=== PATIENT | female | born 1950 | race Caucasian/White ===

== ENCOUNTER 2018-09-19 17:22 | Inpatient (IN) | payer MEDICARE ==
[2018-09-19] MEDS ORDERED: SODIUM CHLORIDE 0.9% 1,000 ML IV STA (18:01)
--- NOTE | 2018-09-19 18:04 | ED ---
General Adult HPI - General Source: patient, RN notes reviewed Mode of arrival: ambulatory Limitations: no limitations <João Avalos - Last Filed: 09/19/18 20:00> <Juan Jose Camilo - Last Filed: 09/19/18 21:16> - General Chief complaint: Abdominal Pain Stated complaint: Stomach pain Time Seen by Provider: 09/19/18 17:44 - History of Present Illness Initial comments: Patient 67-year-old female presented to the emergency room today with chief complaint of abdominal pain over the last 3 days. Patient does admit that the pain seems to come and go. She states worse after she eats. She states located on the sides of the abdomen was sometimes feeling some pain into the back. Patient states that she has had an episode of vomiting a few days ago. States no bowel movement past 3 days. Patient denies any other complaints or symptoms currently. Patient denies any recent fever, chills, shortness of breath , chest pain, numbness or tingling, dysuria or hematuria, headaches or visual changes, or any other complaints. (João Avalos) - Related Data Home Medications Medication Instructions Recorded Confirmed Omeprazole 20 mg PO DAILY 09/19/18 09/19/18 Allergies Allergy/AdvReac Type Severity Reaction Status Date / Time No Known Allergies Allergy Verified 09/19/18 19:53 Review of Systems ROS Other: All systems not noted in ROS Statement are negative. <João Avalos - Last Filed: 09/19/18 20:00> ROS Other: All systems not noted in ROS Statement are negative. <Juan Jose Camilo - Last Filed: 09/19/18 21:16> ROS Statement: Those systems with pertinent positive or pertinent negative responses have been documented in the HPI. Past Medical History Past Medical History: GERD/Reflux History of Any Multi-Drug Resistant Organisms: None Reported Past Surgical History: Tubal Ligation Past Psychological History: No Psychological Hx Reported Smoking Status: Current every day smoker Past Alcohol Use History: None Reported Past Drug Use History: None Reported <João Avalos - Last Filed: 09/19/18 20:00> General Exam Limitations: no limitations <João Avalos - Last Filed: 09/19/18 20:00> <Juan Jose Camilo - Last Filed: 09/19/18 21:16> - General Exam Comments Initial Comments: General: The patient is awake and alert, in no distress, and does not appear acutely ill. Eye: Pupils are equal, round and reactive to light. Extra-ocular movements are intact. No nystagmus. There is normal conjunctiva bilaterally. No signs of icterus. Ears, nose, mouth and throat: There are moist mucous membranes and no oral lesions. Neck: The neck is supple, there is no tenderness or JVD. Cardiovascular: There is a regular rate and rhythm. No murmur, rub or gallop is appreciated. Respiratory: Lungs are clear to auscultation, respirations are non-labored, breath sounds are equal. No wheezes, stridor, rales, or rhonchi. Gastrointestinal: Soft on palpation. Patient does have tenderness right upper quadrant. No rebound, guarding or CVA tenderness. Musculoskeletal: Normal ROM, no tenderness. Sensation intact. Strength 5/5. Pulses equal bilaterally 2+. Neurological: A&O x 3. CN II-XII intact, There are no obvious motor or sensory deficits. Coordination appears grossly intact. Speech is normal. Skin: Skin is warm and dry and no rashes or lesions are noted. Psychiatric: Cooperative, appropriate mood & affect, normal judgment. (João Avalos) Course <João Avalos - Last Filed: 09/19/18 20:00> <Juan Jose Camilo - Last Filed: 09/19/18 21:16> Vital Signs 09/19/18 09/19/18 17:34 20:39 Temperature 98.1 F Pulse Rate 94 71 Respiratory 16 16 Rate Blood Pressure 135/88 137/65 O2 Sat by Pulse 98 96 Oximetry - Reevaluation(s) Reevaluation #1: 09/19/18 21:15 I was asked to enter replacement ordered for this patient, I had no other participation in this case. (Juan Jose Camilo) EKG Findings - EKG Comments: EKG Findings:: EKG performed at 1818: Shows normal sinus rhythm at 75 bpm. MI interval 138. QRS 86. QT/QTC 378/422. No. acute ST changes <João Avalos - Last Filed: 09/19/18 20:00> Medical Decision Making - Lab Data Result diagrams: 09/19/18 18:04 09/19/18 18:04 <João Avalos - Last Filed: 09/19/18 20:00> - Lab Data Result diagrams: 09/19/18 18:04 09/19/18 18:04 <Juan Jose Camilo - Last Filed: 09/19/18 21:16> - Medical Decision Making Patient's labs been reviewed shows 1000 white count. Urinalysis shows evidence for urinary tract infection. Ultrasound of the gallbladder is consistent with possible cholecystitis. Patient started on antibiotics in the emergency room discussed with attending physician Dr. Mccarthy who discussed case with admitting physician Dr. Lucas. (João Avalos) - Lab Data Lab Results 09/19/18 09/19/18 09/19/18 Range/Units 18:04 18:04 18:04 WBC 11.3 H (3.8-10.6) k/uL RBC 4.94 (3.80-5.40) m/uL Hgb 15.0 (11.4-16.0) gm/dL Hct 45.0 (34.0-46.0) % MCV 91.2 (80.0-100.0) fL MCH 30.4 (25.0-35.0) pg MCHC 33.3 (31.0-37.0) g/dL RDW 12.8 (11.5-15.5) % Plt Count 240 (150-450) k/uL Neutrophils % 80 % Lymphocytes % 10 % Monocytes % 6 % Eosinophils % 2 % Basophils % 0 % Neutrophils # 9.0 H (1.3-7.7) k/uL Lymphocytes # 1.2 (1.0-4.8) k/uL Monocytes # 0.7 (0-1.0) k/uL Eosinophils # 0.2 (0-0.7) k/uL Basophils # 0.0 (0-0.2) k/uL Sodium 136 L (137-145) mmol/L Potassium 4.1 (3.5-5.1) mmol/L Chloride 100 (98-107) mmol/L Carbon Dioxide 27 (22-30) mmol/L Anion Gap 9 mmol/L BUN 20 H (7-17) mg/dL Creatinine 0.93 (0.52-1.04) mg/dL Est GFR (CKD-EPI)AfAm 74 (>60 ml/min/1.73 sqM) Est GFR (CKD-EPI)NonAf 64 (>60 ml/min/1.73 sqM) Glucose 114 H (74-99) mg/dL Calcium 9.4 (8.4-10.2) mg/dL Total Bilirubin 0.6 (0.2-1.3) mg/dL AST 19 (14-36) U/L ALT 15 (9-52) U/L Alkaline Phosphatase 108 (38-126) U/L Total Creatine Kinase 40 (30-135) U/L CK-MB (CK-2) 0.7 (0.0-2.4) ng/mL CK-MB (CK-2) Rel Index 1.8 Troponin I <0.012 (0.000-0.034) ng/mL Total Protein 7.7 (6.3-8.2) g/dL Albumin 4.0 (3.5-5.0) g/dL Amylase 60 (30-110) U/L Lipase 67 (23-300) U/L Urine Color Urine Appearance (Clear) Urine pH (5.0-8.0) Ur Specific [place] (1.001-1.035) Urine Protein (Negative) Urine Glucose (UA) (Negative) Urine Ketones (Negative) Urine Blood (Negative) Urine Nitrite (Negative) Urine Bilirubin (Negative) Urine Urobilinogen (<2.0) mg/dL Ur Leukocyte Esterase (Negative) Urine RBC (0-5) /hpf Urine WBC (0-5) /hpf Urine WBC Clumps (None) /hpf Ur Squamous Epith Cells (0-4) /hpf Urine Bacteria (None) /hpf Urine Mucus (None) /hpf 09/19/18 Range/Units 18:04 WBC (3.8-10.6) k/uL RBC (3.80-5.40) m/uL Hgb (11.4-16.0) gm/dL Hct (34.0-46.0) % MCV (80.0-100.0) fL MCH (25.0-35.0) pg MCHC (31.0-37.0) g/dL RDW (11.5-15.5) % Plt Count (150-450) k/uL Neutrophils % % Lymphocytes % % Monocytes % % Eosinophils % % Basophils % % Neutrophils # (1.3-7.7) k/uL Lymphocytes # (1.0-4.8) k/uL Monocytes # (0-1.0) k/uL Eosinophils # (0-0.7) k/uL Basophils # (0-0.2) k/uL Sodium (137-145) mmol/L Potassium (3.5-5.1) mmol/L Chloride (98-107) mmol/L Carbon Dioxide (22-30) mmol/L Anion Gap mmol/L BUN (7-17) mg/dL Creatinine (0.52-1.04) mg/dL Est GFR (CKD-EPI)AfAm (>60 ml/min/1.73 sqM) Est GFR (CKD-EPI)NonAf (>60 ml/min/1.73 sqM) Glucose (74-99) mg/dL Calcium (8.4-10.2) mg/dL Total Bilirubin (0.2-1.3) mg/dL AST (14-36) U/L ALT (9-52) U/L Alkaline Phosphatase (38-126) U/L Total Creatine Kinase (30-135) U/L CK-MB (CK-2) (0.0-2.4) ng/mL CK-MB (CK-2) Rel Index Troponin I (0.000-0.034) ng/mL Total Protein (6.3-8.2) g/dL Albumin (3.5-5.0) g/dL Amylase (30-110) U/L Lipase (23-300) U/L Urine Color Light Yellow Urine Appearance Cloudy H (Clear) Urine pH 5.0 (5.0-8.0) Ur Specific [place] 1.008 (1.001-1.035) Urine Protein Negative (Negative) Urine Glucose (UA) Negative (Negative) Urine Ketones Negative (Negative) Urine Blood Negative (Negative) Urine Nitrite Negative (Negative) Urine Bilirubin Negative (Negative) Urine Urobilinogen <2.0 (<2.0) mg/dL Ur Leukocyte Esterase Large H (Negative) Urine RBC 2 (0-5) /hpf Urine WBC 115 H (0-5) /hpf Urine WBC Clumps Rare H (None) /hpf Ur Squamous Epith Cells <1 (0-4) /hpf Urine Bacteria Moderate H (None) /hpf Urine Mucus Rare H (None) /hpf Disposition Is patient prescribed a controlled substance at d/c from ED?: No Time of Disposition: 20:02 <João Avalos - Last Filed: 09/19/18 20:00> <Juan Jose Camilo - Last Filed: 09/19/18 21:16> Clinical Impression: Cholecystitis, UTI (urinary tract infection) Disposition: ADMITTED IP TO THIS HOSP Condition: Stable Referrals: None,Stated [Primary Care Provider] - 1-2 days
[2018-09-19] MEDS ORDERED: ACETAMINOPHEN IV (For NPO) 1,000 MG in EMPTY BAG 1 BAG IVPB STA (18:06)
[2018-09-19 18:24] LABS: Basophils % (A) 0 %; Eosinophils # (A) 0.2 k/uL (0-0.7); Eosinophils % (A) 2 %; Lymphocytes # (A) 1.2 k/uL (1.0-4.8); Lymphocytes % (A) 10 %; MCH 30.4 pg (25.0-35.0); MCHC 33.3 g/dL (31.0-37.0); MCV 91.2 fL (80.0-100.0); Monocytes # (A) 0.7 k/uL (0-1.0); Monocytes % (A) 6 %; Neutrophils % (A) 80 %; Platelet Count 240 k/uL (150-450); RBC 4.94 m/uL (3.80-5.40); RDW 12.8 % (11.5-15.5); WBC 11.3 k/uL (3.8-10.6)
[2018-09-19 18:34] LABS: Creatine Kinase 40 U/L (30-135)
[2018-09-19 18:36] LABS: Calcium 9.4 mg/dL (8.4-10.2); Potassium 4.1 mmol/L (3.5-5.1); Total Bilirubin 0.6 mg/dL (0.2-1.3); Total Protein 7.7 g/dL (6.3-8.2)
[2018-09-19 18:37] LABS: Appearance,Urine Cloudy (Clear); Bacteria,Urine Moderate /hpf; Bilirubin,Urine Negative (Negative); Blood,Urine Negative (Negative); Color,Urine Light Yellow; Glucose,Urine (UA) Negative (Negative); Ketones,Urine Negative (Negative); Leukocyte Esterase,Urine Large (Negative); Mucus,Urine Rare /hpf; Nitrite,Urine Negative (Negative); Protein,Urine Negative (Negative); RBC,Urine 2 /hpf (0-5); Specific Gravity,Urine 1.008 (1.001-1.035); Squamous Epithelial Cell,Urine <1 /hpf (0-4); Urobilinogen,Urine <2.0 mg/dL (<2.0)
[2018-09-19 18:48] LABS: Creatine Kinase MB 0.7 ng/mL (0.0-2.4); Troponin I <0.012 ng/mL (0.000-0.034)
--- NOTE | 2018-09-19 19:48 | US ---
EXAMINATION TYPE: US abdomen limited DATE OF EXAM: 09/19/2018 COMPARISON: NONE CLINICAL HISTORY: Pain. RUQ pain. EXAM MEASUREMENTS: Liver Length: 19.8 cm Gallbladder Wall: 0.7 cm CBD: 0.7 cm Right Kidney 9.3 x 4.1 x 4.0 cm Pancreas: Obscured by bowel gas slightly echogenic. Liver: Hepatomegaly. Gallbladder: Hydropic 11.2cm multiple gallstones seen with thickened wall. Evidence for sonographic Gil's sign: No CBD: wnl Right Kidney: No hydronephrosis or masses seen IMPRESSION: There are numerous gallstones. 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 No free fluid.
[2018-09-19] MEDS ORDERED: AMPICILLIN-SULBACTAM 3 GM in SODIUM CHLORIDE 0.9% 100 ML IVPB STA (20:00)
[2018-09-19] MEDS ORDERED: NALOXONE 0.4 MG/ML 1 ML VIAL IV PRN (20:02)
[2018-09-19 23:19] VITALS: BMI 28.6
[2018-09-20] MEDS: AMPICILLIN-SULBACTAM 3 GM in SODIUM CHLORIDE 0.9% 100 ML IVPB SCH ×4 (03:08→21:10)
--- NOTE | 2018-09-20 09:35 | P.GSHP ---
<Linda Aguayo - Last Filed: 09/20/18 09:26> History of Present Illness H&P Date: 09/20/18 Chief Complaint: Bilateral abdominal pain 67-year-old female started 3 days prior with nausea vomiting. Patient stated that the pain sometimes would radiate into the back. Noted that if she ate something the pain became worse. Patient points to the bilateral lower quadrant of the abdomen is to the reference point. Patient denies chest pain dizziness lightheadedness or shortness of breath. Denies any burning in urination frequency or urgency. Has no significant past medical history uses [id number] Pepcid for esophageal reflux symptoms. Past surgical history tubal ligation Gives a history of mother having gallbladder disease Ultrasound of the abdomen obtained in the emergency room showed numerous gallstones. Gallbladder wall thickening consistent with acute and chronic cholecystitis no free air white count on admission 11.3. AST ALT and total bilirubin not elevated urinalysis large amount of leukocytes - Review of Systems Comment: essentially unremarkable except as mentioned in the present illness Past Medical History Past Medical History: GERD/Reflux History of Any Multi-Drug Resistant Organisms: None Reported Past Surgical History: Tubal Ligation Past Anesthesia/Blood Transfusion Reactions: No Reported Reaction Past Psychological History: No Psychological Hx Reported Smoking Status: Current every day smoker Past Alcohol Use History: None Reported Additional Past Alcohol Use History / Comment(s): smokes half ppd Past Drug Use History: None Reported - Past Family History Sister(s) Family Medical History: Cancer, Deep Vein Thrombosis (DVT) Additional Family Medical History / Comment(s): lung ca Mother Family Medical History: COPD, Osteoarthritis (OA) Medications and Allergies Home Medications Medication Instructions Recorded Confirmed Type Omeprazole 20 mg PO DAILY 09/19/18 09/19/18 History Allergies Allergy/AdvReac Type Severity Reaction Status Date / Time No Known Allergies Allergy Verified 09/19/18 23:19 Surgical - Exam Vital Signs Temp Pulse Resp BP Pulse Ox 98.1 F 94 16 135/88 98 09/19/18 17:34 09/19/18 17:34 09/19/18 17:34 09/19/18 17:34 09/19/18 17:34 GENERAL APPEARANCE: Pleasant 67-year-old female patient is alert, oriented, in no acute distress. VITAL SIGNS: Reviewed HEENT: Head is normocephalic and atraumatic. Pupils are equal and reactive. The nares are patent. Oropharynx is clear without lesions. NECK: Supple without lymphadenopathy. Traches midline. HEART: S1, S2. Regular rate and rhythm. Denying chest pain no murmur noted LUNGS: No crackles or wheezes are heard. On room air no shortness of breath no cough ABDOMEN: Soft, mild tenderness to the right upper quadrant of the abdomen nondistended with good bowel sounds. No peritoneal signs. No palpable organomegaly or masses. Reports no nausea no vomiting no burning on urination EXTREMITIES: Normal skin color and turgor. No cyanosis, rash, ulceration, clubbing or edema. Radial pedal pulses are 2/4 bilaterally. NEUROLOGICAL: No focal deficits. Strength and sensation are grossly intact. Results - Labs 09/19/18 18:04 09/19/18 18:04 Abnormal Lab Results - Last 24 Hours (Table) 09/19/18 09/19/18 09/19/18 Range/Units 18:04 18:04 18:04 WBC 11.3 H (3.8-10.6) k/uL Neutrophils # 9.0 H (1.3-7.7) k/uL Sodium 136 L (137-145) mmol/L BUN 20 H (7-17) mg/dL Glucose 114 H (74-99) mg/dL Urine Appearance Cloudy H (Clear) Ur Leukocyte Esterase Large H (Negative) Urine WBC 115 H (0-5) /hpf Urine WBC Clumps Rare H (None) /hpf Urine Bacteria Moderate H (None) /hpf Urine Mucus Rare H (None) /hpf Microbiology - Last 24 Hours (Table) 09/19/18 18:04 Urine Culture - Preliminary Urine,Voided Diabetes panel 09/19/18 Range/Units 18:04 Sodium 136 L (137-145) mmol/L Potassium 4.1 (3.5-5.1) mmol/L Chloride 100 (98-107) mmol/L Carbon Dioxide 27 (22-30) mmol/L BUN 20 H (7-17) mg/dL Creatinine 0.93 (0.52-1.04) mg/dL Glucose 114 H (74-99) mg/dL Calcium 9.4 (8.4-10.2) mg/dL AST 19 (14-36) U/L ALT 15 (9-52) U/L Alkaline Phosphatase 108 (38-126) U/L Total Protein 7.7 (6.3-8.2) g/dL Albumin 4.0 (3.5-5.0) g/dL Calcium panel 09/19/18 Range/Units 18:04 Calcium 9.4 (8.4-10.2) mg/dL Albumin 4.0 (3.5-5.0) g/dL Pituitary panel 09/19/18 Range/Units 18:04 Sodium 136 L (137-145) mmol/L Potassium 4.1 (3.5-5.1) mmol/L Chloride 100 (98-107) mmol/L Carbon Dioxide 27 (22-30) mmol/L BUN 20 H (7-17) mg/dL Creatinine 0.93 (0.52-1.04) mg/dL Glucose 114 H (74-99) mg/dL Calcium 9.4 (8.4-10.2) mg/dL Adrenal panel 09/19/18 Range/Units 18:04 Sodium 136 L (137-145) mmol/L Potassium 4.1 (3.5-5.1) mmol/L Chloride 100 (98-107) mmol/L Carbon Dioxide 27 (22-30) mmol/L BUN 20 H (7-17) mg/dL Creatinine 0.93 (0.52-1.04) mg/dL Glucose 114 H (74-99) mg/dL Calcium 9.4 (8.4-10.2) mg/dL Total Bilirubin 0.6 (0.2-1.3) mg/dL AST 19 (14-36) U/L ALT 15 (9-52) U/L Alkaline Phosphatase 108 (38-126) U/L Total Protein 7.7 (6.3-8.2) g/dL Albumin 4.0 (3.5-5.0) g/dL Assessment and Plan Assessment: Impression Present on admission bilateral lower quadrant abdominal pain right greater than the left suspect due to acute cholecystitis Present on admission leukocytosis Present on admission UTI asymptomatic Ultrasound of the abdomen numerous gallstones, gallbladder wall thickening consistent with acute and chronic cholecystitis Current every day smoker History of esophageal reflux Family history of gallbladder disease mother Plan Scheduled today for a lap cholecystectomy IV fluid for hydration DVT and GI prophylaxis Follow up on urine culture Continue IV Unasyn as ordered Pain control Further recommendations pending clinical course The above impression and plan of care have been discussed and directed by signing physician. Linda Aguayo nurse practitioner acting as scribe for signing physician. <Winston Lucas - Last Filed: 09/21/18 13:29> Surgical - Exam Vital Signs Temp Pulse Resp BP Pulse Ox 98.1 F 94 16 135/88 98 09/19/18 17:34 09/19/18 17:34 09/19/18 17:34 09/19/18 17:34 09/19/18 17:34 Results - Labs 09/20/18 09:25 09/20/18 09:25 Microbiology - Last 24 Hours (Table) 09/19/18 18:04 Urine Culture - Preliminary Urine,Voided Gram Neg Bacilli Assessment and Plan Plan: Laparoscopic cholecystectomy will be performed on 09/21/2018
[2018-09-20 09:52] LABS: Basophils % (A) 1 %; Eosinophils # (A) 0.3 k/uL (0-0.7); Eosinophils % (A) 4 %; HCT 42.5 % (34.0-46.0); HGB 13.6 gm/dL (11.4-16.0); Lymphocytes # (A) 1.1 k/uL (1.0-4.8); Lymphocytes % (A) 16 %; MCH 29.8 pg (25.0-35.0); MCHC 32.1 g/dL (31.0-37.0); MCV 92.7 fL (80.0-100.0); Mean Platelet Volume 6.9; Monocytes # (A) 0.5 k/uL (0-1.0); Monocytes % (A) 7 %; Neutrophils # (A) 5.2 k/uL (1.3-7.7); Neutrophils % (A) 71 %; Platelet Count 229 k/uL (150-450); RBC 4.59 m/uL (3.80-5.40); RDW 12.8 % (11.5-15.5); WBC 7.3 k/uL (3.8-10.6)
[2018-09-20 10:02] LABS: Albumin 3.2 g/dL (3.5-5.0); Potassium 4.2 mmol/L (3.5-5.1); Total Bilirubin 0.9 mg/dL (0.2-1.3); Total Protein 6.5 g/dL (6.3-8.2)
[2018-09-20] MEDS: MORPHINE SULFATE 4 MG/ML SYRINGE IV PRN (16:21)
[2018-09-20] MEDS: ONDANSETRON 4 MG/2 ML VIAL IVP PRN (23:01)
[2018-09-21] MEDS: AMPICILLIN-SULBACTAM 3 GM in SODIUM CHLORIDE 0.9% 100 ML IVPB SCH ×4 (03:51→20:53)
[2018-09-21] MEDS: MORPHINE SULFATE 4 MG/ML SYRINGE IV PRN (03:57)
[2018-09-21] MEDS ORDERED: DEXAMETHASONE SOD PHOSPHATE 10 MG/ML 1 ML VIAL IV ONE (05:37)
[2018-09-21] MEDS ORDERED: SCOPOLAMINE 1.5MG/72HR PATCH TRANSDERM ONE (05:37)
[2018-09-21] MEDS ORDERED: LIDOCAINE 1% 20 ML VIAL (10MG/ML) FOR IV START INTRADERMA PRN (05:37)
[2018-09-21] MEDS ORDERED: ONDANSETRON 4 MG/2 ML VIAL IVP ONE (05:37)
[2018-09-21] MEDS ORDERED: HYDROmorphone 0.5 MG/0.5 ML SYRINGE IVP PRN (05:37)
[2018-09-21] MEDS ORDERED: IV FLUID CONTINUATION 900 ML IV ONE (13:09)
[2018-09-21] MEDS ORDERED: BUPIVACAIN-EPI 0.25%-1:200,000 30 ML VIAL SQ ONE ×2 (13:27→14:05)
[2018-09-21] MEDS ORDERED: HEPARIN SODIUM,PORCINE 5,000 UNIT/ML 1 ML VIAL SQ ONE (13:36)
[2018-09-21] MEDS ORDERED: LIDOCAINE 1% INJ 10MG/ML (20 ML MDV) ONE (13:46)
[2018-09-21] MEDS ORDERED: fentaNYL (PF) 50 MCG/ML 2 ML AMP ONE (13:46)
[2018-09-21] MEDS ORDERED: MIDAZOLAM 2 MG/2 ML VIAL ONE (13:46)
[2018-09-21] MEDS ORDERED: GLYCOPYRROLATE 0.2 MG/ML 2 ML VIAL ONE (13:46)
[2018-09-21] MEDS ORDERED: NEOSTIGMINE 1 MG/ML 10 ML VIAL ONE (13:46)
[2018-09-21] MEDS ORDERED: SUCCINYLCHOLINE CHLORIDE 100 MG/5 ML SYR IV ONE (13:46)
[2018-09-21] MEDS ORDERED: KETOROLAC 30 MG/ML 1 ML VIAL ONE (13:46)
[2018-09-21] MEDS ORDERED: PROPOFOL 10 MG/ML 20 ML VIAL IV ONE (13:46)
[2018-09-21] MEDS ORDERED: ROCURONIUM BROMIDE 10 MG/ML 10 ML VIAL IV ONE (13:46)
[2018-09-21] MEDS ORDERED: HYDROmorphone 1 MG/ML 1 ML SYRINGE IVP PRN (14:47)
[2018-09-21] MEDS: ONDANSETRON 4 MG/2 ML VIAL IVP PRN (14:53)
[2018-09-21] MEDS ORDERED: PROMETHAZINE INJ 25 MG/ML 1 ML VIAL IVPB ONE (15:07)
[2018-09-21] MEDS: LACTATED RINGERS 1,000 ML IV SCH (16:19)
--- NOTE | 2018-09-21 17:37 | P.OP ---
Date of Procedure: 09/21/18 Preoperative Diagnosis: Cholecystitis Postoperative Diagnosis: Cholecystitis Cholelithiasis Procedure(s) Performed: Laparoscopic cholecystectomy Anesthesia: SARINA Surgeon: Winston Lucas Estimated Blood Loss (ml): 5 Pathology: other (Gallbladder) Condition: stable Disposition: PACU Description of Procedure: The patient was placed on the operating table. The patient received a general endotracheal tube anesthesia. The patients abdomen was prepped and draped in the usual sterile fashion. Through an infraumbilical stab incision, the fascia of the anterior abdominal wall was grasped with a pair of Kochers and then the Veress needle was placed in the peritoneal cavity. Position of the Veress needle was confirmed with positive drop test. The abdomen was then insufflated. After adequate insufflation, the 10 mm trocar was placed in the peritoneal cavity. Following this the laparoscope was placed in the peritoneal cavity. The patient was placed in the head-up, right side up position and then a 5 mm trocar was placed in the right lateral and right subcostal position under direct visualization. A 8 mm trocar was placed in the epigastric position. The gallbladder was grasped in the fundus and infundibulum. Traction on the gallbladder was placed in the lateral and the cephalad positions. The triangle of Calot was visualized.. The cystic duct was bluntly dissected until the union of the cystic duct and common bile duct was seen. The cystic duct was then divided and sealed with the Harmonic scissors. A PDS Endoloop was then placed throughout the cystic duct stump. The cystic artery divided and sealed with the Harmonic scissors. The gallbladder was then removed from the liver bed using Harmonic scissors. The gallbladder was then extracted through the epigastric port site. Operative field was checked for any bleeding spots and Harmonic scissors was used to coagulate the liver bed. The abdomen was irrigated. The trocars were removed. The skin was closed using interrupted 3-0 Vicryl suture. Dermabond dressing were applied. The patient tolerated the procedure well.
[2018-09-22] MEDS: AMPICILLIN-SULBACTAM 3 GM in SODIUM CHLORIDE 0.9% 100 ML IVPB SCH ×2 (03:40→08:23)
[2018-09-22] MEDS: LACTATED RINGERS 1,000 ML IV SCH (08:25)
[2018-09-22 09:02] VITALS: BP 146/81; PULSE 78; RESP 20; TEMP 97.6
--- NOTE | 2018-09-22 10:19 | P.DS ---
Providers Date of admission: 09/19/18 21:15 Expected date of discharge: 09/22/18 Attending physician: Winston Lucas Primary care physician: Stated None Hospital Course: 67-year-old female who presented on the day of admission to the emergency room after reportedly experiencing for the past several days nausea vomiting with pain in the right lower quadrant that radiated into the back. Patient stated that she ate something that seemed to make the pain worse. Patient denied any prior incident. He should had no significant past medical history. In the emergency room and ultrasound of the abdomen was obtained which showed numerous gallstones. Gallbladder wall thickening consistent with acute and chronic cholecystitis no free air liver enzymes were not elevated the urinalysis showed large amount of leukocytes urine culture was positive for E. coli. Patient states that she was experiencing burning on urination frequency and urgency at home. On September 21 the patient underwent a laparoscopic cholecystectomy for cholecystitis.. Patient was started on IV antibiotics and at the time of discharge patient was seen by case management rn indigent drug done was used patient had no prescription coverage. Patient was advised to stop smoking cigarettes and smoking cessation information provided The day of discharge patient was ambulatory on the unit surgical dressing sites dry pain medication effective for pain control patient was felt to be appropriate to be discharged home Impression Present on admission bilateral lower quadrant abdominal pain right greater than the left suspect due to acute cholecystitis Present on admission leukocytosis Present on admission UTI symptomatic frequency urgency and burning on urination with the urine culture positive for E. coli Ultrasound of the abdomen numerous gallstones, gallbladder wall thickening consistent with acute and chronic cholecystitis Current every day smoker History of esophageal reflux Family history of gallbladder disease mother Status post laparoscopic cholecystectomy for cholelithiasis and cholecystitis The above impression and plan of care have been discussed and directed by signing physician. Linda Aguayo nurse practitioner acting as scribe for signing physician. Patient Condition at Discharge: Stable Plan - Discharge Summary New Discharge Prescriptions: New Levofloxacin [Levaquin] 500 mg PO DAILY #7 tab Hydrocodone/Acetaminophen [[place] 5-325] 1 tab PO Q6HR PRN 3 Days #12 tab PRN Reason: Mild To Moderate Pain No Action Omeprazole 20 mg PO DAILY Discharge Medication List Omeprazole 20 mg PO DAILY 09/19/18 [History] Hydrocodone/Acetaminophen [[place] 5-325] 1 tab PO Q6HR PRN 3 Days #12 tab [Rx] Levofloxacin [Levaquin] 500 mg PO DAILY #7 tab 09/22/18 [Rx] Follow up Appointment(s)/Referral(s): None,Stated [Primary Care Provider] - 1-2 days Winston Lucas MD [STAFF PHYSICIAN] - 1 Week Activity/Diet/Wound Care/Special Instructions: No tub bath for six weeks. Shower daily. No lifting over 10 pounds for the next 2 weeks. Take antibiotic Levaquin for the UTI until completed March use ice packs to surgical site. No driving while taking narcotic for pain. Did not remove the plastic surgical dressings until seen in the follow-up Discharge Disposition: HOME SELF-CARE
== END 2018-09-22 11:30 | disposition home or self-care (01) | DRG 418 ==
LOC: EC 17:22 → 6PED 21:15
PROVIDERS: ADMIT Surgery; ATTEND Surgery
PROC: 0FT44ZZ Resection of Gallbladder, Percutaneous Endoscopic Approach (ICD-10-PCS; principal; 2018-09-21 17:50)
DX: K80.12 Calculus of gallbladder with acute and chronic cholecystitis without obstruction (principal); N39.0 Urinary tract infection, site not specified; K21.9 Gastro-esophageal reflux disease without esophagitis; B96.20 Unspecified Escherichia coli [E. coli] as the cause of diseases classified elsewhere; F17.210 Nicotine dependence, cigarettes, uncomplicated; Z80.1 Family history of malignant neoplasm of trachea, bronchus and lung; Z82.5 Family history of asthma and other chronic lower respiratory diseases; Z82.61 Family history of arthritis; Z82.49 Family history of ischemic heart disease and other diseases of the circulatory system; Z83.79 Family history of other diseases of the digestive system; Z79.899 Other long term (current) drug therapy; Z98.51 Tubal ligation status
CPT/HCPCS: 36415; 76705; 80053; 81001; 82150; 82550; 82553; 83690; 84484; 85025; 87077; 87086; 87186; 88304; 93005; 96361; 96365; 96375; 99285

== ENCOUNTER 2020-10-18 16:32 | Emergency (ER) | payer MEDICARE, OTHER ==
[2020-10-18 16:40] VITALS: RESP 18
--- NOTE | 2020-10-18 17:31 | ED ---
General Adult HPI - General Chief complaint: Urogenital Stated complaint: GI BLEED Time Seen by Provider: 10/18/20 17:07 Source: patient Mode of arrival: ambulatory Limitations: no limitations - History of Present Illness Initial comments: Dictation was produced using [employer] dictation software. please excuse any grammatical, word or spelling errors. This patient was cared for during a federal and state declared state of emergency secondary to Covid 19 Chief Complaint: 69-year-old female presents with hematuria History of Present Illness: A 69-year-old female presents today with 4 days of hematuria. Patient states she was evaluated by her primary care physician is given referral to urology. She however was not accept this patient due to her insurance. She Had persistent hematuria decided come to the emergency department. Patient denies any medical problems patient does take a baby aspirin. Patient does complain of some mild suprapubic pain that's achy in nature. With no exacerbating or mitigating factors. She denies any flank tenderness. No constitutional symptoms. Denies any dysuria. The ROS documented in this emergency department record has been reviewed and confirmed by me. Those systems with pertinent positive or negative responses have been documented in the HPI. All other systems are other negative and/or noncontributory. PHYSICAL EXAM: General Impression: Alert and oriented x3, not in acute distress HEENT: Normocephalic atraumatic, extra-ocular movements intact, pupils equal and reactive to light bilaterally, mucous membranes moist. Cardiovascular: Heart regular rate and rhythm Chest: Able to complete full sentences, no retractions, no tachypnea Abdomen: abdomen soft, superpubic tenderness, non-distended, no organomegaly Musculoskeletal: Pulses present and equal in all extremities, no peripheral edema Motor: no focal deficits noted Neurological: CN II-XII grossly intact, no focal motor or sensory deficits noted Skin: Intact with no visualized rashes Psych: Normal affect and mood ED course: 69-year-old female presents today with hematuria. Vital signs upon arrival are within acceptable limits. Patient states that her insurance does not be accepted by the local urologist. She has not found any urologist that does accept her insurance. Laboratory evaluation obtained. Mild leukocytosis of 12.1 neutrophils to 0.1. Coag panel is unremarkable. Metabolic panel is negative. Urinalysis shows greater than 182 red blood cells and greater than 182 white blood cells. Kidneys urine bladder ultrasound shows mild left-sided hydronephrosis and no ureteral jets seen on the left side. Consistent with obstruction. There is some fluid distention in the endometrial cavity measuring 1.5 cm there is concern of urinary tract infection. Patient symptoms does not suggest nephroli thiasis given that patient doesn't have any flank pain or similar symptoms. Renal markers are normal. Patient discharged. She is advised to follow-up with her PCP to get an appropriate urology referral. Return parameters discussed. - Related Data Home Medications Medication Instructions Recorded Confirmed Omeprazole 20 mg PO DAILY 09/19/18 10/18/20 Acetaminophen Tab [Tylenol] 325 mg PO DAILY PRN 10/18/20 10/18/20 Aspirin [Adult Low Dose Aspirin EC] 81 mg PO HS 10/18/20 10/18/20 Atorvastatin Calcium [Lipitor] 10 mg PO HS 10/18/20 10/18/20 Besifloxacin HCl [Besivance] 1 drop LEFT EYE TID 10/18/20 10/18/20 Ergocalciferol [Vitamin D2 50,000 unit PO MO 10/18/20 10/18/20 (DRISDOL)] Allergies Allergy/AdvReac Type Severity Reaction Status Date / Time No Known Allergies Allergy Verified 10/18/20 18:39 Review of Systems ROS Statement: Those systems with pertinent positive or pertinent negative responses have been documented in the HPI. ROS Other: All systems not noted in ROS Statement are negative. Past Medical History Past Medical History: GERD/Reflux History of Any Multi-Drug Resistant Organisms: None Reported Past Surgical History: Tubal Ligation Past Anesthesia/Blood Transfusion Reactions: No Reported Reaction Past Psychological History: No Psychological Hx Reported Smoking Status: Current every day smoker Past Alcohol Use History: None Reported Past Drug Use History: None Reported - Past Family History Sister(s) Family Medical History: Cancer, Deep Vein Thrombosis (DVT) Additional Family Medical History / Comment(s): lung ca Mother Family Medical History: COPD, Osteoarthritis (OA) General Exam Limitations: no limitations Course Vital Signs 10/18/20 10/18/20 16:34 18:55 Temperature 96.3 F L Pulse Rate 103 H 76 Respiratory 18 18 Rate Blood Pressure 165/86 175/85 O2 Sat by Pulse 98 98 Oximetry Medical Decision Making - Lab Data Result diagrams: 10/18/20 17:45 10/18/20 17:44 Lab Results 10/18/20 10/18/20 10/18/20 Range/Units 17:33 17:44 17:44 WBC (3.8-10.6) k/uL RBC (3.80-5.40) m/uL Hgb (11.4-16.0) gm/dL Hct (34.0-46.0) % MCV (80.0-100.0) fL MCH (25.0-35.0) pg MCHC (31.0-37.0) g/dL RDW (11.5-15.5) % Plt Count (150-450) k/uL MPV Neutrophils % % Lymphocytes % % Monocytes % % Eosinophils % % Basophils % % Neutrophils # (1.3-7.7) k/uL Lymphocytes # (1.0-4.8) k/uL Monocytes # (0-1.0) k/uL Eosinophils # (0-0.7) k/uL Basophils # (0-0.2) k/uL PT 9.7 (9.0-12.0) sec INR 0.9 (<1.2) APTT 24.4 (22.0-30.0) sec Sodium 135 L (137-145) mmol/L Potassium 5.0 (3.5-5.1) mmol/L Chloride 105 (98-107) mmol/L Carbon Dioxide 25 (22-30) mmol/L Anion Gap 5 mmol/L BUN 15 (7-17) mg/dL Creatinine 0.89 (0.52-1.04) mg/dL Est GFR (CKD-EPI)AfAm 76 (>60 ml/min/1.73 sqM) Est GFR (CKD-EPI)NonAf 66 (>60 ml/min/1.73 sqM) Glucose 113 H (74-99) mg/dL Calcium 9.4 (8.4-10.2) mg/dL Urine Color Red Urine Appearance Bloody H (Clear) Urine RBC >182 H (0-5) /hpf Urine WBC >182 H (0-5) /hpf Blood Type Blood Type Recheck Bld Type Recheck Status Antibody Screen Spec Expiration Date 10/18/20 10/18/20 Range/Units 17:44 17:45 WBC 12.1 H (3.8-10.6) k/uL RBC 4.50 (3.80-5.40) m/uL Hgb 14.0 (11.4-16.0) gm/dL Hct 42.5 (34.0-46.0) % MCV 94.4 (80.0-100.0) fL MCH 31.2 (25.0-35.0) pg MCHC 33.1 (31.0-37.0) g/dL RDW 12.6 (11.5-15.5) % Plt Count 265 (150-450) k/uL MPV 7.8 Neutrophils % 83 % Lymphocytes % 9 % Monocytes % 5 % Eosinophils % 1 % Basophils % 1 % Neutrophils # 10.1 H (1.3-7.7) k/uL Lymphocytes # 1.1 (1.0-4.8) k/uL Monocytes # 0.6 (0-1.0) k/uL Eosinophils # 0.1 (0-0.7) k/uL Basophils # 0.1 (0-0.2) k/uL PT (9.0-12.0) sec INR (<1.2) APTT (22.0-30.0) sec Sodium (137-145) mmol/L Potassium (3.5-5.1) mmol/L Chloride (98-107) mmol/L Carbon Dioxide (22-30) mmol/L Anion Gap mmol/L BUN (7-17) mg/dL Creatinine (0.52-1.04) mg/dL Est GFR (CKD-EPI)AfAm (>60 ml/min/1.73 sqM) Est GFR (CKD-EPI)NonAf (>60 ml/min/1.73 sqM) Glucose (74-99) mg/dL Calcium (8.4-10.2) mg/dL Urine Color Urine Appearance (Clear) Urine RBC (0-5) /hpf Urine WBC (0-5) /hpf Blood Type O Positive Blood Type Recheck No Previous Record Bld Type Recheck Status CABO Indicated Antibody Screen NEGATIVE Spec Expiration Date 10/21/2020 - 234 Disposition Clinical Impression: Hematuria Disposition: HOME SELF-CARE Condition: Fair Instructions (If sedation given, give patient instructions): Hematuria (ED) Additional Instructions: Today you were evaluated for blood in her urine. There was signs of infection seen on your urine studies. Your prescribed antibiotics for this. There are signs of left-sided renal system obstruction that needs to be evaluated by a urologist. Please seek immediate medical attention if he had worsening symptoms especially including fevers, lightheadedness or abdominal pain. Is patient prescribed a controlled substance at d/c from ED?: No Referrals: Abeba Armando MD [Primary Care Provider] - 1-2 days Time of Disposition: 19:00
[2020-10-18 17:52] LABS: RBC,Urine >182 /hpf (0-5); WBC,Urine >182 /hpf (0-5)
[2020-10-18 17:54] LABS: Appearance,Urine Bloody (Clear); Color,Urine Red
[2020-10-18 17:59] LABS: Basophils # (A) 0.1 k/uL (0-0.2); Basophils % (A) 1 %; Eosinophils # (A) 0.1 k/uL (0-0.7); Eosinophils % (A) 1 %; HCT 42.5 % (34.0-46.0); Lymphocytes # (A) 1.1 k/uL (1.0-4.8); Lymphocytes % (A) 9 %; MCH 31.2 pg (25.0-35.0); MCHC 33.1 g/dL (31.0-37.0); MCV 94.4 fL (80.0-100.0); Mean Platelet Volume 7.8; Monocytes # (A) 0.6 k/uL (0-1.0); Monocytes % (A) 5 %; Neutrophils # (A) 10.1 k/uL (1.3-7.7); Neutrophils % (A) 83 %; Platelet Count 265 k/uL (150-450); RDW 12.6 % (11.5-15.5); WBC 12.1 k/uL (3.8-10.6)
[2020-10-18 18:13] LABS: Calcium 9.4 mg/dL (8.4-10.2)
[2020-10-18 18:46] LABS: INR 0.9 (<1.2); Partial Thromboplastin Time 24.4 sec (22.0-30.0); Prothrombin Time 9.7 sec (9.0-12.0)
--- NOTE | 2020-10-18 18:46 | US ---
EXAMINATION TYPE: US kidneys/renal and bladder DATE OF EXAM: 10/18/2020 COMPARISON: US 09/19/2018 CLINICAL HISTORY: hematuria. Difficult exam due to overlying bowel gas. Patient states she is passing blood clots. Pelvic pain EXAM MEASUREMENTS: Right Kidney: 9.9 x 4.3 x 4.0 cm Left Kidney: 10.5 x 6.0 x 5.4 cm Right Kidney: No hydronephrosis. Possible junctional defect or other etiology visualized mid pole Left Kidney: Possible mild amount of hydronephrosis visualized. Very limited visualization due to ove rlying bowel gas Bladder: wnl Bilateral Jets seen: No. Left jet not visualized Incidental finding: The endometrium of the uterus appears to be thickened with complex fluid visualiz ed within measuring 1.7 cm. Patient is postmenopausal IMPRESSION: There is mild left-sided hydronephrosis and no ureteral jet seen on the left side. This is consistent with obstruction. There is noted some fluid distention of the endometrial cavity. This measures 1.5 cm.
[2020-10-18] MEDS ORDERED: cefTRIAXone IN SWFI 1,000 MG/10 ML SYRINGE IVP STA (18:50)
--- NOTE | 2020-10-18 20:58 | ED ---
Medical Decision Making - Lab Data Result diagrams: 10/18/20 17:45 10/18/20 17:44 Lab Results 10/18/20 10/18/20 10/18/20 Range/Units 17:33 17:44 17:44 WBC (3.8-10.6) k/uL RBC (3.80-5.40) m/uL Hgb (11.4-16.0) gm/dL Hct (34.0-46.0) % MCV (80.0-100.0) fL MCH (25.0-35.0) pg MCHC (31.0-37.0) g/dL RDW (11.5-15.5) % Plt Count (150-450) k/uL MPV Neutrophils % % Lymphocytes % % Monocytes % % Eosinophils % % Basophils % % Neutrophils # (1.3-7.7) k/uL Lymphocytes # (1.0-4.8) k/uL Monocytes # (0-1.0) k/uL Eosinophils # (0-0.7) k/uL Basophils # (0-0.2) k/uL PT 9.7 (9.0-12.0) sec INR 0.9 (<1.2) APTT 24.4 (22.0-30.0) sec Sodium 135 L (137-145) mmol/L Potassium 5.0 (3.5-5.1) mmol/L Chloride 105 (98-107) mmol/L Carbon Dioxide 25 (22-30) mmol/L Anion Gap 5 mmol/L BUN 15 (7-17) mg/dL Creatinine 0.89 (0.52-1.04) mg/dL Est GFR (CKD-EPI)AfAm 76 (>60 ml/min/1.73 sqM) Est GFR (CKD-EPI)NonAf 66 (>60 ml/min/1.73 sqM) Glucose 113 H (74-99) mg/dL Calcium 9.4 (8.4-10.2) mg/dL Urine Color Red Urine Appearance Bloody H (Clear) Urine RBC >182 H (0-5) /hpf Urine WBC >182 H (0-5) /hpf Blood Type Blood Type Recheck Bld Type Recheck Status Antibody Screen Spec Expiration Date 10/18/20 10/18/20 Range/Units 17:44 17:45 WBC 12.1 H (3.8-10.6) k/uL RBC 4.50 (3.80-5.40) m/uL Hgb 14.0 (11.4-16.0) gm/dL Hct 42.5 (34.0-46.0) % MCV 94.4 (80.0-100.0) fL MCH 31.2 (25.0-35.0) pg MCHC 33.1 (31.0-37.0) g/dL RDW 12.6 (11.5-15.5) % Plt Count 265 (150-450) k/uL MPV 7.8 Neutrophils % 83 % Lymphocytes % 9 % Monocytes % 5 % Eosinophils % 1 % Basophils % 1 % Neutrophils # 10.1 H (1.3-7.7) k/uL Lymphocytes # 1.1 (1.0-4.8) k/uL Monocytes # 0.6 (0-1.0) k/uL Eosinophils # 0.1 (0-0.7) k/uL Basophils # 0.1 (0-0.2) k/uL PT (9.0-12.0) sec INR (<1.2) APTT (22.0-30.0) sec Sodium (137-145) mmol/L Potassium (3.5-5.1) mmol/L Chloride (98-107) mmol/L Carbon Dioxide (22-30) mmol/L Anion Gap mmol/L BUN (7-17) mg/dL Creatinine (0.52-1.04) mg/dL Est GFR (CKD-EPI)AfAm (>60 ml/min/1.73 sqM) Est GFR (CKD-EPI)NonAf (>60 ml/min/1.73 sqM) Glucose (74-99) mg/dL Calcium (8.4-10.2) mg/dL Urine Color Urine Appearance (Clear) Urine RBC (0-5) /hpf Urine WBC (0-5) /hpf Blood Type O Positive Blood Type Recheck No Previous Record Bld Type Recheck Status CABO Indicated Antibody Screen NEGATIVE Spec Expiration Date 10/21/2020 - 234 Disposition Clinical Impression: Hematuria Disposition: HOME SELF-CARE Condition: Fair Instructions (If sedation given, give patient instructions): Hematuria (ED) Additional Instructions: Today you were evaluated for blood in her urine. There was signs of infection seen on your urine studies. Your prescribed antibiotics for this. There are signs of left-sided renal system obstruction that needs to be evaluated by a urologist. Please seek immediate medical attention if he had worsening symptoms especially including fevers, lightheadedness or abdominal pain. Prescriptions: Cephalexin [Keflex] 500 mg PO Q6HR 7 Days #28 cap Is patient prescribed a controlled substance at d/c from ED?: No Referrals: Abeba Armando MD [Primary Care Provider] - 1-2 days Time of Disposition: 20:58
[2020-10-18 21:07] VITALS: BP 171/97; PULSE 78; TEMP 98.3
== END 2020-10-18 21:07 | disposition home or self-care (01) ==
LOC: EC 16:32
DX: N13.30 Unspecified hydronephrosis (principal); R31.9 Hematuria, unspecified; D72.829 Elevated white blood cell count, unspecified; K21.9 Gastro-esophageal reflux disease without esophagitis; F17.200 Nicotine dependence, unspecified, uncomplicated; Z79.82 Long term (current) use of aspirin; Z79.899 Other long term (current) drug therapy
CPT/HCPCS: 99285 ×2; 96374 ×2; 51798; 36415; 86900; 86901; 80048; 85025; 85610; 85730; 86850; 81001; 76770; J0696

== ENCOUNTER 2022-05-11 12:17 | Emergency (ER) | payer MEDICARE, OTHER ==
[2022-05-11 12:28] VITALS: RESP 18; TEMP 97.8
[2022-05-11] MEDS ORDERED: SODIUM CHLORIDE 0.9% 1,000 ML IV STA (12:28)
[2022-05-11] MEDS ORDERED: ONDANSETRON 4 MG/2 ML VIAL IVP STA (12:28)
[2022-05-11] MEDS ORDERED: MORPHINE SULFATE 4 MG/ML SYRINGE IV STA (12:28)
[2022-05-11] MEDS ORDERED: FAMOTIDINE 20 MG/2 ML VIAL IV STA (12:29)
--- NOTE | 2022-05-11 12:33 | ED ---
General Adult HPI - General Chief complaint: Abdominal Pain Stated complaint: Abdominal Pain Time Seen by Provider: 05/11/22 12:19 Source: patient, RN notes reviewed Mode of arrival: ambulatory Limitations: no limitations - History of Present Illness Initial comments: Patient is a pleasant 71-year-old female presenting to the emergency Department with abdominal discomfort. Symptoms have been present for the past 2 months. Progressively worsening. Patient states oral intake makes symptoms worse. Patient does have nausea. No vomiting. Occasional loose stools. No constipation. Abdominal discomfort is diffuse. No history of chronic similar problems previously. - Related Data Previous Rx's Medication Instructions Recorded Sulfamethox-Tmp 800-160Mg [Bactrim 1 each PO Q12HR #20 tab 05/11/22 DS 800-160 mg] Allergies Allergy/AdvReac Type Severity Reaction Status Date / Time No Known Allergies Allergy Verified 05/11/22 12:43 Review of Systems ROS Statement: Those systems with pertinent positive or pertinent negative responses have been documented in the HPI. ROS Other: All systems not noted in ROS Statement are negative. Constitutional: Denies: fever Eyes: Denies: eye pain ENT: Denies: ear pain Respiratory: Denies: cough Cardiovascular: Denies: chest pain Endocrine: Denies: fatigue Gastrointestinal: Reports: as per HPI, abdominal pain, nausea. Denies: vomiting Genitourinary: Denies: dysuria Musculoskeletal: Denies: back pain Skin: Denies: rash Neurological: Denies: weakness Past Medical History Past Medical History: GERD/Reflux History of Any Multi-Drug Resistant Organisms: None Reported Past Surgical History: Cholecystectomy, Tubal Ligation Additional Past Surgical History / Comment(s): cataract surgery Past Anesthesia/Blood Transfusion Reactions: No Reported Reaction Past Psychological History: No Psychological Hx Reported Smoking Status: Current every day smoker Past Alcohol Use History: None Reported Past Drug Use History: None Reported - Past Family History Sister(s) Family Medical History: Cancer, Deep Vein Thrombosis (DVT) Additional Family Medical History / Comment(s): lung ca Mother Family Medical History: COPD, Osteoarthritis (OA) General Exam Limitations: no limitations General appearance: alert, in no apparent distress Head exam: Present: normocephalic Eye exam: Present: normal appearance Neck exam: Present: normal inspection Respiratory exam: Present: normal lung sounds bilaterally Cardiovascular Exam: Present: regular rate, normal rhythm Expanded Peripheral pulses: 2+: Posterior Tibialis (R), Posterior Tibialis (L), Dorsalis Pedis (R), Dorsalis Pedis (L) GI/Abdominal exam: Present: soft, tenderness (Moderate diffuse tenderness), normal bowel sounds. Absent: distended, guarding, rebound, rigid, pulsatile mass Extremities exam: Present: normal inspection. Absent: pedal edema, calf tenderness Neurological exam: Present: alert Psychiatric exam: Present: normal affect, normal mood Skin exam: Present: normal color Course Vital Signs 05/11/22 12:23 Temperature 97.8 F Pulse Rate 73 Respiratory 18 Rate Blood Pressure 157/83 O2 Sat by Pulse 97 Oximetry Medical Decision Making - Medical Decision Making Patient reevaluated and resting comfortably in bed. Patient updated on results and plan. Case was discussed with Dr. Carrizales who would like to follow-up the patient in the office. - Lab Data Result diagrams: 05/11/22 12:43 05/11/22 13:30 Lab Results 05/11/22 05/11/22 05/11/22 Range/Units 12:43 12:59 13:30 WBC 12.7 H (3.8-10.6) k/uL RBC 4.37 (3.80-5.40) m/uL Hgb 13.6 (11.4-16.0) gm/dL Hct 42.4 (34.0-46.0) % MCV 97.1 (80.0-100.0) fL MCH 31.2 (25.0-35.0) pg MCHC 32.1 (31.0-37.0) g/dL RDW 13.7 (11.5-15.5) % Plt Count 328 (150-450) k/uL MPV 8.4 Neutrophils % 77 % Lymphocytes % 13 % Monocytes % 7 % Eosinophils % 2 % Basophils % 1 % Neutrophils # 9.7 H (1.3-7.7) k/uL Lymphocytes # 1.7 (1.0-4.8) k/uL Monocytes # 0.9 (0-1.0) k/uL Eosinophils # 0.2 (0-0.7) k/uL Basophils # 0.1 (0-0.2) k/uL Hypochromasia Slight PT (9.0-12.0) sec INR (<1.2) APTT (22.0-30.0) sec Sodium 137 (137-145) mmol/L Potassium 4.3 (3.5-5.1) mmol/L Chloride 105 (98-107) mmol/L Carbon Dioxide 22 (22-30) mmol/L Anion Gap 10 mmol/L BUN 20 H (7-17) mg/dL Creatinine 0.91 (0.52-1.04) mg/dL Est GFR (CKD-EPI)AfAm 73 (>60 ml/min/1.73 sqM) Est GFR (CKD-EPI)NonAf 63 (>60 ml/min/1.73 sqM) Glucose 96 (74-99) mg/dL Calcium 9.0 (8.4-10.2) mg/dL Total Bilirubin 0.4 (0.2-1.3) mg/dL AST 20 (14-36) U/L ALT 13 (4-34) U/L Alkaline Phosphatase 86 (38-126) U/L Troponin I (0.000-0.034) ng/mL Total Protein 7.0 (6.3-8.2) g/dL Albumin 3.7 (3.5-5.0) g/dL Amylase 44 (30-110) U/L Lipase 53 (23-300) U/L Urine Color Yellow Urine Appearance Turbid H (Clear) Urine pH 6.0 (5.0-8.0) Ur Specific [place] 1.024 (1.001-1.035) Urine Protein 2+ H (Negative) Urine Glucose (UA) Negative (Negative) Urine Ketones Negative (Negative) Urine Blood Large H (Negative) Urine Nitrite Negative (Negative) Urine Bilirubin Negative (Negative) Urine Urobilinogen 2.0 (<2.0) mg/dL Ur Leukocyte Esterase Large H (Negative) Urine RBC >182 H (0-5) /hpf Urine WBC >182 H (0-5) /hpf Urine WBC Clumps Many H (None) /hpf Calcium Oxalate Crystal Many H (None) /hpf Urine Bacteria Few H (None) /hpf Urine Mucus Many H (None) /hpf 05/11/22 05/11/22 Range/Units 13:30 13:30 WBC (3.8-10.6) k/uL RBC (3.80-5.40) m/uL Hgb (11.4-16.0) gm/dL Hct (34.0-46.0) % MCV (80.0-100.0) fL MCH (25.0-35.0) pg MCHC (31.0-37.0) g/dL RDW (11.5-15.5) % Plt Count (150-450) k/uL MPV Neutrophils % % Lymphocytes % % Monocytes % % Eosinophils % % Basophils % % Neutrophils # (1.3-7.7) k/uL Lymphocytes # (1.0-4.8) k/uL Monocytes # (0-1.0) k/uL Eosinophils # (0-0.7) k/uL Basophils # (0-0.2) k/uL Hypochromasia PT 10.0 (9.0-12.0) sec INR 0.9 (<1.2) APTT 24.7 (22.0-30.0) sec Sodium (137-145) mmol/L Potassium (3.5-5.1) mmol/L Chloride (98-107) mmol/L Carbon Dioxide (22-30) mmol/L Anion Gap mmol/L BUN (7-17) mg/dL Creatinine (0.52-1.04) mg/dL Est GFR (CKD-EPI)AfAm (>60 ml/min/1.73 sqM) Est GFR (CKD-EPI)NonAf (>60 ml/min/1.73 sqM) Glucose (74-99) mg/dL Calcium (8.4-10.2) mg/dL Total Bilirubin (0.2-1.3) mg/dL AST (14-36) U/L ALT (4-34) U/L Alkaline Phosphatase (38-126) U/L Troponin I <0.012 (0.000-0.034) ng/mL Total Protein (6.3-8.2) g/dL Albumin (3.5-5.0) g/dL Amylase (30-110) U/L Lipase (23-300) U/L Urine Color Urine Appearance (Clear) Urine pH (5.0-8.0) Ur Specific [place] (1.001-1.035) Urine Protein (Negative) Urine Glucose (UA) (Negative) Urine Ketones (Negative) Urine Blood (Negative) Urine Nitrite (Negative) Urine Bilirubin (Negative) Urine Urobilinogen (<2.0) mg/dL Ur Leukocyte Esterase (Negative) Urine RBC (0-5) /hpf Urine WBC (0-5) /hpf Urine WBC Clumps (None) /hpf Calcium Oxalate Crystal (None) /hpf Urine Bacteria (None) /hpf Urine Mucus (None) /hpf - Radiology Data Radiology results: report reviewed (Computed tomography scan abdomen pelvis shows suspicious necrotic mass. Cervix with possible invasion urinary bladder. Suspected metastatic lymph node left pelvic sidewall.) Disposition Clinical Impression: UTI (urinary tract infection), Mass of cervix Disposition: HOME SELF-CARE Condition: Stable Instructions (If sedation given, give patient instructions): Urinary Tract Infection in Women (ED) Additional Instructions: [facility] Please follow-up with Dr. Vicente next day or 2 for recheck, number provided. You will need further care. Please also follow-up with primary care physician. Return for increased pain, bleeding, worsening or change in symptoms or other concerns. Prescriptions: Sulfamethox-Tmp 800-160Mg [Bactrim DS 800-160 mg] 1 each PO Q12HR #20 tab Is patient prescribed a controlled substance at d/c from ED?: No Referrals: Arun Chi DO [Primary Care Provider] - 1-2 days Juana Carrizales DO [Doctor of Osteopathic Medicine] - 1-2 days Time of Disposition: 14:57
[2022-05-11 12:59] LABS: Basophils # (A) 0.1 k/uL (0-0.2); Basophils % (A) 1 %; Eosinophils # (A) 0.2 k/uL (0-0.7); Eosinophils % (A) 2 %; HCT 42.4 % (34.0-46.0); HGB 13.6 gm/dL (11.4-16.0); Hypochromasia Slight; Lymphocytes # (A) 1.7 k/uL (1.0-4.8); Lymphocytes % (A) 13 %; MCH 31.2 pg (25.0-35.0); MCHC 32.1 g/dL (31.0-37.0); MCV 97.1 fL (80.0-100.0); Mean Platelet Volume 8.4; Monocytes # (A) 0.9 k/uL (0-1.0); Monocytes % (A) 7 %; Neutrophils # (A) 9.7 k/uL (1.3-7.7); Neutrophils % (A) 77 %; Platelet Count 328 k/uL (150-450); RBC 4.37 m/uL (3.80-5.40); RDW 13.7 % (11.5-15.5); WBC 12.7 k/uL (3.8-10.6)
[2022-05-11 13:14] LABS: Appearance,Urine Turbid (Clear); Bacteria,Urine Few /hpf; Bilirubin,Urine Negative (Negative); Blood,Urine Large (Negative); Calcium Oxalate Crystals,Urine Many /hpf; Color,Urine Yellow; Glucose,Urine (UA) Negative (Negative); Ketones,Urine Negative (Negative); Leukocyte Esterase,Urine Large (Negative); Mucus,Urine Many /hpf; Nitrite,Urine Negative (Negative); Protein,Urine 2+ (Negative); RBC,Urine >182 /hpf (0-5); Specific Gravity,Urine 1.024 (1.001-1.035); WBC,Urine >182 /hpf (0-5)
[2022-05-11 13:46] LABS: INR 0.9 (<1.2); Partial Thromboplastin Time 24.7 sec (22.0-30.0)
[2022-05-11 13:50] LABS: Albumin 3.7 g/dL (3.5-5.0); Potassium 4.3 mmol/L (3.5-5.1); Total Bilirubin 0.4 mg/dL (0.2-1.3)
--- NOTE | 2022-05-11 14:43 | CT ---
EXAMINATION TYPE: CT abdomen pelvis w con DATE OF EXAM: 05/11/2022 COMPARISON: Ultrasound dated 10/18/2020 and 09/19/2018 HISTORY: abdominal pain CT DLP: 1515.9 mGycm Automated exposure control for dose reduction was used. TECHNIQUE: Helical acquisition of images was performed from the lung bases through the pelvis. CONTRAST: Performed without Oral Contrast and with IV Contrast, patient injected with 100 mL of Isovue 300. FINDINGS: LUNG BASES: COPD changes. LIVER/GB: Previous cholecystectomy. Ill-defined hypodensity measuring 15 mm seen at the inferior aspe ct of the right hepatic lobe, segment 5, incompletely characterized by this CT scan. Further ultrasou nd or MRI assessment can be considered. PANCREAS: Slightly atrophic. SPLEEN: No significant abnormality is seen. ADRENALS: No significant abnormality is seen. KIDNEYS: Focal cortical defect of the midpole of the right kidney likely representing sequela of prev ious infarct/infection. Adjacent millimetric calcification is seen at that location. Similar findings are seen at the lower pole of the left kidney yet without calcification. No hydroureter or hydroneph rosis. FREE AIR: No free air is visualized. RETROPERITONEAL ADENOPATHY: Subcentimeter retroperitoneal lymph nodes measuring up to 9.3 mm. REPRODUCTIVE ORGANS: A suspicious necrotic lesion is seen involving the uterine cervix measuring 4.6 x 4.9 cm with suspected invasion into the adjacent portion of the urinary bladder. Parametrial invasi on cannot be excluded. Gas is seen within the endometrial cavity. No gross adnexal mass. URINARY BLADDER: No other definite abnormality identified. PELVIC ADENOPATHY: Suspicious metastatic lymph nodes seen in the left pelvic sidewall measuring 19 x 22 mm. Other scattered smaller left external iliac and left common iliac lymph nodes. Suspicious nod ule/lymph node measuring 8mm is seen at the right anterolateral aspect of the mesorectal fat. OSSEOUS STRUCTURES: L5 vertebral body collapse, likely chronic, please correlate clinically. No rafiq s aggressive bone lesion. BOWEL: Diverticulosis of the colon without evidence of acute diverticulitis. OTHER: Arterial atherosclerotic calcification. Infrarenal abdominal aortic ectasia measuring up to 2. 9 cm. No sizable ascites. IMPRESSION: Suspicious necrotic mass is seen at the uterine cervix with possible invasion into the posterior aspe ct of the urinary bladder, and suspicious left pelvic sidewall metastatic lymph nodes as detailed abo ve. Endocervical cancer cannot be excluded. Recommend correlation with pelvic ultrasound results and urgent gynecology consultation. Indeterminate hypodensity at the inferior aspect of the right hepatic lobe which could represent foca l fat infiltration however other lesion cannot be excluded. Recommend correlation with ultrasound/MRI results. Other findings as described above.
[2022-05-11] MEDS ORDERED: ACET/COD 300 MG/30 MG STARTER PACK 6 TAB BTL PO STA (14:57)
[2022-05-11 15:11] VITALS: BP 170/74; PULSE 89
== END 2022-05-11 15:11 | disposition home or self-care (01) ==
LOC: EC 12:17
DX: N39.0 Urinary tract infection, site not specified (principal); N88.8 Other specified noninflammatory disorders of cervix uteri; F17.200 Nicotine dependence, unspecified, uncomplicated
CPT/HCPCS: 36415; 80053; 82150; 83690; 84484; 85025; 85610; 85730; 81001; 87086; 74177; 99284; 96374; 96375 ×2; 96361 ×2; J2270; J2405; Q9967

== ENCOUNTER → 2022-07-24 | Outpatient (CLI) | payer MEDICARE, OTHER ==
--- NOTE | 2022-07-27 07:12 | PE ---
EXAMINATION TYPE: PET CT fusion skull to thigh DATE OF EXAM: 07/24/2022 COMPARISON: CT abdomen and pelvis May 11, 2022 HISTORY: Cervical cancer diagnosed July 13, 2022 with left-sided pain per patient. TECHNIQUE: Following the intravenous administration of 9.5 mCi of F-18 FDG, whole body images are pe rformed from the skull base to the midthigh. Images are reviewed on the computer in the coronal, axi al, and sagittal planes. Reconstructed rotating images are created on independent workstation and re viewed on the computer. A localization and attenuation correction CT is performed in conjunction wi th the PET scan. Blood glucose level equals 109. SCAN: Initial Scan FINDINGS: SKULL BASE AND NECK: Some left-sided neck muscular uptake could reflect inflammatory process. CHEST, MEDIASTINUM, AND HILAR REGION: Left-sided shoulder uptake localizes to the subscapularis muscl e could reflect inflammatory process. No additional areas of abnormal hypermetabolic uptake. ABDOMEN AND PELVIS: Normal excretion is present. There is diffuse uptake through the pancreas noted. There is abnormal hypermetabolic mass posterior to the bladder was central cavity corresponding to th e cervical neoplasm measuring approximately 5.8 x 4.9 cm axial image 214, max SUV is 16.15. Abnormal 1.4 x 0.9 cm hypermetabolic lymph node along the external iliac chain vessels anteriorly axi al image 205, max SUV is 5.11. Abnormal hypermetabolic left lateral pelvic wall lymph node measuring 1.8 x 1.2 cm axial image 203, max SUV at this level is 3.52. Abnormal hypermetabolic distal left para aortic and aortocaval along with more prominent left-sided common iliac chain lymph nodes. Reference is a 1.4 x 1.3 cm lymph node axial image 167, max SUV is 5.30 and more distal left common iliac chain lymph node measuring 1.3 x 1.1 cm axial image 182, max SUV is 5.42. Additional hypermetabolic lymph nodes distal to this axial image 192 has max SUV 5.20 Mild nonspecific uptake in the sigmoid rectal colon and right bowel. OSSEOUS STRUCTURES: No areas of abnormal hypermetabolic uptake. OTHER CT: Prominent pulmonary arteries suggests underlying pulmonary artery hypertension. Coronary ar krissy calcification is present. Mild cardiomegaly. Enlarged slightly heterogeneous pancreas. Moderate calcified plaque of the aorta extends into branch vessels. Prominent multilevel facet arthropathy in the lumbar spine. IMPRESSION: 1. Known cervical neoplasm identified. Abnormal left pelvic and lower abdominal retroperitoneal adeno yariel is noted. No distal metastatic disease in the neck or thorax. 2. Heterogeneous enlarged pancreas with mild diffuse uptake raises concern for acute pancreatitis, co rrelate clinically. 3. Hypermetabolic uptake left neck muscles and left anterior shoulder muscles suspicious for inflamma tory process, correlate clinically.
== END | disposition home or self-care (01) ==
LOC: RADPETMAIN 13:33
PROVIDERS: ATTEND Radiology Radiation Oncology
DX: C53.0 Malignant neoplasm of endocervix (principal); K86.89 Other specified diseases of pancreas; R59.0 Localized enlarged lymph nodes
CPT/HCPCS: 78815; A9552

== ENCOUNTER 2022-08-05 10:20 | Inpatient (IN) | payer MEDICARE, OTHER ==
--- NOTE | 2022-08-05 08:15 | P.HPIHPCON ---
History of Present Illness Hx of left sided hydronephrosis secondary to cervical cancer with evidence of invasion into the bladder on cystoscopy and PET scan. She is schd to undergo EBRT/Chemotherapy. Underwent attempted stent placement 07/31/22 which was unsuccessful secondary to non visualization of the ureteral orfice. Option of left nephrostomy tube was discussed with her, risk and benefit were discussed in details Consent for Procedure: I have explained the operation/procedure to the patient, including the risks, benefits, side effects, alternative therapies (including not receiving the proposed treatment or service), the likelihood of the patient achieving his/her goals, and potential recuperation problems for the procedure/sedation/analgesia, as well as any blood products, if indicated. I also explained to the patient the risks, benefits and side effects of the alternatives, as well as the risks related to not receiving the proposed procedure, care, treatment, or services. Past Medical History Past Medical History: Cancer, GERD/Reflux, Hyperlipidemia Additional Past Medical History / Comment(s): CERVICAL CANCER, NAUSEA, "STATES LEFT KIDNEY IS NOT WORKING " History of Any Multi-Drug Resistant Organisms: None Reported Past Surgical History: Cholecystectomy, Tubal Ligation Additional Past Surgical History / Comment(s): cataract surgery-BILATERAL WITH L ENS IMPLANT. CERVICAL BIOPSY Past Anesthesia/Blood Transfusion Reactions: No Reported Reaction Smoking Status: Former smoker - Past Family History Sister(s) Family Medical History: Cancer, Deep Vein Thrombosis (DVT) Additional Family Medical History / Comment(s): lung ca Mother Family Medical History: COPD, Osteoarthritis (OA) Medications and Allergies Home Medications Medication Instructions Recorded Confirmed Type HYDROcodone/APAP 5-325MG [[place] 1 tab PO Q4HR PRN 08/04/22 08/04/22 History 5-325] Omeprazole [PriLOSEC] 20 mg PO AC-BRKFST 08/04/22 08/04/22 History Prochlorperazine [Compazine] 10 mg PO Q8H PRN 08/04/22 08/04/22 History Allergies Allergy/AdvReac Type Severity Reaction Status Date / Time No Known Allergies Allergy Verified 08/04/22 13:43 Surgical - Exam - General no distress - Eyes PERRL, normal ocular movement - Respiratory normal expansion, normal respiratory effort Assessment and Plan Assessment: left nephrostomy tube placement to be done by IR
[2022-08-05] MEDS ORDERED: SODIUM CHLORIDE 0.9% 500 ML 500 ML IV ONE ×2 (10:43→12:35)
[2022-08-05 10:59] LABS: Basophils # (A) 0.1 k/uL (0-0.2); Basophils % (A) 0 %; Eosinophils # (A) 0.1 k/uL (0-0.7); Eosinophils % (A) 1 %; HCT 36.7 % (34.0-46.0); HGB 11.2 gm/dL (11.4-16.0); Hypochromasia Slight; Lymphocytes # (A) 2.1 k/uL (1.0-4.8); Lymphocytes % (A) 7 %; MCH 29.9 pg (25.0-35.0); MCHC 30.5 g/dL (31.0-37.0); MCV 97.8 fL (80.0-100.0); Mean Platelet Volume 7.1; Monocytes # (A) 1.3 k/uL (0-1.0); Monocytes % (A) 5 %; Neutrophils # (A) 24.1 k/uL (1.3-7.7); Neutrophils % (A) 86 %; Platelet Count 823 k/uL (150-450); RBC 3.75 m/uL (3.80-5.40); RDW 14.4 % (11.5-15.5); WBC 28.2 k/uL (3.8-10.6)
[2022-08-05] MEDS ORDERED: ACETAMINOPHEN TAB 325 MG TAB PO PRN (12:38)
[2022-08-05] MEDS: ONDANSETRON 4 MG/2 ML VIAL IVP PRN (12:57)
[2022-08-05] MEDS: MORPHINE SULFATE 2 MG/ML SYRINGE IVP PRN (12:58)
[2022-08-05] MEDS: PIPERACILLIN-TAZOBACTAM 3.375 GM in SODIUM CHLORIDE 0.9% 100 ML IVPB SCH ×2 (13:04→23:57)
--- NOTE | 2022-08-05 13:40 | XR ---
EXAMINATION TYPE: XR chest 1V portable DATE OF EXAM: 08/05/2022 COMPARISON: PET/CT dated 07/24/2022 HISTORY: Elevated white blood cell count, cervical carcinoma TECHNIQUE: Single frontal view of the chest is obtained. FINDINGS: Lung volumes are low and the patient is rotated. There are overlying leads. The aorta is de nse. No evident pneumothorax or pleural effusion. Difficult to exclude some minimal patchy density at the right costophrenic angle. The cardiac silhouette size is within normal limits. The osseous st ructures are intact. IMPRESSION: Questionable abnormal density at the right lung base may be technical, expiratory rotate d exam, consider follow-up PA and lateral chest x-ray for better evaluation.
[2022-08-05 13:49] LABS: ALT 11 U/L (4-34); AST 25 U/L (14-36); African American GFR (CKD) 70 (>60 ml/min/1.73 sqM); Albumin 2.3 g/dL (3.5-5.0); Albumin/Globulin Ratio 0.8; Alkaline Phosphatase 167 U/L (38-126); Anion Gap 11 mmol/L; Bilirubin,Unconjugated 0.3 mg/dL (0.0-1.1); Blood Urea Nitrogen 23 mg/dL (7-17); Calcium 8.1 mg/dL (8.4-10.2); Carbon Dioxide 21 mmol/L (22-30); Chloride 100 mmol/L (98-107); Globulin 2.8 g/dL; Glucose 83 mg/dL (74-99); Magnesium 1.1 mg/dL (1.6-2.3); Non-African American GFR(CKD) 60 (>60 ml/min/1.73 sqM); Potassium 4.2 mmol/L (3.5-5.1); Sodium 132 mmol/L (137-145); Total Bilirubin 0.5 mg/dL (0.2-1.3); Total Protein 5.1 g/dL (6.3-8.2)
[2022-08-05] MEDS: SODIUM CHLORIDE 0.9% 1,000 ML IV SCH (13:55)
--- NOTE | 2022-08-05 15:49 | P.HPIM ---
History of Present Illness This is a pleasant 71 years old female with no significant past medical history. She was recently diagnosed with cervical cancer with invasion to the left side of the urinary bladder and the renal system, she was under the care of Dr. Lira today for planned to left ureteral stent placement to relieve obstruction which was an successful due to nonvisualization of the left ureteral orifice, nephrostomy tube would be considered by urologist. However patient was some evidence of sepsis with leukocytosis, borderline blood pressure and she was admitted to the medical floor and the service of medical team with urology of the oncology service on consult. I met with the patient and son at bedside. She is fully awake and oriented, mildly lethargic. She's been complaining of from lower abdominal pain over the last 2-3 months, it gets worse over the last 2-3 days number currently rated as a 9-10/10 in severity, it felt in the left lower quadrant more but her tenderness also in the suprapubic area. She describes the pain as dull sensation. No nausea or vomiting today, however she's been vomiting frequently over the last 1 month ago. Also she has poor appetite and because of her nausea which affects her ability to eat. She had diarrhea for about more than 2 weeks however she had no bowel movement over the last 2 days. She's generally weak, little dyspneic Complains from little dysuria. She is slightly tachycardic 104, blood pressure is borderline 102/69, she is febrile and dorsal vitals are stable. Chest significant leukocytosis 28.2. Which was up from 12 K last night. Hemoglobin 11.2. Limited elevated 823. Sodium 123, creatinine 0.9. Liver enzymes not elevated. Chest x-ray: No acute process. However there is questionable abnormal density in the right lung and the recommended to repeat chest x-ray PA and lateral view which will be ordered tomorrow. Review of Systems Review of systems CONSTITUTIONAL: No fever, no malaise, no fatigue. HEENT: No recent visual problems or hearing problems. Denied any sore throat. CARDIOVASCULAR: No orthopnea, PND, no palpitations, no syncope. PULMONARY: No shortness of breath, no cough, no hemoptysis. GASTROINTESTINAL: No diarrhea, . Normoactive bowel sounds. NEUROLOGICAL: No headaches, no weakness, no numbness. HEMATOLOGICAL: Denies any bleeding or petechiae. GENITOURINARY: Denies any burning micturition, frequency, or urgency. MUSCULOSKELETAL/RHEUMATOLOGICAL: Denies any joint pain, swelling, or any muscle pain. ENDOCRINE: Denies any polyuria or polydipsia. Past Medical History Past Medical History: Cancer, GERD/Reflux, Hyperlipidemia Additional Past Medical History / Comment(s): CERVICAL CANCER, NAUSEA, "STATES LEFT KIDNEY IS NOT WORKING " History of Any Multi-Drug Resistant Organisms: None Reported Past Surgical History: Cholecystectomy, Tubal Ligation Additional Past Surgical History / Comment(s): cataract surgery-BILATERAL WITH LENS IMPLANT. CERVICAL BIOPSY Past Anesthesia/Blood Transfusion Reactions: No Reported Reaction Past Psychological History: No Psychological Hx Reported Smoking Status: Former smoker Past Alcohol Use History: None Reported Additional Past Alcohol Use History / Comment(s): STARTED SMOKING AT AGE 16 QUIT MAY 2022 Past Drug Use History: None Reported - Past Family History Sister(s) Family Medical History: Cancer, Deep Vein Thrombosis (DVT) Additional Family Medical History / Comment(s): lung ca Mother Family Medical History: COPD, Osteoarthritis (OA) Medications and Allergies Home Medications Medication Instructions Recorded Confirmed Type HYDROcodone/APAP 5-325MG [[place] 1 tab PO Q4HR PRN 08/04/22 08/04/22 History 5-325] Omeprazole [PriLOSEC] 20 mg PO AC-BRKFST 08/04/22 08/05/22 History Prochlorperazine [Compazine] 10 mg PO Q8H PRN 08/04/22 08/04/22 History Allergies Allergy/AdvReac Type Severity Reaction Status Date / Time No Known Allergies Allergy Verified 08/05/22 10:34 Physical Exam Vitals: Vital Signs Temp Pulse Pulse Resp BP Pulse Ox 08/05/22 14:00 98.1 F 104 H 17 102/69 100 08/05/22 12:45 98.0 F 102 H 18 113/68 08/05/22 10:35 98.3 F 117 H 18 101/67 98 Intake and Output 08/05/22 08/05/22 08/05/22 06:59 14:59 22:59 Intake Total 20 Balance 20 Intake: IV 20 Other: Weight 79.4 kg -GENERAL: The patient is alert and oriented x3, not in any acute distress. Well developed, well nourished. Generally weak HEENT: Pupils are round and equally reacting to light. EOMI. No scleral icterus. No conjunctival pallor. Normocephalic, atraumatic. No pharyngeal erythema. No thyromegaly. CARDIOVASCULAR: S1 and S2 present. No murmurs, rubs, or gallops. PULMONARY: Chest is clear to auscultation, no wheezing or crackles. -ABDOMEN: Soft, mild lower abdominal suprapubic tenderness, and the lesser extent in the left lower quadrant, no guarding or rebound tenderness, nondistended, normoactive bowel sounds. No palpable organomegaly. MUSCULOSKELETAL: No joint swelling or deformity. EXTREMITIES: No cyanosis, clubbing, or pedal edema. NEUROLOGICAL: Gross neurological examination did not reveal any focal deficits. SKIN: No rashes. no petechiae. Results CBC & Chem 7: 08/05/22 10:30 08/05/22 13:03 Labs: Abnormal Lab Results - Last 24 Hours (Table) 08/05/22 08/05/22 Range/Units 10:30 13:03 WBC 28.2 H (3.8-10.6) k/uL RBC 3.75 L (3.80-5.40) m/uL Hgb 11.2 L (11.4-16.0) gm/dL MCHC 30.5 L (31.0-37.0) g/dL Plt Count 823 H (150-450) k/uL Neutrophils # 24.1 H (1.3-7.7) k/uL Monocytes # 1.3 H (0-1.0) k/uL Sodium 132 L (137-145) mmol/L Carbon Dioxide 21 L (22-30) mmol/L BUN 23 H (7-17) mg/dL Calcium 8.1 L (8.4-10.2) mg/dL Magnesium 1.1 L (1.6-2.3) mg/dL Alkaline Phosphatase 167 H (38-126) U/L Total Protein 5.1 L (6.3-8.2) g/dL Albumin 2.3 L (3.5-5.0) g/dL Thrombosis Risk Factor Assmnt - Choose All That Apply Each Risk Factor Represents 2 Points: Age 61-74 years Each Risk Factor Represents 3 Points: Family history of DVT/PE Thrombosis Risk Factor Assessment Total Risk Factor Score: 5 Thrombosis Risk Factor Assessment Level: High Risk Assessment and Plan Assessment: Cervical cancer with local metastasis to the left coronary bladder and ureteric system, status post failed left ureteral stent placement possible sepsis with tachypnea, tachycardia and leukocytosis. Patient is afebrile. Another primary cause Abnormal density in the right lower lung, rule out technical abnormality versus consolidation. Plan: This is a pleasant 71 female with cervical cancer and obstructive uropathy Urology consult for possible stent placement versus nephrostomy We'll do infection workup with chest x-ray, urinalysis, blood culture, start Zosyn. Continue with normal saline Labs and medication were reviewed.. Continue same treatment. Continue with symptomatic treatment. Resume home medication. Monitor lytes and vitals. DVT and GI prophylaxis. Further recommendations as per clinical course of the patient DVT prophylaxis: Subcutaneous heparin GI Prophylaxis: Pepcid PT/OT: Pending Prognosis is guarded
[2022-08-05 17:32] LABS: Amorphous Sediment,Urine Rare /hpf; Appearance,Urine Turbid (Clear); Bilirubin,Urine Negative (Negative); Blood,Urine Large (Negative); Color,Urine Red; Glucose,Urine (UA) Negative (Negative); Ketones,Urine Negative (Negative); Leukocyte Esterase,Urine Large (Negative); Mucus,Urine Rare /hpf; Nitrite,Urine Negative (Negative); Protein,Urine 2+ (Negative); RBC,Urine >182 /hpf (0-5); Specific Gravity,Urine 1.019 (1.001-1.035); Squamous Epithelial Cell,Urine 3 /hpf (0-4); Urobilinogen,Urine <2.0 mg/dL (<2.0); WBC,Urine >182 /hpf (0-5)
[2022-08-05] MEDS: HYDROcodone/APAP 7.5-325MG 1 EACH TAB PO PRN (17:32)
[2022-08-05] MEDS: FAMOTIDINE 20 MG/2 ML VIAL IV SCH (20:24)
[2022-08-05] MEDS: HEPARIN SODIUM,PORCINE/PF 5,000 UNIT/0.5 ML SYRINGE SQ SCH (20:25)
[2022-08-06] MEDS: HYDROcodone/APAP 7.5-325MG 1 EACH TAB PO PRN ×4 (01:19→22:14)
[2022-08-06] MEDS: SODIUM CHLORIDE 0.9% 1,000 ML IV SCH ×2 (02:43→17:14)
[2022-08-06] MEDS: MORPHINE SULFATE 2 MG/ML SYRINGE IVP PRN (05:09)
[2022-08-06] MEDS: ONDANSETRON 4 MG/2 ML VIAL IVP PRN (07:28)
[2022-08-06 07:36] LABS: Basophils # (A) 0.1 k/uL (0-0.2); Basophils % (A) 0 %; Eosinophils # (A) 0.2 k/uL (0-0.7); Eosinophils % (A) 1 %; HCT 34.4 % (34.0-46.0); HGB 10.4 gm/dL (11.4-16.0); Hypochromasia Marked; Lymphocytes # (A) 1.9 k/uL (1.0-4.8); Lymphocytes % (A) 11 %; MCH 30.4 pg (25.0-35.0); MCHC 30.2 g/dL (31.0-37.0); MCV 100.6 fL (80.0-100.0); Macrocytosis Slight; Monocytes # (A) 0.7 k/uL (0-1.0); Monocytes % (A) 4 %; Neutrophils % (A) 82 %; Platelet Count 613 k/uL (150-450); RBC 3.42 m/uL (3.80-5.40); RDW 14.5 % (11.5-15.5); WBC 17.1 k/uL (3.8-10.6)
[2022-08-06 08:00] LABS: ALT 52 U/L (4-34); AST 138 U/L (14-36); African American GFR (CKD) 72 (>60 ml/min/1.73 sqM); Albumin 2.2 g/dL (3.5-5.0); Albumin/Globulin Ratio 0.8; Alkaline Phosphatase 596 U/L (38-126); Anion Gap 9 mmol/L; Bilirubin,Unconjugated 0.2 mg/dL (0.0-1.1); Blood Urea Nitrogen 19 mg/dL (7-17); Calcium 7.7 mg/dL (8.4-10.2); Carbon Dioxide 23 mmol/L (22-30); Chloride 101 mmol/L (98-107); Globulin 2.8 g/dL; Glucose 83 mg/dL (74-99); Magnesium 1.1 mg/dL (1.6-2.3); Non-African American GFR(CKD) 63 (>60 ml/min/1.73 sqM); Potassium 3.9 mmol/L (3.5-5.1); Sodium 133 mmol/L (137-145); Total Bilirubin 0.6 mg/dL (0.2-1.3)
--- NOTE | 2022-08-06 08:39 | XR ---
EXAMINATION TYPE: XR chest 2V DATE OF EXAM: 08/06/2022 6:47 AM COMPARISON: Chest radiographs from 08/05/2022 TECHNIQUE: XR chest 2V Frontal and lateral views of the chest. CLINICAL INDICATION:Female, 71 years old with history of abn density on first xray; FINDINGS: Lungs/Pleura: There is eventration of the diaphragm. There is no evidence of pleural effusion, focal consolidation, or pneumothorax. Pulmonary vascularity: Unremarkable. Heart/mediastinum: Cardiomediastinal silhouette is prominent in size. Musculoskeletal: No acute osseous pathology. IMPRESSION: Eventration on the right diaphragm is felt related to density reported on prior radiograph. Bibasilar atelectasis.
[2022-08-06] MEDS: PIPERACILLIN-TAZOBACTAM 3.375 GM in SODIUM CHLORIDE 0.9% 100 ML IVPB SCH ×3 (08:55→23:14)
[2022-08-06] MEDS: FAMOTIDINE 20 MG/2 ML VIAL IV SCH ×2 (08:55→21:15)
[2022-08-06] MEDS: HEPARIN SODIUM,PORCINE/PF 5,000 UNIT/0.5 ML SYRINGE SQ SCH ×2 (08:55→21:15)
--- NOTE | 2022-08-06 12:27 | P.GSCN ---
History of Present Illness Consult date: 08/06/22 Reason for Consult: Hydronephrosis Requesting physician: Gregory E Sheet History of present illness: The patient is a 71-year-old white female with cervical cancer. There is evidence of invasion into the bladder on cystoscopy and PET/CT scan. She has left hydronephrosis as a result of this. She underwent attempted ureteral stent placement on 07/31/2022 which was unsuccessful as the left ureteral orifice could not be identified. She is scheduled to receive chemoradiation. She was advised to undergo a left nephrostomy tube placement, but this was canceled due to the fact that her blood pressure was low and her WBC count was elevated, suspicious for sepsis. She has thus been admitted and is receiving IV antib iotics. Review of Systems - Constitutional Denies chills, Denies fever - Respiratory Denies dyspnea - Genitourinary Genitourinary: Reports dysuria Past Medical History Past Medical History: Cancer, GERD/Reflux, Hyperlipidemia Additional Past Medical History / Comment(s): CERVICAL CANCER, NAUSEA, "STATES LEFT KIDNEY IS NOT WORKING " History of Any Multi-Drug Resistant Organisms: None Reported Past Surgical History: Cholecystectomy, Tubal Ligation Additional Past Surgical History / Comment(s): cataract surgery-BILATERAL WITH LENS IMPLANT. CERVICAL BIOPSY Past Anesthesia/Blood Transfusion Reactions: No Reported Reaction Past Psychological History: No Psychological Hx Reported Smoking Status: Former smoker Past Alcohol Use History: None Reported Additional Past Alcohol Use History / Comment(s): STARTED SMOKING AT AGE 16 QUIT MAY 2022 Past Drug Use History: None Reported - Past Family History Sister(s) Family Medical History: Cancer, Deep Vein Thrombosis (DVT) Additional Family Medical History / Comment(s): lung ca Mother Family Medical History: COPD, Osteoarthritis (OA) Medications and Allergies Home Medications Medication Instructions Recorded Confirmed Type HYDROcodone/APAP 5-325MG [[place] 1 tab PO Q4HR PRN 08/04/22 08/04/22 History 5-325] Omeprazole [PriLOSEC] 20 mg PO AC-BRKFST 08/04/22 08/05/22 History Prochlorperazine [Compazine] 10 mg PO Q8H PRN 08/04/22 08/04/22 History Allergies Allergy/AdvReac Type Severity Reaction Status Date / Time No Known Allergies Allergy Verified 08/05/22 10:34 Surgical - Exam Vital Signs Temp Pulse Resp BP Pulse Ox 98.3 F 117 H 18 101/67 98 08/05/22 10:35 08/05/22 10:35 08/05/22 10:35 08/05/22 10:35 08/05/22 10:35 - General well developed, well nourished, no distress - Respiratory normal respiratory effort - Abdomen Abdomen: soft, non tender, no guarding, no rigid, no rebound - Psychiatric oriented to time, oriented to person, oriented to place, speech is normal, memory intact Results - Labs 08/06/22 07:19 08/06/22 07:19 Abnormal Lab Results - Last 24 Hours (Table) 08/05/22 08/05/22 08/05/22 Range/Units 10:30 13:03 13:03 WBC 28.2 H (3.8-10.6) k/uL RBC 3.75 L (3.80-5.40) m/uL Hgb 11.2 L (11.4-16.0) gm/dL MCV (80.0-100.0) fL MCHC 30.5 L (31.0-37.0) g/dL Plt Count 823 H (150-450) k/uL Neutrophils # 24.1 H (1.3-7.7) k/uL Monocytes # 1.3 H (0-1.0) k/uL Sodium 132 L (137-145) mmol/L Carbon Dioxide 21 L (22-30) mmol/L BUN 23 H (7-17) mg/dL Calcium 8.1 L (8.4-10.2) mg/dL Magnesium 1.1 L (1.6-2.3) mg/dL AST (14-36) U/L ALT (4-34) U/L Alkaline Phosphatase 167 H (38-126) U/L Total Protein 5.1 L (6.3-8.2) g/dL Albumin 2.3 L (3.5-5.0) g/dL Procalcitonin 0.28 H (0.02-0.09) ng/mL Urine Appearance (Clear) Urine Protein (Negative) Urine Blood (Negative) Ur Leukocyte Esterase (Negative) Urine RBC (0-5) /hpf Urine WBC (0-5) /hpf Urine WBC Clumps (None) /hpf Amorphous Sediment (None) /hpf Urine Mucus (None) /hpf 08/05/22 08/06/22 08/06/22 Range/Units 16:45 07:19 07:19 WBC 17.1 H (3.8-10.6) k/uL RBC 3.42 L (3.80-5.40) m/uL Hgb 10.4 L (11.4-16.0) gm/dL MCV 100.6 H (80.0-100.0) fL MCHC 30.2 L (31.0-37.0) g/dL Plt Count 613 H (150-450) k/uL Neutrophils # 14.0 H (1.3-7.7) k/uL Monocytes # (0-1.0) k/uL Sodium 133 L (137-145) mmol/L Carbon Dioxide (22-30) mmol/L BUN 19 H (7-17) mg/dL Calcium 7.7 L (8.4-10.2) mg/dL Magnesium 1.1 L (1.6-2.3) mg/dL AST 138 H (14-36) U/L ALT 52 H (4-34) U/L Alkaline Phosphatase 596 H (38-126) U/L Total Protein 5.0 L (6.3-8.2) g/dL Albumin 2.2 L (3.5-5.0) g/dL Procalcitonin (0.02-0.09) ng/mL Urine Appearance Turbid H (Clear) Urine Protein 2+ H (Negative) Urine Blood Large H (Negative) Ur Leukocyte Esterase Large H (Negative) Urine RBC >182 H (0-5) /hpf Urine WBC >182 H (0-5) /hpf Urine WBC Clumps Many H (None) /hpf Amorphous Sediment Rare H (None) /hpf Urine Mucus Rare H (None) /hpf Microbiology - Last 24 Hours (Table) 08/05/22 16:45 Urine Culture - Preliminary Urine,Voided Diabetes panel 08/05/22 08/06/22 Range/Units 13:03 07:19 Sodium 132 L 133 L (137-145) mmol/L Potassium 4.2 3.9 (3.5-5.1) mmol/L Chloride 100 101 (98-107) mmol/L Carbon Dioxide 21 L 23 (22-30) mmol/L BUN 23 H 19 H (7-17) mg/dL Creatinine 0.95 0.92 (0.52-1.04) mg/dL Glucose 83 83 (74-99) mg/dL Calcium 8.1 L 7.7 L (8.4-10.2) mg/dL AST 25 138 H (14-36) U/L ALT 11 52 H (4-34) U/L Alkaline Phosphatase 167 H 596 H (38-126) U/L Total Protein 5.1 L 5.0 L (6.3-8.2) g/dL Albumin 2.3 L 2.2 L (3.5-5.0) g/dL Calcium panel 08/05/22 08/06/22 Range/Units 13:03 07:19 Calcium 8.1 L 7.7 L (8.4-10.2) mg/dL Albumin 2.3 L 2.2 L (3.5-5.0) g/dL Pituitary panel 08/05/22 08/06/22 Range/Units 13:03 07:19 Sodium 132 L 133 L (137-145) mmol/L Potassium 4.2 3.9 (3.5-5.1) mmol/L Chloride 100 101 (98-107) mmol/L Carbon Dioxide 21 L 23 (22-30) mmol/L BUN 23 H 19 H (7-17) mg/dL Creatinine 0.95 0.92 (0.52-1.04) mg/dL Glucose 83 83 (74-99) mg/dL Calcium 8.1 L 7.7 L (8.4-10.2) mg/dL Adrenal panel 08/05/22 08/06/22 Range/Units 13:03 07:19 Sodium 132 L 133 L (137-145) mmol/L Potassium 4.2 3.9 (3.5-5.1) mmol/L Chloride 100 101 (98-107) mmol/L Carbon Dioxide 21 L 23 (22-30) mmol/L BUN 23 H 19 H (7-17) mg/dL Creatinine 0.95 0.92 (0.52-1.04) mg/dL Glucose 83 83 (74-99) mg/dL Calcium 8.1 L 7.7 L (8.4-10.2) mg/dL Total Bilirubin 0.5 0.6 (0.2-1.3) mg/dL AST 25 138 H (14-36) U/L ALT 11 52 H (4-34) U/L Alkaline Phosphatase 167 H 596 H (38-126) U/L Total Protein 5.1 L 5.0 L (6.3-8.2) g/dL Albumin 2.3 L 2.2 L (3.5-5.0) g/dL - Imaging CT scan - abdomen: report reviewed Assessment and Plan (1) Hydronephrosis, left Current Visit: Yes Status: Acute Code(s): N13.30 - UNSPECIFIED HYDRONEPHROSIS SNOMED Code(s): 17682305 Plan: Mrs. Rosales is receiving Zosyn, pending her culture results. She is afebrile and hemodynamically stable. Will ask Interventional Radiology to place the left nephrostomy tube as previously planned.
[2022-08-06 12:49] VITALS: BMI 25.8
[2022-08-06 14:23] LABS: INR 1.1 (<1.2); Prothrombin Time 11.5 sec (9.0-12.0)
[2022-08-06] MEDS ORDERED: fentaNYL (PF) 50 MCG/ML 2 ML AMP ONE (15:01)
[2022-08-06] MEDS ORDERED: fentaNYL (PF) 50 MCG/ML 2 ML AMP IVP ONE ×2 (15:02→15:16)
[2022-08-06] MEDS ORDERED: MIDAZOLAM 2 MG/2 ML VIAL IVP ONE (15:02)
[2022-08-06] MEDS ORDERED: LIDOCAINE 1% INJ 10MG/ML (30 ML VIAL-PF) SQ ONE (15:05)
[2022-08-06] MEDS ORDERED: SODIUM CHLORIDE 0.9% 1,000 ML IV ONE (15:07)
[2022-08-06] MEDS ORDERED: IOPAMIDOL-250 100ML BTL IV ONE (15:17)
--- NOTE | 2022-08-06 15:52 | IR ---
EXAMINATION TYPE: IR nephrostomy, US guidance for procedure DATE OF EXAM: 08/06/2022 COMPARISON: NONE HISTORY: left hydronephrosis, ureteral obstruction PROCEDURE: Maximal barrier technique was utilized. The skin overlying the left kidney was localized using ultrasound and the overlying skin prepped and draped. Ultrasound was utilized with sterile mildred hnique. Lidocaine used for local anesthesia. Skin emmett was made with a scalpel. Access was gained u nder ultrasound with a 21-gauge needle to the left kidney. Urine returned in the hub of the needle. A 0.018 inch wire was advanced. The access site was dilated and subsequently an 8.5 [place] catheter was advanced over wire in the renal pelvis and fixed in place. Urine returned in the hub of the cat heter. Gentle hand-injection of contrast material performed to verify placement Catheter was fixed t o the skin with 2-0 silk and a sterile dressing was placed. The patient remained in stable condition without complication. The patient was discharged to observation. 1.6 minutes fluoroscopy time, 744 intraoperative images document the procedure IMPRESSION: STATUS POST 8.5 PANAMANIAN left NEPHROSTOMY TUBE PLACEMENT WITH ULTRASOUND AND FLUOROSCOPIC G UIDANCE. THIS PROCEDURE WAS PERFORMED BY THE UNDERSIGNED.
--- NOTE | 2022-08-06 17:55 | P.CONS ---
History of Present Illness - Reason for Consult Consult date: 08/06/22 cervical carcinoma Requesting physician: Gregory Rowan Sheet - Chief Complaint hydronephrosis - History of Present Illness Ms. Rosales is a 71 year old woman with no significant PMH who was referred to Dr. Jarad Sutton and seen in clinic 07/14 for evaluation of cervical cancer. R eports 65 lb unexplained weight loss over 5-6 month. Rercent UTI treatments and persistent dysuria along with worsening bilateral groin pain. CTAP 05/11/22 noted 4.6 x 4.9 cm necrotic lesion in the uterine cervix with suspected invasion into the adjacent bladder. Left pelvic side wall lymphadenopathy was noted measuring 1.9 x 2.2 cm with scattered small left external and left common illiac lymphad enopathy. An 8 mm nodule was noted in the anterolateral aspect of the mesorectal fat was suspicious for malignancy. 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 IHC was positive for p40, p16, and pancytokeratin. She has been seen by Rad Onc. PET/CT ordered. Caris molecular profiling. given her last imaging was done on 05/11/22 F/U for results was sched. Pt unfortunately was having lt hydronephrosis. Urology saw pt and was unable to place a stent due to ureter being obstructed by tumor. Pt is admitted for nephrostomy tube placement. She denies any other acute c/o, does have some mild lower abd discomfort. 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 CERVICAL BIOPSY Past Anesthesia/Blood Transfusion Reactions: No Reported Reaction Past Psychological History: No Psychological Hx Reported Smoking Status: Former smoker Past Alcohol Use History: None Reported Additional Past Alcohol Use History / Comment(s): STARTED SMOKING AT AGE 16 QUIT MAY 2022 Past Drug Use History: None Reported - Past Family History Sister(s) Family Medical History: Cancer, Deep Vein Thrombosis (DVT) Additional Family Medical History / Comment(s): lung ca Mother Family Medical History: COPD, Osteoarthritis (OA) Medications and Allergies Home Medications Medication Instructions Recorded Confirmed Type HYDROcodone/APAP 5-325MG [[place] 1 tab PO Q4HR PRN 08/04/22 08/04/22 History 5-325] Omeprazole [PriLOSEC] 20 mg PO AC-BRKFST 08/04/22 08/05/22 History Prochlorperazine [Compazine] 10 mg PO Q8H PRN 08/04/22 08/04/22 History Allergies Allergy/AdvReac Type Severity Reaction Status Date / Time No Known Allergies Allergy Verified 08/05/22 10:34 Physical Exam Vitals: Vital Signs Temp Pulse Pulse Resp BP Pulse Ox 08/06/22 07:45 18 08/06/22 01:16 97.9 F 103 H 18 126/84 96 08/05/22 18:57 98.3 F 95 18 109/72 94 L 08/05/22 14:00 98.1 F 104 H 17 102/69 100 08/05/22 12:45 98.0 F 102 H 18 113/68 08/05/22 10:35 98.3 F 117 H 18 101/67 98 Intake and Output 08/05/22 08/06/22 08/06/22 22:59 06:59 14:59 Intake Total 1360 Output Total 185 350 Balance -185 1010 Intake: Intake, IV Titration 1000 Amount Piperacillin-Tazobactam 3 100 .375 gm In Sodium Chloride 0.9% 100 ml @ 25 mls/hr IVPB Q8HR [facility] Rx# :[id number] Sodium Chloride 0.9% 1, 900 000 ml @ 75 mls/hr IV . [id number] [facility] Rx#:[id number] Oral 360 Output: Urine 350 Post Void Residual 185 Other: Voiding Method External Catheter External Catheter - Constitutional General appearance: average body habitus, cooperative, no acute distress - EENT Eyes: anicteric sclerae, EOMI ENT: hearing grossly normal - Respiratory Respiratory: bilateral: diminished (throughout) - Cardiovascular Rhythm: regular Heart sounds: normal: S1, S2 Abnormal Heart Sounds: no systolic murmur, no diastolic murmur, no rub, no S3 Gallop, no S4 Gallop, no click, no other leg Peripheral Edema: right: None, left: Trace - Gastrointestinal General gastrointestinal: no absent bowel sounds, no decreased bowel sounds, no distended, no hepatomegaly, no hyperactive bowel sounds, normal bowel sounds, no organomegaly, no rigid, no scaphoid, soft, no splenomegaly, no tenderness, no umbilical hernia, no ventral hernia - Integumentary Integumentary: normal - Neurologic Neurologic: CNII-XII intact - Musculoskeletal Musculoskeletal: strength equal bilaterally - Psychiatric Psychiatric: A&O x's 3, appropriate affect, intact judgment & insight Results CBC & Chem 7: 08/06/22 07:19 08/06/22 07:19 Labs: Abnormal Lab Results - Last 24 Hours (Table) 08/05/22 08/05/22 08/05/22 Range/Units 10:30 13:03 13:03 WBC 28.2 H (3.8-10.6) k/uL RBC 3.75 L (3.80-5.40) m/uL Hgb 11.2 L (11.4-16.0) gm/dL MCV (80.0-100.0) fL MCHC 30.5 L (31.0-37.0) g/dL Plt Count 823 H (150-450) k/uL Neutrophils # 24.1 H (1.3-7.7) k/uL Monocytes # 1.3 H (0-1.0) k/uL Sodium 132 L (137-145) mmol/L Carbon Dioxide 21 L (22-30) mmol/L BUN 23 H (7-17) mg/dL Calcium 8.1 L (8.4-10.2) mg/dL Magnesium 1.1 L (1.6-2.3) mg/dL AST (14-36) U/L ALT (4-34) U/L Alkaline Phosphatase 167 H (38-126) U/L Total Protein 5.1 L (6.3-8.2) g/dL Albumin 2.3 L (3.5-5.0) g/dL Procalcitonin 0.28 H (0.02-0.09) ng/mL Urine Appearance (Clear) Urine Protein (Negative) Urine Blood (Negative) Ur Leukocyte Esterase (Negative) Urine RBC (0-5) /hpf Urine WBC (0-5) /hpf Urine WBC Clumps (None) /hpf Amorphous Sediment (None) /hpf Urine Mucus (None) /hpf 08/05/22 08/06/22 08/06/22 Range/Units 16:45 07:19 07:19 WBC 17.1 H (3.8-10.6) k/uL RBC 3.42 L (3.80-5.40) m/uL Hgb 10.4 L (11.4-16.0) gm/dL MCV 100.6 H (80.0-100.0) fL MCHC 30.2 L (31.0-37.0) g/dL Plt Count 613 H (150-450) k/uL Neutrophils # 14.0 H (1.3-7.7) k/uL Monocytes # (0-1.0) k/uL Sodium 133 L (137-145) mmol/L Carbon Dioxide (22-30) mmol/L BUN 19 H (7-17) mg/dL Calcium 7.7 L (8.4-10.2) mg/dL Magnesium 1.1 L (1.6-2.3) mg/dL AST 138 H (14-36) U/L ALT 52 H (4-34) U/L Alkaline Phosphatase 596 H (38-126) U/L Total Protein 5.0 L (6.3-8.2) g/dL Albumin 2.2 L (3.5-5.0) g/dL Procalcitonin (0.02-0.09) ng/mL Urine Appearance Turbid H (Clear) Urine Protein 2+ H (Negative) Urine Blood Large H (Negative) Ur Leukocyte Esterase Large H (Negative) Urine RBC >182 H (0-5) /hpf Urine WBC >182 H (0-5) /hpf Urine WBC Clumps Many H (None) /hpf Amorphous Sediment Rare H (None) /hpf Urine Mucus Rare H (None) /hpf Microbiology - Last 24 Hours (Table) 08/05/22 16:45 Urine Culture - Preliminary Urine,Voided Assessment and Plan (1) Cervical adenocarcinoma Current Visit: Yes Status: Acute Priority: High Code(s): C53.9 - MALIGNANT NEOPLASM OF CERVIX UTERI, UNSPECIFIED SNOMED Code(s): 081468242 (2) Hydronephrosis, left Current Visit: Yes Status: Acute Priority: High Code(s): N13.30 - UNSPECIFIED HYDRONEPHROSIS SNOMED Code(s): 95348791 Plan: Left hydronephrosis. Urology did cystoscopy but tumor obscured ureter so no stent could be placed. Pt sent to hospital for nephrostomy placement. Concerns for infection. Pt being worked up, abx started. Newly diagnosed cervical ca. Pending start of treatment until current condition is managed. F/U scheduled. Rad Onc consulted Doppler of LLE for unilateral swelling attests: I have seen and examined patient, performed H&P, developed impression and plan of care. Discussed with dictator. Agree with documentation, dictated as a scribe.
--- NOTE | 2022-08-06 19:50 | US ---
EXAMINATION TYPE: US venous doppler duplex LE LT DATE OF EXAM: 08/06/2022 7:35 PM COMPARISON: NONE CLINICAL HISTORY: unilateral swelling. Left leg swelling noted per physician SIDE PERFORMED: Left TECHNIQUE: The left lower extremity deep venous system is examined utilizing real time linear array sonography with graded compression, doppler sonography and color-flow sonography. VESSELS IMAGED: Common Femoral Vein Deep Femoral Vein Greater Saphenous Vein * Femoral Vein Popliteal Vein Small Saphenous Vein * Proximal Calf Veins (* superficial vessels) Grayscale, color doppler, spectral doppler imaging performed of the deep veins of the left lower extr emity. There is normal flow, compressibility, vascular waveforms. Left Leg: Negative for DVT IMPRESSION: No deep venous thrombosis of the left lower extremity.
--- NOTE | 2022-08-06 23:53 | P.PN ---
Subjective This is a pleasant 71 years old female with no significant past medical history. She was recently diagnosed with cervical cancer with invasion to the left side of the urinary bladder and the renal system, she was under the care of Dr. Lira today for planned to left ureteral stent placement to relieve obstruction which was an successful due to nonvisualization of the left ureteral orifice, nephrostomy tube would be considered by urologist. However patient was some evidence of sepsis with leukocytosis, borderline blood pressure and she was admitted to the medical floor and the service of medical team with urology of the oncology service on consult. I met with the patient and son at bedside. She is fully awake and oriented, mildly lethargic. She's been complaining of from lower abdominal pain over the last 2-3 months, it gets worse over the last 2-3 days number currently rated as a 9-10/10 in severity, it felt in the left lower quadrant more but her tenderness also in the suprapubic area. She describes the pain as dull sensation. No nausea or vomiting today, however she's been vomiting frequently over the last 1 month ago. Also she has poor appetite and because of her nausea which affects her ability to eat. She had diarrhea for about more than 2 weeks however she had no bowel movement over the last 2 days. She's generally weak, little dyspneic Complains from little dysuria. She is slightly tachycardic 104, blood pressure is borderline 102/69, she is febrile and dorsal vitals are stable. Chest significant leukocytosis 28.2. Which was up from 12 K last night. Hemoglobin 11.2. Limited elevated 823. Sodium 123, creatinine 0.9. Liver enzymes not elevated. Chest x-ray: No acute process. However there is questionable abnormal density in the right lung and the recommended to repeat chest x-ray PA and lateral view which will be ordered tomorrow. 08/06/2012 Patient still feels generally weak but she is alert awake and oriented and comfortable. She denies fever. Vitals are stable. She has some suprapubic tenderness and little bit more pain on the right side but generally feels better today as per patient Urine culture is growing gram-negative bacilli, most likely patient has sepsis secondary to urinary tract infection which may be contributed or related to her left hydronephrosis and obstructive uropathy. Nephrology team on the case recommended IR for placement of nephrostomy tube. Continue with Zosyn and normal saline Blood culture are still pending as well Objective - Vital Signs Vital signs: Vital Signs Temp 97.4 F L 08/06/22 08:00 Pulse 99 08/06/22 08:00 Resp 16 08/06/22 08:00 BP 122/75 08/06/22 08:00 Pulse Ox 95 08/06/22 08:00 FiO2 Intake & Output 08/05/22 08/06/22 08/06/22 18:59 06:59 18:59 Intake Total 20 1360 Output Total 185 350 Balance -165 1010 Weight 79.4 kg 79.4 kg Intake: IV 20 Intake, IV Titration 1000 Amount Piperacillin-Tazobactam 3 100 .375 gm In Sodium Chloride 0.9% 100 ml @ 25 mls/hr IVPB Q8HR [facility] Rx# :[id number] Sodium Chloride 0.9% 1, 900 000 ml @ 75 mls/hr IV . [id number] [facility] Rx#:[id number] Oral 360 Output: Urine 350 Post Void Residual 185 Other: Voiding Method External Catheter External Catheter - Exam -GENERAL: The patient is alert and oriented x3, not in any acute distress. Well developed, well nourished. Generally weak HEENT: Pupils are round and equally reacting to light. EOMI. No scleral icterus. No conjunctival pallor. Normocephalic, atraumatic. No pharyngeal erythema. No t hyromegaly. CARDIOVASCULAR: S1 and S2 present. No murmurs, rubs, or gallops. PULMONARY: Chest is clear to auscultation, no wheezing or crackles. -ABDOMEN: Soft, mild lower abdominal suprapubic tenderness, and the lesser extent in the left lower quadrant, no guarding or rebound tenderness, nondist ended, normoactive bowel sounds. No palpable organomegaly. MUSCULOSKELETAL: No joint swelling or deformity. EXTREMITIES: No cyanosis, clubbing, or pedal edema. NEUROLOGICAL: Gross neurological examination did not reveal any focal deficits. SKIN: No rashes. no petechiae. - Labs CBC & Chem 7: 08/06/22 07:19 08/06/22 07:19 Labs: Abnormal Lab Results - Last 24 Hours (Table) 08/05/22 08/05/22 08/05/22 Range/Units 13:03 13:03 16:45 WBC (3.8-10.6) k/uL RBC (3.80-5.40) m/uL Hgb (11.4-16.0) gm/dL MCV (80.0-100.0) fL MCHC (31.0-37.0) g/dL Plt Count (150-450) k/uL Neutrophils # (1.3-7.7) k/uL Sodium 132 L (137-145) mmol/L Carbon Dioxide 21 L (22-30) mmol/L BUN 23 H (7-17) mg/dL Calcium 8.1 L (8.4-10.2) mg/dL Magnesium 1.1 L (1.6-2.3) mg/dL AST (14-36) U/L ALT (4-34) U/L Alkaline Phosphatase 167 H (38-126) U/L Total Protein 5.1 L (6.3-8.2) g/dL Albumin 2.3 L (3.5-5.0) g/dL Procalcitonin 0.28 H (0.02-0.09) ng/mL Urine Appearance Turbid H (Clear) Urine Protein 2+ H (Negative) Urine Blood Large H (Negative) Ur Leukocyte Esterase Large H (Negative) Urine RBC >182 H (0-5) /hpf Urine WBC >182 H (0-5) /hpf Urine WBC Clumps Many H (None) /hpf Amorphous Sediment Rare H (None) /hpf Urine Mucus Rare H (None) /hpf 08/06/22 08/06/22 Range/Units 07:19 07:19 WBC 17.1 H (3.8-10.6) k/uL RBC 3.42 L (3.80-5.40) m/uL Hgb 10.4 L (11.4-16.0) gm/dL MCV 100.6 H (80.0-100.0) fL MCHC 30.2 L (31.0-37.0) g/dL Plt Count 613 H (150-450) k/uL Neutrophils # 14.0 H (1.3-7.7) k/uL Sodium 133 L (137-145) mmol/L Carbon Dioxide (22-30) mmol/L BUN 19 H (7-17) mg/dL Calcium 7.7 L (8.4-10.2) mg/dL Magnesium 1.1 L (1.6-2.3) mg/dL AST 138 H (14-36) U/L ALT 52 H (4-34) U/L Alkaline Phosphatase 596 H (38-126) U/L Total Protein 5.0 L (6.3-8.2) g/dL Albumin 2.2 L (3.5-5.0) g/dL Procalcitonin (0.02-0.09) ng/mL Urine Appearance (Clear) Urine Protein (Negative) Urine Blood (Negative) Ur Leukocyte Esterase (Negative) Urine RBC (0-5) /hpf Urine WBC (0-5) /hpf Urine WBC Clumps (None) /hpf Amorphous Sediment (None) /hpf Urine Mucus (None) /hpf Microbiology - Last 24 Hours (Table) 08/05/22 16:45 Urine Culture - Preliminary Urine,Voided Assessment and Plan Assessment: Cervical cancer with local metastasis to the left coronary bladder and ureteric system, status post failed left ureteral stent placement possible sepsis with tachypnea, tachycardia and leukocytosis. Patient is afe brile. Acute urinary tract infection related to her obstructive uropathy Left hydronephrosis Abnormal density in the right lower lung, may be technical per radiologist Plan: This is a pleasant 71 female with cervical cancer and obstructive uropathy Urology consult for possible stent placement versus nephrostomy Continue with Zosyn. Continue with normal saline Follow-up culture results including blood and urine cultures Labs and medication were reviewed.. Continue same treatment. Continue with symptomatic treatment. Resume home medication. Monitor lytes and vitals. DVT and GI prophylaxis. Further recommendations as per clinical course of the patient DVT prophylaxis: Subcutaneous heparin GI Prophylaxis: Pepcid PT/OT: Pending Prognosis is guarded
[2022-08-07] MEDS: MORPHINE SULFATE 2 MG/ML SYRINGE IVP PRN ×3 (00:10→21:44)
[2022-08-07] MEDS: HYDROcodone/APAP 7.5-325MG 1 EACH TAB PO PRN ×2 (03:32→19:09)
[2022-08-07] MEDS: SODIUM CHLORIDE 0.9% 1,000 ML IV SCH ×2 (04:49→18:58)
[2022-08-07] MEDS: FAMOTIDINE 20 MG/2 ML VIAL IV SCH ×2 (08:12→19:54)
[2022-08-07] MEDS: PIPERACILLIN-TAZOBACTAM 3.375 GM in SODIUM CHLORIDE 0.9% 100 ML IVPB SCH ×3 (08:12→23:39)
[2022-08-07] MEDS: HEPARIN SODIUM,PORCINE/PF 5,000 UNIT/0.5 ML SYRINGE SQ SCH ×2 (08:13→19:54)
[2022-08-07 10:55] LABS: Basophils # (A) 0.04 X 10*3/uL (0.00-0.10); Basophils % (A) 0.2 %; Eosinophils # (A) 0.14 X 10*3/uL (0.04-0.35); Eosinophils % (A) 0.8 %; HGB 9.6 g/dL (12.0-15.0); Immature Grans, Automated 0.4 %; Lymphocytes % (A) 11.2 %; MCV 96.9 fL (80.0-97.0); Mean Platelet Volume 9.2 fL (9.5-12.2); Monocytes # (A) 1.13 X 10*3/uL (0.20-1.00); Monocytes % (A) 6.3 %; NRBC Per 100 WBC 0 /100 WBCS (0.0-0.0); Neutrophils % (A) 81.1 %; Platelet Count 637 X 10*3/uL (140-440); RDW 15.8 % (11.5-14.5); WBC 17.89 X 10*3/uL (4.50-10.00)
[2022-08-07 11:18] LABS: ALT 40 U/L (8-44); AST 42 U/L (13-35); African American GFR (CKD) 85.4 (60.0-200.0); Albumin 2.1 g/dL (3.8-4.9); Albumin/Globulin Ratio 0.72 (1.60-3.17); Alkaline Phosphatase 480 U/L (41-126); BUN/Creat Ratio 16.25 Ratio (12.00-20.00); Bilirubin, Conjugated <0.20 mg/dL (0.20-0.40); Calcium 7.9 mg/dL (8.7-10.3); Chloride 104 mmol/L (96-109); Globulin 2.9 g/dL (1.6-3.3); Glucose 82 mg/dL (70-110); Magnesium 1.2 mg/dL (1.5-2.4); Non-African American GFR(CKD) 73.7 (60.0-200.0); Sodium 137 mmol/L (135-145)
--- NOTE | 2022-08-07 11:43 | P.PN ---
Subjective This is a pleasant 71 years old female with no significant past medical history. She was recently diagnosed with cervical cancer with invasion to the left side of the urinary bladder and the renal system, she was under the care of Dr. Lira today for planned to left ureteral stent placement to relieve obstruction which was an successful due to nonvisualization of the left ureteral orifice, nephrostomy tube would be considered by urologist. However patient was some evidence of sepsis with leukocytosis, borderline blood pressure and she was admitted to the medical floor and the service of medical team with urology of the oncology service on consult. I met with the patient and son at bedside. She is fully awake and oriented, mildly lethargic. She's been complaining of from lower abdominal pain over the last 2-3 months, it gets worse over the last 2-3 days number currently rated as a 9-10/10 in severity, it felt in the left lower quadrant more but her tenderness also in the suprapubic area. She describes the pain as dull sensation. No nausea or vomiting today, however she's been vomiting frequently over the last 1 month ago. Also she has poor appetite and because of her nausea which affects her ability to eat. She had diarrhea for about more than 2 weeks however she had no bowel movement over the last 2 days. She's generally weak, little dyspneic Complains from little dysuria. She is slightly tachycardic 104, blood pressure is borderline 102/69, she is febrile and dorsal vitals are stable. Chest significant leukocytosis 28.2. Which was up from 12 K last night. Hemoglobin 11.2. Limited elevated 823. Sodium 123, creatinine 0.9. Liver enzymes not elevated. Chest x-ray: No acute process. However there is questionable abnormal density in the right lung and the recommended to repeat chest x-ray PA and lateral view which will be ordered tomorrow. 08/06/2012 Patient still feels generally weak but she is alert awake and oriented and comfortable. She denies fever. Vitals are stable. She has some suprapubic tenderness and little bit more pain on the right side but generally feels better today as per patient Urine culture is growing gram-negative bacilli, most likely patient has sepsis secondary to urinary tract infection which may be contributed or related to her left hydronephrosis and obstructive uropathy. Nephrology team on the case recommended IR for placement of nephrostomy tube. Continue with Zosyn and normal saline Blood culture are still pending as well 08/07/2012 she is a status post left nephrostomy tube placement. Draining pink urine in the bag. She feels generally better today Patient still feels generally weak however she is improving slowly and gradually. Physical and occupational therapy recommended home health care. She is also hemodynamically stable and afebrile. WBC is 17.8, hemoglobin 9.6. Liver enzymes looks better. Her urine culture is chronic gram-negative bacilli. Ultrasound of the left leg is negative for DVT. The patient chest x-ray showing no pneumonia. She remains on Zosyn and normal saline 75 mL/h Objective - Vital Signs Vital signs: Vital Signs Temp 98.3 F 08/07/22 07:45 Pulse 92 08/07/22 07:45 Resp 17 08/07/22 07:45 BP 115/69 08/07/22 07:45 Pulse Ox 90 L 08/07/22 07:45 FiO2 Intake & Output 08/06/22 08/07/22 08/07/22 18:59 06:59 18:59 Intake Total 50 940 Output Total 150 605 Balance -100 335 Weight 79.4 kg Intake: IV 50 Intake, IV Titration 700 Amount Piperacillin-Tazobactam 3 100 .375 gm In Sodium Chloride 0.9% 100 ml @ 25 mls/hr IVPB Q8HR [facility] Rx# :[id number] Sodium Chloride 0.9% 1, 600 000 ml @ 75 mls/hr IV . [id number] [facility] Rx#:[id number] Oral 240 Output: Drainage 150 405 Left Back 150 405 Urine 200 Other: Voiding Method External Catheter External Catheter External Catheter - Exam -GENERAL: The patient is alert and oriented x3, not in any acute distress. Well developed, well nourished. Generally weak HEENT: Pupils are round and equally reacting to light. EOMI. No scleral icterus. No conjunctival pallor. Normocephalic, atraumatic. No pharyngeal erythema. No thyromegaly. CARDIOVASCULAR: S1 and S2 present. No murmurs, rubs, or gallops. PULMONARY: Chest is clear to auscultation, no wheezing or crackles. -ABDOMEN: Soft, mild lower abdominal suprapubic tenderness, and the lesser extent in the left lower quadrant, no guarding or rebound tenderness, n ondistended, normoactive bowel sounds. No palpable organomegaly. MUSCULOSKELETAL: No joint swelling or deformity. EXTREMITIES: No cyanosis, clubbing, or pedal edema. NEUROLOGICAL: Gross neurological examination did not reveal any focal deficits. SKIN: No rashes. no petechiae. - Labs CBC & Chem 7: 08/07/22 07:09 08/07/22 07:09 Labs: Abnormal Lab Results - Last 24 Hours (Table) 08/06/22 08/06/22 08/07/22 Range/Units 07:19 07:19 07:09 WBC 17.1 H 17.89 H (3.8-10.6) k/uL RBC 3.42 L 3.20 L (3.80-5.40) m/uL Hgb 10.4 L 9.6 L (11.4-16.0) gm/dL Hct 31.0 L (37.2-46.3) % MCV 100.6 H (80.0-100.0) fL MCHC 30.2 L 31.0 L (31.0-37.0) g/dL RDW 15.8 H (11.5-14.5) % Plt Count 613 H 637 H (150-450) k/uL MPV 9.2 L (9.5-12.2) fL Immature Gran # 0.08 H (0.00-0.04) X 10*3/uL Neutrophils # 14.0 H 14.50 H (1.3-7.7) k/uL Monocytes # 1.13 H (0.20-1.00) X 10*3/uL Sodium 133 L (137-145) mmol/L BUN 19 H (7-17) mg/dL Calcium 7.7 L (8.4-10.2) mg/dL Magnesium 1.1 L (1.6-2.3) mg/dL Total Bilirubin (0.30-1.20) mg/dL Conjugated Bilirubin (0.20-0.40) mg/dL AST 138 H (14-36) U/L ALT 52 H (4-34) U/L Alkaline Phosphatase 596 H (38-126) U/L Total Protein 5.0 L (6.3-8.2) g/dL Albumin 2.2 L (3.5-5.0) g/dL Albumin/Globulin Ratio (1.60-3.17) g/dL 08/07/22 Range/Units 07:09 WBC (3.8-10.6) k/uL RBC (3.80-5.40) m/uL Hgb (11.4-16.0) gm/dL Hct (37.2-46.3) % MCV (80.0-100.0) fL MCHC (31.0-37.0) g/dL RDW (11.5-14.5) % Plt Count (150-450) k/uL MPV (9.5-12.2) fL Immature Gran # (0.00-0.04) X 10*3/uL Neutrophils # (1.3-7.7) k/uL Monocytes # (0.20-1.00) X 10*3/uL Sodium (137-145) mmol/L BUN (7-17) mg/dL Calcium 7.9 L (8.4-10.2) mg/dL Magnesium 1.2 L (1.6-2.3) mg/dL Total Bilirubin 0.20 L (0.30-1.20) mg/dL Conjugated Bilirubin <0.20 L (0.20-0.40) mg/dL AST 42 H (14-36) U/L ALT (4-34) U/L Alkaline Phosphatase 480 H (38-126) U/L Total Protein 5.0 L (6.3-8.2) g/dL Albumin 2.1 L (3.5-5.0) g/dL Albumin/Globulin Ratio 0.72 L (1.60-3.17) g/dL Microbiology - Last 24 Hours (Table) 08/05/22 16:45 Urine Culture - Preliminary Urine,Voided Gram Neg Bacilli 08/05/22 13:03 Blood Culture - Preliminary Blood No Growth after 24 hours Assessment and Plan Assessment: Cervical cancer with local metastasis to the left coronary bladder and ureteric system,status post left nephrostomy tube placement. possible sepsis with tachypnea, tachycardia and leukocytosis. Patient is afebrile. Acute urinary tract infection related to her obstructive uropathy Left hydronephrosis Abnormal density in the right lower lung, may be technical per radiologist Plan: This is a pleasant 71 female with cervical cancer and obstructive uropathy Urology consult for possible stent placement versus nephrostomy Continue with Zosyn. Continue with normal saline Follow-up culture results including blood and urine cultures Labs and medication were reviewed.. Continue same treatment. Continue with symptomatic treatment. Resume home medication. Monitor lytes and vitals. DVT and GI prophylaxis. Further recommendations as per clinical course of the patient DVT prophylaxis: Subcutaneous heparin GI Prophylaxis: Pepcid PT/OT: Pending Prognosis is guarded
[2022-08-07 14:46] LABS: % Iron Saturation 21.15 (12.00-45.00)
--- NOTE | 2022-08-07 16:20 | P.PN ---
Subjective Progress Note Date: 08/07/22 Hemoglobin 9.6 No acute complaints except constipation Objective - Vital Signs Vital signs: Vital Signs Temp 98.3 F 08/07/22 07:45 Pulse 92 08/07/22 07:45 Resp 17 08/07/22 07:45 BP 115/69 08/07/22 07:45 Pulse Ox 90 L 08/07/22 07:45 FiO2 Intake & Output 08/06/22 08/07/22 08/07/22 18:59 06:59 18:59 Intake Total 50 940 Output Total 150 605 Balance -100 335 Weight 79.4 kg Intake: IV 50 Intake, IV Titration 700 Amount Piperacillin-Tazobactam 3 100 .375 gm In Sodium Chloride 0.9% 100 ml @ 25 mls/hr IVPB Q8HR [facility] Rx# :[id number] Sodium Chloride 0.9% 1, 600 000 ml @ 75 mls/hr IV . [id number] [facility] Rx#:[id number] Oral 240 Output: Drainage 150 405 Left Back 150 405 Urine 200 Other: Voiding Method External Catheter External Catheter External Catheter - Exam - Constitutional General appearance: average body habitus, cooperative, no acute distress - EENT Eyes: anicteric sclerae, EOMI ENT: hearing grossly normal - Respiratory Respiratory: bilateral: diminished (throughout) - Cardiovascular Rhythm: regular Heart sounds: normal: S1, S2 Abnormal Heart Sounds: no systolic murmur, no diastolic murmur, no rub, no S3 Gallop, no S4 Gallop, no click, no other leg Peripheral Edema: right: None, left: Trace - Gastrointestinal General gastrointestinal: no absent bowel sounds, no decreased bowel sounds, no distended, no hepatomegaly, no hyperactive bowel sounds, normal bowel sounds, no organomegaly, no rigid, no scaphoid, soft, no splenomegaly, no tenderness, no umbilical hernia, no ventral hernia - Integumentary Integumentary: normal - Neurologic Neurologic: CNII-XII intact - Musculoskeletal Musculoskeletal: strength equal bilaterally - Psychiatric Psychiatric: A&O x's 3, appropriate affect, intact judgment & insight - Labs CBC & Chem 7: 08/07/22 07:09 08/07/22 07:09 Labs: Abnormal Lab Results - Last 24 Hours (Table) 08/06/22 08/06/22 08/07/22 Range/Units 07:19 07:19 07:09 WBC 17.1 H 17.89 H (3.8-10.6) k/uL RBC 3.42 L 3.20 L (3.80-5.40) m/uL Hgb 10.4 L 9.6 L (11.4-16.0) gm/dL Hct 31.0 L (37.2-46.3) % MCV 100.6 H (80.0-100.0) fL MCHC 30.2 L 31.0 L (31.0-37.0) g/dL RDW 15.8 H (11.5-14.5) % Plt Count 613 H 637 H (150-450) k/uL MPV 9.2 L (9.5-12.2) fL Immature Gran # 0.08 H (0.00-0.04) X 10*3/uL Neutrophils # 14.0 H 14.50 H (1.3-7.7) k/uL Monocytes # 1.13 H (0.20-1.00) X 10*3/uL Sodium 133 L (137-145) mmol/L BUN 19 H (7-17) mg/dL Calcium 7.7 L (8.4-10.2) mg/dL Magnesium 1.1 L (1.6-2.3) mg/dL Total Bilirubin (0.30-1.20) mg/dL Conjugated Bilirubin (0.20-0.40) mg/dL AST 138 H (14-36) U/L ALT 52 H (4-34) U/L Alkaline Phosphatase 596 H (38-126) U/L Total Protein 5.0 L (6.3-8.2) g/dL Albumin 2.2 L (3.5-5.0) g/dL Albumin/Globulin Ratio (1.60-3.17) g/dL 08/07/22 Range/Units 07:09 WBC (3.8-10.6) k/uL RBC (3.80-5.40) m/uL Hgb (11.4-16.0) gm/dL Hct (37.2-46.3) % MCV (80.0-100.0) fL MCHC (31.0-37.0) g/dL RDW (11.5-14.5) % Plt Count (150-450) k/uL MPV (9.5-12.2) fL Immature Gran # (0.00-0.04) X 10*3/uL Neutrophils # (1.3-7.7) k/uL Monocytes # (0.20-1.00) X 10*3/uL Sodium (137-145) mmol/L BUN (7-17) mg/dL Calcium 7.9 L (8.4-10.2) mg/dL Magnesium 1.2 L (1.6-2.3) mg/dL Total Bilirubin 0.20 L (0.30-1.20) mg/dL Conjugated Bilirubin <0.20 L (0.20-0.40) mg/dL AST 42 H (14-36) U/L ALT (4-34) U/L Alkaline Phosphatase 480 H (38-126) U/L Total Protein 5.0 L (6.3-8.2) g/dL Albumin 2.1 L (3.5-5.0) g/dL Albumin/Globulin Ratio 0.72 L (1.60-3.17) g/dL Microbiology - Last 24 Hours (Table) 08/05/22 16:45 Urine Culture - Preliminary Urine,Voided Gram Neg Bacilli 08/05/22 13:03 Blood Culture - Preliminary Blood No Growth after 24 hours Assessment and Plan Plan: Assessment and Plan (1) Cervical adenocarcinoma Current Visit: Yes Status: Acute Priority: High Code(s): C53.9 - MALIGNANT NEOPLASM OF CERVIX UTERI, UNSPECIFIED SNOMED Code(s): 529526719 (2) Hydronephrosis, left Current Visit: Yes Status: Acute Priority: High Code(s): N13.30 - UNSPECIFIED HYDRONEPHROSIS SNOMED Code(s): 79753406 (3) Thrombocytosis and Anemia: - Likely iron deficiency compoenent - Iron studies ordered Plan: Left hydronephrosis. Urology did cystoscopy but tumor obscured ureter so no padilla nt could be placed. Pt sent to hospital for nephrostomy placement. Concerns for infection. . Newly diagnosed cervical ca. Pending start of treatment until current condition is resolved. F/U scheduled. Rad Onc consulted Doppler of LLE for unilateral swelling is negative for DVT Add bowel regimen Dr. attests: I have seen and examined patient, performed H&P, developed impression and plan of care. Discussed with dictator. Agree with documentation, dictated as a scribe.
--- NOTE | 2022-08-07 17:11 | P.PN ---
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 The patient was admitted to the hospital on August 05, 2022. The previous week, she underwent cystoscopy, but was unable to have a ureter stent placed secondary to tumor involvement in the bladder. She subsequently had interventional radiology place a left nephrostomy tube on August 06. There is normal-appearing urine draining from the nephrostomy tube. She does have a catheter in, and the urinary output from that has a blood-tinged appearance. Her urinalysis appeared to suggest a large amount of blood and possible underlying infection. She has therefore been started on antibiotics. She is complaining of 5 out of 10 lower abdominal pain, which does seem to respond well to the current pain regimen. She unfortunately has not moved her bowels for a couple of days, and thinks this may be contributing to the pain. Objective - Vital Signs Vital signs: Vital Signs Temp 98.7 F 08/07/22 14:00 Pulse 73 08/07/22 14:00 Resp 16 08/07/22 14:00 BP 132/84 08/07/22 14:00 Pulse Ox 97 08/07/22 14:00 FiO2 Intake & Output 08/06/22 08/07/22 08/07/22 18:59 06:59 18:59 Intake Total 50 940 Output Total 150 605 Balance -100 335 Weight 79.4 kg 79.4 kg Intake: IV 50 Intake, IV Titration 700 Amount Piperacillin-Tazobactam 3 100 .375 gm In Sodium Chloride 0.9% 100 ml @ 25 mls/hr IVPB Q8HR [facility] Rx# :[id number] Sodium Chloride 0.9% 1, 600 000 ml @ 75 mls/hr IV . [id number] [facility] Rx#:[id number] Oral 240 Output: Drainage 150 405 Left Back 150 405 Urine 200 Other: Voiding Method External Catheter External Catheter External Catheter - Constitutional General appearance: Present: no acute distress - EENT Eyes: Present: EOMI, PERRLA ENT: Present: hearing grossly normal - Neck Neck: Absent: lymphadenopathy - Respiratory Respiratory: bilateral: CTA - Cardiovascular Rhythm: regular - Gastrointestinal General gastrointestinal: Present: tenderness (Mild TTP hypogastric ). Absent: distended - Integumentary Integumentary: Present: pale - Neurologic Neurologic: Present: CNII-XII intact - Musculoskeletal Musculoskeletal: Present: strength equal bilaterally - Psychiatric Psychiatric: Present: A&O x's 3, appropriate affect - Labs CBC & Chem 7: 08/07/22 07:09 08/07/22 07:09 Labs: Abnormal Lab Results - Last 24 Hours (Table) 08/07/22 08/07/22 08/07/22 Range/Units 07:09 07:09 07:09 WBC 17.89 H (4.50-10.00) X 10*3/uL RBC 3.20 L (4.10-5.20) X 10*6/uL Hgb 9.6 L (12.0-15.0) g/dL Hct 31.0 L (37.2-46.3) % MCHC 31.0 L (32.0-37.0) g/dL RDW 15.8 H (11.5-14.5) % Plt Count 637 H (140-440) X 10*3/uL MPV 9.2 L (9.5-12.2) fL Immature Gran # 0.08 H (0.00-0.04) X 10*3/uL Neutrophils # 14.50 H (1.80-7.70) X 10*3/uL Monocytes # 1.13 H (0.20-1.00) X 10*3/uL Calcium 7.9 L (8.7-10.3) mg/dL Magnesium 1.2 L (1.5-2.4) mg/dL Iron 29 L (50-170) ug/dL TIBC 138 L (228-460) ug/dL Transferrin 98.3 L (204.0-354.0) mg/dL Ferritin 920.0 H (10.0-291.0) ng/mL Total Bilirubin 0.20 L (0.30-1.20) mg/dL Conjugated Bilirubin <0.20 L (0.20-0.40) mg/dL AST 42 H (13-35) U/L Alkaline Phosphatase 480 H (41-126) U/L Total Protein 5.0 L (6.2-8.2) g/dL Albumin 2.1 L (3.8-4.9) g/dL Albumin/Globulin Ratio 0.72 L (1.60-3.17) g/dL Microbiology - Last 24 Hours (Table) 08/05/22 13:03 Blood Culture - Preliminary Blood No Growth after 48 hours 08/05/22 16:45 Urine Culture - Final Urine,Voided Escherichia coli Assessment and Plan Assessment: The patient is a 71-year-old female with a history of a 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 Plan: 1. Cervical cancer: She is status post left nephrostomy tube placement. We will look to initiate her radiotherapy this coming week. There may be some delay on starting chemotherapy as the patient unfortunately had concern for UTI and possible sepsis at admission. She clinically appears to be doing much better at this time. Time with Patient: Less than 30
[2022-08-08] MEDS: HYDROcodone/APAP 7.5-325MG 1 EACH TAB PO PRN (01:11)
[2022-08-08] MEDS: FAMOTIDINE 20 MG/2 ML VIAL IV SCH ×2 (08:57→20:51)
[2022-08-08] MEDS: PIPERACILLIN-TAZOBACTAM 3.375 GM in SODIUM CHLORIDE 0.9% 100 ML IVPB SCH (08:57)
[2022-08-08] MEDS: HEPARIN SODIUM,PORCINE/PF 5,000 UNIT/0.5 ML SYRINGE SQ SCH ×2 (08:57→20:51)
[2022-08-08] MEDS: HYDROcodone/APAP 10-325MG 1 EACH TAB PO PRN ×2 (09:02→16:45)
[2022-08-08] MEDS ORDERED: SENNOSIDES 8.6 MG TAB PO PRN (09:03)
[2022-08-08] MEDS: SODIUM CHLORIDE 0.9% 1,000 ML IV SCH (10:33)
[2022-08-08] MEDS: DOCUSATE 100 MG CAP PO SCH ×2 (10:33→20:51)
--- NOTE | 2022-08-08 11:09 | P.PN ---
Progress Note - Text Progress Note Date: 08/08/22 The patient underwent left nephrostomy tube placement on 08/06/2022. The tube is draining clear yellow urine. She is afebrile, but her WBC count remains elevated. She is receiving Zosyn for an E. coli UTI. Her primary complaint at this time is abdominal pain and constipation. Urologically speaking, I do not recommend any changes at this time.
--- NOTE | 2022-08-08 12:56 | P.PN ---
Subjective Progress Note Date: 08/08/22 Principal diagnosis: Cervical cancer admitted with UTI -Afebrile, no acute events overnight -Reports improves bilateral inguinal pain with increase in [place] to 10/325 mg -Notes continued constipation Objective - Vital Signs Vital signs: Vital Signs Temp 98.1 F 08/08/22 07:49 Pulse 106 H 08/08/22 07:49 Resp 16 08/08/22 07:49 BP 121/78 08/08/22 07:49 Pulse Ox 99 08/08/22 07:49 FiO2 Intake & Output 08/07/22 08/08/22 08/08/22 18:59 06:59 18:59 Intake Total 1000 Output Total 500 1025 340 Balance -500 -25 -340 Weight 79.4 kg Intake: Intake, IV Titration 1000 Amount Piperacillin-Tazobactam 3 100 .375 gm In Sodium Chloride 0.9% 100 ml @ 25 mls/hr IVPB Q8HR [facility] Rx# :[id number] Sodium Chloride 0.9% 1, 900 000 ml @ 75 mls/hr IV . [id number] [facility] Rx#:[id number] Output: Drainage 200 625 340 Left Back 200 625 340 Urine 300 400 Other: Voiding Method External Catheter External Catheter # Voids 2 # Bowel Movements 0 - Constitutional Constitutional Comment(s): Appears more comfortable today's exam General appearance: Present: average body habitus - Respiratory Respiratory: bilateral: CTA - Cardiovascular Rhythm: regular - Gastrointestinal General gastrointestinal: Present: distended, normal bowel sounds. Absent: tenderness - Genitourinary Genitourinary Comment(s): Left nephrostomy tube site is covered in bandage, which is not stained with blood - Neurologic Neurologic: Present: CNII-XII intact - Psychiatric Psychiatric: Present: A&O x's 3 - Labs CBC & Chem 7: 08/07/22 07:09 08/07/22 07:09 Labs: Abnormal Lab Results - Last 24 Hours (Table) 08/07/22 Range/Units 07:09 Iron 29 L (50-170) ug/dL TIBC 138 L (228-460) ug/dL Transferrin 98.3 L (204.0-354.0) mg/dL Ferritin 920.0 H (10.0-291.0) ng/mL Microbiology - Last 24 Hours (Table) 08/05/22 13:03 Blood Culture - Preliminary Blood No Growth after 48 hours 08/05/22 16:45 Urine Culture - Final Urine,Voided Escherichia coli Assessment and Plan Assessment: Ms. Rosales is a 71-year-old woman with a past medical history significant for stage FRANTZ cervical squamous cell carcinoma, which is locally advanced due to invasion of the bladder, who had left hydronephrosis secondary to obstruction f rom malignancy. She was admitted with UTI Plan: #UTI -She had a left nephrostomy tube placed on 08/04/2022 given left hydronephrosis secondary to malignant obstruction of the left ureter -Urine culture from 08/05/2022 revealed E. coli resistance to ampicillin and Unasyn. Blood cultures of had no growth to date -Continue antibiotics at this time per primary team #Stage FRANTZ cervical squamous cell carcinoma -Locally advanced due to invasion of the bladder visualized on cystoscopy -PET/CT scan revealed no evidence of distant metastatic disease -The plan is to initiate treatment with cisplatin/radiation therapy once UTI resolves -Continue [place] 08/17/2025 as ordered per primary team -Bowel regimen with docusate and senna twice a day ordered given persistent constipation -From oncology perspective, Ms. Rosales would be cleared for discharge once pain is well-controlled on oral pain medication, has had a bowel movement, and has appropriate follow-up for care of the left nephrostomy tube
--- NOTE | 2022-08-08 14:11 | P.PN ---
Subjective This is a pleasant 71 years old female with no significant past medical history. She was recently diagnosed with cervical cancer with invasion to the left side of the urinary bladder and the renal system, she was under the care of Dr. Lira today for planned to left ureteral stent placement to relieve obstruction which was an successful due to nonvisualization of the left ureteral orifice, nephrostomy tube would be considered by urologist. However patient was some evidence of sepsis with leukocytosis, borderline blood pressure and she was admitted to the medical floor and the service of medical team with urology of the oncology service on consult. I met with the patient and son at bedside. She is fully awake and oriented, mildly lethargic. She's been complaining of from lower abdominal pain over the last 2-3 months, it gets worse over the last 2-3 days number currently rated as a 9-10/10 in severity, it felt in the left lower quadrant more but her tenderness also in the suprapubic area. She describes the pain as dull sensation. No nausea or vomiting today, however she's been vomiting frequently over the last 1 month ago. Also she has poor appetite and because of her nausea which affects her ability to eat. She had diarrhea for about more than 2 weeks however she had no bowel movement over the last 2 days. She's generally weak, little dyspneic Complains from little dysuria. She is slightly tachycardic 104, blood pressure is borderline 102/69, she is febrile and dorsal vitals are stable. Chest significant leukocytosis 28.2. Which was up from 12 K last night. Hemoglobin 11.2. Limited elevated 823. Sodium 123, creatinine 0.9. Liver enzymes not elevated. Chest x-ray: No acute process. However there is questionable abnormal density in the right lung and the recommended to repeat chest x-ray PA and lateral view which will be ordered tomorrow. 08/06/2012 Patient still feels generally weak but she is alert awake and oriented and comfortable. She denies fever. Vitals are stable. She has some suprapubic tenderness and little bit more pain on the right side but generally feels better today as per patient Urine culture is growing gram-negative bacilli, most likely patient has sepsis secondary to urinary tract infection which may be contributed or related to her left hydronephrosis and obstructive uropathy. Nephrology team on the case recommended IR for placement of nephrostomy tube. Continue with Zosyn and normal saline Blood culture are still pending as well 08/07/2012 she is a status post left nephrostomy tube placement. Draining pink urine in the bag. She feels generally better today Patient still feels generally weak however she is improving slowly and gradually. Physical and occupational therapy recommended home health care. She is also hemodynamically stable and afebrile. WBC is 17.8, hemoglobin 9.6. Liver enzymes looks better. Her urine culture is chronic gram-negative bacilli. Ultrasound of the left leg is negative for DVT. The patient chest x-ray showing no pneumonia. She remains on Zosyn and normal saline 75 mL/h 08/08/2022 patient was suffering from more pain in her suprapubic area and she wasn't at [place], her [place] dose increased into 10-325 mg, bowel regimen also would be provided with senna and Colace. Urine culture is growing sensitive E. coli, we are going to downgrade her Zosyn to ceftriaxone Nephrostomy tube is working. No respiratory symptoms. We will or normal saline 50 mL/h Objective - Vital Signs Vital signs: Vital Signs Temp 98.1 F 08/08/22 07:49 Pulse 106 H 08/08/22 07:49 Resp 16 08/08/22 07:49 BP 121/78 08/08/22 07:49 Pulse Ox 99 08/08/22 07:49 FiO2 Intake & Output 08/07/22 08/08/22 08/08/22 18:59 06:59 18:59 Intake Total 1000 Output Total 500 1025 340 Balance -500 -25 -340 Weight 79.4 kg Intake: Intake, IV Titration 1000 Amount Piperacillin-Tazobactam 3 100 .375 gm In Sodium Chloride 0.9% 100 ml @ 25 mls/hr IVPB Q8HR [facility] Rx# :[id number] Sodium Chloride 0.9% 1, 900 000 ml @ 75 mls/hr IV . [id number] [facility] Rx#:[id number] Output: Drainage 200 625 340 Left Back 200 625 340 Urine 300 400 Other: Voiding Method External Catheter External Catheter # Voids 2 # Bowel Movements 0 - Exam -GENERAL: The patient is alert and oriented x3, not in any acute distress. Well developed, well nourished. Generally weak HEENT: Pupils are round and equally reacting to light. EOMI. No scleral icterus. No conjunctival pallor. Normocephalic, atraumatic. No pharyngeal erythema. No thyromegaly. CARDIOVASCULAR: S1 and S2 present. No murmurs, rubs, or gallops. PULMONARY: Chest is clear to auscultation, no wheezing or crackles. -ABDOMEN: Soft, mild lower abdominal suprapubic tenderness, and the lesser extent in the left lower quadrant, no guarding or rebound tenderness, non distended, normoactive bowel sounds. No palpable organomegaly. MUSCULOSKELETAL: No joint swelling or deformity. EXTREMITIES: No cyanosis, clubbing, or pedal edema. NEUROLOGICAL: Gross neurological examination did not reveal any focal deficits. SKIN: No rashes. no petechiae. - Labs CBC & Chem 7: 08/07/22 07:09 08/07/22 07:09 Labs: Abnormal Lab Results - Last 24 Hours (Table) 08/07/22 08/07/22 08/07/22 Range/Units 07:09 07:09 07:09 WBC 17.89 H (4.50-10.00) X 10*3/uL RBC 3.20 L (4.10-5.20) X 10*6/uL Hgb 9.6 L (12.0-15.0) g/dL Hct 31.0 L (37.2-46.3) % MCHC 31.0 L (32.0-37.0) g/dL RDW 15.8 H (11.5-14.5) % Plt Count 637 H (140-440) X 10*3/uL MPV 9.2 L (9.5-12.2) fL Immature Gran # 0.08 H (0.00-0.04) X 10*3/uL Neutrophils # 14.50 H (1.80-7.70) X 10*3/uL Monocytes # 1.13 H (0.20-1.00) X 10*3/uL Calcium 7.9 L (8.7-10.3) mg/dL Magnesium 1.2 L (1.5-2.4) mg/dL Iron 29 L (50-170) ug/dL TIBC 138 L (228-460) ug/dL Transferrin 98.3 L (204.0-354.0) mg/dL Ferritin 920.0 H (10.0-291.0) ng/mL Total Bilirubin 0.20 L (0.30-1.20) mg/dL Conjugated Bilirubin <0.20 L (0.20-0.40) mg/dL AST 42 H (13-35) U/L Alkaline Phosphatase 480 H (41-126) U/L Total Protein 5.0 L (6.2-8.2) g/dL Albumin 2.1 L (3.8-4.9) g/dL Albumin/Globulin Ratio 0.72 L (1.60-3.17) g/dL Microbiology - Last 24 Hours (Table) 08/05/22 13:03 Blood Culture - Preliminary Blood No Growth after 48 hours 08/05/22 16:45 Urine Culture - Final Urine,Voided Escherichia coli Assessment and Plan Assessment: Cervical cancer with local metastasis to the left coronary bladder and ureteric system,status post left nephrostomy tube placement. possible sepsis with tachypnea, tachycardia and leukocytosis. Patient is afebrile. Acute urinary tract infection related to her obstructive uropathy Left hydronephrosis Abnormal density in the right lower lung, may be technical per radiologist Plan: This is a pleasant 71 female with cervical cancer and obstructive uropathy Urology team on the case for stent placement versus nephrostomy Continue with ceftriaxone Continue with normal saline Labs and medication were reviewed.. Continue same treatment. Continue with sy mptomatic treatment. Resume home medication. Monitor lytes and vitals. DVT and GI prophylaxis. Further recommendations as per clinical course of the patient DVT prophylaxis: Subcutaneous heparin GI Prophylaxis: Pepcid
[2022-08-09] MEDS: HYDROcodone/APAP 10-325MG 1 EACH TAB PO PRN ×4 (00:06→18:05)
[2022-08-09] MEDS: SODIUM CHLORIDE 0.9% 1,000 ML IV SCH ×2 (03:07→20:29)
[2022-08-09] MEDS: HEPARIN SODIUM,PORCINE/PF 5,000 UNIT/0.5 ML SYRINGE SQ SCH ×2 (08:13→20:38)
[2022-08-09] MEDS: FAMOTIDINE 20 MG/2 ML VIAL IV SCH ×2 (08:13→20:38)
[2022-08-09] MEDS: DOCUSATE 100 MG CAP PO SCH ×2 (08:13→20:38)
[2022-08-09 10:27] LABS: Basophils # (A) 0.1 k/uL (0-0.2); Basophils % (A) 0 %; Eosinophils # (A) 0.2 k/uL (0-0.7); Eosinophils % (A) 1 %; HCT 31.2 % (34.0-46.0); HGB 9.4 gm/dL (11.4-16.0); Hypochromasia Marked; Lymphocytes # (A) 2.1 k/uL (1.0-4.8); Lymphocytes % (A) 13 %; MCH 30.5 pg (25.0-35.0); MCHC 30.2 g/dL (31.0-37.0); MCV 100.8 fL (80.0-100.0); Macrocytosis Slight; Mean Platelet Volume 6.9; Monocytes # (A) 0.7 k/uL (0-1.0); Monocytes % (A) 5 %; Neutrophils % (A) 80 %; Platelet Count 541 k/uL (150-450); RBC 3.09 m/uL (3.80-5.40); RDW 14.7 % (11.5-15.5); WBC 16.3 k/uL (3.8-10.6)
[2022-08-09 10:32] LABS: ALT 20 U/L (4-34); AST 20 U/L (14-36); African American GFR (CKD) >90 (>60 ml/min/1.73 sqM); Albumin 1.9 g/dL (3.5-5.0); Albumin/Globulin Ratio 0.8; Alkaline Phosphatase 306 U/L (38-126); Anion Gap 6 mmol/L; Blood Urea Nitrogen 7 mg/dL (7-17); Calcium 7.4 mg/dL (8.4-10.2); Carbon Dioxide 26 mmol/L (22-30); Chloride 104 mmol/L (98-107); Globulin 2.4 g/dL; Glucose 110 mg/dL (74-99); Magnesium 1.1 mg/dL (1.6-2.3); Non-African American GFR(CKD) >90 (>60 ml/min/1.73 sqM); Phosphorus 2.8 mg/dL (2.5-4.5); Potassium 3.7 mmol/L (3.5-5.1); Sodium 136 mmol/L (137-145); Total Bilirubin 0.3 mg/dL (0.2-1.3); Total Protein 4.3 g/dL (6.3-8.2)
--- NOTE | 2022-08-09 15:17 | P.PN ---
Subjective Progress Note Date: 08/09/22 Principal diagnosis: Cervical cancer admitted with UTI -Afebrile, no acute events overnight -Remains comfortable on [place] to 10/325 mg -Notes continued constipation with addition of colace BID. Senna was incorrectly ordered as PRN instead of scheduled Objective - Vital Signs Vital signs: Vital Signs Temp 98.1 F 08/09/22 14:00 Pulse 98 08/09/22 14:00 Resp 18 08/09/22 14:00 BP 119/80 08/09/22 14:00 Pulse Ox 97 08/09/22 14:00 FiO2 Intake & Output 08/08/22 08/09/22 08/09/22 18:59 06:59 18:59 Intake Total 600 Output Total 800 550 750 Balance -200 -550 -750 Intake: IV 600 Sodium Chloride 0.9% 1, 600 000 ml @ 50 mls/hr IV . Q20H [facility] Rx#:[id number] Output: Drainage 800 350 350 Left Back 800 350 350 Urine 200 400 Other: Voiding Method External Catheter External Catheter External Catheter - Constitutional Constitutional Comment(s): Appears comfortable General appearance: Present: no acute distress - EENT Eyes: Present: EOMI - Respiratory Respiratory: bilateral: CTA - Cardiovascular Rhythm: regular - Gastrointestinal General gastrointestinal: Present: distended, soft. Absent: tenderness - Integumentary Integumentary: Absent: rash - Neurologic Neurologic: Present: CNII-XII intact - Labs CBC & Chem 7: 08/09/22 09:50 08/09/22 09:50 Labs: Abnormal Lab Results - Last 24 Hours (Table) 08/09/22 08/09/22 Range/Units 09:50 09:50 WBC 16.3 H (3.8-10.6) k/uL RBC 3.09 L (3.80-5.40) m/uL Hgb 9.4 L (11.4-16.0) gm/dL Hct 31.2 L (34.0-46.0) % MCV 100.8 H (80.0-100.0) fL MCHC 30.2 L (31.0-37.0) g/dL Plt Count 541 H (150-450) k/uL Neutrophils # 13.0 H (1.3-7.7) k/uL Sodium 136 L (137-145) mmol/L Glucose 110 H (74-99) mg/dL Calcium 7.4 L (8.4-10.2) mg/dL Magnesium 1.1 L (1.6-2.3) mg/dL Alkaline Phosphatase 306 H (38-126) U/L Total Protein 4.3 L (6.3-8.2) g/dL Albumin 1.9 L (3.5-5.0) g/dL Microbiology - Last 24 Hours (Table) 08/05/22 13:03 Blood Culture - Preliminary Blood No Growth after 72 hours Assessment and Plan Assessment: Ms. Rosales is a 71-year-old woman with a past medical history significant for stage FRANTZ cervical squamous cell carcinoma, which is locally advanced due to invasion of the bladder, who had left hydronephrosis secondary to obstruction from malignancy. She was admitted with UTI Plan: #UTI -She had a left nephrostomy tube placed on 08/04/2022 given left hydronephrosis secondary to malignant obstruction of the left ureter -Urine culture from 08/05/2022 revealed E. coli resistance to ampicillin and Unasyn. Blood cultures of had no growth to date -Continue antibiotics at this time per primary team #Stage FRANTZ cervical squamous cell carcinoma -Locally advanced due to invasion of the bladder visualized on cystoscopy -PET/CT scan revealed no evidence of distant metastatic disease -The plan is to initiate treatment with cisplatin/radiation therapy once UTI resolves -Continue [place] 08/17/2025 as ordered per primary team -Continue docusate twice a day schedule -Senokot changed from when necessary to scheduled -MiraLAX can be added if she does not have bowel movement with docusate and senna -From oncology perspective, Ms. Rosales would be cleared for discharge once pain is well-controlled on oral pain medication, has had a bowel movement, and has appropriate follow-up for care of the left nephrostomy tube
[2022-08-09] MEDS: SENNOSIDES 8.6 MG TAB PO SCH ×2 (18:00→20:38)
--- NOTE | 2022-08-09 20:57 | P.PN ---
Subjective This is a pleasant 71 years old female with no significant past medical history. She was recently diagnosed with cervical cancer with invasion to the left side of the urinary bladder and the renal system, she was under the care of Dr. Lira today for planned to left ureteral stent placement to relieve obstruction which was an successful due to nonvisualization of the left ureteral orifice, nephrostomy tube would be considered by urologist. However patient was some evidence of sepsis with leukocytosis, borderline blood pressure and she was admitted to the medical floor and the service of medical team with urology of the oncology service on consult. I met with the patient and son at bedside. She is fully awake and oriented, mildly lethargic. She's been complaining of from lower abdominal pain over the last 2-3 months, it gets worse over the last 2-3 days number currently rated as a 9-10/10 in severity, it felt in the left lower quadrant more but her tenderness also in the suprapubic area. She describes the pain as dull sensation. No nausea or vomiting today, however she's been vomiting frequently over the last 1 month ago. Also she has poor appetite and because of her nausea which affects her ability to eat. She had diarrhea for about more than 2 weeks however she had no bowel movement over the last 2 days. She's generally weak, little dyspneic Complains from little dysuria. She is slightly tachycardic 104, blood pressure is borderline 102/69, she is febrile and dorsal vitals are stable. Chest significant leukocytosis 28.2. Which was up from 12 K last night. Hemoglobin 11.2. Limited elevated 823. Sodium 123, creatinine 0.9. Liver enzymes not elevated. Chest x-ray: No acute process. However there is questionable abnormal density in the right lung and the recommended to repeat chest x-ray PA and lateral view which will be ordered tomorrow. 08/06/2012 Patient still feels generally weak but she is alert awake and oriented and comfortable. She denies fever. Vitals are stable. She has some suprapubic tenderness and little bit more pain on the right side but generally feels better today as per patient Urine culture is growing gram-negative bacilli, most likely patient has sepsis secondary to urinary tract infection which may be contributed or related to her left hydronephrosis and obstructive uropathy. Nephrology team on the case recommended IR for placement of nephrostomy tube. Continue with Zosyn and normal saline Blood culture are still pending as well 08/07/2012 she is a status post left nephrostomy tube placement. Draining pink urine in the bag. She feels generally better today Patient still feels generally weak however she is improving slowly and gradually. Physical and occupational therapy recommended home health care. She is also hemodynamically stable and afebrile. WBC is 17.8, hemoglobin 9.6. Liver enzymes looks better. Her urine culture is chronic gram-negative bacilli. Ultrasound of the left leg is negative for DVT. The patient chest x-ray showing no pneumonia. She remains on Zosyn and normal saline 75 mL/h 08/08/2022 patient was suffering from more pain in her suprapubic area and she wasn't at [place], her [place] dose increased into 10-325 mg, bowel regimen also would be provided with senna and Colace. Urine culture is growing sensitive E. coli, we are going to downgrade her Zosyn to ceftriaxone Nephrostomy tube is working. No respiratory symptoms. We will or normal saline 50 mL/h 08/09/2022 Patient feels better, she feels little stronger, but no dysuria and no suprapubic pain compared to 06/24 yesterday. Patient today wants to eat more,She is a smiling and pleasant Hemodynamically she is stable, blood pressure improved with systolic 120 to 1:30. Afebrile. And low magnesium was replaced IV as well as magnesium oxide 400 mg twice a day 5 days. Check labs in the morning Patient has evidence of iron deficiency anemia but hemoglobin 9.4 we will start her on some ferrous sulfate daily. Her antibiotic continued with ceftriaxone and adjusted to sensitive E. coli. She started eating better, I think we can stop IV fluids tonight. Left nephrostomy tube is working Objective - Vital Signs Vital signs: Vital Signs Temp 98.0 F 08/09/22 08:00 Pulse 99 08/09/22 08:00 Resp 18 08/09/22 08:00 BP 121/76 08/09/22 08:00 Pulse Ox 98 08/09/22 08:00 FiO2 Intake & Output 08/08/22 08/09/22 08/09/22 18:59 06:59 18:59 Intake Total 600 Output Total 800 550 Balance -200 -550 Intake: IV 600 Sodium Chloride 0.9% 1, 600 000 ml @ 50 mls/hr IV . Q20H [facility] Rx#:[id number] Output: Drainage 800 350 Left Back 800 350 Urine 200 Other: Voiding Method External Catheter External Catheter External Catheter - Exam -GENERAL: The patient is alert and oriented x3, not in any acute distress. Well developed, well nourished. Generally weak HEENT: Pupils are round and equally reacting to light. EOMI. No scleral icterus. No conjunctival pallor. Normocephalic, atraumatic. No pharyngeal erythema. No thyromegaly. CARDIOVASCULAR: S1 and S2 present. No murmurs, rubs, or gallops. PULMONARY: Chest is clear to auscultation, no wheezing or crackles. -ABDOMEN: Soft, mild lower abdominal suprapubic tenderness, and the lesser extent in the left lower quadrant, no guarding or rebound tenderness, nondistended, normoactive bowel sounds. No palpable organomegaly. MUSCULOSKELETAL: No joint swelling or deformity. EXTREMITIES: No cyanosis, clubbing, or pedal edema. NEUROLOGICAL: Gross neurological examination did not reveal any focal deficits. SKIN: No rashes. no petechiae. - Labs CBC & Chem 7: 08/09/22 09:50 08/09/22 09:50 Labs: Microbiology - Last 24 Hours (Table) 08/05/22 13:03 Blood Culture - Preliminary Blood No Growth after 72 hours Assessment and Plan Assessment: Cervical cancer with local metastasis to the left coronary bladder and ureteric system,status post left nephrostomy tube placement. possible sepsis with tachypnea, tachycardia and leukocytosis. Patient is afebrile. Acute urinary tract infection related to her obstructive uropathy Left hydronephrosis Abnormal density in the right lower lung, may be technical per radiologist Plan: This is a pleasant 71 female with cervical cancer and obstructive uropathy Urology team on the case for stent placement versus nephrostomy Continue with ceftriaxone Discontinue normal saline Labs and medication were reviewed.. Continue same treatment. Continue with symptomatic treatment. Resume home medication. Monitor lytes and vitals. DVT and GI prophylaxis. Further recommendations as per clinical course of the p atient DVT prophylaxis: Subcutaneous heparin GI Prophylaxis: Pepcid
[2022-08-09] MEDS: MAGNESIUM SULFATE-D5W PMX 1 GM in DEXTROSE/WATER 1 100ML.BAG IVPB SCH ×2 (21:29→22:50)
[2022-08-10] MEDS: HYDROcodone/APAP 10-325MG 1 EACH TAB PO PRN ×3 (03:14→19:22)
[2022-08-10] MEDS: DOCUSATE 100 MG CAP PO SCH ×2 (07:45→21:50)
[2022-08-10] MEDS: HEPARIN SODIUM,PORCINE/PF 5,000 UNIT/0.5 ML SYRINGE SQ SCH ×2 (07:45→21:50)
[2022-08-10] MEDS: SENNOSIDES 8.6 MG TAB PO SCH ×2 (07:45→21:50)
[2022-08-10] MEDS: MAGNESIUM OXIDE 400 MG TAB PO SCH ×2 (07:45→21:50)
[2022-08-10] MEDS: FAMOTIDINE 20 MG/2 ML VIAL IV SCH ×2 (07:46→21:50)
[2022-08-10 10:44] LABS: Basophils # (A) 0.05 X 10*3/uL (0.00-0.10); Basophils % (A) 0.3 %; Eosinophils # (A) 0.17 X 10*3/uL (0.04-0.35); HCT 28.1 % (37.2-46.3); Immature Grans, Automated 0.6 %; Lymphocytes # (A) 2.02 X 10*3/uL (0.90-5.00); MCH 30.3 pg (27.0-32.0); MCV 94.6 fL (80.0-97.0); Mean Platelet Volume 8.9 fL (9.5-12.2); Monocytes # (A) 1.14 X 10*3/uL (0.20-1.00); Monocytes % (A) 6.8 %; NRBC Per 100 WBC 0 /100 WBCS (0.0-0.0); Neutrophils # (A) 13.35 X 10*3/uL (1.80-7.70); Neutrophils % (A) 79.3 %; Platelet Count 531 X 10*3/uL (140-440); RBC 2.97 X 10*6/uL (4.10-5.20); RDW 15.8 % (11.5-14.5); WBC 16.83 X 10*3/uL (4.50-10.00)
[2022-08-10 11:27] LABS: Magnesium 1.7 mg/dL (1.5-2.4)
[2022-08-10 11:47] LABS: ALT 18 U/L (8-44); AST 15 U/L (13-35); African American GFR (CKD) 104.5 (60.0-200.0); Albumin 1.9 g/dL (3.8-4.9); Albumin/Globulin Ratio 0.78 (1.60-3.17); Alkaline Phosphatase 294 U/L (41-126); Bilirubin, Conjugated <0.20 mg/dL (0.20-0.40); Blood Urea Nitrogen 5.8 mg/dL (9.0-27.0); Calcium 7.8 mg/dL (8.7-10.3); Carbon Dioxide 25.6 mmol/L (20.0-27.5); Chloride 105 mmol/L (96-109); Globulin 2.4 g/dL (1.6-3.3); Glucose 81 mg/dL (70-110); Non-African American GFR(CKD) 90.2 (60.0-200.0); Potassium 3.3 mmol/L (3.5-5.5); Sodium 140 mmol/L (135-145); Total Protein 4.3 g/dL (6.2-8.2)
[2022-08-10] MEDS: FERROUS SULFATE 325 MG TAB PO SCH (13:26)
--- NOTE | 2022-08-10 15:58 | P.PN ---
Subjective Progress Note Date: 08/10/22 Objective - Vital Signs Vital signs: Vital Signs Temp 97.6 F 08/10/22 14:00 Pulse 96 08/10/22 14:00 Resp 16 08/10/22 14:00 BP 115/70 08/10/22 14:00 Pulse Ox 99 08/10/22 14:00 FiO2 Intake & Output 08/09/22 08/10/22 08/10/22 18:59 06:59 18:59 Output Total 1150 600 300 Balance -1150 -600 -300 Weight 79.4 kg Output: Drainage 750 350 300 Left Back 750 350 300 Urine 400 250 Other: Voiding Method External Catheter External Catheter # Bowel Movements 0 - Constitutional General appearance: Present: cooperative, obese, severe distress - EENT Eyes: Present: anicteric sclerae, EOMI ENT: Present: hearing grossly normal - Respiratory Respiratory: bilateral: diminished - Cardiovascular Details: thready radial pulse - Peripheral edema leg Peripheral Edema: bilateral: Trace - Gastrointestinal General gastrointestinal: Present: normal bowel sounds, soft - Neurologic Neurologic: Present: CNII-XII intact - Musculoskeletal Musculoskeletal: Present: strength equal bilaterally - Psychiatric Psychiatric: Present: A&O x's 3, appropriate affect, intact judgment & insight - Labs CBC & Chem 7: 08/10/22 07:17 08/10/22 07:17 Labs: Abnormal Lab Results - Last 24 Hours (Table) 08/10/22 08/10/22 Range/Units 07:17 07:17 WBC 16.83 H (4.50-10.00) X 10*3/uL RBC 2.97 L (4.10-5.20) X 10*6/uL Hgb 9.0 L (12.0-15.0) g/dL Hct 28.1 L (37.2-46.3) % RDW 15.8 H (11.5-14.5) % Plt Count 531 H (140-440) X 10*3/uL MPV 8.9 L (9.5-12.2) fL Immature Gran # 0.10 H (0.00-0.04) X 10*3/uL Neutrophils # 13.35 H (1.80-7.70) X 10*3/uL Monocytes # 1.14 H (0.20-1.00) X 10*3/uL Potassium 3.3 L (3.5-5.5) mmol/L Anion Gap 9.70 L (10.00-18.00) mmol/L BUN 5.8 L (9.0-27.0) mg/dL BUN/Creatinine Ratio 9.40 L (12.00-20.00) Ratio Calcium 7.8 L (8.7-10.3) mg/dL Total Bilirubin 0.20 L (0.30-1.20) mg/dL Conjugated Bilirubin <0.20 L (0.20-0.40) mg/dL Alkaline Phosphatase 294 H (41-126) U/L Total Protein 4.3 L (6.2-8.2) g/dL Albumin 1.9 L (3.8-4.9) g/dL Albumin/Globulin Ratio 0.78 L (1.60-3.17) g/dL Microbiology - Last 24 Hours (Table) 08/05/22 13:03 Blood Culture - Preliminary Blood No Growth after 120 hours Assessment and Plan (1) Cervical adenocarcinoma Current Visit: Yes Status: Acute Priority: High Code(s): C53.9 - MALIGNANT NEOPLASM OF CERVIX UTERI, UNSPECIFIED SNOMED Code(s): 379617034 (2) Hydronephrosis, left Current Visit: Yes Status: Acute Priority: High Code(s): N13.30 - UNSPECIFIED HYDRONEPHROSIS SNOMED Code(s): 11995860 Plan: Left hydronephrosis. Nephrostomy tube placed, draining well. Newly diagnosed cervical ca. Pending start of treatment until current condition is managed. F/U scheduled. Rad Onc consulted, did discuss the case with them. Doppler of LLE for unilateral swelling, negative for DVT No bowel movement, milk of mag ordered
[2022-08-11] MEDS: HYDROcodone/APAP 10-325MG 1 EACH TAB PO PRN ×3 (03:34→19:22)
[2022-08-11] MEDS: HEPARIN SODIUM,PORCINE/PF 5,000 UNIT/0.5 ML SYRINGE SQ SCH ×2 (07:21→20:37)
[2022-08-11] MEDS: SENNOSIDES 8.6 MG TAB PO SCH ×2 (07:22→20:37)
[2022-08-11] MEDS: DOCUSATE 100 MG CAP PO SCH ×2 (07:22→20:37)
[2022-08-11] MEDS: MAGNESIUM OXIDE 400 MG TAB PO SCH ×2 (07:22→20:37)
[2022-08-11] MEDS ORDERED: POTASSIUM CHLORIDE ER 20 MEQ TAB.ER PO STA (09:28)
--- NOTE | 2022-08-11 09:28 | P.PN ---
Subjective Progress Note Date: 08/10/22 This is a pleasant 71 years old female with no significant past medical history. She was recently diagnosed with cervical cancer with invasion to the left side of the urinary bladder and the renal system, she was under the care of Dr. Lira today for planned to left ureteral stent placement to relieve obstruction which was an successful due to nonvisualization of the left ureteral orifice, nephrostomy tube would be considered by urologist. However patient was some evidence of sepsis with leukocytosis, borderline blood pressure and she was admitted to the medical floor and the service of medical team with urology of the oncology service on consult. I met with the patient and son at bedside. She is fully awake and oriented, mildly lethargic. She's been complaining of from lower abdominal pain over the last 2-3 months, it gets worse over the last 2-3 days number currently rated as a 9-10/10 in severity, it felt in the left lower quadrant more but her tenderness also in the suprapubic area. She describes the pain as dull sensation. No nausea or vomiting today, however she's been vomiting frequently over the last 1 month ago. Also she has poor appetite and because of her nausea which af fects her ability to eat. She had diarrhea for about more than 2 weeks however she had no bowel movement over the last 2 days. She's generally weak, little dyspneic Complains from little dysuria. She is slightly tachycardic 104, blood pressure is borderline 102/69, she is febrile and dorsal vitals are stable. Chest significant leukocytosis 28.2. Which was up from 12 K last night. Hemoglobin 11.2. Limited elevated 823. Sodium 123, creatinine 0.9. Liver enzymes not elevated. Chest x-ray: No acute process. However there is questionable abnormal density in the right lung and the recommended to repeat chest x-ray PA and lateral view which will be ordered tomorrow. 08/06/2012 Patient still feels generally weak but she is alert awake and oriented and comfortable. She denies fever. Vitals are stable. She has some suprapubic tenderness and little bit more pain on the right side but generally feels better today as per patient Urine culture is growing gram-negative bacilli, most likely patient has sepsis secondary to urinary tract infection which may be contributed or related to her left hydronephrosis and obstructive uropathy. Nephrology team on the case recommended IR for placement of nephrostomy tube. Continue with Zosyn and normal saline Blood culture are still pending as well 08/07/2012 she is a status post left nephrostomy tube placement. Draining pink urine in the bag. She feels generally better today Patient still feels generally weak however she is improving slowly and gradually. Physical and occupational therapy recommended home health care. She is also hemodynamically stable and afebrile. WBC is 17.8, hemoglobin 9.6. Liver enzymes looks better. Her urine culture is chronic gram-negative bacilli. Ultrasound of the left leg is negative for DVT. The patient chest x-ray showing no pneumonia. She remains on Zosyn and normal saline 75 mL/h 08/08/2022 patient was suffering from more pain in her suprapubic area and she wasn't at [place], her [place] dose increased into 10-325 mg, bowel regimen also would be provided with senna and Colace. Urine culture is growing sensitive E. coli, we are going to downgrade her Zosyn to ceftriaxone Nephrostomy tube is working. No respiratory symptoms. We will or normal saline 50 mL/h 08/09/2022 Patient feels better, she feels little stronger, but no dysuria and no suprapubic pain compared to 06/24 yesterday. Patient today wants to eat more,She is a smiling and pleasant Hemodynamically she is stable, blood pressure improved with systolic 120 to 1:30. Afebrile. And low magnesium was replaced IV as well as magnesium oxide 400 mg twice a day 5 days. Check labs in the morning Patient has evidence of iron deficiency anemia but hemoglobin 9.4 we will start her on some ferrous sulfate daily. Her antibiotic continued with ceftriaxone and adjusted to sensitive E. coli. She started eating better, I think we can stop IV fluids tonight. Left nephrostomy tube is working 08/10/2022 Patient is currently resting in bed. Awake alert and oriented 3. Patient able to ambulate in the BED physical therapy. Pain is controlled. Afebrile. No complaints of nausea vomiting or abdominal pain or diarrhea. Patient is being continued on antibiotics in the form of ceftriaxone for E. coli urinary tract infection. Patient is status post left nephrostomy tube and is functioning well. Laboratory data showed WBC 16.8 hemoglobin 9.0 and platelets 531 Sodium 140 potassium 3.3 chloride 105 bicarb is 24.6 BUN 5.8 and creatinine 0.6 Alk phos 294 total protein 4.3 and albumin 1.9 oncology is on board Current medications reviewed. Objective - Vital Signs Vital signs: Vital Signs Temp 98.5 F 08/10/22 19:20 Pulse 94 08/10/22 19:20 Resp 16 08/10/22 19:20 BP 126/78 08/10/22 19:20 Pulse Ox 100 08/10/22 19:20 FiO2 Intake & Output 08/10/22 08/10/22 08/11/22 06:59 18:59 06:59 Intake Total 120 Output Total 600 950 250 Balance -600 -950 -130 Weight 79.4 kg Intake: Oral 120 Output: Drainage 350 550 250 Left Back 350 550 250 Urine 250 400 Other: Voiding Method External Catheter External Catheter # Bowel Movements 0 - Exam - Exam -GENERAL: The patient is alert and oriented x3, not in any acute distress. Well developed, well nourished. Generally weak HEENT: Pupils are round and equally reacting to light. EOMI. No scleral icterus. No conjunctival pallor. Normocephalic, atraumatic. No pharyngeal erythema. No thyromegaly. CARDIOVASCULAR: S1 and S2 present. No murmurs, rubs, or gallops. PULMONARY: Chest is clear to auscultation, no wheezing or crackles. -ABDOMEN: Soft, mild lower abdominal suprapubic tenderness, and the lesser extent in the left lower quadrant, no guarding or rebound tenderness, nondistended, normoactive bowel sounds. No palpable organomegaly. MUSCULOSKELETAL: No joint swelling or deformity. EXTREMITIES: No cyanosis, clubbing, or pedal edema. NEUROLOGICAL: Gross neurological examination did not reveal any focal deficits. SKIN: No rashes. no petechiae. - Labs CBC & Chem 7: 08/10/22 07:17 08/10/22 07:17 Labs: Abnormal Lab Results - Last 24 Hours (Table) 08/10/22 08/10/22 Range/Units 07:17 07:17 WBC 16.83 H (4.50-10.00) X 10*3/uL RBC 2.97 L (4.10-5.20) X 10*6/uL Hgb 9.0 L (12.0-15.0) g/dL Hct 28.1 L (37.2-46.3) % RDW 15.8 H (11.5-14.5) % Plt Count 531 H (140-440) X 10*3/uL MPV 8.9 L (9.5-12.2) fL Immature Gran # 0.10 H (0.00-0.04) X 10*3/uL Neutrophils # 13.35 H (1.80-7.70) X 10*3/uL Monocytes # 1.14 H (0.20-1.00) X 10*3/uL Potassium 3.3 L (3.5-5.5) mmol/L Anion Gap 9.70 L (10.00-18.00) mmol/L BUN 5.8 L (9.0-27.0) mg/dL BUN/Creatinine Ratio 9.40 L (12.00-20.00) Ratio Calcium 7.8 L (8.7-10.3) mg/dL Total Bilirubin 0.20 L (0.30-1.20) mg/dL Conjugated Bilirubin <0.20 L (0.20-0.40) mg/dL Alkaline Phosphatase 294 H (41-126) U/L Total Protein 4.3 L (6.2-8.2) g/dL Albumin 1.9 L (3.8-4.9) g/dL Albumin/Globulin Ratio 0.78 L (1.60-3.17) g/dL Microbiology - Last 24 Hours (Table) 08/05/22 13:03 Blood Culture - Preliminary Blood No Growth after 120 hours Assessment and Plan Assessment: Cervical cancer with local metastasis to the left coronary bladder and ureteric system,status post left nephrostomy tube placement. possible sepsis with tachypnea, tachycardia and leukocytosis. Patient is afebrile. Acute urinary tract infection related to her obstructive uropathy Left hydronephrosis Abnormal density in the right lower lung, may be technical per radiologist Plan: This is a pleasant 71 female with cervical cancer and obstructive uropathy Urology team on the case for stent placement versus nephrostomy Continue with ceftriaxone Discontinue normal saline Labs and medication were reviewed.. Continue with symptomatic treatment. Monitor lytes and vitals. DVT and GI prophylaxis. DVT prophylaxis: Subcutaneous heparin GI Prophylaxis: Pepcid Time with Patient: Greater than 30
[2022-08-11] MEDS: FAMOTIDINE 20 MG/2 ML VIAL IV SCH ×2 (09:44→20:37)
[2022-08-11] MEDS ORDERED: bisacodyL 10 MG SUPP RECTAL STA (10:04)
[2022-08-11] MEDS ORDERED: GLYCERIN ADULT SUPPOSITORY 1 EACH RECTAL STA (10:41)
[2022-08-11] MEDS: FERROUS SULFATE 325 MG TAB PO SCH (11:42)
[2022-08-11 11:52] LABS: African American GFR (CKD) >90 (>60 ml/min/1.73 sqM); Anion Gap 5 mmol/L; Blood Urea Nitrogen 7 mg/dL (7-17); Calcium 7.9 mg/dL (8.4-10.2); Carbon Dioxide 29 mmol/L (22-30); Chloride 101 mmol/L (98-107); Glucose 84 mg/dL (74-99); Non-African American GFR(CKD) >90 (>60 ml/min/1.73 sqM); Potassium 3.3 mmol/L (3.5-5.1); Sodium 135 mmol/L (137-145)
[2022-08-11 11:56] LABS: Basophils # (A) 0.1 k/uL (0-0.2); Basophils % (A) 0 %; Eosinophils # (A) 0.1 k/uL (0-0.7); Eosinophils % (A) 1 %; HCT 28.9 % (34.0-46.0); Hypochromasia Moderate; Lymphocytes # (A) 1.4 k/uL (1.0-4.8); Lymphocytes % (A) 9 %; MCH 30.5 pg (25.0-35.0); MCHC 31.2 g/dL (31.0-37.0); Mean Platelet Volume 7.8; Monocytes # (A) 0.8 k/uL (0-1.0); Monocytes % (A) 5 %; Neutrophils # (A) 12.7 k/uL (1.3-7.7); Neutrophils % (A) 83 %; Platelet Count 475 k/uL (150-450); RBC 2.95 m/uL (3.80-5.40); RDW 14.7 % (11.5-15.5); WBC 15.4 k/uL (3.8-10.6)
[2022-08-11] MEDS: ONDANSETRON 4 MG/2 ML VIAL IVP PRN (12:42)
--- NOTE | 2022-08-11 16:44 | P.PN ---
Subjective Progress Note Date: 08/11/22 Principal diagnosis: cervical carcinoma, malignant ureteral obstruction Objective - Vital Signs Vital signs: Vital Signs Temp 97.8 F 08/11/22 13:49 Pulse 102 H 08/11/22 13:49 Resp 17 08/11/22 13:49 BP 113/70 08/11/22 13:49 Pulse Ox 95 08/11/22 13:49 FiO2 Intake & Output 08/10/22 08/11/22 08/11/22 18:59 06:59 18:59 Intake Total 120 Output Total 950 500 Balance -950 -380 Weight 79.4 kg Intake: Oral 120 Output: Drainage 550 250 Left Back 550 250 Urine 400 250 Other: Voiding Method External Catheter External Catheter # Bowel Movements 1 - Constitutional General appearance: Present: cooperative, mild distress, obese - EENT Eyes: Present: anicteric sclerae, EOMI ENT: Present: hearing grossly normal - Respiratory Respiratory: bilateral: CTA - Cardiovascular Rhythm: regular Heart sounds: normal: S1, S2 Abnormal Heart Sounds: Absent: systolic murmur, diastolic murmur, rub, S3 Gallop, S4 Gallop, click, other - Peripheral edema leg Peripheral Edema: bilateral: None - Gastrointestinal General gastrointestinal: Present: normal bowel sounds, soft - Integumentary Integumentary: Present: normal - Neurologic Neurologic: Present: CNII-XII intact - Musculoskeletal Musculoskeletal: Present: generalized weakness, strength equal bilaterally - Psychiatric Psychiatric: Present: A&O x's 3, appropriate affect, intact judgment & insight - Labs CBC & Chem 7: 08/11/22 10:50 08/11/22 10:50 Labs: Abnormal Lab Results - Last 24 Hours (Table) 08/11/22 08/11/22 Range/Units 10:50 10:50 WBC 15.4 H (3.8-10.6) k/uL RBC 2.95 L (3.80-5.40) m/uL Hgb 9.0 L (11.4-16.0) gm/dL Hct 28.9 L (34.0-46.0) % Plt Count 475 H (150-450) k/uL Neutrophils # 12.7 H (1.3-7.7) k/uL Sodium 135 L (137-145) mmol/L Potassium 3.3 L (3.5-5.1) mmol/L Calcium 7.9 L (8.4-10.2) mg/dL Microbiology - Last 24 Hours (Table) 08/05/22 13:03 Blood Culture - Final Blood No Growth after 144 hours Assessment and Plan (1) Cervical adenocarcinoma Current Visit: Yes Status: Acute Priority: High Code(s): C53.9 - MALIGNANT NEOPLASM OF CERVIX UTERI, UNSPECIFIED SNOMED Code(s): 108700779 (2) Hydronephrosis, left Current Visit: Yes Status: Acute Priority: High Code(s): N13.30 - UNSPECIFIED HYDRONEPHROSIS SNOMED Code(s): 35351849 Plan: Left hydronephrosis. Nephrostomy tube placed, draining well. Newly diagnosed cervical ca. Pending start of treatment until current condition is managed. F/U scheduled, appt in [place] plan. Doppler of LLE for unilateral swelling, negative for DVT No bowel movement, milk of mag given. Pt reports feeling near to having BM, glycerine suppository ordered. Nursing reporting poor appetite and not wanting to participate with physical therapy. When asked about her appetite she stated that she did not like the pured foods that she was being given. Her diet is documented as a regular diet. Encouraged nursing to offer/ask pt about foods that she would eat. Told patient that we will start an appetite stimulant tomorrow if she does not eat better after today. Yesterday I saw patient, she had an episode of shortness of breath, chest discomfort and that did cause her pretty severe anxiety for a little bit after being walked up and down the hallway. Patient will continue to participate in physical therapy but, will keep the distant shorter, she will have oxygen available to her. She was agreeable with the plan. Will see her in follow-up in the morning. Would be optimal for patient to be discharged tomorrow from a Hematology/Oncology standpoint. Time with Patient: Greater than 30
[2022-08-11] MEDS: MORPHINE SULFATE 2 MG/ML SYRINGE IVP PRN (20:50)
[2022-08-12] MEDS: HYDROcodone/APAP 10-325MG 1 EACH TAB PO PRN ×3 (02:42→18:59)
[2022-08-12] MEDS: HEPARIN SODIUM,PORCINE/PF 5,000 UNIT/0.5 ML SYRINGE SQ SCH ×2 (09:33→20:57)
[2022-08-12] MEDS: MAGNESIUM OXIDE 400 MG TAB PO SCH ×2 (09:34→20:58)
[2022-08-12] MEDS: SENNOSIDES 8.6 MG TAB PO SCH ×2 (09:34→18:57)
[2022-08-12] MEDS: FAMOTIDINE 20 MG/2 ML VIAL IV SCH ×2 (09:34→20:58)
[2022-08-12] MEDS: DOCUSATE 100 MG CAP PO SCH ×2 (09:34→18:57)
[2022-08-12] MEDS: FERROUS SULFATE 325 MG TAB PO SCH (09:34)
[2022-08-12] MEDS: ONDANSETRON 4 MG/2 ML VIAL IVP PRN (09:49)
[2022-08-12 10:52] LABS: Basophils # (A) 0.07 X 10*3/uL (0.00-0.10); Basophils % (A) 0.4 %; Eosinophils # (A) 0.13 X 10*3/uL (0.04-0.35); Eosinophils % (A) 0.8 %; HCT 27.2 % (37.2-46.3); HGB 8.7 g/dL (12.0-15.0); Immature Grans, Automated 0.4 %; Lymphocytes # (A) 2.02 X 10*3/uL (0.90-5.00); Lymphocytes % (A) 12.8 %; MCH 30.6 pg (27.0-32.0); MCV 95.8 fL (80.0-97.0); Mean Platelet Volume 9.1 fL (9.5-12.2); Monocytes # (A) 1.19 X 10*3/uL (0.20-1.00); Monocytes % (A) 7.6 %; NRBC Per 100 WBC 0 /100 WBCS (0.0-0.0); Neutrophils # (A) 12.25 X 10*3/uL (1.80-7.70); Platelet Count 453 X 10*3/uL (140-440); RBC 2.84 X 10*6/uL (4.10-5.20); RDW 15.9 % (11.5-14.5); WBC 15.73 X 10*3/uL (4.50-10.00)
[2022-08-12 11:12] LABS: African American GFR (CKD) 105.5 (60.0-200.0); Anion Gap 6.9 mmol/L (10.00-18.00); BUN/Creat Ratio 13.67 Ratio (12.00-20.00); Blood Urea Nitrogen 8.2 mg/dL (9.0-27.0); Calcium 7.9 mg/dL (8.7-10.3); Carbon Dioxide 28.1 mmol/L (20.0-27.5); Non-African American GFR(CKD) 91.1 (60.0-200.0); Potassium 3.3 mmol/L (3.5-5.5)
--- NOTE | 2022-08-12 11:46 | P.PN ---
Subjective Progress Note Date: 08/12/22 The patient has a new diagnosis of cervical cancer. She had an obstructed left ureter that was unable to be relieved by retrograde procedure done by . Apparently the cervical cancer made the left ureteral orifice unidentifiable. He had a nephrostomy tube place and is functioning appropriately. I discussed with the patient the reason for the nephrostomy tube and the long-term goals both with the renal function as well as a potential antegrade stent. He should be seen in follow-up in our office at which point in time if she is progressing appropriately with the cervical cancer then we can consider having radiology place an antegrade stent. Objective - Vital Signs Vital signs: Vital Signs Temp 98.2 F 08/12/22 07:52 Pulse 107 H 08/12/22 07:52 Resp 17 08/12/22 07:52 BP 130/83 08/12/22 07:52 Pulse Ox 97 08/12/22 07:52 FiO2 Intake & Output 08/11/22 08/12/22 08/12/22 18:59 06:59 18:59 Intake Total 100 Output Total 451 200 Balance -451 -100 Intake: Oral 100 Output: Drainage 450 200 Left Back 450 200 Stool 1 Other: Voiding Method External Catheter # Voids 3 - Labs CBC & Chem 7: 08/12/22 06:13 08/12/22 06:13 Labs: Abnormal Lab Results - Last 24 Hours (Table) 08/11/22 08/11/22 08/12/22 Range/Units 10:50 10:50 06:13 WBC 15.4 H 15.73 H (3.8-10.6) k/uL RBC 2.95 L 2.84 L (3.80-5.40) m/uL Hgb 9.0 L 8.7 L (11.4-16.0) gm/dL Hct 28.9 L 27.2 L (34.0-46.0) % RDW 15.9 H (11.5-14.5) % Plt Count 475 H 453 H (150-450) k/uL MPV 9.1 L (9.5-12.2) fL Immature Gran # 0.07 H (0.00-0.04) X 10*3/uL Neutrophils # 12.7 H 12.25 H (1.3-7.7) k/uL Monocytes # 1.19 H (0.20-1.00) X 10*3/uL Sodium 135 L (137-145) mmol/L Potassium 3.3 L (3.5-5.1) mmol/L Carbon Dioxide (20.0-27.5) mmol/L Anion Gap (10.00-18.00) mmol/L BUN (9.0-27.0) mg/dL Calcium 7.9 L (8.4-10.2) mg/dL 08/12/22 Range/Units 06:13 WBC (3.8-10.6) k/uL RBC (3.80-5.40) m/uL Hgb (11.4-16.0) gm/dL Hct (34.0-46.0) % RDW (11.5-14.5) % Plt Count (150-450) k/uL MPV (9.5-12.2) fL Immature Gran # (0.00-0.04) X 10*3/uL Neutrophils # (1.3-7.7) k/uL Monocytes # (0.20-1.00) X 10*3/uL Sodium (137-145) mmol/L Potassium 3.3 L (3.5-5.1) mmol/L Carbon Dioxide 28.1 H (20.0-27.5) mmol/L Anion Gap 6.90 L (10.00-18.00) mmol/L BUN 8.2 L (9.0-27.0) mg/dL Calcium 7.9 L (8.4-10.2) mg/dL Microbiology - Last 24 Hours (Table) 08/05/22 13:03 Blood Culture - Final Blood No Growth after 144 hours
[2022-08-12] MEDS ORDERED: POTASSIUM CHLORIDE ER 20 MEQ TAB.ER PO STA (12:29)
--- NOTE | 2022-08-12 13:49 | P.PN ---
Subjective Progress Note Date: 08/12/22 Principal diagnosis: cervical carcinoma, malignant ureteral obstruction Objective - Vital Signs Vital signs: Vital Signs Temp 98.2 F 08/12/22 07:52 Pulse 107 H 08/12/22 07:52 Resp 17 08/12/22 07:52 BP 130/83 08/12/22 07:52 Pulse Ox 97 08/12/22 07:52 FiO2 Intake & Output 08/11/22 08/12/22 08/12/22 18:59 06:59 18:59 Intake Total 100 Output Total 451 200 Balance -451 -100 Intake: Oral 100 Output: Drainage 450 200 Left Back 450 200 Stool 1 Other: Voiding Method External Catheter Incontinent # Voids 3 - Constitutional General appearance: Present: cooperative, no acute distress, obese - EENT Eyes: Present: anicteric sclerae, EOMI ENT: Present: hearing grossly normal, normal oropharynx - Respiratory Details: resp even and unlabored - Peripheral edema leg Peripheral Edema: bilateral: None - Gastrointestinal General gastrointestinal: Present: distended, soft - Integumentary Integumentary: Present: normal - Neurologic Neurologic: Present: CNII-XII intact - Musculoskeletal Musculoskeletal: Present: generalized weakness, strength equal bilaterally - Psychiatric Psychiatric: Present: A&O x's 3, appropriate affect, intact judgment & insight - Labs CBC & Chem 7: 08/12/22 06:13 08/12/22 06:13 Labs: Abnormal Lab Results - Last 24 Hours (Table) 08/12/22 08/12/22 Range/Units 06:13 06:13 WBC 15.73 H (4.50-10.00) X 10*3/uL RBC 2.84 L (4.10-5.20) X 10*6/uL Hgb 8.7 L (12.0-15.0) g/dL Hct 27.2 L (37.2-46.3) % RDW 15.9 H (11.5-14.5) % Plt Count 453 H (140-440) X 10*3/uL MPV 9.1 L (9.5-12.2) fL Immature Gran # 0.07 H (0.00-0.04) X 10*3/uL Neutrophils # 12.25 H (1.80-7.70) X 10*3/uL Monocytes # 1.19 H (0.20-1.00) X 10*3/uL Potassium 3.3 L (3.5-5.5) mmol/L Carbon Dioxide 28.1 H (20.0-27.5) mmol/L Anion Gap 6.90 L (10.00-18.00) mmol/L BUN 8.2 L (9.0-27.0) mg/dL Calcium 7.9 L (8.7-10.3) mg/dL Microbiology - Last 24 Hours (Table) 08/05/22 13:03 Blood Culture - Final Blood No Growth after 144 hours Assessment and Plan (1) Cervical adenocarcinoma Current Visit: Yes Status: Acute Priority: High Code(s): C53.9 - MALIGNANT NEOPLASM OF CERVIX UTERI, UNSPECIFIED SNOMED Code(s): 654021781 (2) Hydronephrosis, left Current Visit: Yes Status: Acute Priority: High Code(s): N13.30 - UNSPECIFIED HYDRONEPHROSIS SNOMED Code(s): 95479850 Plan: Left hydronephrosis. Nephrostomy tube placed, draining well. BUN improved. Urology following. Newly diagnosed cervical ca. Pending start of treatment until current condition is managed. F/U scheduled, appt in [place] plan. Doppler of LLE for unilateral swelling, negative for DVT Bowel movement today. Cont med for constipation. Nursing reporting pt did eat a little better last night and this am. Pt is willing to try appetite stimulant. Marinol ordered, Rx will be initiated outpt. Patient is tolerating shorter distances of ambulation without anxiety. Optimal for patient to be discharged today from a Hematology/Oncology standpoint for appointment tomorrow with Medical Oncologist as treatment plans will be revi ewed and started.
[2022-08-12 18:03] LABS: Appearance,Urine Cloudy (Clear); Bacteria,Urine Rare /hpf; Bilirubin,Urine Negative (Negative); Blood,Urine Large (Negative); Color,Urine Yellow; Glucose,Urine (UA) Negative (Negative); Ketones,Urine Negative (Negative); Leukocyte Esterase,Urine Large (Negative); Mucus,Urine Rare /hpf; Nitrite,Urine Negative (Negative); PH, Urine 5.5 (5.0-8.0); Protein,Urine 1+ (Negative); RBC,Urine >182 /hpf (0-5); Specific Gravity,Urine 1.012 (1.001-1.035); Squamous Epithelial Cell,Urine <1 /hpf (0-4); Urobilinogen,Urine <2.0 mg/dL (<2.0); WBC,Urine 47 /hpf (0-5)
[2022-08-12 18:29] LABS: Amorphous Sediment,Urine Occasional /hpf; Appearance,Urine Turbid (Clear); Bacteria,Urine Moderate /hpf; Bilirubin,Urine Negative (Negative); Blood,Urine Large (Negative); Color,Urine Red; Glucose,Urine (UA) Negative (Negative); Ketones,Urine Negative (Negative); Leukocyte Esterase,Urine Large (Negative); Mucus,Urine Many /hpf; Nitrite,Urine Negative (Negative); Protein,Urine 2+ (Negative); RBC,Urine >182 /hpf (0-5); Urobilinogen,Urine <2.0 mg/dL (<2.0); WBC,Urine >182 /hpf (0-5)
[2022-08-12] MEDS: MORPHINE SULFATE 2 MG/ML SYRINGE IVP PRN (20:57)
--- NOTE | 2022-08-12 23:16 | P.CONS ---
History of Present Illness - Reason for Consult Consult date: 08/12/22 Persistent elevated white count Requesting physician: Eliceo Greco - Chief Complaint Weakness left-sided abdominal pain x few days - History of Present Illness Patient is a 71-year-old female with a past medical history significant for cervical cancer with evidence of invasion of the bladder on cystoscopy and a PET scan patient underwent attempted stent placement 08/14/2020 which was unsuccessful secondary to nonvisualization of the ureteral orifice patient subsequently has been admitted to the hospital for nephrostomy tube placement which was completed on 08/06/2022 patient on presentation to the hospital was afebrile and no fever have been recorded subsequently patient did have a white count of 28.2 on admission does seem to have came down however r emains to be elevated around 15,000 over the last few days that has prompted this infectious disease consultation patient did have normal kidney function liver enzymes has been normal currently being treated with Rocephin and 1 g every 12 for with a last urine culture done on 08/05/2020 which was positive for E. coli resistant to ampicillin and Unasyn Lorette relatively sensitive pathogen and blood culture has been negative, patient is currently denies having any fever or any chills, patient mention she is feeling better patient denies having any chest pain or shortness of breath or cough no nausea no vomiting no abdominal pain or any diarrhea patient did have good output in her left nephrost elli tube per the nursing staff there is no evidence of any purulence or blood in the urine she was constipated Elick while on multiple laxatives and apparently did have slight loose stool for the last day or 2 Review of Systems Positive point has been mentioned in the HPI rest of the systems are negative Past Medical History Past Medical History: Cancer, GERD/Reflux, Hyperlipidemia Additional Past Medical History / Comment(s): CERVICAL CANCER, NAUSEA, "STATES LEFT KIDNEY IS NOT WORKING " History of Any Multi-Drug Resistant Organisms: None Reported Past Surgical History: Cholecystectomy, Tubal Ligation Additional Past Surgical History / Comment(s): cataract surgery-BILATERAL WITH LENS IMPLANT. CERVICAL BIOPSY Past Anesthesia/Blood Transfusion Reactions: No Reported Reaction Past Psychological History: No Psychological Hx Reported Smoking Status: Former smoker Past Alcohol Use History: None Reported Additional Past Alcohol Use History / Comment(s): STARTED SMOKING AT AGE 16 QUIT MAY 2022 Past Drug Use History: None Reported - Past Family History Sister(s) Family Medical History: Cancer, Deep Vein Thrombosis (DVT) Additional Family Medical History / Comment(s): lung ca Mother Family Medical History: COPD, Osteoarthritis (OA) Medications and Allergies Home Medications Medication Instructions Recorded Confirmed Type HYDROcodone/APAP 5-325MG [[place] 1 tab PO Q4HR PRN 08/04/22 08/04/22 History 5-325] Omeprazole [PriLOSEC] 20 mg PO AC-BRKFST 08/04/22 08/05/22 History Prochlorperazine [Compazine] 10 mg PO Q8H PRN 08/04/22 08/04/22 History Allergies Allergy/AdvReac Type Severity Reaction Status Date / Time No Known Allergies Allergy Verified 08/05/22 10:34 Physical Exam Vitals: Vital Signs Temp Pulse Resp BP Pulse Ox 08/12/22 07:52 98.2 F 107 H 17 130/83 97 08/12/22 01:19 98.4 F 111 H 16 136/78 97 08/11/22 13:49 97.8 F 102 H 17 113/70 95 Intake and Output 08/11/22 08/12/22 08/12/22 22:59 06:59 14:59 Intake Total 100 Output Total 451 200 Balance -451 -100 Intake: Oral 100 Output: Drainage 450 200 Left Back 450 200 Stool 1 Other: Voiding Method Incontinent # Voids 3 GENERAL DESCRIPTION: Elderly female lying in bed, no distress. No tachypnea or accessory muscle of respiration use. HEENT: Shows Pallor , no scleral icterus. Oral mucous membrane is dry. No pharyngeal erythema or thrush NECK: Trachea central, no thyromegaly. LUNGS: Unlabored breathing. Decreased breath sound the bases. HEART: S1, S2, regular rate and rhythm. No loud murmur ABDOMEN: Soft, no tenderness , guarding or rigidity, no organomegaly EXTREMITIES: No edema of feet. SKIN: No rash, no masses palpable. NEUROLOGICAL: The patient is awake, alert, oriented x3, mood and affect normal. Results CBC & Chem 7: 08/13/22 07:22 08/13/22 07:22 Labs: Abnormal Lab Results - Last 24 Hours (Table) 08/12/22 08/12/22 Range/Units 06:13 06:13 WBC 15.73 H (4.50-10.00) X 10*3/uL RBC 2.84 L (4.10-5.20) X 10*6/uL Hgb 8.7 L (12.0-15.0) g/dL Hct 27.2 L (37.2-46.3) % RDW 15.9 H (11.5-14.5) % Plt Count 453 H (140-440) X 10*3/uL MPV 9.1 L (9.5-12.2) fL Immature Gran # 0.07 H (0.00-0.04) X 10*3/uL Neutrophils # 12.25 H (1.80-7.70) X 10*3/uL Monocytes # 1.19 H (0.20-1.00) X 10*3/uL Potassium 3.3 L (3.5-5.5) mmol/L Carbon Dioxide 28.1 H (20.0-27.5) mmol/L Anion Gap 6.90 L (10.00-18.00) mmol/L BUN 8.2 L (9.0-27.0) mg/dL Calcium 7.9 L (8.7-10.3) mg/dL Microbiology - Last 24 Hours (Table) 08/05/22 13:03 Blood Culture - Final Blood No Growth after 144 hours Assessment and Plan (1) Leukocytosis Current Visit: Yes Status: Acute Code(s): D72.829 - ELEVATED WHITE BLOOD CELL COUNT, UNSPECIFIED SNOMED Code(s): 796080901 (2) UTI (urinary tract infection) Current Visit: No Status: Acute Code(s): N39.0 - URINARY TRACT INFECTION, SITE NOT SPECIFIED SNOMED Code(s): 80993410 Plan: 1patient with the leukocytosis persistent could be related to her complicated UTI in this patient with a history of cervical cancer with invasion to the left ureter leading to hydronephrosis in this patient who is status post a left nephrostomy tube placement with initial urine culture positive for E. coli which was sensitive pathogen however despite being on adequate antibiotic therapy for this pathogen patient did have persistent elevated white count. 2we will obtain urine culture from the left nephrostomy tube as well as UA Per urethra 3-obtain blood culture CRP and procalcitonin 4-switch antibiotic to cefepime while waiting for repeat culture to finalize We will follow on clinical condition and cultures to further adjust medication if needed Thank you for this consultation will follow this patient along with you Time with Patient: Greater than 30
[2022-08-13] MEDS: CEFEPIME 2 GM in SODIUM CHLORIDE 0.9% 100 ML IVPB SCH ×3 (01:05→17:08)
[2022-08-13] MEDS: HYDROcodone/APAP 10-325MG 1 EACH TAB PO PRN ×3 (01:09→22:18)
[2022-08-13] MEDS: HEPARIN SODIUM,PORCINE/PF 5,000 UNIT/0.5 ML SYRINGE SQ SCH ×2 (10:28→22:12)
[2022-08-13] MEDS: MAGNESIUM OXIDE 400 MG TAB PO SCH (10:28)
[2022-08-13] MEDS: DOCUSATE 100 MG CAP PO SCH ×2 (10:29→22:11)
[2022-08-13] MEDS: FERROUS SULFATE 325 MG TAB PO SCH (10:29)
[2022-08-13] MEDS: FAMOTIDINE 20 MG/2 ML VIAL IV SCH ×2 (10:29→22:18)
[2022-08-13] MEDS: SENNOSIDES 8.6 MG TAB PO SCH ×2 (10:30→22:11)
[2022-08-13 10:33] LABS: Basophils # (A) 0.08 X 10*3/uL (0.00-0.10); Basophils % (A) 0.4 %; Eosinophils # (A) 0.17 X 10*3/uL (0.04-0.35); Eosinophils % (A) 0.9 %; HCT 28.6 % (37.2-46.3); Immature Grans, Automated 0.4 %; Lymphocytes # (A) 1.85 X 10*3/uL (0.90-5.00); Lymphocytes % (A) 10.3 %; MCH 30.7 pg (27.0-32.0); MCHC 31.5 g/dL (32.0-37.0); MCV 97.6 fL (80.0-97.0); Mean Platelet Volume 9.3 fL (9.5-12.2); Monocytes # (A) 1.47 X 10*3/uL (0.20-1.00); Monocytes % (A) 8.1 %; NRBC Per 100 WBC 0 /100 WBCS (0.0-0.0); Neutrophils % (A) 79.9 %; Platelet Count 405 X 10*3/uL (140-440); RBC 2.93 X 10*6/uL (4.10-5.20); RDW 15.8 % (11.5-14.5); WBC 18.04 X 10*3/uL (4.50-10.00)
[2022-08-13] MEDS: MORPHINE SULFATE 2 MG/ML SYRINGE IVP PRN (10:36)
[2022-08-13 10:45] LABS: African American GFR (CKD) 101.9 (60.0-200.0); Albumin 1.9 g/dL (3.8-4.9); Albumin/Globulin Ratio 0.75 (1.60-3.17); Anion Gap 7.9 mmol/L (10.00-18.00); BUN/Creat Ratio 15.59 Ratio (12.00-20.00); Blood Urea Nitrogen 10.4 mg/dL (9.0-27.0); Calcium 8.4 mg/dL (8.7-10.3); Carbon Dioxide 27.7 mmol/L (20.0-27.5); Globulin 2.6 g/dL (1.6-3.3); Potassium 4.1 mmol/L (3.5-5.5); Total Bilirubin 0.2 mg/dL (0.30-1.20); Total Protein 4.5 g/dL (6.2-8.2)
[2022-08-13] MEDS ORDERED: IOPAMIDOL CONTRAST (ORAL USE) VIAL PO PRN (14:20)
[2022-08-13] MEDS: ONDANSETRON 4 MG/2 ML VIAL IVP PRN (15:33)
[2022-08-14] MEDS: CEFEPIME 2 GM in SODIUM CHLORIDE 0.9% 100 ML IVPB SCH ×3 (00:05→16:52)
[2022-08-14] MEDS ORDERED: IOPAMIDOL CONTRAST (ORAL USE) VIAL PO PRN (06:00)
[2022-08-14] MEDS: DOCUSATE 100 MG CAP PO SCH ×2 (08:02→21:40)
[2022-08-14] MEDS: SENNOSIDES 8.6 MG TAB PO SCH ×2 (08:03→21:40)
[2022-08-14] MEDS: FAMOTIDINE 20 MG/2 ML VIAL IV SCH ×2 (08:03→22:16)
[2022-08-14] MEDS: HEPARIN SODIUM,PORCINE/PF 5,000 UNIT/0.5 ML SYRINGE SQ SCH ×2 (08:03→21:40)
[2022-08-14] MEDS: IOPAMIDOL CONTRAST (ORAL USE) VIAL PO PRN ×2 (11:08→12:05)
--- NOTE | 2022-08-14 13:12 | CT ---
EXAMINATION TYPE: CT abdomen pelvis w con DATE OF EXAM: 08/14/2022 HISTORY: Leukocytosis, RLQ tenderness. History of cervical cancer. CT DLP: 1246.3mGycm Automated Exposure Control for Dose Reduction was Utilized. CONTRAST: CT scan of the abdomen and pelvis is performed with oral and with IV Contrast, patient injected with 100 mL of Isovue 300. COMPARISON: Prior PET/CT [address] May 11, 2022 FINDINGS: LUNG BASES: New small bilateral pleural effusions are partially imaged with associated compressive at electasis. LIVER/GB: Cholecystectomy clip redemonstrated. PANCREAS: Pancreas is slightly bulky and heterogeneously hypodense. No new surrounding fluid or fat s tranding. SPLEEN: No significant abnormality is seen. ADRENALS: Slight nodular fullness to both adrenal glands redemonstrated. KIDNEYS: There is a new left percutaneous nephrostomy tube. There is symmetric cortical uptake with l ess prominent but some excretion on the left. There is persistent hydronephrosis and hydroureter up t o the level of the known cervical neoplasm obstructing the distal ureter. There is new nondependent a ir in the bladder. This is likely product of percutaneous nephrostomy tube placement. BOWEL: Oral contrast has not reached level of the terminal ileum make evaluation of distal bowel slig htly suboptimal. Small bowel feces sign terminal ileum. No suspicious small or large bowel dilatation . Finding consistent with delayed passage of ingested material to colonic level. Mild to moderate fec al prominence in the right and transverse colon. Few diverticula in the sigmoid colon. No CT evidence for acute diverticulitis. Normal-appearing appendix in the right lower quadrant. UTERUS/ADNEXA: There is mild lobulated 7.4 x 5.3 cm heterogeneous mass with central hypodensity or ne crosis axial image 68 which appears slightly larger in size from prior PET/CT. This is redemonstrated abutting the posterior wall of the bladder similar to prior PET/CT. Soft tissue left pelvis axial im age 61 likely reflects remnant left ovary and right ovary axial image 64 versus local neoplastic spre ad. LYMPH NODES: Abnormal left-sided retroperitoneal adenopathy is redemonstrated. For reference there is 1.4 x 1.3 cm lymph node axial image 43 just past level of common iliac bifurcation. Additional abnor mal left iliac chain lymph nodes are redemonstrated. OSSEOUS STRUCTURES: Prominent Schmorl node superior L5 endplate. Prominent spurring anterior L1-L2 le pattie. OTHER:. Mild soft tissue anasarca on current study. IMPRESSION: Delayed passage of ingested material to colonic level. No bowel obstruction. Mild to mode rate proximal colonic fecal stasis. Mild soft tissue anasarca now present. Enlarging cervical mass or neoplasm noted. Stable retroperitoneal adenopathy in the lower abdomen and pelvis. Persistent left-s ided hydronephrosis despite percutaneous nephrostomy tube placement.
[2022-08-14] MEDS: FERROUS SULFATE 325 MG TAB PO SCH (14:24)
[2022-08-14] MEDS: HYDROcodone/APAP 10-325MG 1 EACH TAB PO PRN (14:24)
--- NOTE | 2022-08-14 15:56 | P.PN ---
Subjective Progress Note Date: 08/13/22 Principal diagnosis: Leukocytosis and a complicated UTI Patient is a 71 year old female with a past medical history significant for cervical cancer with evidence of invasion into the bladder leading to left-sided hydronephrosis in this patient admitted to the hospital s tatus post left nephrostomy tube placement urine culture positive for E. coli however the patient did have persistent elevated white count. On today's evaluation that is a 08/13/2022, the patient denies having any fever or chills, she did complain of some lower abdominal pain nausea but no vomiting no chest pain shortness of breath or cough and no diarrhea has been reported by the nursing staff Objective - Vital Signs Vital signs: Vital Signs Temp 98.4 F 08/13/22 07:56 Pulse 101 H 08/13/22 07:56 Resp 16 08/13/22 07:56 BP 97/64 08/13/22 07:56 Pulse Ox 93 L 08/13/22 07:56 FiO2 Intake & Output 08/12/22 08/13/22 08/13/22 18:59 06:59 18:59 Intake Total 800 100 Output Total 100 350 Balance 700 -250 Intake: Oral 800 100 Output: Drainage 100 350 Left Back 100 350 Other: Voiding Method Incontinent # Voids 3 # Bowel Movements 1 - Exam GENERAL DESCRIPTION: An elderly female lying in bed in no distress RESPIRATORY SYSTEM: Unlabored breathing , decreased breath sounds at bases HEART: S1 S2 regular rate and rhythm , ABDOMEN: Soft , right lower quadrant tenderness EXTREMITIES: No edema feet - Labs CBC & Chem 7: 08/13/22 07:22 08/13/22 07:22 Labs: Abnormal Lab Results - Last 24 Hours (Table) 08/12/22 08/12/22 08/12/22 Range/Units 06:13 06:13 16:05 WBC 15.73 H (4.50-10.00) X 10*3/uL RBC 2.84 L (4.10-5.20) X 10*6/uL Hgb 8.7 L (12.0-15.0) g/dL Hct 27.2 L (37.2-46.3) % RDW 15.9 H (11.5-14.5) % Plt Count 453 H (140-440) X 10*3/uL MPV 9.1 L (9.5-12.2) fL Immature Gran # 0.07 H (0.00-0.04) X 10*3/uL Neutrophils # 12.25 H (1.80-7.70) X 10*3/uL Monocytes # 1.19 H (0.20-1.00) X 10*3/uL Potassium 3.3 L (3.5-5.5) mmol/L Carbon Dioxide 28.1 H (20.0-27.5) mmol/L Anion Gap 6.90 L (10.00-18.00) mmol/L BUN 8.2 L (9.0-27.0) mg/dL Calcium 7.9 L (8.7-10.3) mg/dL C-Reactive Protein 6.5 H (<1.0) mg/dL Urine Appearance (Clear) Urine Protein (Negative) Urine Blood (Negative) Ur Leukocyte Esterase (Negative) Urine RBC (0-5) /hpf Urine WBC (0-5) /hpf Urine WBC Clumps (None) /hpf Amorphous Sediment (None) /hpf Urine Bacteria (None) /hpf Urine Mucus (None) /hpf 08/12/22 08/12/22 Range/Units 17:20 18:16 WBC (4.50-10.00) X 10*3/uL RBC (4.10-5.20) X 10*6/uL Hgb (12.0-15.0) g/dL Hct (37.2-46.3) % RDW (11.5-14.5) % Plt Count (140-440) X 10*3/uL MPV (9.5-12.2) fL Immature Gran # (0.00-0.04) X 10*3/uL Neutrophils # (1.80-7.70) X 10*3/uL Monocytes # (0.20-1.00) X 10*3/uL Potassium (3.5-5.5) mmol/L Carbon Dioxide (20.0-27.5) mmol/L Anion Gap (10.00-18.00) mmol/L BUN (9.0-27.0) mg/dL Calcium (8.7-10.3) mg/dL C-Reactive Protein (<1.0) mg/dL Urine Appearance Cloudy H Turbid H (Clear) Urine Protein 1+ H 2+ H (Negative) Urine Blood Large H Large H (Negative) Ur Leukocyte Esterase Large H Large H (Negative) Urine RBC >182 H >182 H (0-5) /hpf Urine WBC 47 H >182 H (0-5) /hpf Urine WBC Clumps Many H (None) /hpf Amorphous Sediment Occasional H (None) /hpf Urine Bacteria Rare H Moderate H (None) /hpf Urine Mucus Rare H Many H (None) /hpf Microbiology - Last 24 Hours (Table) 08/12/22 17:20 Urine Culture - Preliminary Urine,Ureter Assessment and Plan (1) Leukocytosis Current Visit: Yes Status: Acute Code(s): D72.829 - ELEVATED WHITE BLOOD CELL COUNT, UNSPECIFIED SNOMED Code(s): 445236901 (2) UTI (urinary tract infection) Current Visit: No Status: Acute Code(s): N39.0 - URINARY TRACT INFECTION, SITE NOT SPECIFIED SNOMED Code(s): 40296251 Plan: 1patient with the leukocytosis persistent could be related to her complicated UTI in this patient with a history of cervical cancer with invasion to the left ureter leading to hydronephrosis in this patient who is status post a left nephrostomy tube placement with initial urine culture positive for E. coli which was sensitive pathogen however despite being on adequate antibiotic therapy for this pathogen patient did have persistent elevated white count. 2patient did have a positive UA from the left nephrostomy tube as well as UA Per urethra, and cultures are currently pending 3-patient was noticed to be tender right lower quadrant area. Obtain a CT of abdominal pelvis to better define underlying pathology continue with cefepime Time with Patient: Less than 30
--- NOTE | 2022-08-14 15:57 | P.PN ---
Subjective Progress Note Date: 08/14/22 Principal diagnosis: Leukocytosis and a complicated UTI Patient is a 71 year old female with a past medical history significant for cervical cancer with evidence of invasion into the bladder leading to left-sided hydronephrosis in this patient admitted to the hospital s tatus post left nephrostomy tube placement urine culture positive for E. coli however the patient did have persistent elevated white count. On today's evaluation that is a 08/14/2022, the patient continues to be afebrile, patient is feeling slightly better today however has been complaining of feeling tired with chest pain shortness of breath or cough no abdominal pain and no diarrhea Objective - Vital Signs Vital signs: Vital Signs Temp 98.8 F 08/14/22 08:00 Pulse 104 H 08/14/22 08:00 Resp 16 08/14/22 08:00 BP 132/79 08/14/22 08:00 Pulse Ox 95 08/14/22 08:00 FiO2 Intake & Output 08/13/22 08/14/22 08/14/22 18:59 06:59 18:59 Intake Total 100 Output Total 200 300 240 Balance -200 -200 -240 Weight 79.4 kg Intake: Oral 100 Output: Drainage 200 300 240 Left Back 200 300 240 Other: Voiding Method Incontinent External Catheter Diaper # Voids 2 1 # Bowel Movements 1 - Exam GENERAL DESCRIPTION: An elderly female lying in bed in no distress RESPIRATORY SYSTEM: Unlabored breathing , decreased breath sounds at bases HEART: S1 S2 regular rate and rhythm , ABDOMEN: Soft , right lower quadrant tenderness EXTREMITIES: No edema feet - Labs CBC & Chem 7: 08/13/22 07:22 08/13/22 07:22 Labs: Microbiology - Last 24 Hours (Table) 08/12/22 16:10 Blood Culture - Preliminary Blood No Growth after 24 hours 08/12/22 06:00 Urine Culture - Final Urine,Catheterized 08/12/22 17:20 Urine Culture - Final Urine,Ureter Assessment and Plan (1) Leukocytosis Current Visit: Yes Status: Acute Code(s): D72.829 - ELEVATED WHITE BLOOD CELL COUNT, UNSPECIFIED SNOMED Code(s): 126574123 (2) UTI (urinary tract infection) Current Visit: No Status: Acute Code(s): N39.0 - URINARY TRACT INFECTION, SITE NOT SPECIFIED SNOMED Code(s): 41424322 Plan: 1patient with the leukocytosis persistent could be related to her complicated UTI in this patient with a history of cervical cancer with invasion to the left ureter leading to hydronephrosis in this patient who is status post a left nephrostomy tube placement with initial urine culture positive for E. coli which was sensitive pathogen however despite being on adequate antibiotic therapy for this pathogen patient did have persistent elevated white count. 2patient did have a positive UA from the left nephrostomy tube as well as UA Per urethra, and cultures are currently pending 3-patient did have a CT abdominal pelvis completed today with evidence of persistent hydronephrosis and also evidence of enlarging cervical tumor both these factors may be responsible for her persistent elevated white count. Waiting for repeat urine culture finalized and continue with cefepime Time with Patient: Less than 30
--- NOTE | 2022-08-14 18:09 | P.PN ---
Subjective Progress Note Date: 08/14/22 WBC increased and re-infectious work up ordereed, neg to date, Dr. Mckeon has spoken with family today and answered questions Objective - Vital Signs Vital signs: Vital Signs Temp 98.7 F 08/14/22 14:00 Pulse 72 08/14/22 14:00 Resp 16 08/14/22 08:00 BP 123/76 08/14/22 14:00 Pulse Ox 95 08/14/22 14:00 FiO2 Intake & Output 08/13/22 08/14/22 08/14/22 18:59 06:59 18:59 Intake Total 100 Output Total 200 300 890 Balance -200 -200 -890 Weight 79.4 kg Intake: Oral 100 Output: Drainage 200 300 240 Left Back 200 300 240 Urine 650 Other: Voiding Method Incontinent External Catheter Diaper # Voids 2 1 # Bowel Movements 1 1 - Exam - Constitutional General appearance: Present: cooperative, no acute distress, obese - EENT Eyes: Present: anicteric sclerae, EOMI ENT: Present: hearing grossly normal, normal oropharynx - Respiratory Details: resp even and unlabored - Peripheral edema leg Peripheral Edema: bilateral: None - Gastrointestinal General gastrointestinal: Present: distended, soft - Integumentary Integumentary: Present: normal - Neurologic Neurologic: Present: CNII-XII intact - Musculoskeletal Musculoskeletal: Present: generalized weakness, strength equal bilaterally - Psychiatric Psychiatric: Present: A&O x's 3, appropriate affect, intact judgment & insight - Labs CBC & Chem 7: 08/13/22 07:22 08/13/22 07:22 Labs: Microbiology - Last 24 Hours (Table) 08/12/22 16:10 Blood Culture - Preliminary Blood No Growth after 24 hours 08/12/22 06:00 Urine Culture - Final Urine,Catheterized 08/12/22 17:20 Urine Culture - Final Urine,Ureter Assessment and Plan Plan: Assessment and Plan (1) Cervical adenocarcinoma Current Visit: Yes Status: Acute Priority: High Code(s): C53.9 - MALIGNANT NEOPLASM OF CERVIX UTERI, UNSPECIFIED SNOMED Code(s): 030385578 (2) Hydronephrosis, left Current Visit: Yes Status: Acute Priority: High Code(s): N13.30 - UNSPECIFIED HYDRONEPHROSIS SNOMED Code(s): 39018865 (3) Thrombocytosis and Anemia: - Likely iron deficiency compoenent - Iron studies ordered Plan: . Newly diagnosed cervical ca. Leukocytosis: No evidence of active infecton Discussed with family plan for follow-up in office attests: I have seen and examined patient, performed H&P, developed impression and plan of care. Discussed with dictator. Agree with documentation, dictated as a scribe.
[2022-08-15] MEDS: CEFEPIME 2 GM in SODIUM CHLORIDE 0.9% 100 ML IVPB SCH ×4 (00:15→23:41)
[2022-08-15] MEDS: HYDROcodone/APAP 10-325MG 1 EACH TAB PO PRN ×3 (01:13→20:52)
[2022-08-15] MEDS: HEPARIN SODIUM,PORCINE/PF 5,000 UNIT/0.5 ML SYRINGE SQ SCH ×2 (07:56→20:52)
[2022-08-15] MEDS: SENNOSIDES 8.6 MG TAB PO SCH ×2 (07:56→20:53)
[2022-08-15] MEDS: DOCUSATE 100 MG CAP PO SCH ×2 (07:56→20:52)
[2022-08-15] MEDS: FERROUS SULFATE 325 MG TAB PO SCH (08:20)
[2022-08-15] MEDS: FAMOTIDINE 20 MG/2 ML VIAL IV SCH ×2 (08:20→20:52)
[2022-08-15 09:06] LABS: Basophils # (A) 0.05 X 10*3/uL (0.00-0.10); Basophils % (A) 0.3 %; Eosinophils # (A) 0.27 X 10*3/uL (0.04-0.35); Eosinophils % (A) 1.7 %; HCT 25.5 % (37.2-46.3); Immature Grans, Automated 0.4 %; Lymphocytes # (A) 1.98 X 10*3/uL (0.90-5.00); Lymphocytes % (A) 12.4 %; MCHC 31.4 g/dL (32.0-37.0); MCV 98.8 fL (80.0-97.0); Mean Platelet Volume 10.1 fL (9.5-12.2); Monocytes # (A) 1.18 X 10*3/uL (0.20-1.00); Monocytes % (A) 7.4 %; NRBC Per 100 WBC 0 /100 WBCS (0.0-0.0); Neutrophils # (A) 12.48 X 10*3/uL (1.80-7.70); Neutrophils % (A) 77.8 %; Platelet Count 347 X 10*3/uL (140-440); RBC 2.58 X 10*6/uL (4.10-5.20); WBC 16.02 X 10*3/uL (4.50-10.00)
[2022-08-15 09:58] LABS: African American GFR (CKD) 100.3 (60.0-200.0); Anion Gap 6.9 mmol/L (10.00-18.00); BUN/Creat Ratio 16.57 Ratio (12.00-20.00); Blood Urea Nitrogen 11.6 mg/dL (9.0-27.0); Calcium 8.3 mg/dL (8.7-10.3); Carbon Dioxide 28.1 mmol/L (20.0-27.5); Non-African American GFR(CKD) 86.6 (60.0-200.0); Potassium 4.2 mmol/L (3.5-5.5)
[2022-08-15] MEDS: ONDANSETRON 4 MG/2 ML VIAL IVP PRN (15:17)
[2022-08-15] MEDS: MORPHINE SULFATE 2 MG/ML SYRINGE IVP PRN (23:40)
[2022-08-16] MEDS: HYDROcodone/APAP 10-325MG 1 EACH TAB PO PRN ×3 (02:24→20:50)
[2022-08-16] MEDS: HEPARIN SODIUM,PORCINE/PF 5,000 UNIT/0.5 ML SYRINGE SQ SCH ×2 (07:55→20:50)
[2022-08-16] MEDS: FERROUS SULFATE 325 MG TAB PO SCH (07:56)
[2022-08-16] MEDS: DOCUSATE 100 MG CAP PO SCH ×2 (07:56→20:50)
[2022-08-16] MEDS: FAMOTIDINE 20 MG/2 ML VIAL IV SCH ×2 (07:56→20:51)
[2022-08-16] MEDS: CEFEPIME 2 GM in SODIUM CHLORIDE 0.9% 100 ML IVPB SCH ×2 (07:56→16:19)
[2022-08-16] MEDS: SENNOSIDES 8.6 MG TAB PO SCH ×2 (07:56→20:50)
--- NOTE | 2022-08-16 11:35 | P.PN ---
Subjective Progress Note Date: 08/11/22 This is a pleasant 71 years old female with no significant past medical history. She was recently diagnosed with cervical cancer with invasion to the left side of the urinary bladder and the renal system, she was under the care of Dr. Lira today for planned to left ureteral stent placement to relieve obstruction which was an successful due to nonvisualization of the left ureteral orifice, nephrostomy tube would be considered by urologist. However patient was some evidence of sepsis with leukocytosis, borderline blood pressure and she was admitted to the medical floor and the service of medical team with urology of the oncology service on consult. I met with the patient and son at bedside. She is fully awake and oriented, mildly lethargic. She's been complaining of from lower abdominal pain over the last 2-3 months, it gets worse over the last 2-3 days number currently rated as a 9-10/10 in severity, it felt in the left lower quadrant more but her tenderness also in the suprapubic area. She describes the pain as dull sensation. No nausea or vomiting today, however she's been vomiting frequently over the last 1 month ago. Also she has poor appetite and because of her nausea which af fects her ability to eat. She had diarrhea for about more than 2 weeks however she had no bowel movement over the last 2 days. She's generally weak, little dyspneic Complains from little dysuria. She is slightly tachycardic 104, blood pressure is borderline 102/69, she is febrile and dorsal vitals are stable. Chest significant leukocytosis 28.2. Which was up from 12 K last night. Hemoglobin 11.2. Limited elevated 823. Sodium 123, creatinine 0.9. Liver enzymes not elevated. Chest x-ray: No acute process. However there is questionable abnormal density in the right lung and the recommended to repeat chest x-ray PA and lateral view which will be ordered tomorrow. 08/06/2012 Patient still feels generally weak but she is alert awake and oriented and comfortable. She denies fever. Vitals are stable. She has some suprapubic tenderness and little bit more pain on the right side but generally feels better today as per patient Urine culture is growing gram-negative bacilli, most likely patient has sepsis secondary to urinary tract infection which may be contributed or related to her left hydronephrosis and obstructive uropathy. Nephrology team on the case recommended IR for placement of nephrostomy tube. Continue with Zosyn and normal saline Blood culture are still pending as well 08/07/2012 she is a status post left nephrostomy tube placement. Draining pink urine in the bag. She feels generally better today Patient still feels generally weak however she is improving slowly and gradually. Physical and occupational therapy recommended home health care. She is also hemodynamically stable and afebrile. WBC is 17.8, hemoglobin 9.6. Liver enzymes looks better. Her urine culture is chronic gram-negative bacilli. Ultrasound of the left leg is negative for DVT. The patient chest x-ray showing no pneumonia. She remains on Zosyn and normal saline 75 mL/h 08/08/2022 patient was suffering from more pain in her suprapubic area and she wasn't at [place], her [place] dose increased into 10-325 mg, bowel regimen also would be provided with senna and Colace. Urine culture is growing sensitive E. coli, we are going to downgrade her Zosyn to ceftriaxone Nephrostomy tube is working. No respiratory symptoms. We will or normal saline 50 mL/h 08/09/2022 Patient feels better, she feels little stronger, but no dysuria and no suprapubic pain compared to 06/24 yesterday. Patient today wants to eat more,She is a smiling and pleasant Hemodynamically she is stable, blood pressure improved with systolic 120 to 1:30. Afebrile. And low magnesium was replaced IV as well as magnesium oxide 400 mg twice a day 5 days. Check labs in the morning Patient has evidence of iron deficiency anemia but hemoglobin 9.4 we will start her on some ferrous sulfate daily. Her antibiotic continued with ceftriaxone and adjusted to sensitive E. coli. She started eating better, I think we can stop IV fluids tonight. Left nephrostomy tube is working 08/10/2022 Patient is currently resting in bed. Awake alert and oriented 3. Patient able to ambulate in the BED physical therapy. Pain is controlled. Afebrile. No complaints of nausea vomiting or abdominal pain or diarrhea. Patient is being continued on antibiotics in the form of ceftriaxone for E. coli urinary tract infection. Patient is status post left nephrostomy tube and is functioning well. Laboratory data showed WBC 16.8 hemoglobin 9.0 and platelets 531 Sodium 140 potassium 3.3 chloride 105 bicarb is 24.6 BUN 5.8 and creatinine 0.6 Alk phos 294 total protein 4.3 and albumin 1.9 oncology is on board 08/11/2022 Patient is complaining of abdominal pain. Status post urostomy on the left side. Patient is still having elevated WBC count and urine cultures growing E. coli. Patient is on antibiotics in the form of ceftriaxone. Due to persistent leukocytosis ID was consulted. Otherwise patient denied any nausea or vomiting. Minimal oral intake. No cough or production. No chest pain or shortness of breath. Laboratory data showed WBC 15.4 hemoglobin 9.0 and platelets 475 Sodium 135. Potassium 3.3 chloride 101 bicarb is 29 BUN 7 and creatinine 0.6 Oncology and urology is on board. Current medications reviewed. Objective - Vital Signs Vital signs: Vital Signs Temp 97.8 F 08/11/22 13:49 Pulse 102 H 08/11/22 13:49 Resp 17 08/11/22 13:49 BP 113/70 08/11/22 13:49 Pulse Ox 95 08/11/22 13:49 FiO2 Intake & Output 08/11/22 08/11/22 08/12/22 06:59 18:59 06:59 Intake Total 120 Output Total 500 451 Balance -380 -451 Intake: Oral 120 Output: Drainage 250 450 Left Back 250 450 Urine 250 Stool 1 Other: Voiding Method External Catheter External Catheter # Voids 3 # Bowel Movements 1 - Exam - Exam -GENERAL: The patient is alert and oriented x3, not in any acute distress. Well developed, well nourished. Generally weak HEENT: Pupils are round and equally reacting to light. EOMI. No scleral icterus. No conjunctival pallor. Normocephalic, atraumatic. No pharyngeal erythema. No thyromegaly. CARDIOVASCULAR: S1 and S2 present. No murmurs, rubs, or gallops. PULMONARY: Chest is clear to auscultation, no wheezing or crackles. -ABDOMEN: Soft, mild lower abdominal suprapubic tenderness, and the lesser extent in the left lower quadrant, no guarding or rebound tenderness, nondistended, normoactive bowel sounds. No palpable organomegaly. MUSCULOSKELETAL: No joint swelling or deformity. EXTREMITIES: No cyanosis, clubbing, or pedal edema. NEUROLOGICAL: Gross neurological examination did not reveal any focal deficits. SKIN: No rashes. no petechiae. - Labs CBC & Chem 7: 08/15/22 05:03 08/15/22 05:03 Labs: Abnormal Lab Results - Last 24 Hours (Table) 08/11/22 08/11/22 Range/Units 10:50 10:50 WBC 15.4 H (3.8-10.6) k/uL RBC 2.95 L (3.80-5.40) m/uL Hgb 9.0 L (11.4-16.0) gm/dL Hct 28.9 L (34.0-46.0) % Plt Count 475 H (150-450) k/uL Neutrophils # 12.7 H (1.3-7.7) k/uL Sodium 135 L (137-145) mmol/L Potassium 3.3 L (3.5-5.1) mmol/L Calcium 7.9 L (8.4-10.2) mg/dL Microbiology - Last 24 Hours (Table) 08/05/22 13:03 Blood Culture - Final Blood No Growth after 144 hours Assessment and Plan Assessment: Cervical cancer with local metastasis to the left coronary bladder and ureteric system,status post left nephrostomy tube placement. possible sepsis with tachypnea, tachycardia and leukocytosis. Patient is afebrile. Acute urinary tract infection related to her obstructive uropathy. Urine culture showed E. coli. Left hydronephrosis Abnormal density in the right lower lung, may be technical per radiologist Hypokalemia. Replaced. Plan: This is a pleasant 71 female with cervical cancer and obstructive uropathy Urology team on the case for stent placement versus nephrostomy Continue with ceftriaxone Discontinue normal saline Labs and medication were reviewed.. Continue with symptomatic treatment. Mo nitor lytes and vitals. DVT and GI prophylaxis. DVT prophylaxis: Subcutaneous heparin GI Prophylaxis: Pepcid Time with Patient: Greater than 30
--- NOTE | 2022-08-16 11:38 | P.PN ---
Subjective Progress Note Date: 08/12/22 This is a pleasant 71 years old female with no significant past medical history. She was recently diagnosed with cervical cancer with invasion to the left side of the urinary bladder and the renal system, she was under the care of Dr. Lira today for planned to left ureteral stent placement to relieve obstruction which was an successful due to nonvisualization of the left ureteral orifice, nephrostomy tube would be considered by urologist. However patient was some evidence of sepsis with leukocytosis, borderline blood pressure and she was admitted to the medical floor and the service of medical team with urology of the oncology service on consult. I met with the patient and son at bedside. She is fully awake and oriented, mildly lethargic. She's been complaining of from lower abdominal pain over the last 2-3 months, it gets worse over the last 2-3 days number currently rated as a 9-10/10 in severity, it felt in the left lower quadrant more but her tenderness also in the suprapubic area. She describes the pain as dull sensation. No nausea or vomiting today, however she's been vomiting frequently over the last 1 month ago. Also she has poor appetite and because of her nausea which af fects her ability to eat. She had diarrhea for about more than 2 weeks however she had no bowel movement over the last 2 days. She's generally weak, little dyspneic Complains from little dysuria. She is slightly tachycardic 104, blood pressure is borderline 102/69, she is febrile and dorsal vitals are stable. Chest significant leukocytosis 28.2. Which was up from 12 K last night. Hemoglobin 11.2. Limited elevated 823. Sodium 123, creatinine 0.9. Liver enzymes not elevated. Chest x-ray: No acute process. However there is questionable abnormal density in the right lung and the recommended to repeat chest x-ray PA and lateral view which will be ordered tomorrow. 08/06/2012 Patient still feels generally weak but she is alert awake and oriented and comfortable. She denies fever. Vitals are stable. She has some suprapubic tenderness and little bit more pain on the right side but generally feels better today as per patient Urine culture is growing gram-negative bacilli, most likely patient has sepsis secondary to urinary tract infection which may be contributed or related to her left hydronephrosis and obstructive uropathy. Nephrology team on the case recommended IR for placement of nephrostomy tube. Continue with Zosyn and normal saline Blood culture are still pending as well 08/07/2012 she is a status post left nephrostomy tube placement. Draining pink urine in the bag. She feels generally better today Patient still feels generally weak however she is improving slowly and gradually. Physical and occupational therapy recommended home health care. She is also hemodynamically stable and afebrile. WBC is 17.8, hemoglobin 9.6. Liver enzymes looks better. Her urine culture is chronic gram-negative bacilli. Ultrasound of the left leg is negative for DVT. The patient chest x-ray showing no pneumonia. She remains on Zosyn and normal saline 75 mL/h 08/08/2022 patient was suffering from more pain in her suprapubic area and she wasn't at [place], her [place] dose increased into 10-325 mg, bowel regimen also would be provided with senna and Colace. Urine culture is growing sensitive E. coli, we are going to downgrade her Zosyn to ceftriaxone Nephrostomy tube is working. No respiratory symptoms. We will or normal saline 50 mL/h 08/09/2022 Patient feels better, she feels little stronger, but no dysuria and no suprapubic pain compared to 06/24 yesterday. Patient today wants to eat more,She is a smiling and pleasant Hemodynamically she is stable, blood pressure improved with systolic 120 to 1:30. Afebrile. And low magnesium was replaced IV as well as magnesium oxide 400 mg twice a day 5 days. Check labs in the morning Patient has evidence of iron deficiency anemia but hemoglobin 9.4 we will start her on some ferrous sulfate daily. Her antibiotic continued with ceftriaxone and adjusted to sensitive E. coli. She started eating better, I think we can stop IV fluids tonight. Left nephrostomy tube is working 08/10/2022 Patient is currently resting in bed. Awake alert and oriented 3. Patient able to ambulate in the BED physical therapy. Pain is controlled. Afebrile. No complaints of nausea vomiting or abdominal pain or diarrhea. Patient is being continued on antibiotics in the form of ceftriaxone for E. coli urinary tract infection. Patient is status post left nephrostomy tube and is functioning well. Laboratory data showed WBC 16.8 hemoglobin 9.0 and platelets 531 Sodium 140 potassium 3.3 chloride 105 bicarb is 24.6 BUN 5.8 and creatinine 0.6 Alk phos 294 total protein 4.3 and albumin 1.9 oncology is on board 08/11/2022 Patient is complaining of abdominal pain. Status post urostomy on the left side. Patient is still having elevated WBC count and urine cultures growing E. coli. Patient is on antibiotics in the form of ceftriaxone. Due to persistent leukocytosis ID was consulted. Otherwise patient denied any nausea or vomiting. Minimal oral intake. No cough or production. No chest pain or shortness of breath. Laboratory data showed WBC 15.4 hemoglobin 9.0 and platelets 475 Sodium 135. Potassium 3.3 chloride 101 bicarb is 29 BUN 7 and creatinine 0.6 Oncology and urology is on board. 08/12/2022 Patient is resting in bed. Awake alert and oriented 3. Pain is controlled with medications. Laboratory data showed sodium 137 potassium 3.3 chloride 102 bicarb is 28.1 BUN 8.2 and creatinine 0.6. Leukocytosis remains the same with WBC count 15.7 hemoglobin 8.7 platelets 453. Left urostomy tube was irrigated by urology and is functioning appropriately. Recommended outpatient follow-up for antegrade stent placement. Patient has been afebrile. No cough or sputum production. No chest pain or shortness of breath. Family at bedside and all questions were answered. Current medications reviewed. Objective - Vital Signs Vital signs: Vital Signs Temp 98.4 F 08/12/22 19:40 Pulse 97 08/12/22 19:40 Resp 16 08/12/22 19:40 BP 113/76 08/12/22 19:40 Pulse Ox 95 08/12/22 19:40 FiO2 Intake & Output 08/12/22 08/12/22 08/13/22 06:59 18:59 06:59 Intake Total 100 800 Output Total 200 100 Balance -100 700 Intake: Oral 100 800 Output: Drainage 200 100 Left Back 200 100 Other: Voiding Method Incontinent # Voids 3 # Bowel Movements 1 - Exam - Exam -GENERAL: The patient is alert and oriented x3, not in any acute distress. Well developed, well nourished. Generally weak HEENT: Pupils are round and equally reacting to light. EOMI. No scleral icterus. No conjunctival pallor. Normocephalic, atraumatic. No pharyngeal erythema. No thyromegaly. CARDIOVASCULAR: S1 and S2 present. No murmurs, rubs, or gallops. PULMONARY: Chest is clear to auscultation, no wheezing or crackles. -ABDOMEN: Soft, mild lower abdominal suprapubic tenderness, and the lesser extent in the left lower quadrant, no guarding or rebound tenderness, nondistended, normoactive bowel sounds. No palpable organomegaly. MUSCULOSKELETAL: No joint swelling or deformity. EXTREMITIES: No cyanosis, clubbing, or pedal edema. NEUROLOGICAL: Gross neurological examination did not reveal any focal deficits. SKIN: No rashes. no petechiae. - Labs CBC & Chem 7: 08/15/22 05:03 08/15/22 05:03 Labs: Abnormal Lab Results - Last 24 Hours (Table) 08/12/22 08/12/22 08/12/22 Range/Units 06:13 06:13 16:05 WBC 15.73 H (4.50-10.00) X 10*3/uL RBC 2.84 L (4.10-5.20) X 10*6/uL Hgb 8.7 L (12.0-15.0) g/dL Hct 27.2 L (37.2-46.3) % RDW 15.9 H (11.5-14.5) % Plt Count 453 H (140-440) X 10*3/uL MPV 9.1 L (9.5-12.2) fL Immature Gran # 0.07 H (0.00-0.04) X 10*3/uL Neutrophils # 12.25 H (1.80-7.70) X 10*3/uL Monocytes # 1.19 H (0.20-1.00) X 10*3/uL Potassium 3.3 L (3.5-5.5) mmol/L Carbon Dioxide 28.1 H (20.0-27.5) mmol/L Anion Gap 6.90 L (10.00-18.00) mmol/L BUN 8.2 L (9.0-27.0) mg/dL Calcium 7.9 L (8.7-10.3) mg/dL C-Reactive Protein 6.5 H (<1.0) mg/dL Urine Appearance (Clear) Urine Protein (Negative) Urine Blood (Negative) Ur Leukocyte Esterase (Negative) Urine RBC (0-5) /hpf Urine WBC (0-5) /hpf Urine WBC Clumps (None) /hpf Amorphous Sediment (None) /hpf Urine Bacteria (None) /hpf Urine Mucus (None) /hpf 08/12/22 08/12/22 Range/Units 17:20 18:16 WBC (4.50-10.00) X 10*3/uL RBC (4.10-5.20) X 10*6/uL Hgb (12.0-15.0) g/dL Hct (37.2-46.3) % RDW (11.5-14.5) % Plt Count (140-440) X 10*3/uL MPV (9.5-12.2) fL Immature Gran # (0.00-0.04) X 10*3/uL Neutrophils # (1.80-7.70) X 10*3/uL Monocytes # (0.20-1.00) X 10*3/uL Potassium (3.5-5.5) mmol/L Carbon Dioxide (20.0-27.5) mmol/L Anion Gap (10.00-18.00) mmol/L BUN (9.0-27.0) mg/dL Calcium (8.7-10.3) mg/dL C-Reactive Protein (<1.0) mg/dL Urine Appearance Cloudy H Turbid H (Clear) Urine Protein 1+ H 2+ H (Negative) Urine Blood Large H Large H (Negative) Ur Leukocyte Esterase Large H Large H (Negative) Urine RBC >182 H >182 H (0-5) /hpf Urine WBC 47 H >182 H (0-5) /hpf Urine WBC Clumps Many H (None) /hpf Amorphous Sediment Occasional H (None) /hpf Urine Bacteria Rare H Moderate H (None) /hpf Urine Mucus Rare H Many H (None) /hpf Assessment and Plan Assessment: Cervical cancer with local metastasis to the left coronary bladder and ureteric system,status post left nephrostomy tube placement. possible sepsis with tachypnea, tachycardia and leukocytosis. Patient is afebrile. Acute urinary tract infection related to her obstructive uropathy. Urine culture showed E. coli. Left hydronephrosis Abnormal density in the right lower lung, may be technical per radiologist Hypokalemia. Replaced. Plan: This is a pleasant 71 female with cervical cancer and obstructive uropathy Patient is status post nephrostomy tube on the left side by urology. Outpatient follow-up for antegrade stent placement Continue with ceftriaxone for E. coli urinary tract infection. Encourage oral intake. Labs and medication were reviewed.. Continue with symptomatic treatment. Monitor lytes and vitals. DVT and GI prophylaxis. DVT prophylaxis: Subcutaneous heparin GI Prophylaxis: Pepcid Time with Patient: Greater than 30
--- NOTE | 2022-08-16 11:40 | P.PN ---
Subjective Progress Note Date: 08/13/22 This is a pleasant 71 years old female with no significant past medical history. She was recently diagnosed with cervical cancer with invasion to the left side of the urinary bladder and the renal system, she was under the care of Dr. Lira today for planned to left ureteral stent placement to relieve obstruction which was an successful due to nonvisualization of the left ureteral orifice, nephrostomy tube would be considered by urologist. However patient was some evidence of sepsis with leukocytosis, borderline blood pressure and she was admitted to the medical floor and the service of medical team with urology of the oncology service on consult. I met with the patient and son at bedside. She is fully awake and oriented, mildly lethargic. She's been complaining of from lower abdominal pain over the last 2-3 months, it gets worse over the last 2-3 days number currently rated as a 9-10/10 in severity, it felt in the left lower quadrant more but her tenderness also in the suprapubic area. She describes the pain as dull sensation. No nausea or vomiting today, however she's been vomiting frequently over the last 1 month ago. Also she has poor appetite and because of her nausea which af fects her ability to eat. She had diarrhea for about more than 2 weeks however she had no bowel movement over the last 2 days. She's generally weak, little dyspneic Complains from little dysuria. She is slightly tachycardic 104, blood pressure is borderline 102/69, she is febrile and dorsal vitals are stable. Chest significant leukocytosis 28.2. Which was up from 12 K last night. Hemoglobin 11.2. Limited elevated 823. Sodium 123, creatinine 0.9. Liver enzymes not elevated. Chest x-ray: No acute process. However there is questionable abnormal density in the right lung and the recommended to repeat chest x-ray PA and lateral view which will be ordered tomorrow. 08/06/2012 Patient still feels generally weak but she is alert awake and oriented and comfortable. She denies fever. Vitals are stable. She has some suprapubic tenderness and little bit more pain on the right side but generally feels better today as per patient Urine culture is growing gram-negative bacilli, most likely patient has sepsis secondary to urinary tract infection which may be contributed or related to her left hydronephrosis and obstructive uropathy. Nephrology team on the case recommended IR for placement of nephrostomy tube. Continue with Zosyn and normal saline Blood culture are still pending as well 08/07/2012 she is a status post left nephrostomy tube placement. Draining pink urine in the bag. She feels generally better today Patient still feels generally weak however she is improving slowly and gradually. Physical and occupational therapy recommended home health care. She is also hemodynamically stable and afebrile. WBC is 17.8, hemoglobin 9.6. Liver enzymes looks better. Her urine culture is chronic gram-negative bacilli. Ultrasound of the left leg is negative for DVT. The patient chest x-ray showing no pneumonia. She remains on Zosyn and normal saline 75 mL/h 08/08/2022 patient was suffering from more pain in her suprapubic area and she wasn't at [place], her [place] dose increased into 10-325 mg, bowel regimen also would be provided with senna and Colace. Urine culture is growing sensitive E. coli, we are going to downgrade her Zosyn to ceftriaxone Nephrostomy tube is working. No respiratory symptoms. We will or normal saline 50 mL/h 08/09/2022 Patient feels better, she feels little stronger, but no dysuria and no suprapubic pain compared to 06/24 yesterday. Patient today wants to eat more,She is a smiling and pleasant Hemodynamically she is stable, blood pressure improved with systolic 120 to 1:30. Afebrile. And low magnesium was replaced IV as well as magnesium oxide 400 mg twice a day 5 days. Check labs in the morning Patient has evidence of iron deficiency anemia but hemoglobin 9.4 we will start her on some ferrous sulfate daily. Her antibiotic continued with ceftriaxone and adjusted to sensitive E. coli. She started eating better, I think we can stop IV fluids tonight. Left nephrostomy tube is working 08/10/2022 Patient is currently resting in bed. Awake alert and oriented 3. Patient able to ambulate in the BED physical therapy. Pain is controlled. Afebrile. No complaints of nausea vomiting or abdominal pain or diarrhea. Patient is being continued on antibiotics in the form of ceftriaxone for E. coli urinary tract infection. Patient is status post left nephrostomy tube and is functioning well. Laboratory data showed WBC 16.8 hemoglobin 9.0 and platelets 531 Sodium 140 potassium 3.3 chloride 105 bicarb is 24.6 BUN 5.8 and creatinine 0.6 Alk phos 294 total protein 4.3 and albumin 1.9 oncology is on board 08/11/2022 Patient is complaining of abdominal pain. Status post urostomy on the left side. Patient is still having elevated WBC count and urine cultures growing E. coli. Patient is on antibiotics in the form of ceftriaxone. Due to persistent leukocytosis ID was consulted. Otherwise patient denied any nausea or vomiting. Minimal oral intake. No cough or production. No chest pain or shortness of breath. Laboratory data showed WBC 15.4 hemoglobin 9.0 and platelets 475 Sodium 135. Potassium 3.3 chloride 101 bicarb is 29 BUN 7 and creatinine 0.6 Oncology and urology is on board. 08/12/2022 Patient is resting in bed. Awake alert and oriented 3. Pain is controlled with medications. Laboratory data showed sodium 137 potassium 3.3 chloride 102 bicarb is 28.1 BUN 8.2 and creatinine 0.6. Leukocytosis remains the same with WBC count 15.7 hemoglobin 8.7 platelets 453. Left urostomy tube was irrigated by urology and is functioning appropriately. Recommended outpatient follow-up for antegrade stent placement. Patient has been afebrile. No cough or sputum production. No chest pain or shortness of breath. Family at bedside and all questions were answered. 08/13/2022 Patient is lying in bed. Complains of abdominal pain and off. Left urostomy tube is functioning appropriately. Patient has been afebrile. Due to persistent leukocytosis. ID was consulted and patient was started on cefepime. Repeat blood cultures, CRP and progressively was ordered. No complaints of headache or dizziness. No chest pain or shortness of breath. Laboratory data showed WBC 18.4, hemoglobin 9.0 platelets 405 BUN 7.9 and creatinine 0.7. CRP 6.5 and urinalysis showed turbid with large blood and large leukocyte esterase and elevated RBCs and WBCs.. Repeat urine culture was sent. Current medications reviewed. Objective - Vital Signs Vital signs: Vital Signs Temp 98.4 F 08/13/22 14:00 Pulse 106 H 08/13/22 14:00 Resp 17 08/13/22 14:00 BP 113/69 08/13/22 14:00 Pulse Ox 99 08/13/22 14:00 FiO2 Intake & Output 08/13/22 08/13/22 08/14/22 06:59 18:59 06:59 Intake Total 100 Output Total 350 200 Balance -250 -200 Weight 79.4 kg Intake: Oral 100 Output: Drainage 350 200 Left Back 350 200 Other: Voiding Method Incontinent # Voids 2 - Exam - Exam -GENERAL: The patient is alert and oriented x3, not in any acute distress. Well developed, well nourished. Generally weak HEENT: Pupils are round and equally reacting to light. EOMI. No scleral icterus. No conjunctival pallor. Normocephalic, atraumatic. No pharyngeal erythema. No thyromegaly. CARDIOVASCULAR: S1 and S2 present. No murmurs, rubs, or gallops. PULMONARY: Chest is clear to auscultation, no wheezing or crackles. -ABDOMEN: Soft, mild lower abdominal suprapubic tenderness, and the lesser extent in the left lower quadrant, no guarding or rebound tenderness, nondistended, normoactive bowel sounds. No palpable organomegaly. MUSCULOSKELETAL: No joint swelling or deformity. EXTREMITIES: No cyanosis, clubbing, or pedal edema. NEUROLOGICAL: Gross neurological examination did not reveal any focal deficits. SKIN: No rashes. no petechiae. - Labs CBC & Chem 7: 08/15/22 05:03 08/15/22 05:03 Labs: Abnormal Lab Results - Last 24 Hours (Table) 08/13/22 08/13/22 Range/Units 07:22 07:22 WBC 18.04 H (4.50-10.00) X 10*3/uL RBC 2.93 L (4.10-5.20) X 10*6/uL Hgb 9.0 L (12.0-15.0) g/dL Hct 28.6 L (37.2-46.3) % MCV 97.6 H (80.0-97.0) fL MCHC 31.5 L (32.0-37.0) g/dL RDW 15.8 H (11.5-14.5) % MPV 9.3 L (9.5-12.2) fL Immature Gran # 0.07 H (0.00-0.04) X 10*3/uL Neutrophils # 14.40 H (1.80-7.70) X 10*3/uL Monocytes # 1.47 H (0.20-1.00) X 10*3/uL Carbon Dioxide 27.7 H (20.0-27.5) mmol/L Anion Gap 7.90 L (10.00-18.00) mmol/L Calcium 8.4 L (8.7-10.3) mg/dL Total Bilirubin 0.20 L (0.30-1.20) mg/dL Alkaline Phosphatase 242 H (41-126) U/L Total Protein 4.5 L (6.2-8.2) g/dL Albumin 1.9 L (3.8-4.9) g/dL Albumin/Globulin Ratio 0.75 L (1.60-3.17) g/dL Microbiology - Last 24 Hours (Table) 08/12/22 16:10 Blood Culture - Preliminary Blood No Growth after 24 hours 08/12/22 06:00 Urine Culture - Final Urine,Catheterized 08/12/22 17:20 Urine Culture - Final Urine,Ureter Assessment and Plan Assessment: Cervical cancer with local metastasis to the left coronary bladder and ureteric system,status post left nephrostomy tube placement. possible sepsis with tachypnea, tachycardia and leukocytosis. Patient is afebrile. Acute urinary tract infection related to her obstructive uropathy. Urine culture showed E. coli. Next a complicated urinary tract infection Left hydronephrosis Abnormal density in the right lower lung, may be technical per radiologist Hypokalemia. Replaced. Plan: This is a pleasant 71 female with cervical cancer and obstructive uropathy Patient is status post nephrostomy tube on the left side by urology. Outpatient follow-up for antegrade stent placement Continue with ceftriaxone for E. coli urinary tract infection. Encourage oral intake. Labs and medication were reviewed.. Continue with symptomatic treatment. Monitor lytes and vitals. DVT and GI prophylaxis. DVT prophylaxis: Subcutaneous heparin GI Prophylaxis: Pepcid Time with Patient: Greater than 30
--- NOTE | 2022-08-16 11:42 | P.PN ---
Subjective Progress Note Date: 08/14/22 This is a pleasant 71 years old female with no significant past medical history. She was recently diagnosed with cervical cancer with invasion to the left side of the urinary bladder and the renal system, she was under the care of Dr. Lira today for planned to left ureteral stent placement to relieve obstruction which was an successful due to nonvisualization of the left ureteral orifice, nephrostomy tube would be considered by urologist. However patient was some evidence of sepsis with leukocytosis, borderline blood pressure and she was admitted to the medical floor and the service of medical team with urology of the oncology service on consult. I met with the patient and son at bedside. She is fully awake and oriented, mildly lethargic. She's been complaining of from lower abdominal pain over the last 2-3 months, it gets worse over the last 2-3 days number currently rated as a 9-10/10 in severity, it felt in the left lower quadrant more but her tenderness also in the suprapubic area. She describes the pain as dull sensation. No nausea or vomiting today, however she's been vomiting frequently over the last 1 month ago. Also she has poor appetite and because of her nausea which af fects her ability to eat. She had diarrhea for about more than 2 weeks however she had no bowel movement over the last 2 days. She's generally weak, little dyspneic Complains from little dysuria. She is slightly tachycardic 104, blood pressure is borderline 102/69, she is febrile and dorsal vitals are stable. Chest significant leukocytosis 28.2. Which was up from 12 K last night. Hemoglobin 11.2. Limited elevated 823. Sodium 123, creatinine 0.9. Liver enzymes not elevated. Chest x-ray: No acute process. However there is questionable abnormal density in the right lung and the recommended to repeat chest x-ray PA and lateral view which will be ordered tomorrow. 08/06/2012 Patient still feels generally weak but she is alert awake and oriented and comfortable. She denies fever. Vitals are stable. She has some suprapubic tenderness and little bit more pain on the right side but generally feels better today as per patient Urine culture is growing gram-negative bacilli, most likely patient has sepsis secondary to urinary tract infection which may be contributed or related to her left hydronephrosis and obstructive uropathy. Nephrology team on the case recommended IR for placement of nephrostomy tube. Continue with Zosyn and normal saline Blood culture are still pending as well 08/07/2012 she is a status post left nephrostomy tube placement. Draining pink urine in the bag. She feels generally better today Patient still feels generally weak however she is improving slowly and gradually. Physical and occupational therapy recommended home health care. She is also hemodynamically stable and afebrile. WBC is 17.8, hemoglobin 9.6. Liver enzymes looks better. Her urine culture is chronic gram-negative bacilli. Ultrasound of the left leg is negative for DVT. The patient chest x-ray showing no pneumonia. She remains on Zosyn and normal saline 75 mL/h 08/08/2022 patient was suffering from more pain in her suprapubic area and she wasn't at [place], her [place] dose increased into 10-325 mg, bowel regimen also would be provided with senna and Colace. Urine culture is growing sensitive E. coli, we are going to downgrade her Zosyn to ceftriaxone Nephrostomy tube is working. No respiratory symptoms. We will or normal saline 50 mL/h 08/09/2022 Patient feels better, she feels little stronger, but no dysuria and no suprapubic pain compared to 06/24 yesterday. Patient today wants to eat more,She is a smiling and pleasant Hemodynamically she is stable, blood pressure improved with systolic 120 to 1:30. Afebrile. And low magnesium was replaced IV as well as magnesium oxide 400 mg twice a day 5 days. Check labs in the morning Patient has evidence of iron deficiency anemia but hemoglobin 9.4 we will start her on some ferrous sulfate daily. Her antibiotic continued with ceftriaxone and adjusted to sensitive E. coli. She started eating better, I think we can stop IV fluids tonight. Left nephrostomy tube is working 08/10/2022 Patient is currently resting in bed. Awake alert and oriented 3. Patient able to ambulate in the BED physical therapy. Pain is controlled. Afebrile. No complaints of nausea vomiting or abdominal pain or diarrhea. Patient is being continued on antibiotics in the form of ceftriaxone for E. coli urinary tract infection. Patient is status post left nephrostomy tube and is functioning well. Laboratory data showed WBC 16.8 hemoglobin 9.0 and platelets 531 Sodium 140 potassium 3.3 chloride 105 bicarb is 24.6 BUN 5.8 and creatinine 0.6 Alk phos 294 total protein 4.3 and albumin 1.9 oncology is on board 08/11/2022 Patient is complaining of abdominal pain. Status post urostomy on the left side. Patient is still having elevated WBC count and urine cultures growing E. coli. Patient is on antibiotics in the form of ceftriaxone. Due to persistent leukocytosis ID was consulted. Otherwise patient denied any nausea or vomiting. Minimal oral intake. No cough or production. No chest pain or shortness of breath. Laboratory data showed WBC 15.4 hemoglobin 9.0 and platelets 475 Sodium 135. Potassium 3.3 chloride 101 bicarb is 29 BUN 7 and creatinine 0.6 Oncology and urology is on board. 08/12/2022 Patient is resting in bed. Awake alert and oriented 3. Pain is controlled with medications. Laboratory data showed sodium 137 potassium 3.3 chloride 102 bicarb is 28.1 BUN 8.2 and creatinine 0.6. Leukocytosis remains the same with WBC count 15.7 hemoglobin 8.7 platelets 453. Left urostomy tube was irrigated by urology and is functioning appropriately. Recommended outpatient follow-up for antegrade stent placement. Patient has been afebrile. No cough or sputum production. No chest pain or shortness of breath. Family at bedside and all questions were answered. 08/13/2022 Patient is lying in bed. Complains of abdominal pain and off. Left urostomy tube is functioning appropriately. Patient has been afebrile. Due to persistent leukocytosis. ID was consulted and patient was started on cefepime. Repeat blood cultures, CRP and progressively was ordered. No complaints of headache or dizziness. No chest pain or shortness of breath. Laboratory data showed WBC 18.4, hemoglobin 9.0 platelets 405 BUN 7.9 and creatinine 0.7. CRP 6.5 and urinalysis showed turbid with large blood and large leukocyte esterase and elevated RBCs and WBCs.. Repeat urine culture was sent. 08/14/2022 Patient is currently lying in bed. Abdominal pain is better. No complaints of fever or chills. No chest pain or shortness breath. Afebrile overnight. No cough or sputum production. No vomiting or diarrhea. Patient is being continued on antibiotics on cefepime. CT of the abdominal pelvis was done. Patient has positive urinalysis from nephrostomy tube. ID is on board. Laboratory data reviewed. Current medications reviewed. Objective - Vital Signs Vital signs: Vital Signs Temp 98.7 F 08/14/22 19:50 Pulse 104 H 08/14/22 19:50 Resp 18 08/14/22 19:50 BP 128/54 08/14/22 19:50 Pulse Ox 96 08/14/22 19:50 FiO2 Intake & Output 08/14/22 08/14/22 08/15/22 06:59 18:59 06:59 Intake Total 100 Output Total 300 1230 Balance -200 -1230 Intake: Oral 100 Output: Drainage 300 580 Left Back 300 580 Urine 650 Other: Voiding Method External Catheter Diaper # Voids 1 # Bowel Movements 1 1 - Exam - Exam -GENERAL: The patient is alert and oriented x3, not in any acute distress. Well developed, well nourished. Generally weak HEENT: Pupils are round and equally reacting to light. EOMI. No scleral icterus. No conjunctival pallor. Normocephalic, atraumatic. No pharyngeal erythema. No thyromegaly. CARDIOVASCULAR: S1 and S2 present. No murmurs, rubs, or gallops. PULMONARY: Chest is clear to auscultation, no wheezing or crackles. -ABDOMEN: Soft, mild lower abdominal suprapubic tenderness, and the lesser extent in the left lower quadrant, no guarding or rebound tenderness, nondi stended, normoactive bowel sounds. No palpable organomegaly. MUSCULOSKELETAL: No joint swelling or deformity. EXTREMITIES: No cyanosis, clubbing, or pedal edema. NEUROLOGICAL: Gross neurological examination did not reveal any focal deficits. SKIN: No rashes. no petechiae. - Labs CBC & Chem 7: 08/15/22 05:03 08/15/22 05:03 Labs: Microbiology - Last 24 Hours (Table) 08/12/22 16:10 Blood Culture - Preliminary Blood No Growth after 48 hours Assessment and Plan Assessment: Cervical cancer with local metastasis to the left coronary bladder and ureteric system,status post left nephrostomy tube placement. possible sepsis with tachypnea, tachycardia and leukocytosis. Patient is afebrile. Acute urinary tract infection related to her obstructive uropathy. Urine culture showed E. coli. Next a complicated urinary tract infection Left hydronephrosis Abnormal density in the right lower lung, may be technical per radiologist Hypokalemia. Replaced. Plan: This is a pleasant 71 female with cervical cancer and obstructive uropathy Patient is status post nephrostomy tube on the left side by urology. Outpatient follow-up for antegrade stent placement Continue with cefepime. Repeat urine culture positive from nephrostomy tube.. Await final urine culture report. Encourage oral intake. Labs and medication were reviewed.. Continue with symptomatic treatment. Monitor lytes and vitals. DVT and GI prophylaxis. DVT prophylaxis: Subcutaneous heparin GI Prophylaxis: Pepcid Time with Patient: Greater than 30
[2022-08-16] MEDS ORDERED: polyethylene glycoL 3350 17 GM POWD.PACK PO STA (11:44)
--- NOTE | 2022-08-16 11:45 | P.PN ---
Subjective Progress Note Date: 08/15/22 This is a pleasant 71 years old female with no significant past medical history. She was recently diagnosed with cervical cancer with invasion to the left side of the urinary bladder and the renal system, she was under the care of Dr. Lira today for planned to left ureteral stent placement to relieve obstruction which was an successful due to nonvisualization of the left ureteral orifice, nephrostomy tube would be considered by urologist. However patient was some evidence of sepsis with leukocytosis, borderline blood pressure and she was admitted to the medical floor and the service of medical team with urology of the oncology service on consult. I met with the patient and son at bedside. She is fully awake and oriented, mildly lethargic. She's been complaining of from lower abdominal pain over the last 2-3 months, it gets worse over the last 2-3 days number currently rated as a 9-10/10 in severity, it felt in the left lower quadrant more but her tenderness also in the suprapubic area. She describes the pain as dull sensation. No nausea or vomiting today, however she's been vomiting frequently over the last 1 month ago. Also she has poor appetite and because of her nausea which af fects her ability to eat. She had diarrhea for about more than 2 weeks however she had no bowel movement over the last 2 days. She's generally weak, little dyspneic Complains from little dysuria. She is slightly tachycardic 104, blood pressure is borderline 102/69, she is febrile and dorsal vitals are stable. Chest significant leukocytosis 28.2. Which was up from 12 K last night. Hemoglobin 11.2. Limited elevated 823. Sodium 123, creatinine 0.9. Liver enzymes not elevated. Chest x-ray: No acute process. However there is questionable abnormal density in the right lung and the recommended to repeat chest x-ray PA and lateral view which will be ordered tomorrow. 08/06/2012 Patient still feels generally weak but she is alert awake and oriented and comfortable. She denies fever. Vitals are stable. She has some suprapubic tenderness and little bit more pain on the right side but generally feels better today as per patient Urine culture is growing gram-negative bacilli, most likely patient has sepsis secondary to urinary tract infection which may be contributed or related to her left hydronephrosis and obstructive uropathy. Nephrology team on the case recommended IR for placement of nephrostomy tube. Continue with Zosyn and normal saline Blood culture are still pending as well 08/07/2012 she is a status post left nephrostomy tube placement. Draining pink urine in the bag. She feels generally better today Patient still feels generally weak however she is improving slowly and gradually. Physical and occupational therapy recommended home health care. She is also hemodynamically stable and afebrile. WBC is 17.8, hemoglobin 9.6. Liver enzymes looks better. Her urine culture is chronic gram-negative bacilli. Ultrasound of the left leg is negative for DVT. The patient chest x-ray showing no pneumonia. She remains on Zosyn and normal saline 75 mL/h 08/08/2022 patient was suffering from more pain in her suprapubic area and she wasn't at [place], her [place] dose increased into 10-325 mg, bowel regimen also would be provided with senna and Colace. Urine culture is growing sensitive E. coli, we are going to downgrade her Zosyn to ceftriaxone Nephrostomy tube is working. No respiratory symptoms. We will or normal saline 50 mL/h 08/09/2022 Patient feels better, she feels little stronger, but no dysuria and no suprapubic pain compared to 06/24 yesterday. Patient today wants to eat more,She is a smiling and pleasant Hemodynamically she is stable, blood pressure improved with systolic 120 to 1:30. Afebrile. And low magnesium was replaced IV as well as magnesium oxide 400 mg twice a day 5 days. Check labs in the morning Patient has evidence of iron deficiency anemia but hemoglobin 9.4 we will start her on some ferrous sulfate daily. Her antibiotic continued with ceftriaxone and adjusted to sensitive E. coli. She started eating better, I think we can stop IV fluids tonight. Left nephrostomy tube is working 08/10/2022 Patient is currently resting in bed. Awake alert and oriented 3. Patient able to ambulate in the BED physical therapy. Pain is controlled. Afebrile. No complaints of nausea vomiting or abdominal pain or diarrhea. Patient is being continued on antibiotics in the form of ceftriaxone for E. coli urinary tract infection. Patient is status post left nephrostomy tube and is functioning well. Laboratory data showed WBC 16.8 hemoglobin 9.0 and platelets 531 Sodium 140 potassium 3.3 chloride 105 bicarb is 24.6 BUN 5.8 and creatinine 0.6 Alk phos 294 total protein 4.3 and albumin 1.9 oncology is on board 08/11/2022 Patient is complaining of abdominal pain. Status post urostomy on the left side. Patient is still having elevated WBC count and urine cultures growing E. coli. Patient is on antibiotics in the form of ceftriaxone. Due to persistent leukocytosis ID was consulted. Otherwise patient denied any nausea or vomiting. Minimal oral intake. No cough or production. No chest pain or shortness of breath. Laboratory data showed WBC 15.4 hemoglobin 9.0 and platelets 475 Sodium 135. Potassium 3.3 chloride 101 bicarb is 29 BUN 7 and creatinine 0.6 Oncology and urology is on board. 08/12/2022 Patient is resting in bed. Awake alert and oriented 3. Pain is controlled with medications. Laboratory data showed sodium 137 potassium 3.3 chloride 102 bicarb is 28.1 BUN 8.2 and creatinine 0.6. Leukocytosis remains the same with WBC count 15.7 hemoglobin 8.7 platelets 453. Left urostomy tube was irrigated by urology and is functioning appropriately. Recommended outpatient follow-up for antegrade stent placement. Patient has been afebrile. No cough or sputum production. No chest pain or shortness of breath. Family at bedside and all questions were answered. 08/13/2022 Patient is lying in bed. Complains of abdominal pain and off. Left urostomy tube is functioning appropriately. Patient has been afebrile. Due to persistent leukocytosis. ID was consulted and patient was started on cefepime. Repeat blood cultures, CRP and progressively was ordered. No complaints of headache or dizziness. No chest pain or shortness of breath. Laboratory data showed WBC 18.4, hemoglobin 9.0 platelets 405 BUN 7.9 and creatinine 0.7. CRP 6.5 and urinalysis showed turbid with large blood and large leukocyte esterase and elevated RBCs and WBCs.. Repeat urine culture was sent. 08/14/2022 Patient is currently lying in bed. Abdominal pain is better. No complaints of fever or chills. No chest pain or shortness breath. Afebrile overnight. No cough or sputum production. No vomiting or diarrhea. Patient is being continued on antibiotics on cefepime. CT of the abdominal pelvis was done. Patient has positive urinalysis from nephrostomy tube. ID is on board. Laboratory data reviewed. 08/15/2022 Patient is currently lying in the bed. Awake alert and oriented and denied any abdominal pain this morning. Pain is fairly controlled. No fever no chills. No cough or sputum production. No nausea vomiting or diarrhea. Laboratory data showed WBC 16.0 hemoglobin 8.0) 347 BUN 7.6 and creatinine 0.7 potassium improved to 4.2. Patient is being continued on antibiotics in the form of cefepime. CT of abdomen pelvis showed delayed passage of ingested material to colonic level. No bowel obstruction. Mild to moderate proximal colonic fecal stasis. Mild soft tissue anasarca no present. Enlarging cervical mass or neoplasm noted. Stable retroperitoneal adenopathy in the lower abdomen and pelvis revea led persistent left-sided hydronephrosis despite percutaneous nephrostomy tube placement. ID and oncology is on board. Current medications reviewed. Objective - Vital Signs Vital signs: Vital Signs Temp 98.6 F 08/15/22 19:27 Pulse 101 H 08/15/22 19:38 Resp 18 08/15/22 19:38 BP 113/65 08/15/22 19:27 Pulse Ox 94 L 08/15/22 19:27 FiO2 Intake & Output 08/15/22 08/15/22 08/16/22 06:59 18:59 06:59 Intake Total 100 Output Total 250 600 Balance -250 -500 Intake: Intake, IV Titration 100 Amount Cefepime 2 gm In Sodium 100 Chloride 0.9% 100 ml @ 25 mls/hr IVPB Q8HR [facility] Rx# :[id number] Output: Drainage 50 600 Left Back 50 600 Urine 200 Other: Voiding Method Diaper Diaper Diaper # Voids 2 # Bowel Movements 1 1 - Exam - Exam -GENERAL: The patient is alert and oriented x3, not in any acute distress. Well developed, well nourished. Generally weak HEENT: Pupils are round and equally reacting to light. EOMI. No scleral icterus. No conjunctival pallor. Normocephalic, atraumatic. No pharyngeal erythema. No thyromegaly. CARDIOVASCULAR: S1 and S2 present. No murmurs, rubs, or gallops. PULMONARY: Chest is clear to auscultation, no wheezing or crackles. -ABDOMEN: Soft, mild lower abdominal suprapubic tenderness, and the lesser extent in the left lower quadrant, no guarding or rebound tenderness, nondistended, normoactive bowel sounds. No palpable organomegaly. MUSCULOSKELETAL: No joint swelling or deformity. EXTREMITIES: No cyanosis, clubbing, or pedal edema. NEUROLOGICAL: Gross neurological examination did not reveal any focal deficits. SKIN: No rashes. no petechiae. - Labs CBC & Chem 7: 08/15/22 05:03 08/15/22 05:03 Labs: Abnormal Lab Results - Last 24 Hours (Table) 08/15/22 08/15/22 Range/Units 05:03 05:03 WBC 16.02 H (4.50-10.00) X 10*3/uL RBC 2.58 L (4.10-5.20) X 10*6/uL Hgb 8.0 L (12.0-15.0) g/dL Hct 25.5 L (37.2-46.3) % MCV 98.8 H (80.0-97.0) fL MCHC 31.4 L (32.0-37.0) g/dL RDW 16.0 H (11.5-14.5) % Immature Gran # 0.06 H (0.00-0.04) X 10*3/uL Neutrophils # 12.48 H (1.80-7.70) X 10*3/uL Monocytes # 1.18 H (0.20-1.00) X 10*3/uL Carbon Dioxide 28.1 H (20.0-27.5) mmol/L Anion Gap 6.90 L (10.00-18.00) mmol/L Calcium 8.3 L (8.7-10.3) mg/dL Microbiology - Last 24 Hours (Table) 08/12/22 16:10 Blood Culture - Preliminary Blood No Growth after 72 hours Assessment and Plan Assessment: Cervical cancer with local metastasis to the left coronary bladder and ureteric system,status post left nephrostomy tube placement. possible sepsis with tachypnea, tachycardia and leukocytosis. Patient is afebr ile. Acute urinary tract infection related to her obstructive uropathy. Urine culture showed E. coli. Next a complicated urinary tract infection Persistent Left hydronephrosis Abnormal density in the right lower lung, may be technical per radiologist Hypokalemia. Replaced. Mild colonic fecal stasis. Plan: This is a pleasant 71 female with cervical cancer and obstructive uropathy Patient is status post nephrostomy tube on the left side by urology. Outpatient follow-up for antegrade stent placement Continue with cefepime. Repeat urine culture positive from nephrostomy tube.. Await final urine culture report. Encourage oral intake. Labs and medication were reviewed.. Continue with symptomatic treatment. Monitor lytes and vitals. DVT and GI prophylaxis. DVT prophylaxis: Subcutaneous heparin GI Prophylaxis: Pepcid Time with Patient: Greater than 30
[2022-08-16 12:16] LABS: Basophils % (A) 0 %; Eosinophils # (A) 0.2 k/uL (0-0.7); Eosinophils % (A) 2 %; HCT 29.7 % (34.0-46.0); HGB 9.3 gm/dL (11.4-16.0); Hypochromasia Moderate; Lymphocytes # (A) 1.4 k/uL (1.0-4.8); Lymphocytes % (A) 10 %; MCH 31.3 pg (25.0-35.0); MCHC 31.4 g/dL (31.0-37.0); MCV 99.8 fL (80.0-100.0); Macrocytosis Slight; Mean Platelet Volume 7.7; Monocytes # (A) 0.8 k/uL (0-1.0); Monocytes % (A) 6 %; Neutrophils # (A) 11.7 k/uL (1.3-7.7); Neutrophils % (A) 81 %; Platelet Count 336 k/uL (150-450); RBC 2.97 m/uL (3.80-5.40); RDW 14.6 % (11.5-15.5); WBC 14.4 k/uL (3.8-10.6)
[2022-08-17] MEDS: CEFEPIME 2 GM in SODIUM CHLORIDE 0.9% 100 ML IVPB SCH ×4 (00:21→22:57)
[2022-08-17] MEDS: MORPHINE SULFATE 2 MG/ML SYRINGE IVP PRN ×2 (02:19→13:09)
[2022-08-17] MEDS: HEPARIN SODIUM,PORCINE/PF 5,000 UNIT/0.5 ML SYRINGE SQ SCH ×2 (08:00→21:36)
[2022-08-17] MEDS: HYDROcodone/APAP 10-325MG 1 EACH TAB PO PRN ×2 (08:01→16:11)
[2022-08-17] MEDS: FAMOTIDINE 20 MG/2 ML VIAL IV SCH ×2 (08:01→21:36)
[2022-08-17] MEDS: DOCUSATE 100 MG CAP PO SCH ×2 (08:01→21:36)
[2022-08-17] MEDS: SENNOSIDES 8.6 MG TAB PO SCH ×2 (08:01→21:36)
[2022-08-17] MEDS: FERROUS SULFATE 325 MG TAB PO SCH (13:09)
--- NOTE | 2022-08-18 01:43 | P.PN ---
Subjective Progress Note Date: 08/16/22 This is a pleasant 71 years old female with no significant past medical history. She was recently diagnosed with cervical cancer with invasion to the left side of the urinary bladder and the renal system, she was under the care of Dr. Lira today for planned to left ureteral stent placement to relieve obstruction which was an successful due to nonvisualization of the left ureteral orifice, nephrostomy tube would be considered by urologist. However patient was some evidence of sepsis with leukocytosis, borderline blood pressure and she was admitted to the medical floor and the service of medical team with urology of the oncology service on consult. I met with the patient and son at bedside. She is fully awake and oriented, mildly lethargic. She's been complaining of from lower abdominal pain over the last 2-3 months, it gets worse over the last 2-3 days number currently rated as a 9-10/10 in severity, it felt in the left lower quadrant more but her tenderness also in the suprapubic area. She describes the pain as dull sensation. No nausea or vomiting today, however she's been vomiting frequently over the last 1 month ago. Also she has poor appetite and because of her nausea which af fects her ability to eat. She had diarrhea for about more than 2 weeks however she had no bowel movement over the last 2 days. She's generally weak, little dyspneic Complains from little dysuria. She is slightly tachycardic 104, blood pressure is borderline 102/69, she is febrile and dorsal vitals are stable. Chest significant leukocytosis 28.2. Which was up from 12 K last night. Hemoglobin 11.2. Limited elevated 823. Sodium 123, creatinine 0.9. Liver enzymes not elevated. Chest x-ray: No acute process. However there is questionable abnormal density in the right lung and the recommended to repeat chest x-ray PA and lateral view which will be ordered tomorrow. 08/06/2012 Patient still feels generally weak but she is alert awake and oriented and comfortable. She denies fever. Vitals are stable. She has some suprapubic tenderness and little bit more pain on the right side but generally feels better today as per patient Urine culture is growing gram-negative bacilli, most likely patient has sepsis secondary to urinary tract infection which may be contributed or related to her left hydronephrosis and obstructive uropathy. Nephrology team on the case recommended IR for placement of nephrostomy tube. Continue with Zosyn and normal saline Blood culture are still pending as well 08/07/2012 she is a status post left nephrostomy tube placement. Draining pink urine in the bag. She feels generally better today Patient still feels generally weak however she is improving slowly and gradually. Physical and occupational therapy recommended home health care. She is also hemodynamically stable and afebrile. WBC is 17.8, hemoglobin 9.6. Liver enzymes looks better. Her urine culture is chronic gram-negative bacilli. Ultrasound of the left leg is negative for DVT. The patient chest x-ray showing no pneumonia. She remains on Zosyn and normal saline 75 mL/h 08/08/2022 patient was suffering from more pain in her suprapubic area and she wasn't at [place], her [place] dose increased into 10-325 mg, bowel regimen also would be provided with senna and Colace. Urine culture is growing sensitive E. coli, we are going to downgrade her Zosyn to ceftriaxone Nephrostomy tube is working. No respiratory symptoms. We will or normal saline 50 mL/h 08/09/2022 Patient feels better, she feels little stronger, but no dysuria and no suprapubic pain compared to 06/24 yesterday. Patient today wants to eat more,She is a smiling and pleasant Hemodynamically she is stable, blood pressure improved with systolic 120 to 1:30. Afebrile. And low magnesium was replaced IV as well as magnesium oxide 400 mg twice a day 5 days. Check labs in the morning Patient has evidence of iron deficiency anemia but hemoglobin 9.4 we will start her on some ferrous sulfate daily. Her antibiotic continued with ceftriaxone and adjusted to sensitive E. coli. She started eating better, I think we can stop IV fluids tonight. Left nephrostomy tube is working 08/10/2022 Patient is currently resting in bed. Awake alert and oriented 3. Patient able to ambulate in the BED physical therapy. Pain is controlled. Afebrile. No complaints of nausea vomiting or abdominal pain or diarrhea. Patient is being continued on antibiotics in the form of ceftriaxone for E. coli urinary tract infection. Patient is status post left nephrostomy tube and is functioning well. Laboratory data showed WBC 16.8 hemoglobin 9.0 and platelets 531 Sodium 140 potassium 3.3 chloride 105 bicarb is 24.6 BUN 5.8 and creatinine 0.6 Alk phos 294 total protein 4.3 and albumin 1.9 oncology is on board 08/11/2022 Patient is complaining of abdominal pain. Status post urostomy on the left side. Patient is still having elevated WBC count and urine cultures growing E. coli. Patient is on antibiotics in the form of ceftriaxone. Due to persistent leukocytosis ID was consulted. Otherwise patient denied any nausea or vomiting. Minimal oral intake. No cough or production. No chest pain or shortness of breath. Laboratory data showed WBC 15.4 hemoglobin 9.0 and platelets 475 Sodium 135. Potassium 3.3 chloride 101 bicarb is 29 BUN 7 and creatinine 0.6 Oncology and urology is on board. 08/12/2022 Patient is resting in bed. Awake alert and oriented 3. Pain is controlled with medications. Laboratory data showed sodium 137 potassium 3.3 chloride 102 bicarb is 28.1 BUN 8.2 and creatinine 0.6. Leukocytosis remains the same with WBC count 15.7 hemoglobin 8.7 platelets 453. Left urostomy tube was irrigated by urology and is functioning appropriately. Recommended outpatient follow-up for antegrade stent placement. Patient has been afebrile. No cough or sputum production. No chest pain or shortness of breath. Family at bedside and all questions were answered. 08/13/2022 Patient is lying in bed. Complains of abdominal pain and off. Left urostomy tube is functioning appropriately. Patient has been afebrile. Due to persistent leukocytosis. ID was consulted and patient was started on cefepime. Repeat blood cultures, CRP and progressively was ordered. No complaints of headache or dizziness. No chest pain or shortness of breath. Laboratory data showed WBC 18.4, hemoglobin 9.0 platelets 405 BUN 7.9 and creatinine 0.7. CRP 6.5 and urinalysis showed turbid with large blood and large leukocyte esterase and elevated RBCs and WBCs.. Repeat urine culture was sent. 08/14/2022 Patient is currently lying in bed. Abdominal pain is better. No complaints of fever or chills. No chest pain or shortness breath. Afebrile overnight. No cough or sputum production. No vomiting or diarrhea. Patient is being continued on antibiotics on cefepime. CT of the abdominal pelvis was done. Patient has positive urinalysis from nephrostomy tube. ID is on board. Laboratory data reviewed. 08/15/2022 Patient is currently lying in the bed. Awake alert and oriented and denied any abdominal pain this morning. Pain is fairly controlled. No fever no chills. No cough or sputum production. No nausea vomiting or diarrhea. Laboratory data showed WBC 16.0 hemoglobin 8.0) 347 BUN 7.6 and creatinine 0.7 potassium improved to 4.2. Patient is being continued on antibiotics in the form of cefepime. CT of abdomen pelvis showed delayed passage of ingested material to colonic level. No bowel obstruction. Mild to moderate proximal colonic fecal stasis. Mild soft tissue anasarca no present. Enlarging cervical mass or neoplasm noted. Stable retroperitoneal adenopathy in the lower abdomen and pelvis revea led persistent left-sided hydronephrosis despite percutaneous nephrostomy tube placement. ID and oncology is on board. 08/16/2022 Patient currently lying in the bed. Awake alert and oriented x3. Still complains of lower abdominal pain. Patient is being current on antibiotics in the form of cefepime for urinary tract infection. Repeat urine culture from the urostomy bag is pending. ID is on board. CT of the abdomen pelvis showed enlarging cervical mass noted. Oncology on board. Patient was able to tolerate oral diet. Denies any bowel movement today. No nausea or vomiting. No fever no chills. No cough or sputum production. No shortness of breath. Current medications reviewed. Objective - Vital Signs Vital signs: Vital Signs Temp 98.8 F 08/16/22 19:56 Pulse 93 08/16/22 19:56 Resp 17 08/16/22 19:56 BP 124/66 08/16/22 19:56 Pulse Ox 96 08/16/22 19:56 FiO2 Intake & Output 08/16/22 08/16/22 08/17/22 06:59 18:59 06:59 Intake Total 1280 Output Total 300 350 Balance -300 930 Intake: Intake, IV Titration 200 Amount Cefepime 2 gm In Sodium 200 Chloride 0.9% 100 ml @ 25 mls/hr IVPB Q8HR [facility] Rx# :[id number] Oral 1080 Output: Drainage 350 Left Back 350 Urine 300 Other: Voiding Method Diaper # Voids 2 2 # Bowel Movements 1 - Exam - Exam -GENERAL: The patient is alert and oriented x3, not in any acute distress. Well developed, well nourished. Generally weak HEENT: Pupils are round and equally reacting to light. EOMI. No scleral icterus. No conjunctival pallor. Normocephalic, atraumatic. No pharyngeal erythema. No thyromegaly. CARDIOVASCULAR: S1 and S2 present. No murmurs, rubs, or gallops. PULMONARY: Chest is clear to auscultation, no wheezing or crackles. -ABDOMEN: Soft, mild lower abdominal suprapubic tenderness, and the lesser extent in the left lower quadrant, no guarding or rebound tenderness, nondistended, normoactive bowel sounds. No palpable organomegaly. MUSCULOSKELETAL: No joint swelling or deformity. EXTREMITIES: No cyanosis, clubbing, or pedal edema. NEUROLOGICAL: Gross neurological examination did not reveal any focal deficits. SKIN: No rashes. no petechiae. - Labs CBC & Chem 7: 08/16/22 11:59 08/15/22 05:03 Labs: Abnormal Lab Results - Last 24 Hours (Table) 08/16/22 Range/Units 11:59 WBC 14.4 H (3.8-10.6) k/uL RBC 2.97 L (3.80-5.40) m/uL Hgb 9.3 L (11.4-16.0) gm/dL Hct 29.7 L (34.0-46.0) % Neutrophils # 11.7 H (1.3-7.7) k/uL Microbiology - Last 24 Hours (Table) 08/12/22 16:10 Blood Culture - Preliminary Blood No Growth after 96 hours Assessment and Plan Assessment: Cervical cancer with local metastasis to the left coronary bladder and ureteric system,status post left nephrostomy tube placement. possible sepsis with tachypnea, tachycardia and leukocytosis. Patient is afebrile. Acute urinary tract infection related to her obstructive uropathy. Urine culture showed E. coli. Next a complicated urinary tract infection Left hydronephrosis Abnormal density in the right lower lung, may be technical per radiologist Hypokalemia. Replaced. Plan: This is a pleasant 71 female with cervical cancer and obstructive uropathy Patient is status post nephrostomy tube on the left side by urology. Outpatient follow-up for antegrade stent placement Continue with cefepime. Repeat urine culture positive from nephrostomy tube.. Await final urine culture report. Encourage oral intake. Labs and medication were reviewed.. Continue with symptomatic treatment. Monitor lytes and vitals. DVT and GI prophylaxis. DVT prophylaxis: Subcutaneous heparin GI Prophylaxis: Pepcid Time with Patient: Greater than 30
--- NOTE | 2022-08-18 01:44 | P.PN ---
Subjective Progress Note Date: 08/17/22 This is a pleasant 71 years old female with no significant past medical history. She was recently diagnosed with cervical cancer with invasion to the left side of the urinary bladder and the renal system, she was under the care of Dr. Lira today for planned to left ureteral stent placement to relieve obstruction which was an successful due to nonvisualization of the left ureteral orifice, nephrostomy tube would be considered by urologist. However patient was some evidence of sepsis with leukocytosis, borderline blood pressure and she was admitted to the medical floor and the service of medical team with urology of the oncology service on consult. I met with the patient and son at bedside. She is fully awake and oriented, mildly lethargic. She's been complaining of from lower abdominal pain over the last 2-3 months, it gets worse over the last 2-3 days number currently rated as a 9-10/10 in severity, it felt in the left lower quadrant more but her tenderness also in the suprapubic area. She describes the pain as dull sensation. No nausea or vomiting today, however she's been vomiting frequently over the last 1 month ago. Also she has poor appetite and because of her nausea which af fects her ability to eat. She had diarrhea for about more than 2 weeks however she had no bowel movement over the last 2 days. She's generally weak, little dyspneic Complains from little dysuria. She is slightly tachycardic 104, blood pressure is borderline 102/69, she is febrile and dorsal vitals are stable. Chest significant leukocytosis 28.2. Which was up from 12 K last night. Hemoglobin 11.2. Limited elevated 823. Sodium 123, creatinine 0.9. Liver enzymes not elevated. Chest x-ray: No acute process. However there is questionable abnormal density in the right lung and the recommended to repeat chest x-ray PA and lateral view which will be ordered tomorrow. 08/06/2012 Patient still feels generally weak but she is alert awake and oriented and comfortable. She denies fever. Vitals are stable. She has some suprapubic tenderness and little bit more pain on the right side but generally feels better today as per patient Urine culture is growing gram-negative bacilli, most likely patient has sepsis secondary to urinary tract infection which may be contributed or related to her left hydronephrosis and obstructive uropathy. Nephrology team on the case recommended IR for placement of nephrostomy tube. Continue with Zosyn and normal saline Blood culture are still pending as well 08/07/2012 she is a status post left nephrostomy tube placement. Draining pink urine in the bag. She feels generally better today Patient still feels generally weak however she is improving slowly and gradually. Physical and occupational therapy recommended home health care. She is also hemodynamically stable and afebrile. WBC is 17.8, hemoglobin 9.6. Liver enzymes looks better. Her urine culture is chronic gram-negative bacilli. Ultrasound of the left leg is negative for DVT. The patient chest x-ray showing no pneumonia. She remains on Zosyn and normal saline 75 mL/h 08/08/2022 patient was suffering from more pain in her suprapubic area and she wasn't at [facility], her [place] dose increased into 10-325 mg, bowel regimen also would be provided with senna and Colace. Urine culture is growing sensitive E. coli, we are going to downgrade her Zosyn to ceftriaxone Nephrostomy tube is working. No respiratory symptoms. We will or normal saline 50 mL/h 08/09/2022 Patient feels better, she feels little stronger, but no dysuria and no suprapubic pain compared to 06/24 yesterday. Patient today wants to eat more,She is a smiling and pleasant Hemodynamically she is stable, blood pressure improved with systolic 120 to 1:30. Afebrile. And low magnesium was replaced IV as well as magnesium oxide 400 mg twice a day 5 days. Check labs in the morning Patient has evidence of iron deficiency anemia but hemoglobin 9.4 we will start her on some ferrous sulfate daily. Her antibiotic continued with ceftriaxone and adjusted to sensitive E. coli. She started eating better, I think we can stop IV fluids tonight. Left nephrostomy tube is working 08/10/2022 Patient is currently resting in bed. Awake alert and oriented 3. Patient able to ambulate in the BED physical therapy. Pain is controlled. Afebrile. No complaints of nausea vomiting or abdominal pain or diarrhea. Patient is being continued on antibiotics in the form of ceftriaxone for E. coli urinary tract infection. Patient is status post left nephrostomy tube and is functioning well. Laboratory data showed WBC 16.8 hemoglobin 9.0 and platelets 531 Sodium 140 potassium 3.3 chloride 105 bicarb is 24.6 BUN 5.8 and creatinine 0.6 Alk phos 294 total protein 4.3 and albumin 1.9 oncology is on board 08/11/2022 Patient is complaining of abdominal pain. Status post urostomy on the left side. Patient is still having elevated WBC count and urine cultures growing E. coli. Patient is on antibiotics in the form of ceftriaxone. Due to persistent leukocytosis ID was consulted. Otherwise patient denied any nausea or vomiting. Minimal oral intake. No cough or production. No chest pain or shortness of breath. Laboratory data showed WBC 15.4 hemoglobin 9.0 and platelets 475 Sodium 135. Potassium 3.3 chloride 101 bicarb is 29 BUN 7 and creatinine 0.6 Oncology and urology is on board. 08/12/2022 Patient is resting in bed. Awake alert and oriented 3. Pain is controlled with medications. Laboratory data showed sodium 137 potassium 3.3 chloride 102 bicarb is 28.1 BUN 8.2 and creatinine 0.6. Leukocytosis remains the same with WBC count 15.7 hemoglobin 8.7 platelets 453. Left urostomy tube was irrigated by urology and is functioning appropriately. Recommended outpatient follow-up for antegrade stent placement. Patient has been afebrile. No cough or sputum production. No chest pain or shortness of breath. Family at bedside and all questions were answered. 08/13/2022 Patient is lying in bed. Complains of abdominal pain and off. Left urostomy tube is functioning appropriately. Patient has been afebrile. Due to persistent leukocytosis. ID was consulted and patient was started on cefepime. Repeat blood cultures, CRP and progressively was ordered. No complaints of headache or dizziness. No chest pain or shortness of breath. Laboratory data showed WBC 18.4, hemoglobin 9.0 platelets 405 BUN 7.9 and creatinine 0.7. CRP 6.5 and urinalysis showed turbid with large blood and large leukocyte esterase and elevated RBCs and WBCs.. Repeat urine culture was sent. 08/14/2022 Patient is currently lying in bed. Abdominal pain is better. No complaints of fever or chills. No chest pain or shortness breath. Afebrile overnight. No cough or sputum production. No vomiting or diarrhea. Patient is being continued on antibiotics on cefepime. CT of the abdominal pelvis was done. Patient has positive urinalysis from nephrostomy tube. ID is on board. Laboratory data reviewed. 08/15/2022 Patient is currently lying in the bed. Awake alert and oriented and denied any abdominal pain this morning. Pain is fairly controlled. No fever no chills. No cough or sputum production. No nausea vomiting or diarrhea. Laboratory data showed WBC 16.0 hemoglobin 8.0) 347 BUN 7.6 and creatinine 0.7 potassium improved to 4.2. Patient is being continued on antibiotics in the form of cefepime. CT of abdomen pelvis showed delayed passage of ingested material to colonic level. No bowel obstruction. Mild to moderate proximal colonic fecal stasis. Mild soft tissue anasarca no present. Enlarging cervical mass or neoplasm noted. Stable retroperitoneal adenopathy in the lower abdomen and pelvis revea led persistent left-sided hydronephrosis despite percutaneous nephrostomy tube placement. ID and oncology is on board. 08/16/2022 Patient currently lying in the bed. Awake alert and oriented x3. Still complains of lower abdominal pain. Patient is being current on antibiotics in the form of cefepime for urinary tract infection. Repeat urine culture from the urostomy bag is pending. ID is on board. CT of the abdomen pelvis showed enlarging cervical mass noted. Oncology on board. Patient was able to tolerate oral diet. Denies any bowel movement today. No nausea or vomiting. No fever no chills. No cough or sputum production. No shortness of breath. 08/17/2022 Patient is resting in the bed. Awake alert and oriented. No complaints of chest pain or shortness of breath. No nausea vomiting abdominal pain or diarrhea. Patient is being continued on antibiotics in the form of cefepime for urinary tract infection. Repeat urine culture from urostomy bag is pending. CT abdomen pelvis showed hydronephrosis and increasing cervical mass. Laboratory data reviewed. Patient has been afebrile. Anticipate discharge with final ID recommendations and oncology recommendations. Current medications reviewed. Objective - Vital Signs Vital signs: Vital Signs Temp 98.5 F 08/17/22 20:00 Pulse 92 08/17/22 20:00 Resp 16 08/17/22 20:00 BP 121/70 08/17/22 20:00 Pulse Ox 95 08/17/22 20:00 FiO2 Intake & Output 08/17/22 08/17/22 08/18/22 06:59 18:59 06:59 Intake Total 650 Output Total 250 391 Balance -250 259 Weight 79.4 kg Intake: Intake, IV Titration 100 Amount Cefepime 2 gm In Sodium 100 Chloride 0.9% 100 ml @ 25 mls/hr IVPB Q[facility]HR [facility] Rx# :[id number] Oral 550 Output: Drainage 250 390 Left Back 250 390 Stool 1 Other: Voiding Method Diaper # Voids 3 # Bowel Movements 1 - Exam - Exam -GENERAL: The patient is alert and oriented x3, not in any acute distress. Well developed, well nourished. Generally weak HEENT: Pupils are round and equally reacting to light. EOMI. No scleral icterus. No conjunctival pallor. Normocephalic, atraumatic. No pharyngeal erythema. No thyromegaly. CARDIOVASCULAR: S1 and S2 present. No murmurs, rubs, or gallops. PULMONARY: Chest is clear to auscultation, no wheezing or crackles. -ABDOMEN: Soft, mild lower abdominal suprapubic tenderness, and the lesser extent in the left lower quadrant, no guarding or rebound tenderness, nondistended, normoactive bowel sounds. No palpable organomegaly. MUSCULOSKELETAL: No joint swelling or deformity. EXTREMITIES: No cyanosis, clubbing, or pedal edema. NEUROLOGICAL: Gross neurological examination did not reveal any focal deficits. SKIN: No rashes. no petechiae. - Labs CBC & Chem 7: 08/16/22 11:59 08/15/22 05:03 Labs: Microbiology - Last 24 Hours (Table) 08/12/22 16:10 Blood Culture - Preliminary Blood No Growth after 120 hours Assessment and Plan Assessment: Cervical cancer with local metastasis to the left coronary bladder and ureteric system,status post left nephrostomy tube placement. possible sepsis with tachypnea, tachycardia and leukocytosis. Patient is afebrile. Acute urinary tract infection related to her obstructive uropathy. Urine culture showed E. coli. Next a complicated urinary tract infection Left hydronephrosis Abnormal density in the right lower lung, may be technical per radiologist Hypokalemia. Replaced. Plan: This is a pleasant 71 female with cervical cancer and obstructive uropathy Patient is status post nephrostomy tube on the left side by urology. Outpatient follow-up for antegrade stent placement Continue with cefepime. Repeat urine culture positive from nephrostomy tube.. Await final urine culture report. Encourage oral intake. Labs and medication were reviewed.. Continue with symptomatic treatment. Monitor lytes and vitals. DVT and GI prophylaxis. DVT prophylaxis: Subcutaneous heparin GI Prophylaxis: Pepcid Time with Patient: Greater than 30
--- NOTE | 2022-08-18 07:25 | P.PN ---
Subjective Progress Note Date: 08/17/22 Principal diagnosis: UTI, cervical cancer Patient reports she is still feeling generalized weakness. She did ambulate the halls over the weekend, but did not do that today. No further difficulty with constipation. She has some RLQ pain, but this is reasonably controlled at this time. Objective - Vital Signs Vital signs: Vital Signs Temp 98.0 F 08/18/22 02:00 Pulse 108 H 08/18/22 02:00 Resp 17 08/18/22 02:00 BP 132/73 08/18/22 02:00 Pulse Ox 100 08/18/22 02:00 FiO2 Intake & Output 08/17/22 08/18/22 08/18/22 18:59 06:59 18:59 Intake Total 650 Output Total 391 550 Balance 259 -550 Weight 79.4 kg Intake: Intake, IV Titration 100 Amount Cefepime 2 gm In Sodium 100 Chloride 0.9% 100 ml @ 25 mls/hr IVPB Q8HR [facility] Rx# :[id number] Oral 550 Output: Drainage 390 250 Left Back 390 250 Urine 300 Stool 1 Other: Voiding Method Diaper # Voids 2 # Bowel Movements 1 - Constitutional General appearance: Present: no acute distress - EENT Eyes: Present: EOMI, PERRLA ENT: Present: hearing grossly normal - Neck Neck: Absent: lymphadenopathy - Respiratory Respiratory: bilateral: CTA, diminished (at lung bases) - Cardiovascular Rhythm: regular - Gastrointestinal General gastrointestinal: Absent: distended, tenderness - Integumentary Integumentary: Present: pale - Neurologic Neurologic: Present: CNII-XII intact - Musculoskeletal Musculoskeletal: Present: generalized weakness - Psychiatric Psychiatric: Present: A&O x's 3, appropriate affect - Labs CBC & Chem 7: 08/16/22 11:59 08/15/22 05:03 Labs: Microbiology - Last 24 Hours (Table) 08/12/22 16:10 Blood Culture - Preliminary Blood No Growth after 120 hours Assessment and Plan Assessment: The patient is a 71-year-old female with a history of a 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 She was hospitalized, had left nephrostomy placed. She has since been treated for UTI. 1. UTI: Initial culture positive for E.coli, most recent cultures negative. Currently on Antibiotics with ID following. 2. Cervical cancer: Patient has locally advanced disease (direct bladder invasion) - it is important for her to start therapy as soon as possible. We will plan on starting radiotherapy this week; will discuss with oncology RE timing of chemotherapy. From our standpoint the patient is OK for discharge. Time with Patient: Less than 30
--- NOTE | 2022-08-18 08:35 | P.PN ---
Subjective Progress Note Date: 08/15/22 Principal diagnosis: Leukocytosis and a complicated UTI Patient is a 71 year old female with a past medical history significant for cervical cancer with evidence of invasion into the bladder leading to left-sided hydronephrosis in this patient admitted to the hospital s tatus post left nephrostomy tube placement urine culture positive for E. coli however the patient did have persistent elevated white count. On today's evaluation that is a 08/15/2022, the patient remains to be afebrile, patient is breathing comfortably on room, patient denies any chest pain shortnes s of breath or cough abdominal pain is currently controlled and no diarrhea Objective - Vital Signs Vital signs: Vital Signs Temp 98.6 F 08/15/22 07:50 Pulse 102 H 08/15/22 07:50 Resp 18 08/15/22 07:50 BP 124/76 08/15/22 07:50 Pulse Ox 96 08/15/22 07:50 FiO2 Intake & Output 08/14/22 08/15/22 08/15/22 18:59 06:59 18:59 Output Total 1230 250 Balance -1230 -250 Output: Drainage 580 50 Left Back 580 50 Urine 650 200 Other: Voiding Method Diaper Diaper # Voids 1 # Bowel Movements 1 - Exam GENERAL DESCRIPTION: An elderly female lying in bed in no distress RESPIRATORY SYSTEM: Unlabored breathing , decreased breath sounds at bases HEART: S1 S2 regular rate and rhythm , ABDOMEN: Soft , right lower quadrant tenderness EXTREMITIES: No edema feet - Labs CBC & Chem 7: 08/16/22 11:59 08/15/22 05:03 Labs: Abnormal Lab Results - Last 24 Hours (Table) 08/15/22 Range/Units 05:03 WBC 16.02 H (4.50-10.00) X 10*3/uL RBC 2.58 L (4.10-5.20) X 10*6/uL Hgb 8.0 L (12.0-15.0) g/dL Hct 25.5 L (37.2-46.3) % MCV 98.8 H (80.0-97.0) fL MCHC 31.4 L (32.0-37.0) g/dL RDW 16.0 H (11.5-14.5) % Immature Gran # 0.06 H (0.00-0.04) X 10*3/uL Neutrophils # 12.48 H (1.80-7.70) X 10*3/uL Monocytes # 1.18 H (0.20-1.00) X 10*3/uL Microbiology - Last 24 Hours (Table) 08/12/22 16:10 Blood Culture - Preliminary Blood No Growth after 48 hours Assessment and Plan (1) Leukocytosis Current Visit: Yes Status: Acute Code(s): D72.829 - ELEVATED WHITE BLOOD CELL COUNT, UNSPECIFIED SNOMED Code(s): 607283296 (2) UTI (urinary tract infection) Current Visit: No Status: Acute Code(s): N39.0 - URINARY TRACT INFECTION, SITE NOT SPECIFIED SNOMED Code(s): 57189379 Plan: 1patient with the leukocytosis persistent could be related to her complicated UTI in this patient with a history of cervical cancer with invasion to the left ureter leading to hydronephrosis in this patient who is status post a left nephrostomy tube placement with initial urine culture positive for E. coli which was sensitive pathogen however despite being on adequate antibiotic therapy for this pathogen patient did have persistent elevated white count. 2patient did have a positive UA from the left nephrostomy tube as well as UA Per urethra, and cultures are currently pending 3-patient did have a CT abdominal pelvis with evidence of persistent hydronephrosis and also evidence of enlarging cervical tumor both these factors may be responsible for her persistent elevated white count. Patient to continue with cefepime while waiting for repeat urine culture to be finalized Time with Patient: Less than 30
--- NOTE | 2022-08-18 08:36 | P.PN ---
Subjective Progress Note Date: 08/16/22 Principal diagnosis: Leukocytosis and a complicated UTI Patient is a 71 year old female with a past medical history significant for cervical cancer with evidence of invasion into the bladder leading to left-sided hydronephrosis in this patient admitted to the hospital s tatus post left nephrostomy tube placement urine culture positive for E. coli however the patient did have persistent elevated white count. On today's evaluation that is a 08/16/2022, the patient continues to be afebrile, patient is breathing comfortably on room air, patient denies any chest pain shortness of breath or cough, the patient abdominal pain is currently controlled and no diarrhea Objective - Vital Signs Vital signs: Vital Signs Temp 98.3 F 08/16/22 08:00 Pulse 98 08/16/22 08:00 Resp 16 08/16/22 08:00 BP 128/76 08/16/22 08:00 Pulse Ox 98 08/16/22 08:00 FiO2 Intake & Output 08/15/22 08/16/22 08/16/22 18:59 06:59 18:59 Intake Total 100 200 Output Total 600 300 150 Balance -500 -300 50 Intake: Intake, IV Titration 100 200 Amount Cefepime 2 gm In Sodium 100 200 Chloride 0.9% 100 ml @ 25 mls/hr IVPB Q8HR [facility] Rx# :[id number] Output: Drainage 600 150 Left Back 600 150 Urine 300 Other: Voiding Method Diaper Diaper # Voids 2 2 1 # Bowel Movements 1 1 - Exam GENERAL DESCRIPTION: An elderly female lying in bed in no distress RESPIRATORY SYSTEM: Unlabored breathing , decreased breath sounds at bases HEART: S1 S2 regular rate and rhythm , ABDOMEN: Soft , right lower quadrant tenderness EXTREMITIES: No edema feet - Labs CBC & Chem 7: 08/16/22 11:59 08/15/22 05:03 Labs: Abnormal Lab Results - Last 24 Hours (Table) 08/16/22 Range/Units 11:59 WBC 14.4 H (3.8-10.6) k/uL RBC 2.97 L (3.80-5.40) m/uL Hgb 9.3 L (11.4-16.0) gm/dL Hct 29.7 L (34.0-46.0) % Neutrophils # 11.7 H (1.3-7.7) k/uL Microbiology - Last 24 Hours (Table) 08/12/22 16:10 Blood Culture - Preliminary Blood No Growth after 72 hours Assessment and Plan (1) Leukocytosis Current Visit: Yes Status: Acute Code(s): D72.829 - ELEVATED WHITE BLOOD CELL COUNT, UNSPECIFIED SNOMED Code(s): 668215585 (2) UTI (urinary tract infection) Current Visit: No Status: Acute Code(s): N39.0 - URINARY TRACT INFECTION, SITE NOT SPECIFIED SNOMED Code(s): 58831470 Plan: 1patient with the leukocytosis persistent could be related to her complicated UTI in this patient with a history of cervical cancer with invasion to the left ureter leading to hydronephrosis in this patient who is status post a left nephrostomy tube placement with initial urine culture positive for E. coli which was sensitive pathogen however despite being on adequate antibiotic therapy for this pathogen patient did have persistent elevated white count. 2patient did have a positive UA from the left nephrostomy tube as well as UA Per urethra, and cultures are currently pending 3-patient did have a CT abdominal pelvis with evidence of persistent hydronephrosis and also evidence of enlarging cervical tumor both these factors may be responsible for her persistent elevated white count. 4-the patient white count is trending down, repeat cultures currently pending continue with cefepime and monitor clinical course closely Time with Patient: Less than 30
--- NOTE | 2022-08-18 08:38 | P.PN ---
Subjective Progress Note Date: 08/17/22 Principal diagnosis: Leukocytosis and a complicated UTI Patient is a 71 year old female with a past medical history significant for cervical cancer with evidence of invasion into the bladder leading to left-sided hydronephrosis in this patient admitted to the hospital s tatus post left nephrostomy tube placement urine culture positive for E. coli however the patient did have persistent elevated white count. On today's evaluation that is a 08/17/2022, the patient remains to be afebrile, patient is breathing comfortably on room air, patient denies any chest pain shor tness of breath or cough, the patient denies nausea no vomiting, no abdominal pain and no diarrhea Objective - Vital Signs Vital signs: Vital Signs Temp 98.6 F 08/17/22 07:47 Pulse 100 08/17/22 07:47 Resp 14 08/17/22 07:47 BP 120/74 08/17/22 07:47 Pulse Ox 97 08/17/22 07:47 FiO2 Intake & Output 08/16/22 08/17/22 08/17/22 18:59 06:59 18:59 Intake Total 1280 Output Total 350 250 191 Balance 930 -250 -191 Intake: Intake, IV Titration 200 Amount Cefepime 2 gm In Sodium 200 Chloride 0.9% 100 ml @ 25 mls/hr IVPB Q8HR [facility] Rx# :[id number] Oral 1080 Output: Drainage 350 250 190 Left Back 350 250 190 Stool 1 Other: Voiding Method Diaper # Voids 2 3 # Bowel Movements 1 - Exam GENERAL DESCRIPTION: An elderly female lying in bed in no distress RESPIRATORY SYSTEM: Unlabored breathing , decreased breath sounds at bases HEART: S1 S2 regular rate and rhythm , ABDOMEN: Soft ,no tenderness EXTREMITIES: No edema feet - Labs CBC & Chem 7: 08/16/22 11:59 08/15/22 05:03 Labs: Microbiology - Last 24 Hours (Table) 08/12/22 16:10 Blood Culture - Preliminary Blood No Growth after 96 hours Assessment and Plan (1) Leukocytosis Current Visit: Yes Status: Acute Code(s): D72.829 - ELEVATED WHITE BLOOD CELL COUNT, UNSPECIFIED SNOMED Code(s): 907605580 (2) UTI (urinary tract infection) Current Visit: No Status: Acute Code(s): N39.0 - URINARY TRACT INFECTION, SITE NOT SPECIFIED SNOMED Code(s): 46348012 Plan: 1patient with the leukocytosis persistent could be related to her complicated UTI in this patient with a history of cervical cancer with invasion to the left ureter leading to hydronephrosis in this patient who is status post a left nephrostomy tube placement with initial urine culture positive for E. coli which was sensitive pathogen however despite being on adequate antibiotic therapy for this pathogen patient did have persistent elevated white count. 2patient did have a positive UA from the left nephrostomy tube as well as UA Per urethra, and cultures are currently pending 3-patient did have a CT abdominal pelvis with evidence of persistent hydronephrosis and also evidence of enlarging cervical tumor both these factors may be responsible for her persistent elevated white count. 4-the patient white count is trending down, repeat blood and urine culture had been negative we will switch cefepime to Cipro and monitor clinical course closely Time with Patient: Less than 30
[2022-08-18] MEDS: SENNOSIDES 8.6 MG TAB PO SCH ×2 (09:35→21:36)
[2022-08-18] MEDS: HYDROcodone/APAP 10-325MG 1 EACH TAB PO PRN (09:35)
[2022-08-18] MEDS: CIPROFLOXACIN HCL 500 MG TAB PO SCH ×2 (09:35→21:36)
[2022-08-18] MEDS: HEPARIN SODIUM,PORCINE/PF 5,000 UNIT/0.5 ML SYRINGE SQ SCH ×2 (09:35→21:36)
[2022-08-18] MEDS: DOCUSATE 100 MG CAP PO SCH ×2 (09:35→21:36)
[2022-08-18] MEDS: CEFEPIME 2 GM in SODIUM CHLORIDE 0.9% 100 ML IVPB SCH (10:10)
[2022-08-18] MEDS: FAMOTIDINE 20 MG/2 ML VIAL IV SCH (10:10)
[2022-08-18 10:38] LABS: Basophils # (A) 0.07 X 10*3/uL (0.00-0.10); Basophils % (A) 0.4 %; Eosinophils # (A) 0.26 X 10*3/uL (0.04-0.35); Eosinophils % (A) 1.6 %; HCT 29.5 % (37.2-46.3); HGB 9.3 g/dL (12.0-15.0); Immature Grans, Automated 0.4 %; Lymphocytes # (A) 1.42 X 10*3/uL (0.90-5.00); Lymphocytes % (A) 8.9 %; MCH 31.4 pg (27.0-32.0); MCHC 31.5 g/dL (32.0-37.0); MCV 99.7 fL (80.0-97.0); Mean Platelet Volume 10.1 fL (9.5-12.2); Monocytes # (A) 1.15 X 10*3/uL (0.20-1.00); Monocytes % (A) 7.2 %; NRBC Per 100 WBC 0 /100 WBCS (0.0-0.0); Neutrophils # (A) 13.02 X 10*3/uL (1.80-7.70); Neutrophils % (A) 81.5 %; Platelet Count 399 X 10*3/uL (140-440); RBC 2.96 X 10*6/uL (4.10-5.20); WBC 15.99 X 10*3/uL (4.50-10.00)
[2022-08-18 11:08] LABS: African American GFR (CKD) 100.3 (60.0-200.0); Anion Gap 8.5 mmol/L (10.00-18.00); Calcium 8.5 mg/dL (8.7-10.3); Carbon Dioxide 25.5 mmol/L (20.0-27.5); Non-African American GFR(CKD) 86.6 (60.0-200.0); Potassium 3.8 mmol/L (3.5-5.5)
--- NOTE | 2022-08-18 15:05 | P.PN ---
Subjective Progress Note Date: 08/18/22 This is a pleasant 71 years old female with no significant past medical history. She was recently diagnosed with cervical cancer with invasion to the left side of the urinary bladder and the renal system, she was under the care of Dr. Lira today for planned to left ureteral stent placement to relieve obstruction which was an successful due to nonvisualization of the left ureteral orifice, nephrostomy tube would be considered by urologist. However patient was some evidence of sepsis with leukocytosis, borderline blood pressure and she was admitted to the medical floor and the service of medical team with urology of the oncology service on consult. I met with the patient and son at bedside. She is fully awake and oriented, mildly lethargic. She's been complaining of from lower abdominal pain over the last 2-3 months, it gets worse over the last 2-3 days number currently rated as a 9-10/10 in severity, it felt in the left lower quadrant more but her tenderness also in the suprapubic area. She describes the pain as dull sensation. No nausea or vomiting today, however she's been vomiting frequently over the last 1 month ago. Also she has poor appetite and because of her nausea which af fects her ability to eat. She had diarrhea for about more than 2 weeks however she had no bowel movement over the last 2 days. She's generally weak, little dyspneic Complains from little dysuria. She is slightly tachycardic 104, blood pressure is borderline 102/69, she is febrile and dorsal vitals are stable. Chest significant leukocytosis 28.2. Which was up from 12 K last night. Hemoglobin 11.2. Limited elevated 823. Sodium 123, creatinine 0.9. Liver enzymes not elevated. Chest x-ray: No acute process. However there is questionable abnormal density in the right lung and the recommended to repeat chest x-ray PA and lateral view which will be ordered tomorrow. 08/06/2012 Patient still feels generally weak but she is alert awake and oriented and comfortable. She denies fever. Vitals are stable. She has some suprapubic tenderness and little bit more pain on the right side but generally feels better today as per patient Urine culture is growing gram-negative bacilli, most likely patient has sepsis secondary to urinary tract infection which may be contributed or related to her left hydronephrosis and obstructive uropathy. Nephrology team on the case recommended IR for placement of nephrostomy tube. Continue with Zosyn and normal saline Blood culture are still pending as well 08/07/2012 she is a status post left nephrostomy tube placement. Draining pink urine in the bag. She feels generally better today Patient still feels generally weak however she is improving slowly and gradually. Physical and occupational therapy recommended home health care. She is also hemodynamically stable and afebrile. WBC is 17.8, hemoglobin 9.6. Liver enzymes looks better. Her urine culture is chronic gram-negative bacilli. Ultrasound of the left leg is negative for DVT. The patient chest x-ray showing no pneumonia. She remains on Zosyn and normal saline 75 mL/h 08/08/2022 patient was suffering from more pain in her suprapubic area and she wasn't at [place], her [place] dose increased into 10-325 mg, bowel regimen also would be provided with senna and Colace. Urine culture is growing sensitive E. coli, we are going to downgrade her Zosyn to ceftriaxone Nephrostomy tube is working. No respiratory symptoms. We will or normal saline 50 mL/h 08/09/2022 Patient feels better, she feels little stronger, but no dysuria and no suprapubic pain compared to 06/24 yesterday. Patient today wants to eat more,She is a smiling and pleasant Hemodynamically she is stable, blood pressure improved with systolic 120 to 1:30. Afebrile. And low magnesium was replaced IV as well as magnesium oxide 400 mg twice a day 5 days. Check labs in the morning Patient has evidence of iron deficiency anemia but hemoglobin 9.4 we will start her on some ferrous sulfate daily. Her antibiotic continued with ceftriaxone and adjusted to sensitive E. coli. She started eating better, I think we can stop IV fluids tonight. Left nephrostomy tube is working 08/10/2022 Patient is currently resting in bed. Awake alert and oriented 3. Patient able to ambulate in the BED physical therapy. Pain is controlled. Afebrile. No complaints of nausea vomiting or abdominal pain or diarrhea. Patient is being continued on antibiotics in the form of ceftriaxone for E. coli urinary tract infection. Patient is status post left nephrostomy tube and is functioning well. Laboratory data showed WBC 16.8 hemoglobin 9.0 and platelets 531 Sodium 140 potassium 3.3 chloride 105 bicarb is 24.6 BUN 5.8 and creatinine 0.6 Alk phos 294 total protein 4.3 and albumin 1.9 oncology is on board 08/11/2022 Patient is complaining of abdominal pain. Status post urostomy on the left side. Patient is still having elevated WBC count and urine cultures growing E. coli. Patient is on antibiotics in the form of ceftriaxone. Due to persistent leukocytosis ID was consulted. Otherwise patient denied any nausea or vomiting. Minimal oral intake. No cough or production. No chest pain or shortness of breath. Laboratory data showed WBC 15.4 hemoglobin 9.0 and platelets 475 Sodium 135. Potassium 3.3 chloride 101 bicarb is 29 BUN 7 and creatinine 0.6 Oncology and urology is on board. 08/12/2022 Patient is resting in bed. Awake alert and oriented 3. Pain is controlled with medications. Laboratory data showed sodium 137 potassium 3.3 chloride 102 bicarb is 28.1 BUN 8.2 and creatinine 0.6. Leukocytosis remains the same with WBC count 15.7 hemoglobin 8.7 platelets 453. Left urostomy tube was irrigated by urology and is functioning appropriately. Recommended outpatient follow-up for antegrade stent placement. Patient has been afebrile. No cough or sputum production. No chest pain or shortness of breath. Family at bedside and all questions were answered. 08/13/2022 Patient is lying in bed. Complains of abdominal pain and off. Left urostomy tube is functioning appropriately. Patient has been afebrile. Due to persistent leukocytosis. ID was consulted and patient was started on cefepime. Repeat blood cultures, CRP and progressively was ordered. No complaints of headache or dizziness. No chest pain or shortness of breath. Laboratory data showed WBC 18.4, hemoglobin 9.0 platelets 405 BUN 7.9 and creatinine 0.7. CRP 6.5 and urinalysis showed turbid with large blood and large leukocyte esterase and elevated RBCs and WBCs.. Repeat urine culture was sent. 08/14/2022 Patient is currently lying in bed. Abdominal pain is better. No complaints of fever or chills. No chest pain or shortness breath. Afebrile overnight. No cough or sputum production. No vomiting or diarrhea. Patient is being continued on antibiotics on cefepime. CT of the abdominal pelvis was done. Patient has positive urinalysis from nephrostomy tube. ID is on board. Laboratory data reviewed. 08/15/2022 Patient is currently lying in the bed. Awake alert and oriented and denied any abdominal pain this morning. Pain is fairly controlled. No fever no chills. No cough or sputum production. No nausea vomiting or diarrhea. Laboratory data showed WBC 16.0 hemoglobin 8.0) 347 BUN 7.6 and creatinine 0.7 potassium improved to 4.2. Patient is being continued on antibiotics in the form of cefepime. CT of abdomen pelvis showed delayed passage of ingested material to colonic level. No bowel obstruction. Mild to moderate proximal colonic fecal stasis. Mild soft tissue anasarca no present. Enlarging cervical mass or neoplasm noted. Stable retroperitoneal adenopathy in the lower abdomen and pelvis revea led persistent left-sided hydronephrosis despite percutaneous nephrostomy tube placement. ID and oncology is on board. 08/16/2022 Patient currently lying in the bed. Awake alert and oriented x3. Still complains of lower abdominal pain. Patient is being current on antibiotics in the form of cefepime for urinary tract infection. Repeat urine culture from the urostomy bag is pending. ID is on board. CT of the abdomen pelvis showed enlarging cervical mass noted. Oncology on board. Patient was able to tolerate oral diet. Denies any bowel movement today. No nausea or vomiting. No fever no chills. No cough or sputum production. No shortness of breath. 08/17/2022 Patient is resting in the bed. Awake alert and oriented. No complaints of chest pain or shortness of breath. No nausea vomiting abdominal pain or diarrhea. Patient is being continued on antibiotics in the form of cefepime for urinary tract infection. Repeat urine culture from urostomy bag is pending. CT abdomen pelvis showed hydronephrosis and increasing cervical mass. Laboratory data reviewed. Patient has been afebrile. Anticipate discharge with final ID recommendations and oncology recommendations. 08/18/22. Patient seen and examined. Laying comfortably in the bed. No acute issues overnight. Vital signs stable. Tolerating diet. REVIEW OF SYSTEMS: CONSTITUTIONAL: No fever, no malaise, no fatigue. CARDIOVASCULAR: No chest pain, orthopnea, PND, no palpitations, no syncope. PULMONARY: No shortness of breath, no cough, no hemoptysis. GASTROINTESTINAL: No diarrhea, no nausea, no vomiting, no abdominal pain. PHYSICAL EXAMINATION: GENERAL: The patient is alert and oriented x3, not in any acute distress. Well developed, well nourished. HEENT: Pupils are round and equally reacting to light. EOMI. No scleral icterus. No conjunctival pallor. Normocephalic, atraumatic. No pharyngeal erythema. No thyromegaly. CARDIOVASCULAR: S1 and S2 present. No murmurs, rubs, or gallops. PULMONARY: Chest is clear to auscultation, no wheezing or crackles. ABDOMEN: Soft, nontender, nondistended, normoactive bowel sounds. No palpable organomegaly. Left nephrostomy tube seen MUSCULOSKELETAL: No joint swelling or deformity. EXTREMITIES: No cyanosis, clubbing, or pedal edema. NEUROLOGICAL: Gross neurological examination did not reveal any focal deficits. SKIN: No rashes. Assessment and plan Monitor vital signs Monitor CBC Monitor renal functions status post nephrostomy tube on the left side by urology. Outpatient follow-up for antegrade stent placement Antibodies have been changed to oral Cipro by ID, follow-up on final IDs X DVT prophylaxis: Subcutaneous heparin GI Prophylaxis: Pepcid Objective - Vital Signs Vital signs: Vital Signs Temp 97.8 F 08/18/22 14:00 Pulse 102 H 08/18/22 14:00 Resp 16 08/18/22 14:00 BP 125/70 08/18/22 14:00 Pulse Ox 95 08/18/22 14:00 FiO2 Intake & Output 08/17/22 08/18/22 08/18/22 18:59 06:59 18:59 Intake Total 650 Output Total 391 550 751 Balance 259 550 -751 Weight 79.4 kg Intake: Intake, IV Titration 100 Amount Cefepime 2 gm In Sodium 100 Chloride 0.9% 100 ml @ 25 mls/hr IVPB Q8HR [facility] Rx# :[id number] Oral 550 Output: Drainage 390 250 250 Left Back 390 250 250 Urine 300 500 Stool 1 1 Other: Voiding Method Diaper Diaper # Voids 2 # Bowel Movements 1 - Labs CBC & Chem 7: 08/18/22 07:11 08/18/22 07:11 Labs: Abnormal Lab Results - Last 24 Hours (Table) 08/18/22 08/18/22 Range/Units 07:11 07:11 WBC 15.99 H (4.50-10.00) X 10*3/uL RBC 2.96 L (4.10-5.20) X 10*6/uL Hgb 9.3 L (12.0-15.0) g/dL Hct 29.5 L (37.2-46.3) % MCV 99.7 H (80.0-97.0) fL MCHC 31.5 L (32.0-37.0) g/dL RDW 16.0 H (11.5-14.5) % Immature Gran # 0.07 H (0.00-0.04) X 10*3/uL Neutrophils # 13.02 H (1.80-7.70) X 10*3/uL Monocytes # 1.15 H (0.20-1.00) X 10*3/uL Anion Gap 8.50 L (10.00-18.00) mmol/L Calcium 8.5 L (8.7-10.3) mg/dL Microbiology - Last 24 Hours (Table) 08/12/22 16:10 Blood Culture - Preliminary Blood No Growth after 120 hours
[2022-08-18] MEDS: FERROUS SULFATE 325 MG TAB PO SCH (18:06)
[2022-08-18] MEDS: FAMOTIDINE 20 MG TAB PO SCH (18:07)
[2022-08-19] MEDS ORDERED: ONDANSETRON 4 MG/2 ML VIAL IVP STA (07:44)
[2022-08-19] MEDS: HYDROcodone/APAP 10-325MG 1 EACH TAB PO PRN (07:46)
[2022-08-19] MEDS: CIPROFLOXACIN HCL 500 MG TAB PO SCH (07:54)
[2022-08-19] MEDS: SENNOSIDES 8.6 MG TAB PO SCH (07:54)
[2022-08-19] MEDS: DOCUSATE 100 MG CAP PO SCH (07:54)
[2022-08-19] MEDS: FAMOTIDINE 20 MG TAB PO SCH (07:54)
[2022-08-19] MEDS: HEPARIN SODIUM,PORCINE/PF 5,000 UNIT/0.5 ML SYRINGE SQ SCH (07:54)
[2022-08-19 07:59] VITALS: BP 120/78; PULSE 95; RESP 17; TEMP 98
[2022-08-19] MEDS ORDERED: ONDANSETRON 4 MG TAB PO PRN (09:29)
[2022-08-19 10:42] LABS: HCT 27.1 % (37.2-46.3); HGB 8.8 g/dL (12.0-15.0); MCH 31.2 pg (27.0-32.0); MCHC 32.5 g/dL (32.0-37.0); MCV 96.1 fL (80.0-97.0); Mean Platelet Volume 9.4 fL (9.5-12.2); Neutrophils % (A) 80.7 %; Platelet Count 406 X 10*3/uL (140-440); RBC 2.82 X 10*6/uL (4.10-5.20); RDW 16.3 % (11.5-14.5); WBC 16.09 X 10*3/uL (4.50-10.00)
[2022-08-19 10:43] LABS: Basophils # (A) 0.07 X 10*3/uL (0.00-0.10); Basophils % (A) 0.4 %; Eosinophils # (A) 0.12 X 10*3/uL (0.04-0.35); Eosinophils % (A) 0.7 %; Immature Grans, Automated 0.5 %; Lymphocytes % (A) 9.9 %; Monocytes # (A) 1.26 X 10*3/uL (0.20-1.00); Monocytes % (A) 7.8 %; NRBC Per 100 WBC 0 /100 WBCS (0.0-0.0); Neutrophils # (A) 12.96 X 10*3/uL (1.80-7.70)
[2022-08-19 11:22] LABS: African American GFR (CKD) 105.5 (60.0-200.0); Anion Gap 9.1 mmol/L (10.00-18.00); BUN/Creat Ratio 19.33 Ratio (12.00-20.00); Blood Urea Nitrogen 11.6 mg/dL (9.0-27.0); Calcium 8.3 mg/dL (8.7-10.3); Carbon Dioxide 24.9 mmol/L (20.0-27.5); Non-African American GFR(CKD) 91.1 (60.0-200.0); Potassium 3.7 mmol/L (3.5-5.5)
--- NOTE | 2022-08-19 11:38 | P.DS ---
Providers Date of admission: 08/07/22 08:58 Expected date of discharge: 08/19/22 Attending physician: Julia Yarbrough Consults: 08/05/22 11:30 Consult Physician Stat Consulting Provider: Julia Yarbrough Consult Reason/Comments: ADMIT TO DR. YARBROUGH FOR WORKUP FOR SEPSIS Do you want consulting provider notified?: Yes 08/05/22 12:40 Consult Physician Urgent Consulting Provider: Anand Lira Consult Reason/Comments: known to your service Do you want consulting provider notified?: Yes 08/05/22 13:03 Consult Physician Routine Consulting Provider: Sony Mckeon Consult Reason/Comments: known to you. cervical ca Do you want consulting provider notified?: Yes 08/06/22 09:14 Consult Physician Routine Consulting Provider: Ethan Lopez Consult Reason/Comments: discuss radiation plans Do you want consulting provider notified?: Yes 08/12/22 12:29 Consult Physician Routine Consulting Provider: Gerri Ruby Consult Reason/Comments: persistently elevated wbc Do you want consulting provider notified?: Yes Primary care physician: Arun [facility] Course: Discharge diagnoses; Cervical cancer with local metastasis to the left coronary bladder and ureteric system,status post left nephrostomy tube placement. possible sepsis with tachypnea, tachycardia and leukocytosis. Patient is afebrile. Acute urinary tract infection related to her obstructive uropathy. Urine culture showed E. coli. Next a complicated urinary tract infection Left hydronephrosis Abnormal density in the right lower lung, may be technical per radiologist Hypokalemia. Replaced. Hospital course; This is a pleasant 71 years old female with no significant past medical history. She was recently diagnosed with cervical cancer with invasion to the left side of the urinary bladder and the renal system, she was under the care of Dr. Lira today for planned to left ureteral stent placement to relieve obstruction which was an successful due to nonvisualization of the left ureteral orifice, nephrostomy tube would be considered by urologist. However patient was some evidence of sepsis with leukocytosis, borderline blood pressure and she was admitted to the medical floor and the service of medical team with urology of the oncology service on consult. I met with the patient and son at bedside. She is fully awake and oriented, mildly lethargic. She's been complaining of from lower abdominal pain over the last 2-3 months, it gets worse over the last 2-3 days number currently rated as a 9-10/10 in severity, it felt in the left lower quadrant more but her tenderness also in the suprapubic area. She describes the pain as dull sensation. No nausea or vomiting today, however she's been vomiting frequently over the last 1 month ago. Also she has poor appetite and because of her nausea which affects her ability to eat. She had diarrhea for about more than 2 weeks however she had no bowel movement over the last 2 days. She's generally weak, little dyspneic Complains from little dysuria. She is slightly tachycardic 104, blood pressure is borderline 102/69, she is febrile and dorsal vitals are stable. Chest significant leukocytosis 28.2. Which was up from 12 K last night. Hemoglobin 11.2. Limited elevated 823. Sodium 123, creatinine 0.9. Liver enzymes not elevated. Chest x-ray: No acute process. However there is questionable abnormal density in the right lung and the recommended to repeat chest x-ray PA and lateral view which will be ordered tomorrow. 08/06/2012 Patient still feels generally weak but she is alert awake and oriented and comfortable. She denies fever. Vitals are stable. She has some suprapubic tenderness and little bit more pain on the right side but generally feels better today as per patient Urine culture is growing gram-negative bacilli, most likely patient has sepsis secondary to urinary tract infection which may be contributed or related to her left hydronephrosis and obstructive uropathy. Nephrology team on the case recommended IR for placement of nephrostomy tube. Continue with Zosyn and normal saline Blood culture are still pending as well 08/07/2012 she is a status post left nephrostomy tube placement. Draining pink urine in the bag. She feels generally better today Patient still feels generally weak however she is improving slowly and gradually. Physical and occupational therapy recommended home health care. She is also hemodynamically stable and afebrile. WBC is 17.8, hemoglobin 9.6. Liver enzymes looks better. Her urine culture is chronic gram-negative bacilli. Ultrasound of the left leg is negative for DVT. The patient chest x-ray showing no pneumonia. She remains on Zosyn and normal saline 75 mL/h 08/08/2022 patient was suffering from more pain in her suprapubic area and she wasn't at [place], her [place] dose increased into 10-325 mg, bowel regimen also would be provided with senna and Colace. Urine culture is growing sensitive E. coli, we are going to downgrade her Zosyn to ceftriaxone Nephrostomy tube is working. No respiratory symptoms. We will or normal saline 50 mL/h 08/09/2022 Patient feels better, she feels little stronger, but no dysuria and no suprapubic pain compared to 06/24 yesterday. Patient today wants to eat more,She is a smiling and pleasant Hemodynamically she is stable, blood pressure improved with systolic 120 to 1: 30. Afebrile. And low magnesium was replaced IV as well as magnesium oxide 400 mg twice a day 5 days. Check labs in the morning Patient has evidence of iron deficiency anemia but hemoglobin 9.4 we will start her on some ferrous sulfate daily. Her antibiotic continued with ceftriaxone and adjusted to sensitive E. coli. She started eating better, I think we can stop IV fluids tonight. Left nephrostomy tube is working 08/10/2022 Patient is currently resting in bed. Awake alert and oriented 3. Patient able to ambulate in the BED physical therapy. Pain is controlled. Afebrile. No complaints of nausea vomiting or abdominal pain or diarrhea. Patient is being continued on antibiotics in the form of ceftriaxone for E. coli urinary tract infection. Patient is status post left nephrostomy tube and is functioning well. Laboratory data showed WBC 16.8 hemoglobin 9.0 and platelets 531 Sodium 140 potassium 3.3 chloride 105 bicarb is 24.6 BUN 5.8 and creatinine 0.6 Alk phos 294 total protein 4.3 and albumin 1.9 oncology is on board 08/11/2022 Patient is complaining of abdominal pain. Status post urostomy on the left side. Patient is still having elevated WBC count and urine cultures growing E. coli. Patient is on antibiotics in the form of ceftriaxone. Due to persistent leukocytosis ID was consulted. Otherwise patient denied any nausea or vomiting. Minimal oral intake. No cough or production. No chest pain or shortness of breath. Laboratory data showed WBC 15.4 hemoglobin 9.0 and platelets 475 Sodium 135. Potassium 3.3 chloride 101 bicarb is 29 BUN 7 and creatinine 0.6 Oncology and urology is on board. 08/12/2022 Patient is resting in bed. Awake alert and oriented 3. Pain is controlled with medications. Laboratory data showed sodium 137 potassium 3.3 chloride 102 bicarb is 28.1 BUN 8.2 and creatinine 0.6. Leukocytosis remains the same with WBC count 15.7 hemoglobin 8.7 platelets 453. Left urostomy tube was irrigated by urology and is functioning appropriately. Recommended outpatient follow-up for antegrade stent placement. Patient has been afebrile. No cough or sputum production. No chest pain or shortness of breath. Family at bedside and all questions were answered. 08/13/2022 Patient is lying in bed. Complains of abdominal pain and off. Left urostomy tube is functioning appropriately. Patient has been afebrile. Due to persistent leukocytosis. ID was consulted and patient was started on cefepime. Repeat blood cultures, CRP and progressively was ordered. No complaints of headache or dizziness. No chest pain or shortness of breath. Laboratory data showed WBC 18.4, hemoglobin 9.0 platelets 405 BUN 7.9 and creatinine 0.7. CRP 6.5 and urinalysis showed turbid with large blood and large leukocyte esterase and elevated RBCs and WBCs.. Repeat urine culture was sent. 08/14/2022 Patient is currently lying in bed. Abdominal pain is better. No complaints of fever or chills. No chest pain or shortness breath. Afebrile overnight. No cough or sputum production. No vomiting or diarrhea. Patient is being continued on antibiotics on cefepime. CT of the abdominal pelvis was done. Patient has positive urinalysis from nephrostomy tube. ID is on board. Laboratory data reviewed. 08/15/2022 Patient is currently lying in the bed. Awake alert and oriented and denied any abdominal pain this morning. Pain is fairly controlled. No fever no chills. No cough or sputum production. No nausea vomiting or diarrhea. Laboratory data showed WBC 16.0 hemoglobin 8.0) 347 BUN 7.6 and creatinine 0.7 potassium improved to 4.2. Patient is being continued on antibiotics in the form of cefepime. CT of abdomen pelvis showed delayed passage of ingested material to colonic level. No bowel obstruction. Mild to moderate proximal colonic fecal stasis. Mild soft tissue anasarca no present. Enlarging cervical mass or neoplasm noted. Stable retroperitoneal adenopathy in the lower abdomen and pelvis revealed persistent left-sided hydronephrosis despite percutaneous nephrostomy tube placement. ID and oncology is on board. 08/16/2022 Patient currently lying in the bed. Awake alert and oriented x3. Still complains of lower abdominal pain. Patient is being current on antibiotics in the form of cefepime for urinary tract infection. Repeat urine culture from the urostomy bag is pending. ID is on board. CT of the abdomen pelvis showed enlarging cervical mass noted. Oncology on board. Patient was able to tolerate oral diet. Denies any bowel movement today. No nausea or vomiting. No fever no chills. No cough or sputum production. No shortness of breath. 08/17/2022 Patient is resting in the bed. Awake alert and oriented. No complaints of chest pain or shortness of breath. No nausea vomiting abdominal pain or diarrh ea. Patient is being continued on antibiotics in the form of cefepime for urinary tract infection. Repeat urine culture from urostomy bag is pending. CT abdomen pelvis showed hydronephrosis and increasing cervical mass. Laboratory data reviewed. Patient has been afebrile. Anticipate discharge with final ID recommendations and oncology recommendations. 08/18/22. Patient seen and examined. Laying comfortably in the bed. No acute issues overnight. Vital signs stable. Tolerating diet. 08/19/22. Discussed with ID, they recommended that the patient on oral Cipro for 10 days. Outpatient follow-up with PCP, ID, urology PHYSICAL EXAMINATION: GENERAL: The patient is alert and oriented x3, not in any acute distress. Well developed, well nourished. HEENT: Pupils are round and equally reacting to light. EOMI. No scleral icterus. No conjunctival pallor. Normocephalic, atraumatic. No pharyngeal erythema. No thyromegaly. CARDIOVASCULAR: S1 and S2 present. No murmurs, rubs, or gallops. PULMONARY: Chest is clear to auscultation, no wheezing or crackles. ABDOMEN: Soft, nontender, nondistended, normoactive bowel sounds. No palpable organomegaly. Left-sided nephrostomy tube seen MUSCULOSKELETAL: No joint swelling or deformity. EXTREMITIES: No cyanosis, clubbing, or pedal edema. NEUROLOGICAL: Gross neurological examination did not reveal any focal deficits. SKIN: No rashes. Patient Condition at Discharge: Stable Plan - Discharge Summary Discharge Rx Participant: Yes New Discharge Prescriptions: New Ciprofloxacin HCl [Cipro] 500 mg PO BID #20 tab Ferrous Sulfate [Iron (65 MG Elemental)] 325 mg PO W/LUNCH #30 tab Continue Omeprazole [PriLOSEC] 20 mg PO AC-BRKFST Prochlorperazine [Compazine] 10 mg PO Q8H PRN PRN Reason: Nausea HYDROcodone/APAP 5-325MG [[place] 5-325] 1 tab PO Q4HR PRN PRN Reason: Pain Discharge Medication List HYDROcodone/APAP 5-325MG [[place] 5-325] 1 tab PO Q4HR PRN 08/04/22 [History] Omeprazole [PriLOSEC] 20 mg PO AC-BRKFST 08/04/22 [History] Prochlorperazine [Compazine] 10 mg PO Q8H PRN 08/04/22 [History] Ciprofloxacin HCl [Cipro] 500 mg PO BID #20 tab 08/19/22 [Rx] Ferrous Sulfate [Iron (65 MG Elemental)] 325 mg PO W/LUNCH #30 tab 08/19/22 [Rx] Follow up Appointment(s)/Referral(s): Zuhari Sutton MD [STAFF PHYSICIAN] - 08/13/22 9:00 am Anand Lira MD [STAFF PHYSICIAN] - 4 Weeks (KEEP APPOINTMENT ALREADY SCHEDULED) Ethan Lopez MD [STAFF PHYSICIAN] - 10 Days [facility], [NON-STAFF] - 1-2 Days (home care will set up appointment. Any questions please call agency.) Patient Instructions/Handouts: Nephrostomy Tube Care (GEN), Moderate Sedation (DC), Nephrostomy Tube Insertion (DC) Activity/Diet/Wound Care/Special Instructions: Home care nurse to monitor Left sided nephrostomy tube and change dressing every 7 days. Discharge Disposition: HOME SELF-CARE
[2022-08-19] MEDS: FERROUS SULFATE 325 MG TAB PO SCH (12:11)
== END 2022-08-19 13:02 | disposition home or self-care (01) | DRG 872 ==
LOC: OR 10:20 → 4SSUR 11:34 → OR 08-07 08:58 → 4SSUR 08-07 08:58
PROVIDERS: ADMIT Hospitalist; ATTEND Hospitalist
PROC: 0T9430Z Drainage of Left Kidney Pelvis with Drainage Device, Percutaneous Approach (ICD-10-PCS; principal; 2022-08-06 11:50)
DX: A41.51 Sepsis due to Escherichia coli [E. coli] (principal); N13.6 Pyonephrosis; C79.11 Secondary malignant neoplasm of bladder; C53.9 Malignant neoplasm of cervix uteri, unspecified; J98.4 Other disorders of lung; E87.6 Hypokalemia; D50.9 Iron deficiency anemia, unspecified; F41.9 Anxiety disorder, unspecified; R07.89 Other chest pain; D75.839 Thrombocytosis, unspecified; K59.00 Constipation, unspecified; E78.5 Hyperlipidemia, unspecified; K21.9 Gastro-esophageal reflux disease without esophagitis; Z96.1 Presence of intraocular lens; Z98.42 Cataract extraction status, left eye; Z98.41 Cataract extraction status, right eye; Z87.891 Personal history of nicotine dependence; Z79.899 Other long term (current) drug therapy; Z87.440 Personal history of urinary (tract) infections
CPT/HCPCS: 71045; 71046; 74177; 75984; 76942; 77300; 77301; 77338; 80048; 80053; 80076; 81001; 82728; 83540; 83550; 83735; 84100; 84145; 85025; 85610; 86140; 87040; 87077; 87086; 87186; 94760; 99213

== ENCOUNTER 2022-09-18 15:34 | Inpatient (IN) | payer MEDICARE, OTHER ==
[2022-09-18] MEDS ORDERED: ONDANSETRON 4 MG/2 ML VIAL IVP STA (16:38)
[2022-09-18] MEDS ORDERED: SODIUM CHLORIDE 0.9% 1,000 ML IV STA (16:38)
[2022-09-18] MEDS ORDERED: SODIUM CHLORIDE 0.9% 1,000 ML IV ONE (16:38)
[2022-09-18 16:46] LABS: Basophils % (A) 0 %; Eosinophils % (A) 0 %; HGB 11.6 gm/dL (11.4-16.0); Hypochromasia Slight; Lymphocytes # (A) 0.6 k/uL (1.0-4.8); Lymphocytes % (A) 7 %; MCH 32.8 pg (25.0-35.0); MCHC 33.3 g/dL (31.0-37.0); MCV 98.4 fL (80.0-100.0); Mean Platelet Volume 7.6; Monocytes # (A) 0.4 k/uL (0-1.0); Monocytes % (A) 5 %; Neutrophils # (A) 7.2 k/uL (1.3-7.7); Neutrophils % (A) 87 %; Platelet Count 359 k/uL (150-450); RBC 3.55 m/uL (3.80-5.40); RDW 13.7 % (11.5-15.5); WBC 8.3 k/uL (3.8-10.6)
--- NOTE | 2022-09-18 16:48 | ED ---
Weakness HPI - General Chief complaint: Weakness Stated complaint: Dehydration,Hypotension Time Seen by Provider: 09/18/22 15:55 Source: patient Mode of arrival: ambulatory Limitations: no limitations - History of Present Illness Initial comments: This patient is a 71-year-old woman who arrives here with chief complaint of decreased oral intake, dizziness, lack of energy. She also has been having a lot of nausea and also having diarrhea for a couple of weeks now. She states no bowel movements today but to yesterday. No blood or dark tarry stools. The patient had gone to see her oncologist at a mild sent was sent over here with reportedly low blood pressure. MD Complaint: generalized weakness, lack of energy, difficulty walking -: week(s) Location: generalized Consistency: constant Improves with: none Worsens with: exertion Context: other (Chemotherapy) Associated Symptoms: nausea/vomiting - Related Data Home Medications Medication Instructions Recorded Confirmed HYDROcodone/APAP 5-325MG [[place] 1 tab PO Q4HR PRN 08/04/22 09/18/22 5-325] Omeprazole [PriLOSEC] 20 mg PO AC-BRKFST 08/04/22 09/18/22 Ondansetron [Zofran] 4 mg PO Q4H PRN 09/18/22 09/18/22 Previous Rx's Medication Instructions Recorded Ferrous Sulfate [Iron (65 MG 325 mg PO W/LUNCH #30 tab 08/19/22 Elemental)] Allergies Allergy/AdvReac Type Severity Reaction Status Date / Time aprepitant AdvReac passed out Verified 09/18/22 18:22 & seizure like behavior fosaprepitant AdvReac passed out Verified 09/18/22 18:22 [From [place] (fosaprepitant)] & seizure like behavior Review of Systems ROS Statement: Those systems with pertinent positive or pertinent negative responses have been documented in the HPI. ROS Other: All systems not noted in ROS Statement are negative. Constitutional: Reports: weakness. Denies: fever, chills Respiratory: Denies: cough, dyspnea Cardiovascular: Denies: chest pain, palpitations, orthopnea, edema, syncope Gastrointestinal: Reports: nausea, vomiting, diarrhea. Denies: abdominal pain, hematemesis, melena, hematochezia Genitourinary: Denies: dysuria, hematuria Musculoskeletal: Denies: back pain Skin: Denies: rash Neurological: Denies: headache, weakness, numbness Past Medical History Past Medical History: Cancer, GERD/Reflux, Hyperlipidemia Additional Past Medical History / Comment(s): CERVICAL CANCER, NAUSEA, "STATES LEFT KIDNEY IS NOT WORKING " History of Any Multi-Drug Resistant Organisms: None Reported Past Surgical History: Cholecystectomy, Tubal Ligation Additional Past Surgical History / Comment(s): cataract surgery-BILATERAL WITH LENS IMPLANT. CERVICAL BIOPSY Past Anesthesia/Blood Transfusion Reactions: No Reported Reaction Past Psychological History: No Psychological Hx Reported Smoking Status: Former smoker Past Alcohol Use History: None Reported Past Drug Use History: None Reported - Past Family History Sister(s) Family Medical History: Cancer, Deep Vein Thrombosis (DVT) Additional Family Medical History / Comment(s): lung ca Mother Family Medical History: COPD, Osteoarthritis (OA) General Exam Limitations: no limitations General appearance: alert, in no apparent distress Head exam: Present: atraumatic, normocephalic Eye exam: Present: normal appearance. Absent: scleral icterus, conjunctival injection ENT exam: Present: mucous membranes dry Neck exam: Present: normal inspection Respiratory exam: Present: normal lung sounds bilaterally. Absent: respiratory distress, wheezes, rales, rhonchi, stridor Cardiovascular Exam: Present: normal rhythm, tachycardia, normal heart sounds. Absent: systolic murmur, diastolic murmur, rubs, gallop GI/Abdominal exam: Present: soft. Absent: distended, tenderness, guarding, rebound, rigid, mass Extremities exam: Present: normal inspection, normal capillary refill. Absent: pedal edema, calf tenderness Back exam: Present: normal inspection. Absent: CVA tenderness (R), CVA tenderness (L) Neurological exam: Present: alert Skin exam: Present: warm, dry, intact, normal color. Absent: rash Course Vital Signs 09/18/22 09/18/22 09/18/22 15:45 16:31 19:00 Temperature 97.9 F 98 F Pulse Rate 119 H 95 104 H Respiratory 22 20 16 Rate Blood Pressure 80/55 101/66 148/98 O2 Sat by Pulse 99 100 99 Oximetry Procedures - Sepsis Sepsis Focused Exam #1 Sepsis Focused Exam Date: 09/18/22 Sepsis Focused Exam Time: 22:00 Sepsis Focused Exam Complete: Yes Vital Signs & RN Notes Reviewed: Yes Capillary Refill: < 2 Seconds: Fingers Peripheral Pulses: Normal: Radial (R) Skin Color: Normal for Patient Respiratory Exam: normal lung sounds Cardiovascular Exam: regular rate, normal rhythm Medical Decision Making - Medical Decision Making Patient 71-year-old woman with dehydration, acute kidney injury, hypotension. Patient will be admitted for further fluids. She is covered against sepsis though at this point no definite source of infection. - Lab Data Result diagrams: 09/19/22 12:01 09/19/22 12:01 Lab Results 09/18/22 09/18/22 09/18/22 Range/Units 16:35 16:35 16:35 WBC 8.3 (3.8-10.6) k/uL RBC 3.55 L (3.80-5.40) m/uL Hgb 11.6 (11.4-16.0) gm/dL Hct 35.0 (34.0-46.0) % MCV 98.4 (80.0-100.0) fL MCH 32.8 (25.0-35.0) pg MCHC 33.3 (31.0-37.0) g/dL RDW 13.7 (11.5-15.5) % Plt Count 359 (150-450) k/uL MPV 7.6 Neutrophils % 87 % Lymphocytes % 7 % Monocytes % 5 % Eosinophils % 0 % Basophils % 0 % Neutrophils # 7.2 (1.3-7.7) k/uL Lymphocytes # 0.6 L (1.0-4.8) k/uL Monocytes # 0.4 (0-1.0) k/uL Eosinophils # 0.0 (0-0.7) k/uL Basophils # 0.0 (0-0.2) k/uL Hypochromasia Slight PT 10.4 (9.0-12.0) sec INR 0.9 (<1.2) APTT 22.4 (22.0-30.0) sec Sodium 129 L (137-145) mmol/L Potassium 4.9 (3.5-5.1) mmol/L Chloride 93 L (98-107) mmol/L Carbon Dioxide 24 (22-30) mmol/L Anion Gap 12 mmol/L BUN 27 H (7-17) mg/dL Creatinine 2.12 H (0.52-1.04) mg/dL Est GFR (CKD-EPI)AfAm 26 (>60 ml/min/1.73 sqM) Est GFR (CKD-EPI)NonAf 23 (>60 ml/min/1.73 sqM) Glucose 109 H (74-99) mg/dL Lactic Ac Sepsis Rflx Plasma Lactic Acid Dank (0.7-2.0) mmol/L Calcium 8.5 (8.4-10.2) mg/dL Magnesium 1.6 (1.6-2.3) mg/dL Total Bilirubin 0.4 (0.2-1.3) mg/dL AST 45 H (14-36) U/L ALT 29 (4-34) U/L Alkaline Phosphatase 186 H (38-126) U/L Troponin I (0.000-0.034) ng/mL Total Protein 5.7 L (6.3-8.2) g/dL Albumin 2.8 L (3.5-5.0) g/dL Urine Color Urine Appearance (Clear) Urine pH (5.0-8.0) Ur Specific [place] (1.001-1.035) Urine Protein (Negative) Urine Glucose (UA) (Negative) Urine Ketones (Negative) Urine Blood (Negative) Urine Nitrite (Negative) Urine Bilirubin (Negative) Urine Urobilinogen (<2.0) mg/dL Ur Leukocyte Esterase (Negative) Urine RBC (0-5) /hpf Urine WBC (0-5) /hpf Urine WBC Clumps (None) /hpf Ur Squamous Epith Cells (0-4) /hpf Amorphous Sediment (None) /hpf Urine Bacteria (None) /hpf Ur Yeast w Hyphae (None) /hpf Coronavirus (PCR) (Not Detectd) 09/18/22 09/18/22 09/18/22 Range/Units 16:35 16:35 16:57 WBC (3.8-10.6) k/uL RBC (3.80-5.40) m/uL Hgb (11.4-16.0) gm/dL Hct (34.0-46.0) % MCV (80.0-100.0) fL MCH (25.0-35.0) pg MCHC (31.0-37.0) g/dL RDW (11.5-15.5) % Plt Count (150-450) k/uL MPV Neutrophils % % Lymphocytes % % Monocytes % % Eosinophils % % Basophils % % Neutrophils # (1.3-7.7) k/uL Lymphocytes # (1.0-4.8) k/uL Monocytes # (0-1.0) k/uL Eosinophils # (0-0.7) k/uL Basophils # (0-0.2) k/uL Hypochromasia PT (9.0-12.0) sec INR (<1.2) APTT (22.0-30.0) sec Sodium (137-145) mmol/L Potassium (3.5-5.1) mmol/L Chloride (98-107) mmol/L Carbon Dioxide (22-30) mmol/L Anion Gap mmol/L BUN (7-17) mg/dL Creatinine (0.52-1.04) mg/dL Est GFR (CKD-EPI)AfAm (>60 ml/min/1.73 sqM) Est GFR (CKD-EPI)NonAf (>60 ml/min/1.73 sqM) Glucose (74-99) mg/dL Lactic Ac Sepsis Rflx Y Plasma Lactic Acid Dank 4.9 H* (0.7-2.0) mmol/L Calcium (8.4-10.2) mg/dL Magnesium (1.6-2.3) mg/dL Total Bilirubin (0.2-1.3) mg/dL AST (14-36) U/L ALT (4-34) U/L Alkaline Phosphatase (38-126) U/L Troponin I <0.012 (0.000-0.034) ng/mL Total Protein (6.3-8.2) g/dL Albumin (3.5-5.0) g/dL Urine Color Urine Appearance (Clear) Urine pH (5.0-8.0) Ur Specific [place] (1.001-1.035) Urine Protein (Negative) Urine Glucose (UA) (Negative) Urine Ketones (Negative) Urine Blood (Negative) Urine Nitrite (Negative) Urine Bilirubin (Negative) Urine Urobilinogen (<2.0) mg/dL Ur Leukocyte Esterase (Negative) Urine RBC (0-5) /hpf Urine WBC (0-5) /hpf Urine WBC Clumps (None) /hpf Ur Squamous Epith Cells (0-4) /hpf Amorphous Sediment (None) /hpf Urine Bacteria (None) /hpf Ur Yeast w Hyphae (None) /hpf Coronavirus (PCR) (Not Detectd) 09/18/22 09/18/22 09/18/22 Range/Units 19:18 19:39 19:40 WBC (3.8-10.6) k/uL RBC (3.80-5.40) m/uL Hgb (11.4-16.0) gm/dL Hct (34.0-46.0) % MCV (80.0-100.0) fL MCH (25.0-35.0) pg MCHC (31.0-37.0) g/dL RDW (11.5-15.5) % Plt Count (150-450) k/uL MPV Neutrophils % % Lymphocytes % % Monocytes % % Eosinophils % % Basophils % % Neutrophils # (1.3-7.7) k/uL Lymphocytes # (1.0-4.8) k/uL Monocytes # (0-1.0) k/uL Eosinophils # (0-0.7) k/uL Basophils # (0-0.2) k/uL Hypochromasia PT (9.0-12.0) sec INR (<1.2) APTT (22.0-30.0) sec Sodium (137-145) mmol/L Potassium (3.5-5.1) mmol/L Chloride (98-107) mmol/L Carbon Dioxide (22-30) mmol/L Anion Gap mmol/L BUN (7-17) mg/dL Creatinine (0.52-1.04) mg/dL Est GFR (CKD-EPI)AfAm (>60 ml/min/1.73 sqM) Est GFR (CKD-EPI)NonAf (>60 ml/min/1.73 sqM) Glucose (74-99) mg/dL Lactic Ac Sepsis Rflx Plasma Lactic Acid Dank 1.3 (0.7-2.0) mmol/L Calcium (8.4-10.2) mg/dL Magnesium (1.6-2.3) mg/dL Total Bilirubin (0.2-1.3) mg/dL AST (14-36) U/L ALT (4-34) U/L Alkaline Phosphatase (38-126) U/L Troponin I (0.000-0.034) ng/mL Total Protein (6.3-8.2) g/dL Albumin (3.5-5.0) g/dL Urine Color Light Yellow Urine Appearance Turbid H (Clear) Urine pH 5.5 (5.0-8.0) Ur Specific [place] 1.012 (1.001-1.035) Urine Protein 2+ H (Negative) Urine Glucose (UA) Negative (Negative) Urine Ketones Negative (Negative) Urine Blood Small H (Negative) Urine Nitrite Negative (Negative) Urine Bilirubin Negative (Negative) Urine Urobilinogen <2.0 (<2.0) mg/dL Ur Leukocyte Esterase Large H (Negative) Urine RBC 9 H (0-5) /hpf Urine WBC >182 H (0-5) /hpf Urine WBC Clumps Many H (None) /hpf Ur Squamous Epith Cells <1 (0-4) /hpf Amorphous Sediment Rare H (None) /hpf Urine Bacteria Many H (None) /hpf Ur Yeast w Hyphae Occasional (None) /hpf Coronavirus (PCR) Not Detected (Not Detectd) Disposition Clinical Impression: Hypotension, Acute kidney injury Disposition: ADMITTED IP TO THIS HOSP Condition: Good Is patient prescribed a controlled substance at d/c from ED?: No
[2022-09-18 16:54] LABS: INR 0.9 (<1.2); Partial Thromboplastin Time 22.4 sec (22.0-30.0); Prothrombin Time 10.4 sec (9.0-12.0)
[2022-09-18 16:55] LABS: Albumin 2.8 g/dL (3.5-5.0); Calcium 8.5 mg/dL (8.4-10.2); Magnesium 1.6 mg/dL (1.6-2.3); Potassium 4.9 mmol/L (3.5-5.1); Total Bilirubin 0.4 mg/dL (0.2-1.3); Total Protein 5.7 g/dL (6.3-8.2)
--- NOTE | 2022-09-18 17:39 | XR ---
EXAMINATION TYPE: XR chest 1V portable DATE OF EXAM: 09/18/2022 5:02 PM COMPARISON: Chest radiographs from 08/06/2022. TECHNIQUE: XR chest 1V portable Portable AP radiograph of the chest. CLINICAL INDICATION:Female, 71 years old with history of dehydration; FINDINGS: Lungs/Pleura: There is no evidence of pleural effusion, focal consolidation, or pneumothorax. Pulmonary vascularity: Unremarkable. Heart/mediastinum: Cardiomediastinal silhouette is prominent in size. Musculoskeletal: No acute osseous pathology. IMPRESSION: No acute cardiopulmonary disease/process.
[2022-09-18 19:43] LABS: Amorphous Sediment,Urine Rare /hpf; Appearance,Urine Turbid (Clear); Bacteria,Urine Many /hpf; Bilirubin,Urine Negative (Negative); Blood,Urine Small (Negative); Color,Urine Light Yellow; Glucose,Urine (UA) Negative (Negative); Hyphae Yeast, Urine Occasional /hpf; Ketones,Urine Negative (Negative); Leukocyte Esterase,Urine Large (Negative); Nitrite,Urine Negative (Negative); PH, Urine 5.5 (5.0-8.0); Protein,Urine 2+ (Negative); RBC,Urine 9 /hpf (0-5); Specific Gravity,Urine 1.012 (1.001-1.035); Squamous Epithelial Cell,Urine <1 /hpf (0-4); Urobilinogen,Urine <2.0 mg/dL (<2.0); WBC,Urine >182 /hpf (0-5)
[2022-09-19] MEDS ORDERED: ONDANSETRON 4 MG/2 ML VIAL ONE (00:22)
[2022-09-19] MEDS: ONDANSETRON 4 MG/2 ML VIAL IVP PRN ×3 (00:28→20:02)
[2022-09-19 12:25] LABS: Basophils % (A) 0 %; Eosinophils # (A) 0.1 k/uL (0-0.7); Eosinophils % (A) 1 %; HCT 25.6 % (34.0-46.0); Lymphocytes # (A) 0.4 k/uL (1.0-4.8); Lymphocytes % (A) 6 %; MCH 34.3 pg (25.0-35.0); MCHC 34.9 g/dL (31.0-37.0); MCV 98.1 fL (80.0-100.0); Mean Platelet Volume 7.9; Monocytes # (A) 0.3 k/uL (0-1.0); Monocytes % (A) 5 %; Neutrophils # (A) 5.4 k/uL (1.3-7.7); Neutrophils % (A) 86 %; Platelet Count 238 k/uL (150-450); RBC 2.61 m/uL (3.80-5.40); RDW 14.2 % (11.5-15.5); WBC 6.4 k/uL (3.8-10.6)
[2022-09-19 12:42] LABS: African American GFR (CKD) 30 (>60 ml/min/1.73 sqM); Anion Gap 9 mmol/L; Blood Urea Nitrogen 27 mg/dL (7-17); Calcium 7.3 mg/dL (8.4-10.2); Carbon Dioxide 21 mmol/L (22-30); Chloride 100 mmol/L (98-107); Glucose 92 mg/dL (74-99); Non-African American GFR(CKD) 26 (>60 ml/min/1.73 sqM); Potassium 3.5 mmol/L (3.5-5.1); Sodium 130 mmol/L (137-145)
[2022-09-19] MEDS: HEPARIN SODIUM,PORCINE/PF 5,000 UNIT/0.5 ML SYRINGE SQ SCH ×2 (13:30→23:49)
[2022-09-19] MEDS: PANTOPRAZOLE 40 MG TABLET PO SCH (13:31)
[2022-09-19] MEDS: HYDROcodone/APAP 5-325MG 1 EACH TAB PO PRN ×2 (13:40→18:38)
--- NOTE | 2022-09-19 16:24 | P.CONS ---
History of Present Illness - Reason for Consult Consult date: 09/19/22 Cervical cancer Requesting physician: Julia Yarbrough - Chief Complaint Weak, hypotension - History of Present Illness Ms. Rosales is a very pleasant 71-year-old female who was recently diagnosed with advanced cervical cancer, possibly metastatic, who is here for weakness, hyp ertension, and intractable nausea and vomiting. She was seen initially in 06/2022 and PET scan was planned prior to initiation of treatment. Prior to having this done she was hospitalized for Hydrea nephrosis, required nephrostomy tube placement. Evaluated by radiation oncology at that time and plan was to start chemotherapy with radiation soon after discharge. She started this however her first cycle is plan was complicated by patient of what she calls seizure while she was receiving premedications. She was not given cisplatin at that time and subsequently received this following week. She has received 2 doses so far, last given on 09/16/22. Unclear if she's received 2-3 weeks of radiation. Now with intractable vomiting as well as increased weakness. We were consulted due to her being on active therapy. Oncologic history: Ms. Rosales is a 71 year old woman with no significant PMH who was referred to Dr. Jarad Sutton and seen in clinic 07/14 for evaluation of cervical cancer. Reports 65 lb unexplained weight loss over 5-6 month. Rercent UTI treatments and persistent dysuria along with worsening bilateral groin pain. CTAP 05/11/22 noted 4.6 x 4.9 cm necrotic lesion in the uterine cervix with suspected invasion into the adjacent bladder. Left pelvic side wall lymphadenopathy was noted measuring 1.9 x 2.2 cm with scattered small left external and left common illiac lymphadenopathy. An 8 mm nodule was noted in the anterolateral aspect of the mesorectal fat was suspicious for malignancy. 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 IHC was positive for p40, p16, and pancytokeratin. She has been seen by Rad Onc. PET/CT ordered. Caris molecular profiling. given her last imaging was done on 05/11/22 F/U for results was sched. Pt unfortunately was having lt hydronephrosis. Urology saw pt and was unable to place a stent due to ureter being obstructed by tumor. Pt is admitted for nephrostomy tube placement. She denies any other acute c/o, does have some mild lower abd discomfort. IP 08/05-08/18 for nephrostomy tube placement. Evaluated by Rad Onc prior to discharge with plan of proceeding with chemo RT soon after dishcarge for locally advanced disease. 08/27/22: D1 of weekly cisplatin with concurrent RT, 6 doses of cisplatin planned. Pt apparently had possible seizure while receiving premedications and chemo was not given that day. 09/16/22: D8 of weekly cisplatin given Past Medical History Past Medical History: Cancer, GERD/Reflux, Hyperlipidemia Additional Past Medical History / Comment(s): CERVICAL CANCER, NAUSEA, "STATES LEFT KIDNEY IS NOT WORKING " History of Any Multi-Drug Resistant Organisms: None Reported Past Surgical History: Cholecystectomy, Tubal Ligation Additional Past Surgical History / Comment(s): cataract surgery-BILATERAL WITH LENS IMPLANT. CERVICAL BIOPSY Past Anesthesia/Blood Transfusion Reactions: No Reported Reaction Past Psychological History: No Psychological Hx Reported Smoking Status: Former smoker Past Alcohol Use History: None Reported Past Drug Use History: None Reported - Past Family History Sister(s) Family Medical History: Cancer, Deep Vein Thrombosis (DVT) Additional Family Medical History / Comment(s): lung ca Mother Family Medical History: COPD, Osteoarthritis (OA) Medications and Allergies Home Medications Medication Instructions Recorded Confirmed Type HYDROcodone/APAP 5-325MG [[place] 1 tab PO Q4HR PRN 08/04/22 09/18/22 History 5-325] Omeprazole [PriLOSEC] 20 mg PO AC-BRKFST 08/04/22 09/18/22 History Ferrous Sulfate [Iron (65 MG 325 mg PO W/LUNCH #30 tab 08/19/22 09/18/22 Rx Elemental)] Ondansetron [Zofran] 4 mg PO Q4H PRN 09/18/22 09/18/22 History Allergies Allergy/AdvReac Type Severity Reaction Status Date / Time aprepitant AdvReac passed out Verified 09/18/22 18:22 & seizure like behavior fosaprepitant AdvReac passed out Verified 09/18/22 18:22 [From Emend (fosaprepitant)] & seizure like behavior Physical Exam Vitals: Vital Signs Temp Pulse Pulse Resp BP BP Pulse Ox 09/19/22 11:44 98.7 F 95 16 130/82 95 09/18/22 23:10 97.5 F L 98 16 117/72 99 09/18/22 20:39 98 16 143/86 98 09/18/22 19:00 104 H 16 148/98 99 09/18/22 16:31 98 F 95 20 101/66 100 09/18/22 15:45 97.9 F 119 H 22 80/55 99 Intake and Output 09/18/22 09/19/22 09/19/22 22:59 06:59 14:59 Output Total 100 100 Balance -100 -100 Output: Drainage 100 100 urostomy 100 100 Other: # Bowel Movements 1 Weight 77.111 kg Gen.: In no acute distress HEENT: Mucosa moist, no scleral icterus. Neck: Supple Lungs: No respiratory distress. Heart: Regular rate. Abdomen: Soft, nontender, nondistended. Neuro: Alert and oriented 3. Skin: No jaundice Psych: Appropriate affect. Results CBC & Chem 7: 09/19/22 12:01 09/19/22 12:01 Labs: Abnormal Lab Results - Last 24 Hours (Table) 09/18/22 09/18/22 09/18/22 Range/Units 16:35 16:35 16:35 RBC 3.55 L (3.80-5.40) m/uL Hgb (11.4-16.0) gm/dL Hct (34.0-46.0) % Lymphocytes # 0.6 L (1.0-4.8) k/uL Sodium 129 L (137-145) mmol/L Chloride 93 L (98-107) mmol/L Carbon Dioxide (22-30) mmol/L BUN 27 H (7-17) mg/dL Creatinine 2.12 H (0.52-1.04) mg/dL Glucose 109 H (74-99) mg/dL Plasma Lactic Acid Dank 4.9 H* (0.7-2.0) mmol/L Calcium (8.4-10.2) mg/dL AST 45 H (14-36) U/L Alkaline Phosphatase 186 H (38-126) U/L Total Protein 5.7 L (6.3-8.2) g/dL Albumin 2.8 L (3.5-5.0) g/dL Urine Appearance (Clear) Urine Protein (Negative) Urine Blood (Negative) Ur Leukocyte Esterase (Negative) Urine RBC (0-5) /hpf Urine WBC (0-5) /hpf Urine WBC Clumps (None) /hpf Amorphous Sediment (None) /hpf Urine Bacteria (None) /hpf 09/18/22 09/19/22 09/19/22 Range/Units 19:18 12:01 12:01 RBC 2.61 L (3.80-5.40) m/uL Hgb 9.0 L D (11.4-16.0) gm/dL Hct 25.6 L (34.0-46.0) % Lymphocytes # 0.4 L (1.0-4.8) k/uL Sodium 130 L (137-145) mmol/L Chloride (98-107) mmol/L Carbon Dioxide 21 L (22-30) mmol/L BUN 27 H (7-17) mg/dL Creatinine 1.89 H (0.52-1.04) mg/dL Glucose (74-99) mg/dL Plasma Lactic Acid Dank (0.7-2.0) mmol/L Calcium 7.3 L (8.4-10.2) mg/dL AST (14-36) U/L Alkaline Phosphatase (38-126) U/L Total Protein (6.3-8.2) g/dL Albumin (3.5-5.0) g/dL Urine Appearance Turbid H (Clear) Urine Protein 2+ H (Negative) Urine Blood Small H (Negative) Ur Leukocyte Esterase Large H (Negative) Urine RBC 9 H (0-5) /hpf Urine WBC >182 H (0-5) /hpf Urine WBC Clumps Many H (None) /hpf Amorphous Sediment Rare H (None) /hpf Urine Bacteria Many H (None) /hpf Assessment and Plan Assessment: 1. Advanced cervical cancer 2. Anemia due to chronic disease 3. Intractable N/V 4. Dehydration 5. Hyponatremia due to dehydration and vomiting 6. ALCIDES due to dehydration Plan: Respiratory very pleasant 71-year-old female with recently found advanced cervical cancer, started on chemotherapy with radiation with cisplatin weekly, who is here for increased weakness and persistent intractable vomiting. Found to have a chaotic, creatinine 2 from baseline of 0.8, as well as hyponatremia. CBC with hemoconcentrated hemoglobin of 11 from baseline of around 9 over the past couple months since her initial diagnosis. Continues to have nausea and vomiting. Continue with supportive care at this point. We'll need to hold chemotherapy with her ALCIDES. We'll need to consult radiation oncology to determine if she should continue radiation therapy at this point. Due to persistent vomiting as well as what she describes as a recent possible seizure after receiving premedications and no prior history of seizure disorder, she would benefit from imaging of the brain, possibly with MRI. Will hold off on ordering this until renal function improves however. Cervical cancer does not typically metastasized to the brain however we do need to make sure we are not missing underlying brain pathology contributing to her persistent symptoms. Discussed with patient she is agreeable to the plan. All of her questions were answered.
--- NOTE | 2022-09-19 21:09 | P.HPIM ---
History of Present Illness H&P Date: 09/19/22 Chief Complaint: Generalized weakness Patient is a 69-year-old female with a known history of recently diagnosed with cervical cancer and is currently undergoing chemotherapy last dose 09/16/2022 presents to ER with complaints of nausea vomiting and decreased oral intake and generalized weakness and dizziness. Patient is also having diarrhea for the past 2 weeks. Denies any blood in the stool. Patient was seen by her oncologist and sent her to ER due to low blood pressure. On admission blood pressure was 80/55 pulse 119 and pulse ox 91% on room air. Patient has been afebrile. No cough or production. No chest pain or shortness of breath. Chest x-ray showed no acute cardiopulmonary process Laboratory data showed WBC 8.3 hemoglobin 11.6 and platelets 359 Sodium 129 potassium 4.9 chloride 93 bicarb is 24 BUN 27 creatinine 2.1 plan lactic acid 4.9 AST 45 ALT 29 alk phos 186 and albumin 2.8 Urinalysis showed turbid with 2+ protein and small blood large leukoesterase with elevated WBCs. Review of Systems Constitutional: Patient denies any fever or chills . Patient does have generalized weakness. Abdomen: Patient does have nausea vomiting and diarrhea and lower abdominal discomfort. Cardiovascular: Patient denies any chest pain or short of breath no palpitations. Respiratory: patient denied any cough . no sputum production. No shortness of breath Neurologic: Patient denied any numbness or tingling headache. Musculoskeletal: Patient denies any complaints of joint swelling or deformity. Skin: Negative Psychiatric: Negative Endocrine: No heat or cold intolerance. No recent weight gain. Genitourinary: No dysuria or hematuria. All other 14 point ROS negative except the above Past Medical History Past Medical History: Cancer, GERD/Reflux, Hyperlipidemia Additional Past Medical History / Comment(s): CERVICAL CANCER, NAUSEA, "STATES LEFT KIDNEY IS NOT WORKING " History of Any Multi-Drug Resistant Organisms: None Reported Past Surgical History: Cholecystectomy, Tubal Ligation Additional Past Surgical History / Comment(s): cataract surgery-BILATERAL WITH LENS IMPLANT. CERVICAL BIOPSY Past Anesthesia/Blood Transfusion Reactions: No Reported Reaction Past Psychological History: No Psychological Hx Reported Smoking Status: Former smoker Past Alcohol Use History: None Reported Past Drug Use History: None Reported - Past Family History Sister(s) Family Medical History: Cancer, Deep Vein Thrombosis (DVT) Additional Family Medical History / Comment(s): lung ca Mother Family Medical History: COPD, Osteoarthritis (OA) Medications and Allergies Home Medications Medication Instructions Recorded Confirmed Type HYDROcodone/APAP 5-325MG [[place] 1 tab PO Q4HR PRN 08/04/22 09/18/22 History 5-325] Omeprazole [PriLOSEC] 20 mg PO AC-BRKFST 08/04/22 09/18/22 History Ferrous Sulfate [Iron (65 MG 325 mg PO W/LUNCH #30 tab 08/19/22 09/18/22 Rx Elemental)] Ondansetron [Zofran] 4 mg PO Q4H PRN 09/18/22 09/18/22 History Allergies Allergy/AdvReac Type Severity Reaction Status Date / Time aprepitant AdvReac passed out Verified 09/18/22 18:22 & seizure like behavior fosaprepitant AdvReac passed out Verified 09/18/22 18:22 [From Emend (fosaprepitant)] & seizure like behavior Physical Exam Vitals: Vital Signs Temp Pulse Pulse Resp BP BP Pulse Ox 09/18/22 23:10 97.5 F L 98 16 117/72 99 09/18/22 20:39 98 16 143/86 98 09/18/22 19:00 104 H 16 148/98 99 09/18/22 16:31 98 F 95 20 101/66 100 09/18/22 15:45 97.9 F 119 H 22 80/55 99 Intake and Output 09/18/22 09/19/22 09/19/22 22:59 06:59 14:59 Output Total 100 100 Balance -100 -100 Output: Drainage 100 100 urostomy 100 100 Other: Weight 77.111 kg PHYSICAL EXAMINATION: Patient is lying in the bed comfortably, no acute distress, awake alert and oriented.. Lethargic and weak. HEENT: Normocephalic. Neck is supple. Pupils reactive. Nostrils clear. Oral cavity is moist. Neck reveals no JVD, carotid bruits, or thyromegaly. CHEST EXAMINATION: Trachea is central. Symmetrical expansion. Lung amanda clear to auscultation and percussion. CARDIAC: Normal S1, S2 with no gallops. No murmurs ABDOMEN: Soft. Bowel sounds present. Nontender. No organomegaly. No abdominal bruits. Extremities: reveal no edema. No clubbing or cyanosis Neurologically awake, alert, oriented x3 with well-coordinated movements. No focal deficits noted Skin: No rash or skin lesions. Psychiatric: Coperative. Nonsuicidal, Musculoskeletal: No joint swelling or deformity. Normal range of motion. Results CBC & Chem 7: 09/19/22 12:01 09/19/22 12:01 Labs: Abnormal Lab Results - Last 24 Hours (Table) 09/18/22 09/18/22 09/18/22 Range/Units 16:35 16:35 16:35 RBC 3.55 L (3.80-5.40) m/uL Lymphocytes # 0.6 L (1.0-4.8) k/uL Sodium 129 L (137-145) mmol/L Chloride 93 L (98-107) mmol/L BUN 27 H (7-17) mg/dL Creatinine 2.12 H (0.52-1.04) mg/dL Glucose 109 H (74-99) mg/dL Plasma Lactic Acid Dank 4.9 H* (0.7-2.0) mmol/L AST 45 H (14-36) U/L Alkaline Phosphatase 186 H (38-126) U/L Total Protein 5.7 L (6.3-8.2) g/dL Albumin 2.8 L (3.5-5.0) g/dL Urine Appearance (Clear) Urine Protein (Negative) Urine Blood (Negative) Ur Leukocyte Esterase (Negative) Urine RBC (0-5) /hpf Urine WBC (0-5) /hpf Urine WBC Clumps (None) /hpf Amorphous Sediment (None) /hpf Urine Bacteria (None) /hpf 09/18/22 Range/Units 19:18 RBC (3.80-5.40) m/uL Lymphocytes # (1.0-4.8) k/uL Sodium (137-145) mmol/L Chloride (98-107) mmol/L BUN (7-17) mg/dL Creatinine (0.52-1.04) mg/dL Glucose (74-99) mg/dL Plasma Lactic Acid Dank (0.7-2.0) mmol/L AST (14-36) U/L Alkaline Phosphatase (38-126) U/L Total Protein (6.3-8.2) g/dL Albumin (3.5-5.0) g/dL Urine Appearance Turbid H (Clear) Urine Protein 2+ H (Negative) Urine Blood Small H (Negative) Ur Leukocyte Esterase Large H (Negative) Urine RBC 9 H (0-5) /hpf Urine WBC >182 H (0-5) /hpf Urine WBC Clumps Many H (None) /hpf Amorphous Sediment Rare H (None) /hpf Urine Bacteria Many H (None) /hpf Thrombosis Risk Factor Assmnt - DVT/VTE Prophylaxis DVT/VTE Prophylaxis: Pharmacologic Prophylaxis ordered Assessment and Plan Assessment: Intractable nausea and vomiting and diarrhea. Generalized weakness and decreased oral intake. Acute kidney injury likely prerenal Hypovolemic hyponatremia ACute urinary tract infection Cervical cancer with local metastasis with hydronephrosis and involvement of ureteric system status post left nephrostomy tube placement in August 2022. Patient is undergoing chemotherapy. GERD Hyperlipidemia Please history of smoking Plan: Patient dependent on IV hydration with normal saline and and symptomatic management of nausea and vomiting and continue PPI. Follow-up sodium level and oncology was consulted. Follow-up renal function. Avoid nephrotoxins. Continue with antibiotics in the form of ceftriaxone and follow-up urine culture report. Time with Patient: Greater than 30
[2022-09-20] MEDS: PANTOPRAZOLE 40 MG TABLET PO SCH (09:52)
[2022-09-20] MEDS: HEPARIN SODIUM,PORCINE/PF 5,000 UNIT/0.5 ML SYRINGE SQ SCH ×3 (09:52→23:41)
[2022-09-20] MEDS: HYDROcodone/APAP 5-325MG 1 EACH TAB PO PRN (13:20)
[2022-09-20] MEDS: ONDANSETRON 4 MG/2 ML VIAL IVP PRN (13:23)
[2022-09-20] MEDS ORDERED: MECLIZINE 12.5 MG TAB PO PRN (23:29)
--- NOTE | 2022-09-20 23:32 | P.PN ---
Subjective Progress Note Date: 09/20/22 Patient is a 69-year-old female with a known history of recently diagnosed with cervical cancer and is currently undergoing chemotherapy last dose 09/16/2022 presents to ER with complaints of nausea vomiting and decreased oral intake and generalized weakness and dizziness. Patient is also having diarrhea for the past 2 weeks. Denies any blood in the stool. Patient was seen by her oncologist and sent her to ER due to low blood pressure. On admission blood pressure was 80/55 pulse 119 and pulse ox 91% on room air. Patient has been afebrile. No cough or production. No chest pain or shortness of breath. Chest x-ray showed no acute cardiopulmonary process Laboratory data showed WBC 8.3 hemoglobin 11.6 and platelets 359 Sodium 129 potassium 4.9 chloride 93 bicarb is 24 BUN 27 creatinine 2.1 plan lactic acid 4.9 AST 45 ALT 29 alk phos 186 and albumin 2.8 Urinalysis showed turbid with 2+ protein and small blood large leukoesterase with elevated WBCs. 09/20/2022 Patient is awake alert and oriented. Complains of generalized weakness and also complains of vertigo-like symptoms. Still having nausea. No episodes of vomiting. Denied any hematemesis or melena. No fever no chills. No cough or sputum production. No chest pain or shortness of breath. Not able to tolerate oral diet. Laboratory data showed sodium 130 potassium 3.5 chloride 100 bicarb is 21 BUN 27 creatinine 1.89. Calcium 7.3 Patient is being current antibiotics in the form of ceftriaxone for possible UTI. Oncology is on board. Current medications reviewed. Objective - Vital Signs Vital signs: Vital Signs Temp 98.2 F 09/20/22 11:42 Pulse 106 H 09/20/22 17:47 Resp 16 09/20/22 11:42 BP 134/81 09/20/22 17:47 Pulse Ox 99 09/20/22 11:42 FiO2 Intake & Output 09/19/22 09/20/22 09/20/22 19:59 06:59 18:59 Intake Total 50 Output Total 300 Balance -250 Intake: Intake, IV Titration 50 Amount cefTRIAXone 1 gm In 50 Sodium Chloride 0.9% 50 ml @ 100 mls/hr IVPB Q24HR [facility] Rx#:[id number] Oral Output: Drainage 300 urostomy 300 Other: # Voids 4 # Bowel Movements - Exam PHYSICAL EXAMINATION: Patient is lying in the bed comfortably, no acute distress, awake alert and oriented.. Lethargic and weak. HEENT: Normocephalic. Neck is supple. Pupils reactive. Nostrils clear. Oral cavity is moist. Neck reveals no JVD, carotid bruits, or thyromegaly. CHEST EXAMINATION: Trachea is central. Symmetrical expansion. Lung amanda clear to auscultation and percussion. CARDIAC: Normal S1, S2 with no gallops. No murmurs ABDOMEN: Soft. Bowel sounds present. Nontender. No organomegaly. No abdominal bruits. Extremities: reveal no edema. No clubbing or cyanosis Neurologically awake, alert, oriented x3 with well-coordinated movements. No focal deficits noted Skin: No rash or skin lesions. Psychiatric: Coperative. Nonsuicidal, Musculoskeletal: No joint swelling or deformity. Normal range of motion. - Labs CBC & Chem 7: 09/19/22 12:01 09/19/22 12:01 Labs: Microbiology - Last 24 Hours (Table) 09/18/22 17:20 Blood Culture - Preliminary Blood No Growth after 24 hours 09/18/22 17:25 Blood Culture - Preliminary Blood No Growth after 24 hours Assessment and Plan Assessment: Intractable nausea and vomiting and diarrhea. Generalized weakness and decreased oral intake. Acute kidney injury likely prerenal Hypovolemic hyponatremia ACute urinary tract infection Cervical cancer with local metastasis with hydronephrosis and involvement of ureteric system status post left nephrostomy tube placement in August 2022. Patient is undergoing chemotherapy. GERD Hyperlipidemia Please history of smoking Plan: Patient dependent on IV hydration with normal saline and and symptomatic management of nausea and vomiting and continue PPI. Follow-up sodium level and oncology was consulted. Follow-up renal function. Avoid nephrotoxins. Continue with antibiotics in the form of ceftriaxone and follow-up urine culture report. Time with Patient: Greater than 30
[2022-09-20] MEDS: SODIUM CHLORIDE 0.9% 1,000 ML IV SCH (23:42)
[2022-09-21] MEDS: HEPARIN SODIUM,PORCINE/PF 5,000 UNIT/0.5 ML SYRINGE SQ SCH ×3 (08:03→23:41)
[2022-09-21] MEDS: PANTOPRAZOLE 40 MG TABLET PO SCH (08:03)
[2022-09-21] MEDS: SODIUM CHLORIDE 0.9% 1,000 ML IV SCH ×2 (08:04→21:40)
[2022-09-21 10:30] LABS: Basophils # (A) 0.01 X 10*3/uL (0.00-0.10); Basophils % (A) 0.2 %; Eosinophils # (A) 0.12 X 10*3/uL (0.04-0.35); Eosinophils % (A) 1.8 %; HCT 27.3 % (37.2-46.3); Immature Grans, Automated 0.3 %; Lymphocytes # (A) 0.35 X 10*3/uL (0.90-5.00); Lymphocytes % (A) 5.3 %; MCH 31.8 pg (27.0-32.0); MCV 96.5 fL (80.0-97.0); Mean Platelet Volume 9.8 fL (9.5-12.2); Monocytes # (A) 0.57 X 10*3/uL (0.20-1.00); Monocytes % (A) 8.6 %; NRBC Per 100 WBC 0 /100 WBCS (0.0-0.0); Neutrophils # (A) 5.56 X 10*3/uL (1.80-7.70); Neutrophils % (A) 83.8 %; Platelet Count 209 X 10*3/uL (140-440); RBC 2.83 X 10*6/uL (4.10-5.20); RDW 14.3 % (11.5-14.5); WBC 6.63 X 10*3/uL (4.50-10.00)
[2022-09-21 10:50] LABS: African American GFR (CKD) 36.9 (60.0-200.0); Anion Gap 9.2 mmol/L (10.00-18.00); BUN/Creat Ratio 12.06 Ratio (12.00-20.00); Blood Urea Nitrogen 19.3 mg/dL (9.0-27.0); Calcium 7.3 mg/dL (8.7-10.3); Carbon Dioxide 24.8 mmol/L (20.0-27.5); Non-African American GFR(CKD) 31.9 (60.0-200.0); Potassium 2.9 mmol/L (3.5-5.5)
[2022-09-21] MEDS: ONDANSETRON 4 MG/2 ML VIAL IVP PRN (10:54)
[2022-09-21] MEDS ORDERED: Potassium Replacement Protocol 1 EACH MISC MISCELLANE PRN ×2 (11:02→11:03)
[2022-09-21] MEDS: POTASSIUM CHLORIDE ER 20 MEQ TAB.ER PO SCH ×3 (11:38→13:53)
[2022-09-21] MEDS ORDERED: POTASSIUM CHLORIDE ER 20 MEQ TAB.ER PO SCH (12:00)
[2022-09-21] MEDS: SUCRALFATE 1 GM TAB PO SCH ×3 (12:41→21:00)
[2022-09-21] MEDS: NYSTATIN 100,000 UNIT/ML SUSP 500,000 UNIT/5 ML CUP PO SCH ×3 (12:41→21:00)
[2022-09-21] MEDS: HYDROcodone/APAP 5-325MG 1 EACH TAB PO PRN (15:51)
--- NOTE | 2022-09-21 19:33 | P.PN ---
Subjective Progress Note Date: 09/21/22 Principal diagnosis: Dehydration, acute kidney injury. Currently in treatment for Cervical cancer In follow-up today patient is tearful and depressed. She is very frustrated and doesn't feel that she is getting better. She cannot eat solid foods, she "looks at it" and it makes her sick to her stomach. When she does eat, it goes partway down, she begins belching, having dry heaves, then all the food comes back up, very indigestion feeling. Patient is reporting diarrhea this a.m. Nausea persists. Denies fevers, shortness of breath, dysuria. Objective - Vital Signs Vital signs: Vital Signs Temp 97.9 F 09/21/22 11:55 Pulse 98 09/21/22 11:55 Resp 16 09/21/22 11:55 BP 117/70 09/21/22 11:55 Pulse Ox 98 09/21/22 11:55 FiO2 Intake & Output 09/21/22 09/21/22 09/22/22 06:59 18:59 06:59 Intake Total 1300 3050 Output Total 550 400 Balance 750 2650 Intake: Intake, IV Titration 800 900 Amount Sodium Chloride 0.9% 1, 800 900 000 ml @ 75 mls/hr IV . [id number] [facility] Rx#:[id number] Oral 500 2150 Output: Drainage 550 400 urostomy 550 400 Other: # Voids 1 2 # Bowel Movements 2 - Constitutional General appearance: Present: average body habitus, cooperative, no acute distress - EENT Eyes: Present: anicteric sclerae, EOMI ENT: Present: hearing grossly normal, thrush - Respiratory Respiratory: bilateral: CTA - Cardiovascular Rhythm: regular Heart sounds: normal: S1, S2 Abnormal Heart Sounds: Absent: systolic murmur, diastolic murmur, rub, S3 Whaley p, S4 Gallop, click, other - Peripheral edema leg Peripheral Edema: bilateral: Trace - Gastrointestinal General gastrointestinal: Present: normal bowel sounds, soft, tenderness. Absent: absent bowel sounds, decreased bowel sounds, distended, hepatomegaly, hyperactive bowel sounds, organomegaly, rigid, scaphoid, splenomegaly, umbilical hernia, ventral hernia Localized gastrointestinal: tender: epigastric periumbilical - Neurologic Neurologic: Present: CNII-XII intact - Musculoskeletal Musculoskeletal: Present: generalized weakness, strength equal bilaterally - Psychiatric Psychiatric: Present: A&O x's 3, appropriate affect, intact judgment & insight - Labs CBC & Chem 7: 09/21/22 06:37 09/21/22 06:37 Labs: Abnormal Lab Results - Last 24 Hours (Table) 09/21/22 09/21/22 Range/Units 06:37 06:37 RBC 2.83 L (4.10-5.20) X 10*6/uL Hgb 9.0 L (12.0-15.0) g/dL Hct 27.3 L (37.2-46.3) % Lymphocytes # 0.35 L (0.90-5.00) X 10*3/uL Sodium 133 L (135-145) mmol/L Potassium 2.9 L (3.5-5.5) mmol/L Anion Gap 9.20 L (10.00-18.00) mmol/L Creatinine 1.6 H (0.6-1.5) mg/dL Est GFR (CKD-EPI)AfAm 36.9 L (60.0-200.0) Est GFR (CKD-EPI)NonAf 31.9 L (60.0-200.0) Calcium 7.3 L (8.7-10.3) mg/dL Microbiology - Last 24 Hours (Table) 09/18/22 17:25 Blood Culture - Preliminary Blood No Growth after 48 hours 09/18/22 17:20 Blood Culture - Preliminary Blood No Growth after 48 hours Assessment and Plan (1) Diarrhea Current Visit: Yes Status: Acute Priority: High Code(s): R19.7 - DIARRHEA, UNSPECIFIED SNOMED Code(s): 68866932 (2) Nausea and vomiting Current Visit: Yes Status: Acute Priority: High Code(s): R11.2 - NAUSEA WITH VOMITING, UNSPECIFIED SNOMED Code(s): 77517227 (3) Thrush Current Visit: Yes Status: Acute Priority: High Code(s): B37.0 - CANDIDAL STOMATITIS SNOMED Code(s): 91798130 (4) Cervical adenocarcinoma Current Visit: No Status: Acute Priority: Medium Code(s): C53.9 - MALIGN ANT NEOPLASM OF CERVIX UTERI, UNSPECIFIED SNOMED Code(s): 184098178 Plan: Patient is on medications for nausea, vomiting and diarrhea. Due to patient reports of Severe indigestion will add Carafate to see if this helps. If no improvements may have to consider upper endoscopy? Stool studies have been ordered. Patient was very upset about MRI. Her mental status has improved and she is having clear conversations. Cancel MRI of the brain at this time. Thrush. Medications ordered to treat the same. Based on how the patient responds to the few changes in the medication regimen for her complaints, we'll see how she does and continue to make adjustments as necessary. Hold treatment for now. We will discussed the case with Radiation Oncology
[2022-09-22] MEDS: ONDANSETRON 4 MG/2 ML VIAL IVP PRN (00:54)
--- NOTE | 2022-09-22 05:53 | P.PN ---
Subjective Progress Note Date: 09/21/22 Patient is a 69-year-old female with a known history of recently diagnosed with cervical cancer and is currently undergoing chemotherapy last dose 09/16/2022 presents to ER with complaints of nausea vomiting and decreased oral intake and generalized weakness and dizziness. Patient is also having diarrhea for the past 2 weeks. Denies any blood in the stool. Patient was seen by her oncologist and sent her to ER due to low blood pressure. On admission blood pressure was 80/55 pulse 119 and pulse ox 91% on room air. Patient has been afebrile. No cough or production. No chest pain or shortness of breath. Chest x-ray showed no acute cardiopulmonary process Laboratory data showed WBC 8.3 hemoglobin 11.6 and platelets 359 Sodium 129 potassium 4.9 chloride 93 bicarb is 24 BUN 27 creatinine 2.1 plan lactic acid 4.9 AST 45 ALT 29 alk phos 186 and albumin 2.8 Urinalysis showed turbid with 2+ protein and small blood large leukoesterase with elevated WBCs. 09/20/2022 Patient is awake alert and oriented. Complains of generalized weakness and also complains of vertigo-like symptoms. Still having nausea. No episodes of vomiting. Denied any hematemesis or melena. No fever no chills. No cough or sputum production. No chest pain or shortness of breath. Not able to tolerate oral diet. Laboratory data showed sodium 130 potassium 3.5 chloride 100 bicarb is 21 BUN 27 creatinine 1.89. Calcium 7.3 Patient is being current antibiotics in the form of ceftriaxone for possible UTI. Oncology is on board. Current medications reviewed. 09/21/2022 Patient seen and evaluated in follow-up this morning potassium found to be 2.9 and will replace per protocol. Patient also with some mild irritation will add nystatin swish and swallow with oncology and radiation oncology consulted. Morning labs are pending and patient is continued on gentle IV hydration. Patient also continues with antibiotics in the form of ceftriaxone for possible urinary tract infection. Patient to continue on gentle IV hydration in the form of normal saline at 75 ML per hour and will follow-up with repeat labs. Patient is afebrile denies chest pain or shortness of breath. Patient is tearful on exam Review of systems: Constitutional: No reports of fatigue, fever, or chills Cardiovascular: No reports of chest pain or palpitations Respiratory: No reports of shortness of breath or cough GI: No reports of nausea, vomiting, or diarrhea : No reports of dysuria or retention Neurovascular: No reports of weakness or numbness All medications have been reviewed PHYSICAL EXAMINATION: Patient is lying in the bed comfortably, no acute distress, awake alert and oriented.. Lethargic and weak. HEENT: Normocephalic. Neck is supple. Pupils reactive. Nostrils clear. Oral cavity is moist. Neck reveals no JVD, carotid bruits, or thyromegaly. CHEST EXAMINATION: Trachea is central. Symmetrical expansion. Lung amanda clear to auscultation and percussion. CARDIAC: Normal S1, S2 with no gallops. No murmurs ABDOMEN: Soft. Bowel sounds present. Nontender. No organomegaly. No abdominal bruits. Extremities: reveal no edema. No clubbing or cyanosis Neurologically awake, alert, oriented x3 with well-coordinated movements. No focal deficits noted Skin: No rash or skin lesions. Psychiatric: Coperative. Nonsuicidal, Musculoskeletal: No joint swelling or deformity. Normal range of motion. Assessment: Intractable nausea and vomiting and diarrhea. Generalized weakness and decreased oral intake. Acute kidney injury likely prerenal Oral candidiasis hypokalemia Hypovolemic hyponatremia Acute urinary tract infection, present on admission Cervical cancer with local metastasis with hydronephrosis and involvement of ureteric system status post left nephrostomy tube placement in August 2022. Patient is undergoing chemotherapy. GERD Hyperlipidemia history of smoking Plan: Patient continued on IV hydration and symptomatic management of nausea and vomiting and continue PPI. Follow-up sodium level is improving. Potassium is critically low at 2.9 and will replace per protocol. Repeat am labs ordered. P atient is having some mouth pain likely oral thrush and will start nystatin swish and swallow. Encouraged oral intake. oncology following and treatment is on hold currently. Follow-up renal function in am. Avoid nephrotoxins. Continue with antibiotics in the form of ceftriaxone for possible urinary tract infection. No culture was sent. Will order. Due to multiple complex medical issues, prognosis is guarded. The impression and plan of care has been dictated by Kalyn Sierra, Nurse Practitioner as directed. Dr. Angus MD I have performed a history and examination and MDM of this patient, discussed the same with the dictator, and agree with the dictator's assessment and plan as written ,documented as a scribe. Based on total visit time, I have performed more than 50% of the visit. Objective - Vital Signs Vital signs: Vital Signs Temp 98.6 F 09/21/22 04:05 Pulse 98 09/21/22 04:05 Resp 16 09/21/22 08:00 BP 134/76 09/21/22 04:05 Pulse Ox 100 09/21/22 04:05 FiO2 Intake & Output 09/20/22 09/21/22 09/21/22 18:59 06:59 18:59 Intake Total 50 1300 Output Total 300 550 200 Balance -250 750 -200 Intake: Intake, IV Titration 50 800 Amount Sodium Chloride 0.9% 1, 800 000 ml @ 75 mls/hr IV . [id number] [facility] Rx#:[id number] cefTRIAXone 1 gm In 50 Sodium Chloride 0.9% 50 ml @ 100 mls/hr IVPB Q24HR [facility] Rx#:[id number] Oral 500 Output: Drainage 300 550 200 urostomy 300 550 200 Other: # Voids 4 1 # Bowel Movements 1 - Labs CBC & Chem 7: 09/21/22 06:37 09/21/22 06:37 Labs: Abnormal Lab Results - Last 24 Hours (Table) 09/21/22 09/21/22 Range/Units 06:37 06:37 RBC 2.83 L (4.10-5.20) X 10*6/uL Hgb 9.0 L (12.0-15.0) g/dL Hct 27.3 L (37.2-46.3) % Lymphocytes # 0.35 L (0.90-5.00) X 10*3/uL Sodium 133 L (135-145) mmol/L Potassium 2.9 L (3.5-5.5) mmol/L Anion Gap 9.20 L (10.00-18.00) mmol/L Creatinine 1.6 H (0.6-1.5) mg/dL Est GFR (CKD-EPI)AfAm 36.9 L (60.0-200.0) Est GFR (CKD-EPI)NonAf 31.9 L (60.0-200.0) Calcium 7.3 L (8.7-10.3) mg/dL Microbiology - Last 24 Hours (Table) 09/18/22 17:25 Blood Culture - Preliminary Blood No Growth after 48 hours 09/18/22 17:20 Blood Culture - Preliminary Blood No Growth after 48 hours
[2022-09-22 08:54] LABS: Basophils # (A) 0.01 X 10*3/uL (0.00-0.10); Basophils % (A) 0.2 %; Eosinophils # (A) 0.08 X 10*3/uL (0.04-0.35); Eosinophils % (A) 1.3 %; HCT 25.9 % (37.2-46.3); HGB 8.4 g/dL (12.0-15.0); Immature Grans, Automated 0.5 %; Lymphocytes # (A) 0.37 X 10*3/uL (0.90-5.00); Lymphocytes % (A) 6.1 %; MCH 30.8 pg (27.0-32.0); MCHC 32.4 g/dL (32.0-37.0); MCV 94.9 fL (80.0-97.0); Mean Platelet Volume 9.7 fL (9.5-12.2); Monocytes # (A) 0.57 X 10*3/uL (0.20-1.00); Monocytes % (A) 9.3 %; NRBC Per 100 WBC 0 /100 WBCS (0.0-0.0); Neutrophils # (A) 5.04 X 10*3/uL (1.80-7.70); Neutrophils % (A) 82.6 %; Platelet Count 170 X 10*3/uL (140-440); RBC 2.73 X 10*6/uL (4.10-5.20); RDW 14.4 % (11.5-14.5)
[2022-09-22] MEDS: SUCRALFATE 1 GM TAB PO SCH ×4 (09:03→20:48)
[2022-09-22] MEDS: HEPARIN SODIUM,PORCINE/PF 5,000 UNIT/0.5 ML SYRINGE SQ SCH ×2 (09:03→18:02)
[2022-09-22] MEDS: PANTOPRAZOLE 40 MG TABLET PO SCH (09:03)
[2022-09-22] MEDS: NYSTATIN 100,000 UNIT/ML SUSP 500,000 UNIT/5 ML CUP PO SCH ×4 (09:04→20:43)
[2022-09-22 09:25] LABS: African American GFR (CKD) 43.4 (60.0-200.0); Anion Gap 9.8 mmol/L (10.00-18.00); BUN/Creat Ratio 11.07 Ratio (12.00-20.00); Blood Urea Nitrogen 15.5 mg/dL (9.0-27.0); Carbon Dioxide 24.2 mmol/L (20.0-27.5); Non-African American GFR(CKD) 37.4 (60.0-200.0); Potassium 2.9 mmol/L (3.5-5.5)
[2022-09-22] MEDS ORDERED: Potassium Replacement Protocol 1 EACH MISC MISCELLANE PRN (09:43)
[2022-09-22] MEDS ORDERED: POTASSIUM CHLORIDE ER 20 MEQ TAB.ER PO STA (09:44)
[2022-09-22 09:45] LABS: Magnesium 0.8 mg/dL (1.5-2.4)
[2022-09-22] MEDS ORDERED: Magnesium Replacement Protocol 1 EACH MISC MISCELLANE PRN (09:46)
[2022-09-22] MEDS: POTASSIUM CHLORIDE 10 MEQ in WATER FOR INJECTION 1 100ML.BAG IVPB SCH ×6 (10:29→17:03)
[2022-09-22] MEDS: MAGNESIUM SULFATE-D5W PMX 1 GM in DEXTROSE/WATER 1 100ML.BAG IVPB SCH ×4 (10:29→14:07)
[2022-09-22] MEDS ORDERED: LOPERAMIDE 2 MG CAP PO PRN (13:14)
[2022-09-22] MEDS: CHOLESTYRAMINE (WITH SUGAR) 4 GM PACKET PO SCH ×2 (13:59→18:02)
[2022-09-22] MEDS: SODIUM CHLORIDE 0.9% 1,000 ML IV SCH (17:05)
[2022-09-22 20:37] LABS: Magnesium 1.8 mg/dL (1.6-2.3); Potassium 3.8 mmol/L (3.5-5.1)
[2022-09-22] MEDS: OLANZapine 2.5 MG TAB PO SCH (20:43)
--- NOTE | 2022-09-22 22:39 | P.PN ---
Subjective Progress Note Date: 09/22/22 Principal diagnosis: Dehydration, acute kidney injury. Currently in treatment for Cervical cancer In follow-up today patient reports some improvement in her indigestion and epiga stric discomfort with Carafate. Thrush is persistent. She is still requiring antiemetics at least twice a day. Denies fevers, shortness of breath or pain. Objective - Vital Signs Vital signs: Vital Signs Temp 98.4 F 09/22/22 21:00 Pulse 98 09/22/22 21:00 Resp 16 09/22/22 21:00 BP 109/64 09/22/22 21:00 Pulse Ox 98 09/22/22 21:00 FiO2 Intake & Output 09/22/22 09/22/22 09/23/22 06:59 18:59 06:59 Output Total 475 350 Balance -475 -350 Output: Drainage 475 350 urostomy 475 350 Other: Voiding Method Diaper Diaper Incontinent Incontinent # Bowel Movements 1 - Constitutional General appearance: Present: cooperative, obese - EENT Eyes: Present: anicteric sclerae, EOMI ENT: Present: hearing grossly normal, thrush - Respiratory Respiratory: bilateral: CTA - Cardiovascular Rhythm: regular Heart sounds: normal: S1, S2 Abnormal Heart Sounds: Absent: systolic murmur, diastolic murmur, rub, S3 Gallop, S4 Gallop, click, other - Peripheral edema leg Peripheral Edema: bilateral: None - Gastrointestinal General gastrointestinal: Present: normal bowel sounds, soft Localized gastrointestinal: tender: epigastric periumbilical - Neurologic Neurologic: Present: CNII-XII intact - Musculoskeletal Musculoskeletal: Present: strength equal bilaterally - Psychiatric Psychiatric: Present: A&O x's 3, appropriate affect, intact judgment & insight - Labs CBC & Chem 7: 09/22/22 05:05 09/22/22 20:24 Labs: Abnormal Lab Results - Last 24 Hours (Table) 09/22/22 09/22/22 Range/Units 05:05 05:05 RBC 2.73 L (4.10-5.20) X 10*6/uL Hgb 8.4 L (12.0-15.0) g/dL Hct 25.9 L (37.2-46.3) % Lymphocytes # 0.37 L (0.90-5.00) X 10*3/uL Potassium 2.9 L (3.5-5.5) mmol/L Anion Gap 9.80 L (10.00-18.00) mmol/L Est GFR (CKD-EPI)AfAm 43.4 L (60.0-200.0) Est GFR (CKD-EPI)NonAf 37.4 L (60.0-200.0) BUN/Creatinine Ratio 11.07 L (12.00-20.00) Ratio Calcium 7.0 L (8.7-10.3) mg/dL Magnesium 0.8 L* (1.5-2.4) mg/dL Microbiology - Last 24 Hours (Table) 09/18/22 17:25 Blood Culture - Preliminary Blood No Growth after 96 hours 09/18/22 17:20 Blood Culture - Preliminary Blood No Growth after 96 hours 09/22/22 11:00 Urine Culture - Preliminary Urine,Ureter 09/21/22 15:41 Stool Culture - Preliminary Stool Assessment and Plan (1) Diarrhea Current Visit: Yes Status: Acute Priority: High Code(s): R19.7 - DIARRHEA, UNSPECIFIED SNOMED Code(s): 22466494 (2) Nausea and vomiting Current Visit: Yes Status: Acute Priority: High Code(s): R11.2 - NAUSEA WITH VOMITING, UNSPECIFIED SNOMED Code(s): 87324567 (3) Thrush Current Visit: Yes Status: Acute Priority: High Code(s): B37.0 - CANDIDAL STOMATITIS SNOMED Code(s): 66882510 (4) Cervical adenocarcinoma Current Visit: No Status: Acute Priority: Medium Code(s): C53.9 - MAL IGNANT NEOPLASM OF CERVIX UTERI, UNSPECIFIED SNOMED Code(s): 645897639 Plan: Patient is on medications for nausea, vomiting and diarrhea. Carafate and, did help patient a little with indigestion. Olanzapine added for nausea, continue as needed Zofran. Stool studies were negative for C. difficile. Add Imodium when necessary for diarrhea. Thrush persists. Aggressive oral care. Continue antifungal. Plan at this time is for patient to come to her chemotherapy appointment later this week. She will be assessed at that time. Primary Oncologist will determine if patient proceed with chemotherapy or continue to hold. Patient verbalized understanding the plan.
[2022-09-23] MEDS: HEPARIN SODIUM,PORCINE/PF 5,000 UNIT/0.5 ML SYRINGE SQ SCH ×2 (01:12→08:18)
[2022-09-23] MEDS: SODIUM CHLORIDE 0.9% 1,000 ML IV SCH (06:10)
--- NOTE | 2022-09-23 06:48 | P.PN ---
Subjective Progress Note Date: 09/22/22 Patient is a 69-year-old female with a known history of recently diagnosed with cervical cancer and is currently undergoing chemotherapy last dose 09/16/2022 presents to ER with complaints of nausea vomiting and decreased oral intake and generalized weakness and dizziness. Patient is also having diarrhea for the past 2 weeks. Denies any blood in the stool. Patient was seen by her oncologist and sent her to ER due to low blood pressure. On admission blood pressure was 80/55 pulse 119 and pulse ox 91% on room air. Patient has been afebrile. No cough or production. No chest pain or shortness of breath. Chest x-ray showed no acute cardiopulmonary process Laboratory data showed WBC 8.3 hemoglobin 11.6 and platelets 359 Sodium 129 potassium 4.9 chloride 93 bicarb is 24 BUN 27 creatinine 2.1 plan lactic acid 4.9 AST 45 ALT 29 alk phos 186 and albumin 2.8 Urinalysis showed turbid with 2+ protein and small blood large leukoesterase with elevated WBCs. 09/20/2022 Patient is awake alert and oriented. Complains of generalized weakness and also complains of vertigo-like symptoms. Still having nausea. No episodes of vomiting. Denied any hematemesis or melena. No fever no chills. No cough or sputum production. No chest pain or shortness of breath. Not able to tolerate oral diet. Laboratory data showed sodium 130 potassium 3.5 chloride 100 bicarb is 21 BUN 27 creatinine 1.89. Calcium 7.3 Patient is being current antibiotics in the form of ceftriaxone for possible UTI. Oncology is on board. Current medications reviewed. 09/21/2022 Patient seen and evaluated in follow-up this morning potassium found to be 2.9 and will replace per protocol. Patient also with some mild irritation will add nystatin swish and swallow with oncology and radiation oncology consulted. Morning labs are pending and patient is continued on gentle IV hydration. Patient also continues with antibiotics in the form of ceftriaxone for possible urinary tract infection. Patient to continue on gentle IV hydration in the form of normal saline at 75 ML per hour and will follow-up with repeat labs. Patient is afebrile denies chest pain or shortness of breath. Patient is tearful on exam 09/22/2022 Patient is seen this morning reporting pain in her IV site she is receiving IV potassium as her potassium was found to be 2.9 again and being replaced per protocol. Patient magnesium also critically low at 0.9 and being replaced recommend follow-up labs. Will increase IV fluids to assist with the burning pain of the potassium until infused and then decrease the rate back to 75 ML per hour. C. diff testing was negative and will add Imodium and Questran. Patient and family reporting her oral intake is improving slightly. Patient is weak reports has been up and walking the halls with physical therapy. Plan is for the patient to return home with family once stabilized and discharged. Oncology following as well. Will follow-up with repeat labs Review of systems: Constitutional: No reports of fatigue, fever, or chills Cardiovascular: No reports of chest pain or palpitations Respiratory: No reports of shortness of breath or cough GI: No reports of nausea, vomiting, or diarrhea : No reports of dysuria or retention Neurovascular: No reports of weakness or numbness All medications have been reviewed PHYSICAL EXAMINATION: Patient is lying in the bed comfortably, no acute distress, awake alert and oriented.. Lethargic and weak. HEENT: Normocephalic. Neck is supple. Pupils reactive. Nostrils clear. Oral cavity is moist. Neck reveals no JVD, carotid bruits, or thyromegaly. CHEST EXAMINATION: Trachea is central. Symmetrical expansion. Lung amanda clear to auscultation and percussion. CARDIAC: Normal S1, S2 with no gallops. No murmurs ABDOMEN: Soft. Bowel sounds present. Nontender. No organomegaly. No abdominal bruits. Extremities: reveal no edema. No clubbing or cyanosis Neurologically awake, alert, oriented x3 with well-coordinated movements. No focal deficits noted Skin: No rash or skin lesions. Psychiatric: Coperative. Nonsuicidal, Musculoskeletal: No joint swelling or deformity. Normal range of motion. Assessment: Intractable nausea and vomiting and diarrhea. Generalized weakness and decreased oral intake. Acute kidney injury likely prerenal Oral candidiasis hypokalemia hypomagnesemia Hypovolemic hyponatremia Acute urinary tract infection, present on admission Cervical cancer with local metastasis with hydronephrosis and involvement of ureteric system status post left nephrostomy tube placement in August 2022. Patient is undergoing chemotherapy. GERD Hyperlipidemia history of smoking Plan: Patient continued on IV hydration and symptomatic management of nausea and vomiting and continue PPI. Carafate and imodium added and symptoms somewhat improved. Patient reports oral intake is improving and able to tolerate more. Potassium is critically low at 2.9 and will replace per protocol. Magnesium is 0.9 today. Repeat am labs ordered. Continue nystatin swish and swallow for the thrush. Encouraged oral intake. oncology following and treatment is on hold currently. To follow up in office later this week with oncology to discuss treatment. Continue with antibiotics in the form of ceftriaxone for possible urinary tract infection. culture pending. Due to multiple complex medical issues, prognosis is guarded. Possible discharge in 24-48 hours. The impression and plan of care has been dictated by Kalyn Sierra, Nurse Practitioner as directed. Dr. Angus MD I have performed a history and examination and MDM of this patient, discussed the same with the dictator, and agree with the dictator's assessment and plan as written ,documented as a scribe. Based on total visit time, I have performed more than 50% of the visit. Objective - Vital Signs Vital signs: Vital Signs Temp 98 F 09/22/22 11:25 Pulse 92 09/22/22 11:25 Resp 18 09/22/22 11:25 BP 123/78 09/22/22 11:25 Pulse Ox 99 09/22/22 11:25 FiO2 Intake & Output 09/21/22 09/22/22 09/22/22 18:59 06:59 18:59 Intake Total 3050 Output Total 400 475 200 Balance 2650 -475 -200 Intake: Intake, IV Titration 900 Amount Sodium Chloride 0.9% 1, 900 000 ml @ 75 mls/hr IV . [id number] [facility] Rx#:[id number] Oral 2150 Output: Drainage 400 475 200 urostomy 400 475 200 Other: Voiding Method Diaper Diaper Incontinent Incontinent # Voids 2 # Bowel Movements 2 - Labs CBC & Chem 7: 09/22/22 05:05 09/22/22 20:24 Labs: Abnormal Lab Results - Last 24 Hours (Table) 09/22/22 09/22/22 Range/Units 05:05 05:05 RBC 2.73 L (4.10-5.20) X 10*6/uL Hgb 8.4 L (12.0-15.0) g/dL Hct 25.9 L (37.2-46.3) % Lymphocytes # 0.37 L (0.90-5.00) X 10*3/uL Potassium 2.9 L (3.5-5.5) mmol/L Anion Gap 9.80 L (10.00-18.00) mmol/L Est GFR (CKD-EPI)AfAm 43.4 L (60.0-200.0) Est GFR (CKD-EPI)NonAf 37.4 L (60.0-200.0) BUN/Creatinine Ratio 11.07 L (12.00-20.00) Ratio Calcium 7.0 L (8.7-10.3) mg/dL Magnesium 0.8 L* (1.5-2.4) mg/dL Microbiology - Last 24 Hours (Table) 09/21/22 15:41 Stool Culture - Preliminary Stool 09/18/22 17:25 Blood Culture - Preliminary Blood No Growth after 72 hours 09/18/22 17:20 Blood Culture - Preliminary Blood No Growth after 72 hours
[2022-09-23 07:26] LABS: African American GFR (CKD) 54 (>60 ml/min/1.73 sqM); Anion Gap 1 mmol/L; Blood Urea Nitrogen 12 mg/dL (7-17); Calcium 6.9 mg/dL (8.4-10.2); Carbon Dioxide 27 mmol/L (22-30); Chloride 104 mmol/L (98-107); Glucose 89 mg/dL (74-99); Magnesium 1.5 mg/dL (1.6-2.3); Non-African American GFR(CKD) 47 (>60 ml/min/1.73 sqM); Sodium 132 mmol/L (137-145)
[2022-09-23] MEDS: SUCRALFATE 1 GM TAB PO SCH ×4 (08:18→20:47)
[2022-09-23] MEDS: PANTOPRAZOLE 40 MG TABLET PO SCH (08:18)
[2022-09-23] MEDS: NYSTATIN 100,000 UNIT/ML SUSP 500,000 UNIT/5 ML CUP PO SCH (08:19)
[2022-09-23] MEDS ORDERED: Magnesium Replacement Protocol 1 EACH MISC MISCELLANE PRN (09:06)
[2022-09-23] MEDS: CHOLESTYRAMINE (WITH SUGAR) 4 GM PACKET PO SCH ×2 (10:14→17:15)
[2022-09-23 10:15] LABS: Prothrombin Time 11.3 sec (9.0-12.0)
[2022-09-23] MEDS ORDERED: LIDOCAINE 1% INJ 10MG/ML (30 ML VIAL-PF) SQ ONE (10:50)
--- NOTE | 2022-09-23 11:16 | IR ---
PICC LINE PLACEMENT: HISTORY: Infection requiring long-term antibiotic therapy PROCEDURE: Ultrasound and fluoroscopic guidance of PICC line placement. COMPLICATIONS: None ANESTHESIA: 1. 1% Lidocaine locally. FINDINGS/TECHNIQUE: The procedure was explained to the patient. The risks, complications, benefits and alternatives were discussed and any questions were answered. Informed consent was obtained. The patient was placed supine on the fluoroscopic table and prepped and draped in the usual sterile fash ion. Utilizing a 21 gauge needle and sonographic and fluoroscopic guidance, access in the left ceph alic vein was achieved and there is placement of a 0.018 guidewire. The vein is patent. A 4-F sheat h was placed over the guidewire. The guidewire and dilator were removed and a 4-F. PICC line was sally tiffany through the sheath with the tip at the level of the SVC. The sheath was removed, the catheter wa s flushed and sutured into position. The patient was stable throughout the procedure and remained st able upon discharge from the Department of Radiology. The vein puncture was patent under ultrasound. A chatman scale image was obtained to document patency of the vein punctured. All elements of the maximal barrier technique were utilized. FLUOROSCOPY TIME: 0.8 minutes and 1 images submitted IMPRESSION: Successful PICC line placement under ultrasound and fluoroscopic guidance.
[2022-09-23] MEDS: MAGNESIUM SULFATE-D5W PMX 1 GM in DEXTROSE/WATER 1 100ML.BAG IVPB SCH ×2 (11:22→13:14)
--- NOTE | 2022-09-23 15:55 | P.PN ---
Subjective Progress Note Date: 09/23/22 Principal diagnosis: Dehydration, acute kidney injury. Currently in treatment for Cervical cancer In follow-up today patient reports Improvement in nausea and indigestion. She f eels that she is eating and drinking good at this time. She does not like the taste of the medications treat the thrush in her mouth. She is getting more anxious to go home. She is able to ambulate in the room. Objective - Vital Signs Vital signs: Vital Signs Temp 98.3 F 09/23/22 11:25 Pulse 107 H 09/23/22 11:25 Resp 16 09/23/22 11:25 BP 97/66 09/23/22 11:25 Pulse Ox 97 09/23/22 11:25 FiO2 Intake & Output 09/22/22 09/23/22 09/23/22 18:59 06:59 18:59 Output Total 350 225 250 Balance -350 -225 -250 Output: Drainage 350 225 urostomy 350 225 Urine 250 Other: Voiding Method Diaper Diaper Diaper Incontinent Incontinent Incontinent # Voids 1 1 # Bowel Movements 1 1 1 - Constitutional General appearance: Present: cooperative, no acute distress, obese - EENT Eyes: Present: anicteric sclerae, EOMI ENT: Present: hearing grossly normal, thrush - Respiratory Respiratory: bilateral: CTA - Cardiovascular Rhythm: regular Heart sounds: normal: S1, S2 Abnormal Heart Sounds: Absent: systolic murmur, diastolic murmur, rub, S3 Gallop, S4 Gallop, click, other - Gastrointestinal General gastrointestinal: Present: normal bowel sounds, soft - Neurologic Neurologic: Present: CNII-XII intact - Musculoskeletal Musculoskeletal: Present: generalized weakness, strength equal bilaterally - Psychiatric Psychiatric: Present: A&O x's 3, appropriate affect, intact judgment & insight - Labs CBC & Chem 7: 09/22/22 05:05 09/23/22 06:49 Labs: Abnormal Lab Results - Last 24 Hours (Table) 09/23/22 Range/Units 06:49 Sodium 132 L (137-145) mmol/L Creatinine 1.17 H (0.52-1.04) mg/dL Calcium 6.9 L (8.4-10.2) mg/dL Magnesium 1.5 L (1.6-2.3) mg/dL Microbiology - Last 24 Hours (Table) 09/18/22 17:25 Blood Culture - Preliminary Blood No Growth after 96 hours 09/18/22 17:20 Blood Culture - Preliminary Blood No Growth after 96 hours 09/22/22 11:00 Urine Culture - Preliminary Urine,Ureter Assessment and Plan (1) Diarrhea Current Visit: Yes Status: Acute Priority: High Code(s): R19.7 - DIARRHEA, UNSPECIFIED SNOMED Code(s): 33467732 (2) Nausea and vomiting Current Visit: Yes Status: Acute Priority: High Code(s): R11.2 - NAUSEA WI TH VOMITING, UNSPECIFIED SNOMED Code(s): 77365420 (3) Thrush Current Visit: Yes Status: Acute Priority: High Code(s): B37.0 - CANDIDAL STOMATITIS SNOMED Code(s): 36766403 (4) Cervical adenocarcinoma Current Visit: No Status: Acute Priority: Medium Code(s): C53.9 - MALIGNANT NEOPLASM OF CERVIX UTERI, UNSPECIFIED SNOMED Code(s): 270665807 Plan: Patient is on medications for nausea-Olanzapine at at bedtime, Zofran as needed. Antidiarrheals initiated. Thrush persists. Aggressive oral care. Changed antifungal therapy to akhil versus liquid, patient states not tolerating the liquid very well Follow-up appointment adjusted to next week as patient is not improved enough as of today to resume therapy tomorrow. Next week she will be assessed. Primary Oncologist will determine if patient proceed with chemotherapy at that time or continue to hold. Patient verbalized understanding the plan. RN contacted us regarding bloody urine in the urostomy and some blood around the stoma. H&H was ordered, coags, fibrinogen ordered. attests: I have seen and examined pt, performed H&P, developed impression and plan of care. Discussed with dictator. Agree with documentation, dictated as a scribe.
[2022-09-23] MEDS: CLOTRIMAZOLE TROCHE 10 MG TROCHE MUCOUS MEM SCH ×3 (16:07→23:44)
--- NOTE | 2022-09-23 16:12 | P.PN ---
Subjective Progress Note Date: 09/23/22 Patient is a 69-year-old female with a known history of recently diagnosed with cervical cancer and is currently undergoing chemotherapy last dose 09/16/2022 presents to ER with complaints of nausea vomiting and decreased oral intake and generalized weakness and dizziness. Patient is also having diarrhea for the past 2 weeks. Denies any blood in the stool. Patient was seen by her oncologist and sent her to ER due to low blood pressure. On admission blood pressure was 80/55 pulse 119 and pulse ox 91% on room air. Patient has been afebrile. No cough or production. No chest pain or shortness of breath. Chest x-ray showed no acute cardiopulmonary process Laboratory data showed WBC 8.3 hemoglobin 11.6 and platelets 359 Sodium 129 potassium 4.9 chloride 93 bicarb is 24 BUN 27 creatinine 2.1 plan lactic acid 4.9 AST 45 ALT 29 alk phos 186 and albumin 2.8 Urinalysis showed turbid with 2+ protein and small blood large leukoesterase with elevated WBCs. 09/20/2022 Patient is awake alert and oriented. Complains of generalized weakness and also complains of vertigo-like symptoms. Still having nausea. No episodes of vomiting. Denied any hematemesis or melena. No fever no chills. No cough or sputum production. No chest pain or shortness of breath. Not able to tolerate oral diet. Laboratory data showed sodium 130 potassium 3.5 chloride 100 bicarb is 21 BUN 27 creatinine 1.89. Calcium 7.3 Patient is being current antibiotics in the form of ceftriaxone for possible UTI. Oncology is on board. Current medications reviewed. 09/21/2022 Patient seen and evaluated in follow-up this morning potassium found to be 2.9 and will replace per protocol. Patient also with some mild irritation will add nystatin swish and swallow with oncology and radiation oncology consulted. Morning labs are pending and patient is continued on gentle IV hydration. Patient also continues with antibiotics in the form of ceftriaxone for possible urinary tract infection. Patient to continue on gentle IV hydration in the form of normal saline at 75 ML per hour and will follow-up with repeat labs. Patient is afebrile denies chest pain or shortness of breath. Patient is tearful on exam 09/22/2022 Patient is seen this morning reporting pain in her IV site she is receiving IV potassium as her potassium was found to be 2.9 again and being replaced per protocol. Patient magnesium also critically low at 0.9 and being replaced recommend follow-up labs. Will increase IV fluids to assist with the burning pain of the potassium until infused and then decrease the rate back to 75 ML per hour. C. diff testing was negative and will add Imodium and Questran. Patient and family reporting her oral intake is improving slightly. Patient is weak reports has been up and walking the halls with physical therapy. Plan is for the patient to return home with family once stabilized and discharged. Oncology following as well. Will follow-up with repeat labs 09/23/2022 Patient Is seen in follow-up today reporting improvement in her appetite and having some nausea although no vomiting and patient reporting improvement in her diarrhea. Patient potassium and magnesium improved current potassium is 4.0, sodium is 132, creatinine improving at 1.17, magnesium found to be 1.5 and replacing per protocol. We will add magnesium oxide twice daily to her daily regimen. Patient being followed by oncology and is to receive a PICC line for outpatient chemotherapy treatment. Patient to have radiation oncology therapy today with possible discharge in 24 hours. Nursing staff notified of bleeding noted around the PICC line along with a large amount of blood noted in her urostomy. Stat CBC along with PT/INR and fibrinogen ordered and pending. Oncology made aware. Recommend to transfuse less than 7. Okay for radiation treatment today. Patient is afebrile denies chest pain or shortness of breath and extremely anxious and wanting to go home. Encouraged oral intake and will follow-up on labs. Review of systems: Constitutional: No reports of fatigue, fever, or chills Cardiovascular: No reports of chest pain or palpitations Respiratory: No reports of shortness of breath or cough GI: reports of intermittent nausea, no vomiting, decreased diarrhea : No reports of dysuria or retention Neurovascular: No reports of weakness or numbness All medications have been reviewed PHYSICAL EXAMINATION: Patient is lying in the bed comfortably, no acute distress, awake alert and oriented.. Lethargic and weak. HEENT: Normocephalic. Neck is supple. Pupils reactive. Nostrils clear. Oral cavity is moist. Neck reveals no JVD, carotid bruits, or thyromegaly. CHEST EXAMINATION: Trachea is central. Symmetrical expansion. Lung amanda clear to auscultation and percussion. CARDIAC: Normal S1, S2 with no gallops. No murmurs ABDOMEN: Soft. Bowel sounds present. Nontender. No organomegaly. No abdominal bruits. Extremities: reveal no edema. No clubbing or cyanosis Neurologically awake, alert, oriented x3 with well-coordinated movements. No focal deficits noted Skin: No rash or skin lesions. Psychiatric: Cooperative. Non-suicidal, Musculoskeletal: No joint swelling or deformity. Normal range of motion. Assessment: Intractable nausea and vomiting and diarrhea. Generalized weakness and decreased oral intake. Acute kidney injury likely prerenal, improving Oral candidiasis hypokalemia hypomagnesemia Hypovolemic hyponatremia Acute urinary tract infection, present on admission Cervical cancer with local metastasis with hydronephrosis and involvement of ureteric system status post left nephrostomy tube placement in August 2022. Patient is undergoing chemotherapy. GERD Hyperlipidemia history of smoking Plan: Patient continued on IV hydration and symptomatic management of nausea and vomiting and continue PPI. Carafate and imodium added and symptoms somewhat improved. Nystatin switch to clotrimazole as patient is not tolerating the taste of nystatin swish and swallow and will continue. Patient reports oral intake is improving and able to tolerate more. Potassium is improved and will follow up with repeat labs and replace per protocol. Magnesium is 1.5 today. Repeat am labs ordered. She did receive a PICC line today for outpatient chemotherapy to initiate possibly early next week. Patient and nursing staff noted some blood in the urostomy and also around the PICC line and patient was maintained on subcutaneous heparin 3 times daily and will hold and order stat CBC along with fibrinogen and coag studies. Oncology made aware. Will consult urology. She is scheduled to undergo radiation treatment this afternoon. Encouraged oral intake. oncology following and treatment is on hold currently. To follow up in office early next week with oncologist to discuss treatment. Patient has received adequate amount of ceftriaxone for urinary tract infection and urine culture showing apparent skin and genital ben otherwise negative will discontinue antibiotics. Due to multiple complex medical issues, prognosis is guarded. Possible discharge in 24 hours. The impression and plan of care has been dictated by Kalyn Sierra, Nurse Practitioner as directed. Dr. Angus MD I have performed a history and examination and MDM of this patient, discussed the same with the dictator, and agree with the dictator's assessment and plan as written ,documented as a scribe. Based on total visit time, I have performed more than 50% of the visit. Objective - Vital Signs Vital signs: Vital Signs Temp 98.3 F 09/23/22 11:25 Pulse 107 H 09/23/22 11:25 Resp 16 09/23/22 11:25 BP 97/66 09/23/22 11:25 Pulse Ox 97 09/23/22 11:25 FiO2 Intake & Output 09/22/22 09/23/22 09/23/22 18:59 06:59 18:59 Output Total 350 225 250 Balance -350 -225 -250 Output: Drainage 350 225 urostomy 350 225 Urine 250 Other: Voiding Method Diaper Diaper Diaper Incontinent Incontinent Incontinent # Voids 1 1 # Bowel Movements 1 1 1 - Labs CBC & Chem 7: 09/22/22 05:05 09/23/22 06:49 Labs: Abnormal Lab Results - Last 24 Hours (Table) 09/23/22 Range/Units 06:49 Sodium 132 L (137-145) mmol/L Creatinine 1.17 H (0.52-1.04) mg/dL Calcium 6.9 L (8.4-10.2) mg/dL Magnesium 1.5 L (1.6-2.3) mg/dL Microbiology - Last 24 Hours (Table) 09/22/22 11:00 Urine Culture - Final Urine,Ureter 09/18/22 17:25 Blood Culture - Preliminary Blood No Growth after 96 hours 09/18/22 17:20 Blood Culture - Preliminary Blood No Growth after 96 hours
[2022-09-23 16:49] LABS: Basophils % (A) 0 %; Eosinophils % (A) 1 %; HCT 29.3 % (34.0-46.0); HGB 9.4 gm/dL (11.4-16.0); Hypochromasia Slight; Lymphocytes # (A) 0.5 k/uL (1.0-4.8); Lymphocytes % (A) 7 %; MCV 100.1 fL (80.0-100.0); Mean Platelet Volume 8.7; Monocytes # (A) 0.3 k/uL (0-1.0); Monocytes % (A) 5 %; Neutrophils # (A) 5.5 k/uL (1.3-7.7); Neutrophils % (A) 85 %; Platelet Count 152 k/uL (150-450); RBC 2.92 m/uL (3.80-5.40); RDW 13.7 % (11.5-15.5); WBC 6.5 k/uL (3.8-10.6)
[2022-09-23 16:57] LABS: Partial Thromboplastin Time 25.1 sec (22.0-30.0)
[2022-09-23] MEDS: OLANZapine 2.5 MG TAB PO SCH (20:47)
[2022-09-23] MEDS: MAGNESIUM OXIDE 400 MG TAB PO SCH (20:47)
[2022-09-24] MEDS: SODIUM CHLORIDE 0.9% 1,000 ML IV SCH ×2 (06:10→09:16)
[2022-09-24] MEDS: SUCRALFATE 1 GM TAB PO SCH ×4 (06:16→21:10)
[2022-09-24] MEDS: CLOTRIMAZOLE TROCHE 10 MG TROCHE MUCOUS MEM SCH ×4 (06:16→21:17)
[2022-09-24] MEDS: PANTOPRAZOLE 40 MG TABLET PO SCH (06:16)
[2022-09-24 07:49] LABS: HCT 26.9 % (34.0-46.0); HGB 8.6 gm/dL (11.4-16.0); MCH 31.2 pg (25.0-35.0); MCHC 32.1 g/dL (31.0-37.0); MCV 97.1 fL (80.0-100.0); Mean Platelet Volume 8.6; Platelet Count 144 k/uL (150-450); RBC 2.77 m/uL (3.80-5.40); RDW 14.2 % (11.5-15.5); WBC 5.3 k/uL (3.8-10.6)
[2022-09-24 08:04] LABS: Eosinophils # (M) 0.05 k/uL (0-0.7); Lymphocytes # (M) 0.37 k/uL (1.0-4.8); Monocytes # (M) 0.58 k/uL (0-1.0); Neutrophils # (M) 4.29 k/uL (1.3-7.7); Neutrophils % (M) 81 %; Nucleated Red Blood Cells 0 /100 WBC (0-0); Total Cells Counted 100
[2022-09-24] MEDS: CHOLESTYRAMINE (WITH SUGAR) 4 GM PACKET PO SCH ×2 (09:20→18:49)
[2022-09-24] MEDS: MAGNESIUM OXIDE 400 MG TAB PO SCH ×2 (09:20→21:10)
[2022-09-24 12:01] LABS: African American GFR (CKD) 52.3 (60.0-200.0); Anion Gap 7.8 mmol/L (10.00-18.00); BUN/Creat Ratio 9.42 Ratio (12.00-20.00); Blood Urea Nitrogen 11.3 mg/dL (9.0-27.0); Calcium 7.5 mg/dL (8.7-10.3); Carbon Dioxide 27.2 mmol/L (20.0-27.5); Non-African American GFR(CKD) 45.1 (60.0-200.0); Potassium 3.4 mmol/L (3.5-5.5)
--- NOTE | 2022-09-24 12:45 | P.GSCN ---
History of Present Illness Consult date: 09/24/22 Reason for Consult: Bleeding in urostomy Requesting physician: Kalyn Sierra History of present illness: The patient is a 69-year-old female with a known history of recently diagnosed with cervical cancer and is currently undergoing chemotherapy last dose 09/16/2022. She presented to ER with complaints of nausea, vomiting,decreased oral intake, and generalized weakness and dizziness. Patient is also having diarrhea for the past 2 weeks. Denied any blood in the stool. Patient was seen by her oncologist and sent her to ER due to low blood pressure. She had an obstructed left ureter that was unable to be relieved by retrograde procedure done by . The cervical cancer made the left ureteral orifice un identifiable. On 08/06/22 she had a left nephrostomy tube placed. Patient seen for reports of bleeding around insertion site and in drainage bag. Review of Systems - Constitutional Reports fatigue, Denies chills, Denies fever - Cardiovascular Denies chest pain, Denies shortness of breath - Respiratory Denies cough - Gastrointestinal Reports nausea, Denies abdominal pain, Denies vomiting - Genitourinary Genitourinary: Reports hematuria, Reports urinary frequency, Denies dysuria, Denies flank pain, Denies pelvic pain, Denies urgency Past Medical History Past Medical History: Cancer, GERD/Reflux, Hyperlipidemia Additional Past Medical History / Comment(s): CERVICAL CANCER, NAUSEA, "STATES LEFT KIDNEY IS NOT WORKING " History of Any Multi-Drug Resistant Organisms: None Reported Past Surgical History: Cholecystectomy, Tubal Ligation Additional Past Surgical History / Comment(s): cataract surgery-BILATERAL WITH LENS IMPLANT. CERVICAL BIOPSY Past Anesthesia/Blood Transfusion Reactions: No Reported Reaction Past Psychological History: No Psychological Hx Reported Smoking Status: Former smoker Past Alcohol Use History: None Reported Past Drug Use History: None Reported - Past Family History Sister(s) Family Medical History: Cancer, Deep Vein Thrombosis (DVT) Additional Family Medical History / Comment(s): lung ca Mother Family Medical History: COPD, Osteoarthritis (OA) Medications and Allergies Home Medications Medication Instructions Recorded Confirmed Type HYDROcodone/APAP 5-325MG [[place] 1 tab PO Q4HR PRN 08/04/22 09/18/22 History 5-325] Omeprazole [PriLOSEC] 20 mg PO AC-BRKFST 08/04/22 09/18/22 History Ferrous Sulfate [Iron (65 MG 325 mg PO W/LUNCH #30 tab 08/19/22 09/18/22 Rx Elemental)] Ondansetron [Zofran] 4 mg PO Q4H PRN 09/18/22 09/18/22 History OLANZapine [ZyPREXA] 2.5 mg PO HS #90 tablet 09/23/22 Rx Cholestyramine (with Sugar) 4 gm PO BID@1000,1800 30 Days #60 09/24/22 Rx [Questran Packet] packet Clotrimazole 10 mg MUCOUS MEM BID PRN #30 akhil 09/24/22 Rx Loperamide [Imodium] 2 mg PO QID PRN cap 09/24/22 Rx Meclizine [Antivert] 12.5 mg PO BID PRN #30 tab 09/24/22 Rx Sucralfate [Carafate] 1 gm PO ACHS 30 Days #120 tab 09/24/22 Rx Diphenox-Atrop 2.5-0.025 mg 2 each PO Q6HR PRN #12 tab 09/25/22 Rx [Lomotil] Magnesium Oxide 800 mg PO BID 30 Days #120 tablet 09/25/22 Rx Metoprolol Tartrate [Lopressor] 12.5 mg PO BID 30 Days #60 tab 09/25/22 Rx Potassium Chloride ER [K-Dur 10] 10 meq PO BID 30 Days #60 tab 09/25/22 Rx Allergies Allergy/AdvReac Type Severity Reaction Status Date / Time aprepitant AdvReac passed out Verified 09/18/22 18:22 & seizure like behavior fosaprepitant AdvReac passed out Verified 09/18/22 18:22 [From Emend (fosaprepitant)] & seizure like behavior Surgical - Exam Vital Signs Temp Pulse Resp BP Pulse Ox 97.9 F 119 H 22 80/55 99 09/18/22 15:45 09/18/22 15:45 09/18/22 15:45 09/18/22 15:45 09/18/22 15:45 General: Well developed, well nourished. No acute distress. Chronically ill appearing HEENT: Head is atraumatic, normocephalic. Sclera are clear. Mucus membranes moist. Lungs: Respirations even and nonlabored. Abdomen/GI: Soft. No guarding, rigidity, or abdominal tenderness. : Left Nephrostomy tube in place draining, yellow/light pink urine Musculoskeletal/ Extremities: GUTIERREZ, No gross atrophy. + generalized weakness Skin: Warm and dry Neurologic: Awake, alert and oriented times 3. CN II-XII grossly intact. No focal deficits. Psychiatric: Appropriate mood and affect. Results - Labs 09/24/22 07:14 09/25/22 06:41 Abnormal Lab Results - Last 24 Hours (Table) 09/23/22 09/24/22 09/24/22 Range/Units 15:54 07:14 07:14 RBC 2.92 L 2.77 L (3.80-5.40) m/uL Hgb 9.4 L 8.6 L (11.4-16.0) gm/dL Hct 29.3 L 26.9 L (34.0-46.0) % MCV 100.1 H (80.0-100.0) fL Plt Count 144 L (150-450) k/uL Lymphocytes # 0.5 L (1.0-4.8) k/uL Lymphocytes # (Manual) 0.37 L (1.0-4.8) k/uL Potassium 3.4 L (3.5-5.5) mmol/L Anion Gap 7.80 L (10.00-18.00) mmol/L Est GFR (CKD-EPI)AfAm 52.3 L (60.0-200.0) Est GFR (CKD-EPI)NonAf 45.1 L (60.0-200.0) BUN/Creatinine Ratio 9.42 L (12.00-20.00) Ratio Calcium 7.5 L (8.7-10.3) mg/dL Microbiology - Last 24 Hours (Table) 09/18/22 17:25 Blood Culture - Preliminary Blood No Growth after 120 hours 09/18/22 17:20 Blood Culture - Preliminary Blood No Growth after 120 hours 09/21/22 15:41 Stool Culture - Preliminary Stool 09/22/22 11:00 Urine Culture - Final Urine,Ureter Diabetes panel 09/24/22 Range/Units 07:14 Sodium 135 (135-145) mmol/L Potassium 3.4 L (3.5-5.5) mmol/L Chloride 100 (96-109) mmol/L Carbon Dioxide 27.2 (20.0-27.5) mmol/L BUN 11.3 (9.0-27.0) mg/dL Creatinine 1.2 (0.6-1.5) mg/dL Glucose 98 (70-110) mg/dL Calcium 7.5 L (8.7-10.3) mg/dL Calcium panel 09/24/22 Range/Units 07:14 Calcium 7.5 L (8.7-10.3) mg/dL Pituitary panel 09/24/22 Range/Units 07:14 Sodium 135 (135-145) mmol/L Potassium 3.4 L (3.5-5.5) mmol/L Chloride 100 (96-109) mmol/L Carbon Dioxide 27.2 (20.0-27.5) mmol/L BUN 11.3 (9.0-27.0) mg/dL Creatinine 1.2 (0.6-1.5) mg/dL Glucose 98 (70-110) mg/dL Calcium 7.5 L (8.7-10.3) mg/dL Adrenal panel 09/24/22 Range/Units 07:14 Sodium 135 (135-145) mmol/L Potassium 3.4 L (3.5-5.5) mmol/L Chloride 100 (96-109) mmol/L Carbon Dioxide 27.2 (20.0-27.5) mmol/L BUN 11.3 (9.0-27.0) mg/dL Creatinine 1.2 (0.6-1.5) mg/dL Glucose 98 (70-110) mg/dL Calcium 7.5 L (8.7-10.3) mg/dL Assessment and Plan Assessment: The patient reports some blood in her nephrostomy tube drainage bag yesterday. She denies any hematuria when she voids. Today her nephrostomy drainage bag has light pink/yellow urine. Nephrostomy tube insertion site soft, no hematoma. Dressing clean and dry. No abdominal pain, flank pain, or dysuria. Hgb continues to trend down and is 8.6 today, it was 11.6 upon admission. Platelets 144, PT 11.3, INR 1.0, APTT 25.1, Fibrinogen 491. (1) Nephrostomy tube bleed Current Visit: Yes Status: Acute Code(s): T83.83XA - HEMORRHAGE DUE TO GENITOURINARY PROSTH DEV/GRFT, INIT SNOMED Code(s): 42189227 Plan: - Monitor H&H, heme/onc following - Monitor for further bleeding from Nephrostomy tube - some blood is normal to see in the urine due to irritation from the tube inside the kidney - Flush nephrostomy tube as needed - Continue current pain regimen -Discussed we'll need nephrostomy tube exchange in 6-8 weeks Impression and plan of care have been directed as dictated by the signing physician. Tracy Donaldson nurse practitioner acting as scribe for signing physician. Thank you for this consultation Tracy Donaldson [facility] Palliative Care/Urology Spectralink [email or web address] Email: [email or web address] I personally performed and participated in the history, physical, the decision making, I agree with the assessment and plan of MEDICAL BILLING SUPERVISOR Time with Patient: Less than 30
[2022-09-24] MEDS: ONDANSETRON 4 MG/2 ML VIAL IVP PRN ×2 (12:49→21:11)
[2022-09-24] MEDS: POTASSIUM CHLORIDE ER 20 MEQ TAB.ER PO SCH ×2 (12:49→14:07)
[2022-09-24 13:10] LABS: Magnesium 1.7 mg/dL (1.5-2.4)
[2022-09-24] MEDS ORDERED: DIPHENOX-ATROP 2.5-0.025 MG 1 EACH TAB PO PRN (18:44)
--- NOTE | 2022-09-24 18:51 | P.PN ---
Subjective Progress Note Date: 09/24/22 Principal diagnosis: Dehydration, acute kidney injury. Currently in treatment for Cervical cancer In follow-up today patient Feels that she is doing pretty good. She is still gar ving some loose stool, nausea and indigestion or better. She is tolerating oral intake. Thrush in her mouth is significantly improved. She had blood in her urostomy bag yesterday, there is a very slight tinge of pink today. Her hemoglobin remained stable. Objective - Vital Signs Vital signs: Vital Signs Temp 97.5 F L 09/24/22 12:12 Pulse 121 H 09/24/22 12:12 Resp 16 09/24/22 12:12 BP 109/66 09/24/22 12:12 Pulse Ox 98 09/24/22 12:12 FiO2 Intake & Output 09/23/22 09/24/22 09/24/22 18:59 06:59 18:59 Intake Total 590 Output Total 400 125 250 Balance -400 465 -250 Intake: Oral 590 Output: Drainage 150 250 urostomy 150 250 Urine 250 125 Other: Voiding Method Diaper Diaper Diaper Incontinent Incontinent Incontinent # Voids 1 # Bowel Movements 1 - Constitutional General appearance: Present: average body habitus, cooperative, no acute distress - EENT Eyes: Present: anicteric sclerae, EOMI ENT: Present: hearing grossly normal, normal oropharynx - Respiratory Respiratory: bilateral: CTA - Cardiovascular Rhythm: regular Heart sounds: normal: S1, S2 Abnormal Heart Sounds: Absent: systolic murmur, diastolic murmur, rub, S3 Gallop, S4 Gallop, click, other - Gastrointestinal General gastrointestinal: Present: normal bowel sounds, soft. Absent: absent bowel sounds, decreased bowel sounds, distended, hepatomegaly, hyperactive bowel sounds, organomegaly, rigid, scaphoid, splenomegaly, tenderness, umbilical hernia, ventral hernia - Genitourinary Genitourinary Comment(s): Slight pink tinge to the urine in the urostomy collection device - Neurologic Neurologic: Present: CNII-XII intact - Musculoskeletal Musculoskeletal: Present: strength equal bilaterally - Psychiatric Psychiatric: Present: A&O x's 3, appropriate affect, intact judgment & insight - Labs CBC & Chem 7: 09/24/22 07:14 09/24/22 17:49 Labs: Abnormal Lab Results - Last 24 Hours (Table) 09/24/22 09/24/22 Range/Units 07:14 07:14 RBC 2.77 L (3.80-5.40) m/uL Hgb 8.6 L (11.4-16.0) gm/dL Hct 26.9 L (34.0-46.0) % Plt Count 144 L (150-450) k/uL Lymphocytes # (Manual) 0.37 L (1.0-4.8) k/uL Potassium 3.4 L (3.5-5.5) mmol/L Anion Gap 7.80 L (10.00-18.00) mmol/L Est GFR (CKD-EPI)AfAm 52.3 L (60.0-200.0) Est GFR (CKD-EPI)NonAf 45.1 L (60.0-200.0) BUN/Creatinine Ratio 9.42 L (12.00-20.00) Ratio Calcium 7.5 L (8.7-10.3) mg/dL Microbiology - Last 24 Hours (Table) 09/21/22 15:41 Stool Culture - Final Stool 09/18/22 17:25 Blood Culture - Preliminary Blood No Growth after 120 hours 09/18/22 17:20 Blood Culture - Preliminary Blood No Growth after 120 hours Assessment and Plan (1) Diarrhea Current Visit: Yes Status: Acute Priority: High Code(s): R19.7 - DIARRHEA, UNSPECIFIED SNOMED Code(s): 86776667 (2) Nausea and vomiting Current Visit: Yes Status: Acute Priority: High Code(s): R11.2 - NAUSEA WITH VOMITING, UNSPECIFIED SNOMED Code(s): 71705921 (3) Thrush Current Visit: Yes Status: Acute Priority: High Code(s): B37.0 - CANDIDAL STOMATITIS SNOMED Code(s): 86775936 (4) Cervical adenocarcinoma Current Visit: No Status: Acute Priority: Medium Code(s): C53.9 - MALIGNANT NEOPLASM OF CERVIX UTERI, UNSPECIFIED SNOMED Code(s): 641776997 Plan: Patient is on medications for nausea-Olanzapine at at bedtime, Zofran as needed. Nausea improved, better controlled. Antidiarrheals initiated. She is on Imodium. Added Lomotil and discontinue the Questran as patient states it is making her sick to her stomach. Thrush Is gone! Continue aggressive oral care, Clotrimazole. Follow-up appointment adjusted to next week. Next week she will be assessed. Kidney function is better, she is not quite at her baseline. Primary Oncologist will determine if patient proceed with chemotherapy at that time or continue to hold. Patient verbalized understanding the plan.
--- NOTE | 2022-09-24 18:58 | P.PN ---
Subjective Progress Note Date: 09/24/22 Patient is a 69-year-old female with a known history of recently diagnosed with cervical cancer and is currently undergoing chemotherapy last dose 09/16/2022 presents to ER with complaints of nausea vomiting and decreased oral intake and generalized weakness and dizziness. Patient is also having diarrhea for the past 2 weeks. Denies any blood in the stool. Patient was seen by her oncologist and sent her to ER due to low blood pressure. On admission blood pressure was 80/55 pulse 119 and pulse ox 91% on room air. Patient has been afebrile. No cough or production. No chest pain or shortness of breath. Chest x-ray showed no acute cardiopulmonary process Laboratory data showed WBC 8.3 hemoglobin 11.6 and platelets 359 Sodium 129 potassium 4.9 chloride 93 bicarb is 24 BUN 27 creatinine 2.1 plan lactic acid 4.9 AST 45 ALT 29 alk phos 186 and albumin 2.8 Urinalysis showed turbid with 2+ protein and small blood large leukoesterase with elevated WBCs. 09/20/2022 Patient is awake alert and oriented. Complains of generalized weakness and also complains of vertigo-like symptoms. Still having nausea. No episodes of vomiting. Denied any hematemesis or melena. No fever no chills. No cough or sputum production. No chest pain or shortness of breath. Not able to tolerate oral diet. Laboratory data showed sodium 130 potassium 3.5 chloride 100 bicarb is 21 BUN 27 creatinine 1.89. Calcium 7.3 Patient is being current antibiotics in the form of ceftriaxone for possible UTI. Oncology is on board. Current medications reviewed. 09/21/2022 Patient seen and evaluated in follow-up this morning potassium found to be 2.9 and will replace per protocol. Patient also with some mild irritation will add nystatin swish and swallow with oncology and radiation oncology consulted. Morning labs are pending and patient is continued on gentle IV hydration. Patient also continues with antibiotics in the form of ceftriaxone for possible urinary tract infection. Patient to continue on gentle IV hydration in the form of normal saline at 75 ML per hour and will follow-up with repeat labs. Patient is afebrile denies chest pain or shortness of breath. Patient is tearful on exam 09/22/2022 Patient is seen this morning reporting pain in her IV site she is receiving IV potassium as her potassium was found to be 2.9 again and being replaced per protocol. Patient magnesium also critically low at 0.9 and being replaced recommend follow-up labs. Will increase IV fluids to assist with the burning pain of the potassium until infused and then decrease the rate back to 75 ML per hour. C. diff testing was negative and will add Imodium and Questran. Patient and family reporting her oral intake is improving slightly. Patient is weak reports has been up and walking the halls with physical therapy. Plan is for the patient to return home with family once stabilized and discharged. Oncology following as well. Will follow-up with repeat labs 09/23/2022 Patient Is seen in follow-up today reporting improvement in her appetite and having some nausea although no vomiting and patient reporting improvement in her diarrhea. Patient potassium and magnesium improved current potassium is 4.0, sodium is 132, creatinine improving at 1.17, magnesium found to be 1.5 and replacing per protocol. We will add magnesium oxide twice daily to her daily regimen. Patient being followed by oncology and is to receive a PICC line for outpatient chemotherapy treatment. Patient to have radiation oncology therapy today with possible discharge in 24 hours. Nursing staff notified of bleeding noted around the PICC line along with a large amount of blood noted in her urostomy. Stat CBC along with PT/INR and fibrinogen ordered and pending. Oncology made aware. Recommend to transfuse less than 7. Okay for radiation treatment today. Patient is afebrile denies chest pain or shortness of breath and extremely anxious and wanting to go home. Encouraged oral intake and will follow-up on labs. 09/24/2022 Patient is seen today and reports to feeling nauseated. Patient feels it was the questran and all morning medications on an empty stomach. Patient oral intake is improving. Patient potassium is slightly low and will be replaced. Magnesium is 1.7. Continue with oral supplements. Oncology following and planning on following up with her early next week. Patient really wants to go home. Patient is afebrile and denies chest pain or shortness of breath. Patient hemoglobin is stable and no further bleeding noted. Possibly secondary to heparin injections. Urology evaluated the patient. No plans for intervention. Review of systems: Constitutional: No reports of fatigue, fever, or chills Cardiovascular: No reports of chest pain or palpitations Respiratory: No reports of shortness of breath or cough GI: reports of intermittent nausea, no vomiting, decreased diarrhea : No reports of dysuria or retention Neurovascular: No reports of weakness or numbness All medications have been reviewed PHYSICAL EXAMINATION: Patient is lying in the bed comfortably, no acute distress, awake alert and oriented.. HEENT: Normocephalic. Neck is supple. Pupils reactive. Nostrils clear. Oral cav ity is moist. Neck reveals no JVD, carotid bruits, or thyromegaly. CHEST EXAMINATION: Trachea is central. Symmetrical expansion. Lung amanda clear to auscultation and percussion. CARDIAC: Normal S1, S2 with no gallops. No murmurs ABDOMEN: Soft. Bowel sounds present. tender of the left lower quadrant. No organomegaly. No abdominal bruits. Extremities: reveal no edema. No clubbing or cyanosis Neurologically awake, alert, oriented x3 with well-coordinated movements. No focal deficits noted Skin: No rash or skin lesions. Psychiatric: Cooperative. Non-suicidal Musculoskeletal: No joint swelling or deformity. Normal range of motion. Assessment: Intractable nausea and vomiting and diarrhea. Generalized weakness and decreased oral intake. Acute kidney injury likely prerenal, improving Oral candidiasis hypokalemia hypomagnesemia Hypovolemic hyponatremia Acute urinary tract infection, present on admission Cervical cancer with local metastasis with hydronephrosis and involvement of ureteric system status post left nephrostomy tube placement in August 2022. Patient is undergoing chemotherapy. GERD Hyperlipidemia history of smoking Plan: Patient continued on IV hydration and symptomatic management of nausea and vomiting and continue PPI. Carafate and imodium added and symptoms somewhat improved. Nystatin switch to clotrimazole as patient is not tolerating the taste of nystatin swish and swallow and will continue. Patient reports oral intake is improving and able to tolerate more but more nauseated today. Thinks it is possibly the questran and has been discontinued. Potassium to be replaced per protocol. Repeat am labs ordered. POst PICC line placement for outpatient chemotherapy to initiate possibly early next week. No further bleeding noted around the PICC. Encouraged oral intake with small frequent meals. oncology following and treatment is on hold currently. To follow up in office early next week with oncologist to discuss treatment. Due to multiple complex medical issues, prognosis is guarded. Possible discharge in 24 hours if nausea and electrolytes are improved. The impression and plan of care has been dictated by Kalyn Sierra, Nurse Practitioner as directed. Dr. Angus MD I have performed a history and examination and MDM of this patient, discussed the same with the dictator, and agree with the dictator's assessment and plan as written ,documented as a scribe. Based on total visit time, I have performed more than 50% of the visit. Objective - Vital Signs Vital signs: Vital Signs Temp 99.0 F 09/24/22 05:00 Pulse 102 H 09/24/22 05:00 Resp 16 09/24/22 05:00 BP 111/69 09/24/22 05:00 Pulse Ox 97 09/24/22 05:00 FiO2 Intake & Output 09/23/22 09/24/22 09/24/22 18:59 06:59 18:59 Intake Total 590 Output Total 400 125 Balance -400 465 Intake: Oral 590 Output: Drainage 150 urostomy 150 Urine 250 125 Other: Voiding Method Diaper Diaper Diaper Incontinent Incontinent Incontinent # Voids 1 # Bowel Movements 1 - Labs CBC & Chem 7: 09/24/22 07:14 09/24/22 17:49 Labs: Abnormal Lab Results - Last 24 Hours (Table) 09/23/22 09/24/22 Range/Units 15:54 07:14 RBC 2.92 L 2.77 L (3.80-5.40) m/uL Hgb 9.4 L 8.6 L (11.4-16.0) gm/dL Hct 29.3 L 26.9 L (34.0-46.0) % MCV 100.1 H (80.0-100.0) fL Plt Count 144 L (150-450) k/uL Lymphocytes # 0.5 L (1.0-4.8) k/uL Lymphocytes # (Manual) 0.37 L (1.0-4.8) k/uL Microbiology - Last 24 Hours (Table) 09/18/22 17:25 Blood Culture - Preliminary Blood No Growth after 120 hours 09/18/22 17:20 Blood Culture - Preliminary Blood No Growth after 120 hours 09/21/22 15:41 Stool Culture - Preliminary Stool 09/22/22 11:00 Urine Culture - Final Urine,Ureter
[2022-09-24] MEDS: METOPROLOL TARTRATE 12.5 MG TAB PO SCH (21:10)
[2022-09-24] MEDS: OLANZapine 2.5 MG TAB PO SCH (21:10)
[2022-09-25] MEDS: SODIUM CHLORIDE 0.9% 1,000 ML IV SCH ×2 (00:04→11:38)
[2022-09-25] MEDS: CLOTRIMAZOLE TROCHE 10 MG TROCHE MUCOUS MEM SCH ×5 (00:04→16:46)
[2022-09-25 05:18] VITALS: RESP 16
[2022-09-25] MEDS: MAGNESIUM OXIDE 400 MG TAB PO SCH (09:55)
[2022-09-25] MEDS: PANTOPRAZOLE 40 MG TABLET PO SCH (09:55)
[2022-09-25] MEDS: METOPROLOL TARTRATE 12.5 MG TAB PO SCH (09:55)
[2022-09-25] MEDS: SUCRALFATE 1 GM TAB PO SCH ×2 (09:55→12:00)
[2022-09-25 11:00] LABS: Magnesium 1.3 mg/dL (1.5-2.4); Potassium 3.4 mmol/L (3.5-5.5)
[2022-09-25] MEDS ORDERED: POTASSIUM CHLORIDE ER 10 MEQ TAB.ER.PRT PO STA (12:06)
[2022-09-25] MEDS ORDERED: Magnesium Replacement Protocol 1 EACH MISC MISCELLANE PRN (12:07)
[2022-09-25] MEDS: MAGNESIUM SULFATE-D5W PMX 1 GM in DEXTROSE/WATER 1 100ML.BAG IVPB SCH ×3 (12:25→16:47)
[2022-09-25 18:21] VITALS: BP 126/81; PULSE 114; TEMP 98.1
[2022-09-25] MEDS ORDERED: MAGNESIUM OXIDE 400 MG TAB PO SCH (21:00)
--- NOTE | 2022-09-26 09:46 | P.DS ---
Providers Date of admission: 09/18/22 19:55 Expected date of discharge: 09/25/22 Attending physician: Julia Yarbrough Consults: 09/18/22 19:54 Consult Physician Routine Consulting Provider: Zuhair Sutton Consult Reason/Comments: Patient known to you Do you want consulting provider notified?: Yes 09/23/22 16:08 Consult Physician Urgent Consulting Provider: Óscar Quevedo Consult Reason/Comments: bleeding in urostomy Do you want consulting provider notified?: Yes Primary care physician: Abeba Armando [place] [facility] Course: Final diagnosis Intractable nausea and vomiting and diarrhea. Generalized weakness and decreased oral intake. Acute kidney injury likely prerenal, improving Oral candidiasis hypokalemia hypomagnesemia Hypovolemic hyponatremia Acute urinary tract infection, present on admission Cervical cancer with local metastasis with hydronephrosis and involvement of ureteric system status post left nephrostomy tube placement in August 2022. Patient is undergoing chemotherapy. GERD Hyperlipidemia history of smoking Discharge disposition Patient is being discharged in a stable condition with guarded prognosis to home with homecare. Patient will follow-up with Dr. Armando in the outpatient setting upon discharge. Patient is to follow up with oncology as scheduled next week. Total time taken is greater than 35 minutes. Hospital course This is a 71-year-old female who was recently admitted with decreased oral intake with N/V/D intractable and being closely monitored. ONcology and radiation onc following and underwent radiation treatments during hospitalization. Possible UTI on admission and was treated with ceftriaxone. Cultures came back negative. Will not require abx on discharge. Received adequate IV abx during hospitalization. Chemo on hold until next week at follow up to determine if N/V/D is improved to be strong enough to resume chemo treatments. Recommend repeat labs to monitor potassium and magnesium levels as they were consistently low and being replaced. Patient also received a PICC line for chemo. Encouraged anti-emetics as well as antidiarrheals for symptomatic management. Oncology onboard and aware of electrolyte abnormalities and will follow up with labs at appointment early next week. Patient reports to feeling somewhat improved and would like to go home after radiation today. Cleared by oncology for discharge today. Currently no reports of chest pain, shortness of breath, or palpitations. Patient is afebrile. No reports of nausea or vomiting and patient is tolerating diet. Encouraged small frequent meals. Patient will be discharged home today. Guarded prognosis. Physical exam: Gen: This is a 71 year old female who is awake, alert, and oriented x3. Well developed well nourished. ill appearing HEENT: Head is atraumatic, normocephalic. Pupils equal, round. Sclerae is anicteric. NECK: Supple. No JVD. No lymphadenopathy. No thyromegaly. LUNGS: Clear to auscultation. No wheezes or rhonchi. No intercostal retractions. HEART: Regular rate and rhythm. No murmur. ABDOMEN: Soft. mildly tender on palpation. Bowel sounds are present. No masses. EXTREMITIES: No pedal edema. No calf tenderness. NEUROLOGICAL: Patient is awake, alert and oriented x3. Cranial nerves 2 through 12 are grossly intact. Please refer to medication reconciliation sheet for a list of medications. The impression and plan of care has been dictated by Kalyn Sierra, Nurse Practitioner as directed. Dr. Angus MD I have performed a history and examination and MDM of this patient, discussed the same with the dictator, and agree with the dictator's assessment and plan as written ,documented as a scribe. Based on total visit time, I have performed more than 50% of the visit. Patient Condition at Discharge: Fair Plan - Discharge Summary Discharge Rx Participant: No New Discharge Prescriptions: New Meclizine [Antivert] 12.5 mg PO BID PRN #30 tab PRN Reason: Vertigo Loperamide [Imodium] 2 mg PO QID PRN cap PRN Reason: Diarrhea Clotrimazole 10 mg MUCOUS MEM BID PRN #30 akhil PRN Reason: infection Potassium Chloride ER [K-Dur 10] 10 meq PO BID 30 Days #60 tab Metoprolol Tartrate [Lopressor] 12.5 mg PO BID 30 Days #60 tab Magnesium Oxide 800 mg PO BID 30 Days #120 tablet OLANZapine [ZyPREXA] 2.5 mg PO HS #90 tablet Sucralfate [Carafate] 1 gm PO ACHS 30 Days #120 tab Cholestyramine (with Sugar) [Questran Packet] 4 gm PO BID@1000,1800 30 Days #60 packet Diphenox-Atrop 2.5-0.025 mg [Lomotil] 2 each PO Q6HR PRN #12 tab PRN Reason: Diarrhea Continue Omeprazole [PriLOSEC] 20 mg PO AC-BRKFST Ondansetron [Zofran] 4 mg PO Q4H PRN PRN Reason: Nausea HYDROcodone/APAP 5-325MG [Gleason 5-325] 1 tab PO Q4HR PRN PRN Reason: Pain Ferrous Sulfate [Iron (65 MG Elemental)] 325 mg PO W/LUNCH #30 tab Discharge Medication List HYDROcodone/APAP 5-325MG [Gleason 5-325] 1 tab PO Q4HR PRN 08/04/22 [History] Omeprazole [PriLOSEC] 20 mg PO AC-BRKFST 08/04/22 [History] Ferrous Sulfate [Iron (65 MG Elemental)] 325 mg PO W/LUNCH #30 tab 08/19/22 [Rx] Ondansetron [Zofran] 4 mg PO Q4H PRN 09/18/22 [History] OLANZapine [ZyPREXA] 2.5 mg PO HS #90 tablet 09/23/22 [Rx] Cholestyramine (with Sugar) [Questran Packet] 4 gm PO BID@1000,1800 30 Days #60 packet 09/24/22 [Rx] Clotrimazole 10 mg MUCOUS MEM BID PRN #30 akhil 09/24/22 [Rx] Loperamide [Imodium] 2 mg PO QID PRN cap 09/24/22 [Rx] Meclizine [Antivert] 12.5 mg PO BID PRN #30 tab 09/24/22 [Rx] Sucralfate [Carafate] 1 gm PO ACHS 30 Days #120 tab 09/24/22 [Rx] Diphenox-Atrop 2.5-0.025 mg [Lomotil] 2 each PO Q6HR PRN #12 tab 09/25/22 [Rx] Magnesium Oxide 800 mg PO BID 30 Days #120 tablet 09/25/22 [Rx] Metoprolol Tartrate [Lopressor] 12.5 mg PO BID 30 Days #60 tab 09/25/22 [Rx] Potassium Chloride ER [K-Dur 10] 10 meq PO BID 30 Days #60 tab 09/25/22 [Rx] Follow up Appointment(s)/Referral(s): Zuhair Sutton MD [STAFF PHYSICIAN] - 09/30/22 10:00 am (this is a chemotherapy appointment but, patient will be assessed prior to resuming any therapy) Abeba Armando MD [Primary Care Provider] - 1-2 days (Please make follow up appointment.) [facility] Visiting Nurse, [NON-STAFF] - 1 Week Ambulatory/Diagnostic Orders: Basic Metabolic Panel [LAB.AMB] Time Frame: 3 Days, Location: None Selected Patient Instructions/Handouts: Acute Kidney Injury (DC), Nephrostomy Tube Care (DC) Activity/Diet/Wound Care/Special Instructions: Activity Limited until follow-up Follow-up with oncology as scheduled Continue taking medications as prescribed Follow-up with primary care provider on discharge Recommend repeat labs in the next few days Nephrostomy tube dressing change by visiting nurse once a week Discharge Disposition: HOME WITH HOME HEALTH SERVICES
== END 2022-09-25 19:03 | disposition home health service (06) | DRG 641 ==
LOC: EC 15:34 → 5NMEDONC 19:55
PROVIDERS: ADMIT Hospitalist; ATTEND Hospitalist
PROC: DU0 Radiation Therapy, Female Reproductive System, Beam Radiation (ICD-10-PCS; 2022-09-23)
PROC: 02HV33Z Insertion of Infusion Device into Superior Vena Cava, Percutaneous Approach (ICD-10-PCS; principal; 2022-09-23 12:00)
DX: E86.0 Dehydration (principal); N17.9 Acute kidney failure, unspecified; B37.0 Candidal stomatitis; T83.598A Infection and inflammatory reaction due to other prosthetic device, implant and graft in urinary system, initial encounter; C79.10 Secondary malignant neoplasm of unspecified urinary organs; T83.83XA Hemorrhage due to genitourinary prosthetic devices, implants and grafts, initial encounter; N13.6 Pyonephrosis; E87.1 Hypo-osmolality and hyponatremia; D63.8 Anemia in other chronic diseases classified elsewhere; I10 Essential (primary) hypertension; R63.4 Abnormal weight loss; I95.9 Hypotension, unspecified; C53.0 Malignant neoplasm of endocervix; E78.5 Hyperlipidemia, unspecified; E86.1 Hypovolemia; E87.6 Hypokalemia; E83.42 Hypomagnesemia; K21.9 Gastro-esophageal reflux disease without esophagitis; K30 Functional dyspepsia; Y73.1 Therapeutic (nonsurgical) and rehabilitative gastroenterology and urology devices associated with adverse incidents; Z68.25 Body mass index [BMI] 25.0-25.9, adult; Z28.310 Unvaccinated for COVID-19; Z87.891 Personal history of nicotine dependence; Z93.6 Other artificial openings of urinary tract status; Z88.8 Allergy status to other drugs, medicaments and biological substances; Z87.440 Personal history of urinary (tract) infections
CPT/HCPCS: 36415; 36573; 71045; 77386; 80048; 80053; 81001; 83605; 83735; 84132; 84484; 85025; 85384; 85610; 85730; 87040; 87045; 87046; 87086; 87324; 87635; 93005; 94760; 96365; 96366; 96375; 99285